=== PATIENT | female | born 1980 | race African-American/Black ===

== ENCOUNTER 2020-10-30 06:16 | Emergency (ER) | payer OTHER, SELFPAY ==
[2020-10-30 06:22] VITALS: BP 135/98; PULSE 100; RESP 16; TEMP 36.3; O2SAT 100
--- NOTE | 2020-10-30 06:25 | ED_ITS ---
HPI - Skin/Abscess/Foreign Bdy General Chief complaint: Skin/Abscess/Foreign Body Stated complaint: Boil on ABD painful Time Seen by Provider: 10/30/20 06:18 History of Present Illness HPI narrative: Patient is a 40-year-old female who presents ER with an abscess to her right suprapubic region. Developed 2 days ago, had some mild drainage yesterday, and increase in pain in size today. No fevers or chills or sweats. Tender to touch and with walking. Has not had similar issues previously. Related Data Allergies Allergy/AdvReac Type Severity Reaction Status Date / Time Penicillins Allergy Mild Rash Verified 02/17/18 15:41 Review of Systems Constitutional: Constitutional: Denies chills and Denies fever(s) Integumentary/Breasts: Comments: Suprapubic abscess with drainage and tenderness. PMFSH Past Medical History Medical History (Updated 10/30/20 @ 06:30 by Dominick Hemphill MD) Healthy female adult Surgical History Surgical History (Updated 10/30/20 @ 06:26 by Dominick Hemphill MD) No history of previous surgery Social History Social History (Updated 10/30/20 @ 06:26 by Dominick Hemphill MD) Smoking status: Never smoker Exam Narrative: Exam Narrative: GENERAL: Well-appearing, well-nourished, and in no acute distress. HEAD: Normocephalic, atraumatic. SKIN: Warm, dry. Abscess right suprapubic region that is tender and ballotable. No surrounding cellulitis. NEURO: Alert and oriented x3. PSYCH: Normal mood and affect. Course Course Emergency Course: Abscess drained and packed. Discharge home with few days of antibiotics. Vital Signs Vital signs: Vital Signs Temperature 97.3 F L 10/30/20 06:22 Pulse Rate 100 10/30/20 06:22 Respiratory Rate 16 10/30/20 06:22 Blood Pressure 135/98 H 10/30/20 06:22 Pulse Oximetry 100 10/30/20 06:22 Temperature 97.3 F L 10/30/20 06:22 Pulse Rate 100 10/30/20 06:22 Respiratory Rate 16 10/30/20 06:22 Blood Pressure 135/98 H 10/30/20 06:22 Pulse Oximetry 100 10/30/20 06:22 Procedures Abscess I/D abdomen: Date of Incision: 10/30/20 Time of Incision: 06:35 Local Anesthetic: lidocaine 1% and with epi Amount of anesthesia used (mL): 5 Technique: incised with #11 blade Irrigation: Yes Packing used?: iodoform I&D Results: Pus Discharge Plan Discharge Clinical Impression: Abscess of skin or subcutaneous tissue Patient Disposition: Home, Self-Care Condition: Stable Instructions: Antibiotic Form, Abscess (ED) Additional Instructions: Return to the ER if you have fever over 100.4 ?F, you have increased pain, you h ave worsening drainage. Remove your packing in 2 days. Prescriptions: New sulfamethoxazole-trimethoprim [Bactrim DS] 800-160 mg tablet 1 tablet PO Q12H Qty: 10 RF: 0 Follow-up/Referrals: PHYSICIAN,BEEF CATTLE SPECIALIST [Primary Care Provider] -
[2020-10-30 06:53] VITALS: BP 135/86; PULSE 95; RESP 16; TEMP 36.4; O2SAT 100
== END 2020-10-30 06:54 | disposition home or self-care (01) ==
LOC: ANHED 06:53
PROVIDERS: Emergency Provider Emergency Medicine; Referring Provider Internal Medicine
DX: L02.219 Cutaneous abscess of trunk, unspecified (principal)
CPT/HCPCS: 10061; 99283

== ENCOUNTER 2020-11-17 01:41 | Emergency (ER) | payer OTHER, SELFPAY ==
[2020-11-17 01:43] VITALS: BP 123/88; PULSE 88; RESP 16; TEMP 35.5; O2SAT 100
--- NOTE | 2020-11-17 01:59 | ED.GENADULT ---
HPI - General Adult General Chief complaint: Headache Stated complaint: migraine Time Seen by Provider: 11/17/20 01:50 History of Present Illness HPI narrative: Patient is a 40-year-old female who presents the emergency department chief complaint of headache. Patient reports that she has history of migraines and has taken her Imitrex without relief. The patient states that this is not the worst headache of her life states this is her typical migraine reports to photophobia and nausea. Patient reports that the symptoms are not improved by anything. Related Data Allergies Allergy/AdvReac Type Severity Reaction Status Date / Time Penicillins Allergy Mild Rash Verified 02/17/18 15:41 Review of Systems Review of Systems: Narrative: A 10 system review of systems was completed on the patient and is negative except for what is stated in the HPI. Nursing and ancillary documentation was reviewed. [facility] Past Medical History Medical History Healthy female adult Surgical History Surgical History No history of previous surgery Social History Social History Smoking status: Never smoker Exam Narrative: Exam Narrative: GENERAL: Well-appearing, well-nourished, and in no acute distress. HEAD: Normocephalic, atraumatic. EYES: PERRLA and EOMI. ENT: Nares clear, no rhinorrhea or epistaxis. Mucous membranes moist. NECK: Supple. CHEST: Clear to auscultation. No respiratory distress. HEART: Regular rate and rhythm. No murmur heard. Normal peripheral pulses. ABDOMEN: Soft, nontender, nondistended, normal active bowel sounds. EXTREMITIES: Normal range of motion. No edema. SKIN: Warm, dry, no rash. NEURO: No focal deficits. Alert and oriented x3. PSYCH: Normal mood and affect. Course Course Emergency Course: Patient is feeling much better at this time Vital Signs Vital signs: Vital Signs Temperature 35.5 C L 11/17/20 01:43 Pulse Rate 88 11/17/20 01:43 Respiratory Rate 16 11/17/20 01:43 Blood Pressure 123/88 11/17/20 01:43 Pulse Oximetry 100 11/17/20 01:43 Temperature 35.5 C L 11/17/20 01:43 Pulse Rate 88 11/17/20 01:43 Respiratory Rate 16 11/17/20 01:43 Blood Pressure 123/88 11/17/20 01:43 Pulse Oximetry 100 11/17/20 01:43 Medical Decision Making Vital Signs Vital Signs: Vital Signs Temperature 35.5 C L 11/17/20 01:43 Pulse Rate 88 11/17/20 01:43 Respiratory Rate 16 11/17/20 01:43 Blood Pressure 123/88 11/17/20 01:43 Pulse Oximetry 100 11/17/20 01:43 Temperature 35.5 C L 11/17/20 01:43 Pulse Rate 88 11/17/20 01:43 Respiratory Rate 16 11/17/20 01:43 Blood Pressure 123/88 11/17/20 01:43 Pulse Oximetry 100 11/17/20 01:43 Discharge Plan Discharge Clinical Impression: Headache Qualifiers: Headache type: unspecified Headache chronicity pattern: acute headache Intractability: not intractable Qualified Code(s): R51.9 - Headache, unspecified Patient Disposition: Home, Self-Care Condition: Improved Instructions: Antibiotic Form, Acute Headache (ED) Prescriptions: No Action sulfamethoxazole-trimethoprim [Bactrim DS] 800-160 mg tablet 1 tablet PO Q12H Qty: 10 RF: 0 Follow-up/Referrals: PHYSICIAN,BOTTLING MACHINE OPERATOR [Primary Care Provider] - Tony Franco MD [Physician] - Time of Disposition: 03:09
[2020-11-17] MEDS: diphenhydrAMINE HCl INJ 50 MG/ML VIAL IV PUSH (02:29)
[2020-11-17] MEDS: KETOROLAC 30 MG/ML VIAL (*BKC) IV PUSH (02:30)
[2020-11-17] MEDS: PROCHLORPERAZINE EDISYLATE 10 MG/2 ML VIAL IM (02:30)
[2020-11-17] MEDS: SODIUM CHLORIDE 0.9% IV 1,000 ML 999 ML IV CONT (02:30)
[2020-11-17 03:20] VITALS: BP 119/86; PULSE 90; RESP 18; O2SAT 96
== END 2020-11-17 03:21 | disposition home or self-care (01) ==
PROVIDERS: Emergency Provider Emergency Medicine
DX: R51.9 Headache, unspecified (principal)
CPT/HCPCS: 96361; 96372; 96374; 96375; 99284; J0780; J1200; J1885; J7030

== ENCOUNTER 2025-02-27 18:21 | Emergency (ER) | payer OTHER, SELFPAY ==
--- NOTE | ~2025-02-27 | CT_ITS ---
CT abdomen pelvis w con Ordering provider: Sweta Ramesh MD History: 44 years Female with . RLQ pain, h/o ovarian cyst . Comparison: None. Technique: CT abdomen and pelvis with IV and without oral contrast. Automated exposure control and it erative reconstruction technique were employed. The dose-length product was 647.92 mGy-cm. 100 mL Omn ipaque 350 was given IV. Findings: VISUALIZED LOWER CHEST: Dependent atelectatic changes. UPPER ABDOMINAL ORGANS: Liver: Normal. Gallbladder: Contracted. Spleen: Normal. Stomach/duodenum: Small sliding hiatus hernia. Pancreas: Normal. Adrenals: Left adrenal adenoma measuring 1.2 cm.. Kidneys: Normal. PELVIC ORGANS: The bladder is normal. Uterus: Soft tissue density with peripheral hypoechoic density is seen posterior to the uterus which measures 6.7 x 6.3 cm and may represent torsion of the ovary versus fibroid versus hemorrhage in the ovary. Leiomyosarcoma is marked excluded although less likely. BOWEL AND MESENTERY: Colon: No evidence of diverticulitis.. Normal appendix. Small Bowel: Normal. No obstruction. Peritoneum/mesentery: No free air or free fluid. No mesenteric lymphadenopathy. RETROPERITONEUM: Normal aorta. No retroperitoneal lymphadenopathy. MUSCULOSKELETAL: Superficial soft tissues: Divarication of the rectus muscles. Otherwise, The superficial soft tissues are normal. Bones: Normal spine. IMPRESSION: 1. Mass seen posterior to the uterus suggestive of torsion ovary. Other differential as described ab ove. Further evaluation advised. 2. No evidence of appendicitis, diverticulitis or intestinal obstruction. 3. Left adrenal adenoma. No follow-up advised unless clinically warranted. Reviewed, dictated and finalized at location A. IMPRESSION: 1. Mass seen posterior to the uterus suggestive of torsion ovary. Other differ ential as described above. Further evaluation advised. 2. No evidence of appendicitis, diverticulitis or intestinal obstruction. 3. Left adrenal adenoma. No follow-up advised unless clinically warranted.
--- NOTE | ~2025-02-27 | US_ITS ---
Pelvic ultrasound. Clinical History: Ovarian torsion Technique: Realtime transabdominal and transvaginal scanning of the pelvis was performed. Color flow Doppler and Doppler spectral analysis were performed. Findings: The uterus is anteverted. The endometrial stripe has a thickness of 10 mm. Small lower cindy rine segment intramural fibroid measures 2.2 cm in maximum diameter. There is a 7.0 x 5.7 x 7.2 cm pr obable exophytic/pedunculated fibroid.. The right ovary measures 3.4 x 2.4 x 1.8 cm. No significant right ovarian or adnexal mass is seen. The left ovary measures 2.2 x 2.4 x 2.1 cm. No significant left ovarian or adnexal mass is seen. Vascular flow present in both ovaries on Doppler spectral analysis. There is no evidence of free fluid in the cul de sac. Impression: Uterine fibroids, including dominant 7.2 cm exophytic/pedunculated fibroid. No evidence for ovarian torsion. Reviewed, dictated and finalized at [facility]. Impression: Uterine fibroids, including dominant 7.2 cm exophytic/pedunculated fibroid. No evidence for ovarian torsion.
--- OUTSIDE RECORDS SUMMARY | 2025-02-27 18:24 | XMS_ITS | Data Portability ---
Author Organization [place] [facility] [employer] Address [address] [place] [address] Care Team Providers Care Oracle Engineer Name Role Phone MEENAKSHI GOEL Chili Maker Assessment Encounter Date Assessment Date Assessment LastModified by Organization Details LastModified Time 04/23/2023 04/23/2023 Medication Changes Just had labs done at [facility] by her specialist. Requesting lab results Linzess continues to be medically necessary as this medication has been the only treatment regimen that has worked and provided improvement with constipation relief. Taking Linzess she is no longer constipated and having regular bowel movements. She had been treated with samples for over 3 months and prior authorization requested. This is a continuation of medication that is medically necessary. Linzess is medically necessary as she is stable on the medication and removing the medication can be a significant harm to her health. It cause irreparable harm should she be stopped on Linzess. Linzess has improved quality of life, allowed her to be active, and stopped all the associated pain, gas, bloating, and debility. She has tried all the medications OTC (Senna, Docusate, Miralax, Ducolax, Prune juice, etc) and none of them have provided a benefit and ended up causing her more pain and suffering. Signs and symptoms of when to seek further care reviewed with patient/caregiver /family/facility staff. Patient to follow up with primary care provider or return to clinic for any worsening signs and symptoms. Always present to ER or Urgent Care with any progression of/alarming symptoms, significant changes in symptoms or any concerning or urgent matters. Patient/caregiver /family/facility staff verbalized agreement and understanding of treatment plan. F/U 6 months, sooner if needed My total encounter time was 30 minutes which was spent in the activities documented in the note. This includes time spent prior to the visit, performing a medically appropriate examination with evaluation, and after the visit in direct care of the patient (history and exam; ordering prescriptions/lab s/imaging/home health/therapy/sp ecialists; communicating results to patient and/or other relative individuals; counseling/educat ing patient; documenting clinical information in patient s chart; coordination of care for the patient). This time does not include time spent in any separately reportable services. [email or web address] Not available 04/24/2023 16:44:11 10/28/2023 10/28/2023 Medication Changes labs to eval levels Signs and symptoms of when to seek further care reviewed with patient/caregiver /family/facility staff. Patient to follow up with primary care provider or return to clinic for any worsening signs and symptoms. Always present to ER or Urgent Care with any progression of/alarming symptoms, significant changes in symptoms or any concerning or urgent matters. Patient/caregiver /family/facility staff verbalized agreement and understanding of treatment plan. F/U 6 months, sooner if needed My total encounter time was 30 minutes which was spent in the activities documented in the note. This includes time spent prior to the visit, performing a medically appropriate examination with evaluation, and after the visit in direct care of the patient (history and exam; ordering prescriptions/lab s/imaging/home health/therapy/sp ecialists; communicating results to patient and/or other relative individuals; counseling/educat ing patient; documenting clinical information in patient s chart; coordination of care for the patient). This time does not include time spent in any separately reportable services. Not available 10/28/2023 12:07:33 05/09/2024 05/09/2024 Medication Changes Amlodipine 2.5 mg q HS Counseled on usage of medication. Discussed the purpose of the medication, the classification of the medication. Counseled on SE, AR, administration. Counseled on risks, benefits, plan, outcome of medication. Significantly elevated readings which is concerning. New onset HTN. Not at goal of less than 140/90. Labs deferred as she is having them done for endocrinology later this month. Will obtain results. Vending Machine Coin Collector referral for further evaluation of palpitations, elevated rate. Signs and symptoms of when to seek further care reviewed with patient/caregiver /family/facility staff. Patient to follow up with primary care provider or return to clinic for any worsening signs and symptoms. Always present to ER or Urgent Care with any progression of/alarming symptoms, significant changes in symptoms or any concerning or urgent matters. Patient/caregiver /family/facility staff verbalized agreement and understanding of treatment plan. F/U 6 months, sooner if needed My total encounter time was 30 minutes which was spent in the activities documented in the note. This includes time spent prior to the visit, performing a medically appropriate examination with evaluation, and after the visit in direct care of the patient (history and exam; ordering prescriptions/lab s/imaging/home health/therapy/sp ecialists; communicating results to patient and/or other relative individuals; counseling/educat ing patient; documenting clinical information in patient s chart; coordination of care for the patient). This time does not include time spent in any separately reportable services. [email or web address] Not available 05/09/2024 18:51:32 02/12/2025 02/12/2025 Hypertension: - Patient currently on amlodipine 2.5 mg PO daily. - Recent blood pressure reading 133/91 - Continue amlodipine 2.5 mg PO daily. - Monitor blood pressure; target is less than 140/90 Anxiety: - Patient currently taking buspirone. - No specific concerns or changes in anxiety symptoms reported. - Continue buspirone as prescribed. Hyperlipidemia: - Patient on ezetimibe and fenofibrate for management of high cholesterol, particularly triglycerides. - Emphasized importance of controlling cholesterol levels due to increased risk of pancreatitis, strokes, and heart attacks. - Continue ezetimibe. - Continue fenofibrate. - Obtain lipid panel. Constipation: - Patient reports constipation, describing it as constant - Has no Linzess and not doing well. - Continue Linzess for constipation. Allergies: - Patient currently taking loratadine (Claritin) for allergy management. - has been doing better with Claritin and Flonase. - Continue loratadine and Flonase Gastroesophageal Reflux Disease (GERD): - Patient currently taking omeprazole for management of acid reflux. - Symptoms controlled with medication. - Continue omeprazole. Migraines: - Patient taking propranolol for migraine prevention. - Reports migraine starting night, but overall experiencing migraines less frequently. - Continue propranolol and Nurtec Order comprehensive metabolic panel, complete blood count, and lipid panel to check levels. Signs and symptoms of when to seek further care reviewed with patient/caregiver /family/facility staff. Patient to follow up with primary care provider or return to clinic for any worsening signs and symptoms. Always present to ER or Urgent Care with any progression of/alarming symptoms, significant changes in symptoms or any concerning or urgent matters. Patient/caregiver /family/facility staff verbalized agreement and understanding of treatment plan. F/U 6 months, sooner if needed My total encounter time was 30-39 minutes which was spent in the activities documented in the note. This includes time spent prior to the visit, performing a medically appropriate examination with evaluation, and after the visit in direct care of the patient (history and exam; ordering prescriptions/lab s/imaging/home health/therapy/sp ecialists; communicating results to patient and/or other relative individuals; counseling/educat ing patient; documenting clinical information in patient s chart; coordination of care for the patient). This time does not include time spent in any separately reportable services. [email or web address] Not available 02/12/2025 10:26:00 Plan of Treatment Reminders Order Date Submit Date Provider Last Modified By Organization Details Last Modified Time Details Appointments F/U 15 - Primary Care 2024 01:25P M Crystal Stone, COUNTY NURSE- Not available Not available Not available Lab unlisted lab - quantifer on(R)-TB gold plus, 1 tube 2024 025 [facility], [address] [place], [address], 02/19/2025 08:42:45 lipid panel, serum 2024 025 [facility] [place] [facility], [address] [place], [address], 02/13/2025 15:50:16 CMP, serum or plasma 2024 025 [facility] [place] [facility], [address] [place], [address], 02/13/2025 15:50:16 CBC 2024 025 [facility], [address] [place], [address], 02/13/2025 15:50:16 magnesium , serum or plasma 2024 025 [facility], [address] [place], [address], 02/13/2025 15:56:32 iron + TIBC + ferritin, serum 2022 023 [facility] [place] [facility], [address] [place], [address], 10/29/2023 11:10:49 vitamin B12 + folate, serum or blood 2022 023 [facility], [address] [place], [address], 10/29/2023 09:10:59 CBC 2022 023 [facility], [address] [place], [address], 10/29/2023 09:09:06 CMP, serum or plasma 2022 023 [facility], [address] [place], [address], 10/29/2023 11:10:50 lipid panel, serum 2022 023 [facility], [address] [place], [address], 10/29/2023 11:10:50 vitamin D, 25-hydrox y, total, serum 2022 023 [facility], [address] [place], [address], 10/29/2023 09:10:59 Referral cardiolog ist referral 2023 024 diego Molina MD, [address], [place], [address], 07/19/2024 10:15:58 Procedures None recorded. Surgeries None recorded. Imaging None recorded. Medication Orders loratadin e 10 mg tablet 2024 025 [facility] #79974, [address] [place] [address], [place], [id number], 02/12/2025 09:22:11 fluticaso ne propionat e 50 mcg/actua tion nasal spray,alcira pension 2024 025 [facility] [address], [place], [id number], 02/12/2025 09:24:49 buspirone 7.5 mg tablet 2024 025 [facility] #63856, [address], [place], [id number], 02/12/2025 09:22:14 ezetimibe 10 mg tablet 2024 025 [facility] #78780, [address], [place], [id number], 02/12/2025 09:22:13 fenofibra te nanocryst allized 145 mg tablet 2024 025 [facility] #59593, [address], [place], [id number], 02/12/2025 09:22:19 pramipexo le 0.75 mg tablet 2024 025 [facility] #52580, [address], [place], [id number], 02/12/2025 09:25:15 Linzess 145 mcg capsule 2024 025 [facility] #05445, [address], [place], [id number], 02/12/2025 09:22:12 propranol ol ER 80 mg capsule,2 4 hr,extend ed release 2024 [facility] #65605, [address], [place], [id number], 02/12/2025 09:22:11 omeprazol e 40 mg capsule,d elayed release 2024 025 [facility] #62505, [address], [place], [id number], 02/12/2025 09:22:12 amlodipin e 2.5 mg tablet 2024 025 [facility]20607, [address], [place], [id number], 02/12/2025 09:22:12 loratadin e 10 mg tablet 2023 024 [facility] #85780, [address], [place], [id number], 05/09/2024 18:52:07 fluticaso ne propionat e 50 mcg/actua tion nasal spray,alcira pension 2023 024 [facility] #12013, [address], [place], [id number], 05/09/2024 18:52:06 ezetimibe 10 mg tablet 2023 024 [facility]34400, [address], [place], [id number], 05/09/2024 18:52:07 fenofibra te nanocryst allized 145 mg tablet 2023 [facility] #63148, [address], [place], [id number], 05/09/2024 18:52:05 buspirone 7.5 mg tablet 2023 [facility] #76412, [address], [place], [id number], 05/09/2024 18:52:06 ondansetr on HCl 4 mg tablet 2023 [facility] #60844, [address], [place], [id number], 05/09/2024 18:52:04 amlodipin e 2.5 mg tablet 2023 024 [facility]16492, [address], [place], [id number], 05/09/2024 18:52:05 omeprazol e 40 mg capsule,d elayed release 2023 024 [facility] #18113, [address], [place], [id number], 05/09/2024 18:52:04 loratadin e 10 mg tablet 2022 024 [facility] #[id number] [place], [id number], 04/29/2024 14:25:57 celecoxib 100 mg capsule [email or web address] #14881, [address], [place], [id number], 05/09/2024 18:42:40 buspirone 7.5 mg tablet 2022 024 [facility]35094, [address], [place], [id number], 04/29/2024 14:25:40 ezetimibe 10 mg tablet 2022 024 [facility] #09098, [address], [place], [id number], 04/29/2024 14:25:56 fenofibra te nanocryst allized 145 mg tablet 2022 024 [facility] #76405, [address], [place], [id number], 04/29/2024 14:25:58 pramipexo le 0.75 mg tablet [address] [place] [address] #27938, [address], [place], [id number], 02/12/2025 09:13:58 Linzess 145 mcg capsule 2022 024 [facility] #91774, [address], [place], [id number], 04/29/2024 14:25:56 Nurtec ODT 75 mg disintegr ating tablet 2022 024 [facility]58241, [address], [place], [id number], 04/29/2024 14:26:10 propranol ol ER 80 mg capsule,2 4 hr,extend ed release 20[address] [place] [address] Store #32499, [address] [place] [address], [place], [id number], 02/12/2025 09:14:04 omeprazol e 40 mg capsule,d elayed release 2022 024 [facility]04518, [address] [place] [address], [place], [id number], 04/29/2024 14:26:16 loratadin e 10 mg tablet [address] [facility]17115, [address] [place] [address], [place], [id number], 04/29/2024 14:25:50 celecoxib 100 mg capsule [address] [facility]54206, [address] [place] [address], [place], [id number], 04/29/2024 14:25:35 buspirone 7.5 mg tablet [address] [facility]33181, [address] [place] [address], [place], [id number], 05/09/2024 18:42:37 ezetimibe 10 mg tablet [address] [facility] #65547, [address] [place] [address], [place], [id number], 04/29/2024 14:25:41 fenofibra te nanocryst allized 145 mg tablet [address] [facility]00827, [address] [place] [address], [place], [id number], 04/29/2024 14:25:44 pramipexo le 0.75 mg tablet [address] [facility] #12791, [address] [place] [address], [place], [id number], 04/29/2024 14:26:09 Linzess 145 mcg capsule [address] [facility] #10561, [address] [place] [address], [place], [id number], 04/29/2024 14:25:46 Nurtec ODT 75 mg disintegr ating tablet [address] [facility] #78611, [address] [place] [address], [place], [id number], 04/29/2024 14:26:00 propranol ol ER 80 mg capsule,2 4 hr,extend ed release [address] [facility]96829, [address], [place], [id number], 04/29/2024 14:26:11 omeprazol e 40 mg capsule,d elayed release [address] [facility]53697, [address], [place], [id number], 04/29/2024 14:26:03 Patient TargetsNo targets recorded. Patient Instructions Encounter Date Encounter Id Patient Instructions Last Modified By Organization Details Last Modified Time 04/23/2023 [id number] weight managemen t education Not available 04/23/2023 13:44:18 Reason for Referral Vending Machine Coin Collector Referral for Ca rdiac arrhythmia Referring Physician: Rema Bernardo, Internal Medicine, Encounter Date: 05/09/2024 Results Created Date Observation Date Name Description Value Unit Range Abnormal Flag Note LastModifiedBy Organization Detail LastModifiedTime 10/28/20 23 10/29/2023 CBC (H/H, RBC, INDIC ES, WBC, PLT) white blood cell count 7.8 thous and/u L 3.8-10 .8 normal Not Available [facility] [address], [address], 10/29/2023 09:09:06 10/28/2010/29/2023 CBC (H/H, RBC, INDIC ES, WBC, PLT) red blood cell count 3.91 bry on/uL 3.80-5 .10 normal Not Available [address], [address], 10/29/2023 09:09:06 10/28/2010/29/2023 CBC (H/H, RBC, INDIC ES, WBC, PLT) hemoglobin 12.1 g/dL 11.7-1 5.5 normal Not Available [address], [address], 10/29/2023 09:09:06 10/28/2010/29/2023 CBC (H/H, RBC, INDIC ES, WBC, PLT) hematocrit 37.8 % 35.0-4 5.0 normal Not Available [facility] [address], [address], 10/29/2023 09:09:06 10/28/2010/29/2023 CBC (H/H, RBC, INDIC ES, WBC, PLT) MCV 96.7 fL 80.0-1 00.0 normal Not Available [facility] [address], [address], 10/29/2023 09:09:06 10/28/2010/29/2023 CBC (H/H, RBC, INDIC ES, WBC, PLT) MCH 30.9 pg 27.0-3 3.0 normal Not Available [facility] [address], [address], 10/29/2023 09:09:06 10/28/2010/29/2023 CBC (H/H, RBC, INDIC ES, WBC, PLT) MCHC 32.0 g/dL 32.0-3 6.0 normal Not Available [facility] [address] [address], [place], [address], 10/29/2023 09:09:06 10/28/2010/29/2023 CBC (H/H, RBC, INDIC ES, WBC, PLT) RDW 12.2 % 11.0-1 5.0 normal Not Available [address], [address], 10/29/2023 09:09:06 10/28/2010/29/2023 CBC (H/H, RBC, INDIC ES, WBC, PLT) platelet count 358 thous and/u L 140-40 0 normal Not Available [address], [address], 10/29/2023 09:09:06 10/28/2010/29/2023 CBC (H/H, RBC, INDIC ES, WBC, PLT) MPV 9.8 fL 7.5-12 .5 normal Not Available [address], [address], 10/29/2023 09:09:06 10/28/2010/29/2023 IRON, TIBC AND JUAN LUIS TIN PANEL iron, total 78 mcg/d L 40-190 normal Not Available [address], [address], 10/29/2023 11:21:45 10/28/2010/29/2023 IRON, TIBC AND JUAN LUIS TIN PANEL iron binding capacity 365 mcg/d L_(ca lc) 250-45 0 normal Not Available [address], [address], 10/29/2023 11:21:45 10/28/20 23 10/29/2023 IRON, TIBC AND JUAN LUIS TIN PANEL % saturation 21 %_(ca lc) 16-45 normal Not Available [address], [address], 10/29/2023 11:21:45 10/28/20 23 10/29/2023 IRON, TIBC AND JUAN LUIS TIN PANEL ferritin 18 NG/mL 16-232 normal Not Available [address], [address], 10/29/2023 11:21:45 10/28/20 23 10/29/2023 LIPID PANEL , STAND JOSEFINA cholesterol, total 134 mg/dL <200 normal Not Available [place] [address] [place], [address], 10/29/2023 11:21:46 10/28/20 23 10/29/2023 LIPID PANEL , STAND JOSEFINA HDL cholesterol 41 mg/dL > or = 50 low Not Available [address], [address], 10/29/2023 11:21:46 10/28/20 23 10/29/2023 LIPID PANEL , STAND JOSEFINA triglyceride s 110 mg/dL <150 normal Not Available [address], [address], 10/29/2023 11:21:46 10/28/20 23 10/29/2023 LIPID PANEL , STAND JOSEFINA LDL-choleste rol 73 mg/dL _(girma c) normal Refer ence range : <100 Suzi able range <100 mg/dL for prima ry preve ntion ; <70 mg/dL for patie nts with CHD or diabe tic patie nts with > or = 2 CHD risk facto rs. LDL-C is now calcu lated using the Viki n-Hop kins maycolu laura n, which is a valid ated novel cedrick suazo than the Fried albert equat ion in the estim ation of LDL-C . Viki knight SS et al. TAMICA. 2013; 310(1 9): 2061- 2068 (http ://ed ucati on.Qu estDi SUNDAYTOZs. com/f aq/FA Q164) Not Available [facility] [address] [place], [address], 10/29/2023 11:21:46 10/28/20 23 10/29/2023 LIPID PANEL , STAND JOSEFINA chol/HDLC ratio 3.3 (calc ) <5.0 normal Not Available [address], [address], 10/29/2023 11:21:46 10/28/20 23 10/29/2023 LIPID PANEL , STAND JOSEFINA non HDL cholesterol 93 mg/dL _(girma c) <130 normal For patie nts with diabe kassy plus 1 major ASCVD risk facto r, treat ing to a non-H DL-C goal of <100 mg/dL (LDL- C of <70 mg/dL ) is consi radha a thera peca c optio n. Not Available [address], [address], 10/29/2023 11:21:46 10/28/20 23 10/29/2023 COMPR EHENS ESTEVAN METAB OLIC PANEL glucose 90 mg/dL 65-99 normal Fasti ng refer ence inter latoya Not Available [address] [address] [place], [address], 10/29/2023 11:21:46 10/28/20 23 10/29/2023 COMPR EHENS ESTEVAN METAB OLIC PANEL urea nitrogen (BUN) 10 mg/dL 7-25 normal Not Available [address], [address], 10/29/2023 11:21:46 10/28/20 23 10/29/2023 COMPR EHENS ESTEVAN METAB OLIC PANEL creatinine 0.84 mg/dL 0.50-0 .99 normal Not Available [address] [address] [place], [address], 10/29/2023 11:21:46 10/28/20 23 10/29/2023 COMPR EHENS ESTEVAN METAB OLIC PANEL eGFR 89 mL/mi n/1.7 3m2 > or = 60 normal Not Available [address] [address] [place], [address], 10/29/2023 11:21:46 10/28/20 23 10/29/2023 COMPR EHENS ESTEVAN METAB OLIC PANEL BUN/creatini ne ratio SEE NOTE: (calc ) 6-22 Not Repor sheba: BUN and Creat inine are withi n refer ence range . Not Available [address] [address] [place], [address], 10/29/2023 11:21:46 10/28/20 23 10/29/2023 COMPR EHENS ESTEVAN METAB OLIC PANEL sodium 139 mmol/ L 135-14 6 normal Not Available [address], [address], 10/29/2023 11:21:46 10/28/20 23 10/29/2023 COMPR EHENS ESTEVAN METAB OLIC PANEL potassium 4.4 mmol/ L 3.5-5. 3 normal Not Available [address], [address], 10/29/2023 11:21:46 10/28/20 23 10/29/2023 COMPR EHENS ESTEVAN METAB OLIC PANEL chloride 105 mmol/ L 98-110 normal Not Available [address], [address], 10/29/2023 11:21:46 10/28/20 23 10/29/2023 COMPR EHENS ESTEVAN METAB OLIC PANEL carbon dioxide 29 mmol/ L 20-32 normal Not Available [address], [address], 10/29/2023 11:21:46 10/28/20 23 10/29/2023 COMPR EHENS ESTEVAN METAB OLIC PANEL calcium 9.3 mg/dL 8.6-10 .2 normal Not Available [facility] [address] [address], [place], [address], 10/29/2023 11:21:46 10/28/20 23 10/29/2023 COMPR EHENS ESTEVAN METAB OLIC PANEL protein, total 7.1 g/dL 6.1-8. 1 normal Not Available [address], [address], 10/29/2023 11:21:46 10/28/20 23 10/29/2023 COMPR EHENS ESTEVAN METAB OLIC PANEL albumin 4.4 g/dL 3.6-5. 1 normal Not Available [address], [address], 10/29/2023 11:21:46 10/28/20 23 10/29/2023 COMPR EHENS ESTEVAN METAB OLIC PANEL globulin 2.7 g/dL_ (calc ) 1.9-3. 7 normal Not Available [address], [address], 10/29/2023 11:21:46 10/28/20 23 10/29/2023 COMPR EHENS ESTEVAN METAB OLIC PANEL albumin/glob ulin ratio 1.6 (calc ) 1.0-2. 5 normal Not Available [address], [address], 10/29/2023 11:21:46 10/28/20 23 10/29/2023 COMPR EHENS ESTEVAN METAB OLIC PANEL bilirubin, total 0.6 mg/dL 0.2-1. 2 normal Not Available [address], [address], 10/29/2023 11:21:46 10/28/20 23 10/29/2023 COMPR EHENS ESTEVAN METAB OLIC PANEL alkaline phosphatase 77 U/L 31-125 normal Not Available [place] [address] [address] [place], [address], 10/29/2023 11:21:46 10/28/20 23 10/29/2023 COMPR EHENS ESTEVAN METAB OLIC PANEL AST 14 U/L 10-30 normal Not Available [address] [place], [address], 10/29/2023 11:21:46 10/28/20 23 10/29/2023 COMPR EHENS ESTEVAN METAB OLIC PANEL ALT 12 U/L 6-29 normal Not Available [address] [address] [place], [address], 10/29/2023 11:21:46 10/28/20 23 10/29/2023 VITAM IN B12/F OLATE , SERUM PANEL vitamin B12 975 pg/mL 200-11 00 normal Not Available [address], [address], 10/29/2023 11:04:05 10/28/20 23 10/29/2023 VITAM IN B12/F OLATE , SERUM PANEL folate, serum >24.0 NG/mL normal Refer ence Range Low: <3.4 Borde rline : 3.4-5 .4 Keerthi l: >5.4 Not Available [address], [address], 10/29/2023 11:04:05 10/28/20 23 10/29/2023 VITAM IN D,25- OH,TO STEVE,I A vitamin D,25-oh,tota l,ia 27 NG/mL 30-100 low Vitam in D Statu s 25-OH Vitam in D: Defic iency : <20 ng/mL Insuf ficie ncy: 20 - 29 ng/mL Optim al: > or = 30 ng/mL For 25-OH Vitam in D testi ng on patie nts on D2-cervantes pplem entat ion and patie nts for whom quant itati on of D2 and D3 fract ions is requi red, the [facility](TM ) 25-OH VIT D, (D2,D 3), LC/MS /MS is recom scott d: order code 70631 (mauricio ents >2yrs ). See Note 1 Note 1 For addit ional infor clark matos refer to http: //tyrone dislaost ics.c om/fa q/FAQ 199 (This link is being provi ded for infor paresh quevedo/ educfarideh aguirre purpo ses only. ) Not Available [facility] [address], [place], [address], 10/29/2023 11:04:06 11/26/19 24 11/26/2023 MRI, brain , w/o contr ast No observ ation record ed. Neurology Dept [facility] (New Referrals) [address] [place], [address], 11/26/2023 11:21:01 01/27/20 25 01/26/2025 XR, lumba r spine No observ ation record ed. [facility] [address] [place], [address], 01/26/2025 16:13:16 02/15/20 25 02/09/2025 MRI, hip, w/o contr ast No observ ation record ed. Not Available 09:13:52 Result Notes None recorded. Problems Name Problem SNOMED Code Status Onset Date Resolution Date Notes Provider Name and Address Organization Details Recorded Time Tachycardia 6476022 Active 2020 NA Quinonez, PMHNP-BC [address] [place], [address], [facility] 3 10:03:56 Hyperlipidemia 00768377 Active 2020 NA Quinonez, PMHNP-BC [address] [place], [address], [facility] - [facility] 3 10:03:56 Osteoarthritis of knee 195852729 Active 2020 Crystal L. Stone, COUNTY NURSE-BC, PMHNP-BC [address], [place], [address], [facility] - [facility] 3 10:03:56 Migraine 93805711 Active 2020 Crystal Stephane Bernardo COUNTY NURSE-BC, PMHNP-BC [address], [place], [address], [facility] - [facility] 3 10:03:56 Vitamin D deficiency 75165887 Active 2020 Rema Bernardo, COUNTY NURSE-BC, PMHNP-BC [address], [place], [address], [facility] 3 10:03:56 Anxiety 01351978 Active 2020 Crystal Stephane Bernardo COUNTY NURSE-BC, PMHNP-BC [address], [place], [address], [facility] 3 10:03:56 Elevated blood-pressure reading without diagnosis of hypertension 135824216 Active 2020 Rema Bernardo, COUNTY NURSE-BC, PMHNP-BC [address], [place], [address], [facility] 3 10:03:56 Restless legs 85584025 Active 2020 Rema Bernardo, COUNTY NURSE-BC, PMHNP-BC [address], [place], [address], [facility] 3 10:03:56 Gastroesophage al reflux disease without esophagitis 367630258 Active 2020 Crystal Stephane Bernardo, COUNTY NURSE-BC, PMHNP-BC [address], [place], [address], [facility] 3 10:03:56 Constipation 16357150 Active 2021 Crystal Stephane Bernardo, COUNTY NURSE-BC, PMHNP-BC [address], [place], [address], [place] [facility] 3 10:03:56 Nasal congestion 71175030 Active 2021 MAURICE QuinonezP-BC, PMHNP-BC [address] [place], [address], [facility] 3 10:03:56 Essential hypertension 99163309 Active 2023 NIESHA Qunionez-TIM, PMHNP-BC [address] [place], [address], [facility] 4 18:50:55 Problem Notes None recorded. Procedures Surgical History Date Name Laterality Status Provider Name and Address Organization Details Recorded Time ligation of fallopian tube completed QUIN OLSON [facility] 01/30/2021 11:02:59 Imaging Results Imaging Date Name Status LastModified by Organiz ation Details LastModified Time 11/26/2023 MRI, brain, w/o contrast completed [email or web address] Neurology Dept [facility] (New Referrals) [address] [place], [address], 11/26/2023 11:21:01 01/26/2025 XR, lumbar spine completed [address], [address], 01/26/2025 16:13:16 02/09/2025 MRI, hip, w/o contrast completed [email or web address] Information not available 02/19/2025 09:13:52 Procedure Notes None recorded. Medical Equipment None Reported. Allergies Allergen ID Allergen Name Allergen Category Reaction Reaction Severity Criticality Documentation Date Start Date Code Code System Note Provider Name and Address Organization Details Recorded Time 3435 Product containin g penicilli n (product) medicatio n Not available Not available Not available 01/30/2021 69060 8001 SNOMED NIESHA Quinonez-BC, PMHNP-BC [address] [place], [address], [facility] 1 11:35:28 Medications Name Sig Start Date Stop Date Status Note LastModified by Organization Details LastModified Time cyclobenzap rine 10 mg tablet 12/25 completed Not Available Not Available Not Available atorvastati n 40 mg tablet Take 1 tablet every day by oral route at bedtime. 07/11 completed Not Available Not Available Not Available buspirone 5 mg tablet TAKE 1 TABLET BY MOUTH EVERY DAY AT BEDTIME 01/30 completed Not Available Not Available Not Available doxycycline hyclate 100 mg capsule 05/09 completed Not Available Not Available Not Available propranolol 80 mg tablet Take 1 tablet orally daily x 7 days then increase to 1 tablet BID 03/07 completed Not Available Not Available Not Available atorvastati n 20 mg tablet TAKE 1 TABLET BY MOUTH EVERY OTHER DAY AT BEDTIME 07/11 completed Not Available Not Available Not Available fluconazole 200 mg tablet 04/17 completed Not Available Not Available Not Available meloxicam 15 mg tablet TAKE 1/2 TABLET BY MOUTH ONCE DAILY FOR 7 DAYS THEN INCREASE TO TAKE 1 TABLET BY MOUTH ONCE DAILY THEREAFTE R 08/22 completed Not Available Not Available Not Available phenazopyri dine 200 mg tablet TK 1 T PO TID FOR 2 DAYS PRN 10/28 completed Not Available Not Available Not Available ondansetron HCl 4 mg tablet Take 1 tablet every day by oral route as needed for 30 days. active Not Available Not Available No t Available sumatriptan 50 mg tablet TAKE 1 TABLET BY MOUTH AT ONSET OF HEADACHE. MAY REPEAT IN 1 HOUR IF MIGRAINE CONTINUES . MAX OF 4 TABLETS PER 24 HOURS 01/30 completed Not Available Not Available Not Available triamcinolo ne acetonide 0.5 % topical ointment MANUELA THIN LAYER EXT AA BID 12/10 completed Not Available Not Available Not Available amlodipine 2.5 mg tablet Take 1 tablet every day by oral route at bedtime for 90 days. 2024 active Not Available Not Available Not Avai lable metronidazo le 500 mg tablet 04/17 completed Not Available Not Available Not Available acetaminoph en 300 mg-codeine 30 mg tablet Take 1 tablet twice a day by oral route as needed for 30 days. 12/25 completed Not Available Not Available Not Available sulfamethox azole 800 mg-trimetho prim 160 mg tablet TAKE 1 TABLET BY MOUTH EVERY 12 HOURS 01/30 completed Not Available Not Available Not Available omeprazole 40 mg capsule,del ayed release TAKE 1 CAPSULE BY MOUTH EVERY DAY 2024 active Not Available Not Available Not Avai lable nortriptyli ne 25 mg capsule active Not Available Not Available Not Available erythromyci n 5 mg/gram (0.5 %) eye ointment 05/09 completed Not Available Not Available Not Available propranolol ER 80 mg capsule,24 hr,extended release Take 1 capsule twice a day by oral route for 90 days. 2024 active Not Available Not Available Not Avai lable buspirone 7.5 mg tablet Take 1 tablet twice a day by oral route for 90 days. 2024 active Not Available Not Available Not Avai lable celecoxib 100 mg capsule TAKE 1 CAPSULE BY MOUTH TWICE DAILY active Not Available Not Available No t Available fluticasone propionate 50 mcg/actuati on nasal spray,suspe nsion SHAKE LQ AND U 1 SPR IEN QD FOR 30 DAYS 2024 active Not Available Not Available Not Avai lable metformin ER 500 mg tablet,exte nded release 24 hr Take 1 tablet twice a day by oral route. active Not Available Not Available No t Available loratadine 10 mg tablet Take 1 tablet every day by oral route for 90 days. 2024 active Not Available Not Available Not Avai lable naproxen 500 mg tablet 12/25 completed Not Available Not Available Not Available spironolact one 50 mg tablet 04/29 completed Not Available Not Available Not Available ezetimibe 10 mg tablet Take 1 tablet every day by oral route for 90 days. 2024 active Not Available Not Available Not Avai lable cyclobenzap rine 5 mg tablet TAKE 1 TABLET BY MOUTH TWICE DAILY NEEDED 04/17 completed Not Available Not Available Not Available metoprolol tartrate 25 mg tablet TK 1 T PO QD [facility] 01/30 completed Not Available Not Available Not Available topiramate 50 mg tablet TK 1 T PO BID 01/30 completed Not Available Not Available Not Available nitrofurant oin monohydrate /macrocryst als 100 mg capsule TK 1 C PO Q 12 H FOR 5 DAYS 10/28 completed Not Available Not Available Not Available fenofibrate nanocrystal lized 145 mg tablet Take 1 tablet every day by oral route at bedtime for 90 days. 2024 active Not Available Not Available Not Avai lable cholecalcif matti (vitamin D3) 1,250 mcg (50,000 unit) capsule Take 1 capsule every week by oral route. 12/25 completed Not Available Not Available Not Available pramipexole 0.75 mg tablet Take 0.5 tablets every day by oral route at bedtime for 90 days. 2024 active Not Available Not Available Not Avai lable Linzess 145 mcg capsule active Not Available Not Available Not Available Nurtec ODT 75 mg disintegrat ing tablet Take 1 tablet every other day by oral route for 90 days. active Not Available Not Available No t Available Qulipta 30 mg tablet TAKE 1 TABLET BY MOUTH EVERY DAY 05/23 completed Not Available Not Available Not Available Vitals Date Recorded Body height Body mass index (BMI) Body weight Heart rate Respiratory rate Oxygen saturation Oxygen saturation in Arterial blood by Pulse oximetry Body temperature Pain severity - 0-10 verbal numeric rating [Score] - Reported Systolic blood pressure Diastolic blood pressure Provider Name and Address Organization Details Last Updated DateTime 3 175.26 cm 26.4 kg/m2 81860.3 9 g 87 /min 16 /min 99 % 99 % 97.6 [degF] 0 136 mm[Hg] 88 mm[Hg] Richa Weiss [facility] 3 10:00:33 Date Recorded Body height Body mass index (BMI) Body weight Body temperature Pain severity - 0-10 verbal numeric rating [Score] - Reported Heart rate Respiratory rate Oxygen saturation Oxygen saturation in Arterial blood by Pulse oximetry Systolic blood pressure Diastolic blood pressure Provider Name and Address Organization Details Last Updated DateTime 3 175.26 cm 28.2 kg/m2 65776.4 2 g 97.5 [degF] 0 76 /min 18 /min 100 % 100 % 122 mm[Hg] 84 mm[Hg] Layo Montesinos [facility] 3 11:51:00 Date Recorded Body height Body temperature Oxygen saturation Oxygen saturation in Arterial blood by Pulse oximetry Heart rate Respiratory rate Pain severity - 0-10 verbal numeric rating [Score] - Reported Body mass index (BMI) Body weight Systolic blood pressure Diastolic blood pressure Systolic blood pressure Diastolic blood pressure Provider Name and Address Organization Details Last Updated DateTime 4 172.72 cm 98.1 [degF] 99 % 99 % 107 /min 17 /min 0 29.1 kg/m2 11475.5 8 g 147 mm[Hg] 104 mm[Hg] 138 mm[Hg] 101 mm[Hg] Radha Willson [facility] 4 16:30:08 Date Recorded Body height Pain severity - 0-10 verbal numeric rating [Score] - Reported Body temperature Oxygen saturation Oxygen saturation in Arterial blood by Pulse oximetry Respiratory rate Heart rate Body mass index (BMI) Body weight Systolic blood pressure Diastolic blood pressure Provider Name and Address Organization Details Last Updated DateTime 5 172.72 cm 5 97.9 [degF] 100 % 100 % 16 /min 109 /min 28.3 kg/m2 61045.6 2 g 133 mm[Hg] 91 mm[Hg] Radha Willson [facility] 5 09:07:36 Social History Question Answer Notes LastModified by Organizat ion Details LastModified Time Tobacco Smoking Status Never Smoker QUIN OLSON [facility] 01/30/2021 10:58:17 Do You Have An Advance Directive? No Information not available 01/30/2021 What Is Your Level Of Alcohol Consumption? Occasional [email or web address] Information not available 01/30/2021 How Many Times Per Week Do You Consume Alcohol? Less Than 1 Time Per Week Information not available 05/09/2024 How Many Years Have You Consumed Alcohol? 11 [email or web address] Information not available 05/09/2024 Are You Currently Sexually Active With Anyone Who Has Traveled (within The Last 12 Weeks) To A Zika-affected Area? No [email or web address] Information not available 01/30/2022 Do You Wear A Helmet When Biking? No [email or web address] Information not available 01/30/2022 Are You Blind Or Do You Have Difficulty Seeing? No [email or web address] Information not available 01/30/2022 Is Blood Transfusion Acceptable In An Emergency? Yes [email or web address] Information not available 07/10/2022 What Is Your Level Of Caffeine Consumption? None [email or web address] Information not available 01/30/2021 How Much Tobacco Do You Chew? None [email or web address] Information not available 01/30/2021 What Type Of Farm Supervisor Do You Use? None [email or web address] Information not available 01/30/2022 What Is Your Code Status? Full Code [email or web address] Information not available 01/30/2022 In The 14 Days Before Symptom Onset, Have You Had Close Contact With A Laboratory-confir med COVID-19 While That Case Was Ill? No [email or web address] Information not available 01/30/2022 In The 14 Days Before Symptom Onset, Have You Had Close Contact With A Person Who Is Under Investigation For COVID-19 While That Person Was Ill? No [email or web address] Information not available 01/30/2022 Have You Been To An Area Known To Be High Risk For COVID-19? No [email or web address] Information not available 01/30/2022 Are You Currently Employed? Yes [email or web address] Information not available 01/30/2021 Are You Deaf Or Do You Have Serious Difficulty Hearing? No [email or web address] Information not available 01/30/2022 What Type Of Diet Are You Following? REGULAR [email or web address] Information not available 01/30/2021 Which Illicit Or Recreational Drugs Have You Used? Marjuana gtsecsuqj64 Information not available 01/30/2022 Have You Processed Blood Or Body Fluids From An Ebola Virus Disease Patient Without Appropriate PPE? No [email or web address] Information not available 01/30/2022 Do You Reside In Or Have You Traveled To An Area Where Ebola Virus Transmission Is Active? No [email or web address] Information not available 01/30/2022 Do You Or Have You Ever Used E-cigarettes Or Vape? Never Used Electronic Cigarettes [email or web address] Information not available 01/30/2021 Education 12 [email or web address] Information no t available 01/30/2021 What Is The Highest Grade Or Level Of School You Have Completed Or The Highest Degree You Have Received? 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 7 [email or web address] Information not available 01/30/2022 On Those Days That You Engage In Moderate To Strenuous Exercise, How Many Minutes, On Average, Do You Exercise? 60 spvjuazzq77 Information not available 01/30/2022 How Many Times Per Week Do You Exercise? 5-7 Times Per Week Information not available 07/10/2022 Have There Been Any Changes To Your Family Or Social Situation? No [email or web address] Information no t available 01/30/2022 What Is The Fluoride Status Of Your Home? Unknown [email or web address] Information not available 01/30/2022 Are There Any Guns Present In Your Home? No [email or web address] Information not available 01/30/2021 Which Of Your Hands Is Dominant? Right [email or web address] Information not available 01/30/2022 Hard Of Hearing Or Deaf In One Or Both Ears? No [email or web address] Information not available 01/30/2021 Have You Recently Or Are You Planning To Travel To An Area With Zika Virus? No [email or web address] Information not available 01/30/2022 How Many Years Have You Used Illicit Or Recreational Drugs? 10 [email or web address] Information not available 05/09/2024 Do You Use Insect Repellent Routinely? Yes Information not available 01/30/2022 Legally Blind In One Or Both Eyes? No [email or web address] Information no t available 01/30/2021 Live Alone Or With Others? With Others Information not available 01/30/2021 Have You [place] Unsteady Or Fallen More Than Once In The Past Year? No [email or web address] Information not available 02/12/2025 Can You Switch A Light On/off Easily From Your Bed Without Fear Of Falling? Yes Information not available 02/12/2025 Are Floors And Walkways In Your Home Safe And In Good Repair? Yes [email or web address] Information not available 02/12/2025 Is It Difficult To Get Out Of Bed Without Assistance? No [email or web address] Information not available 02/12/2025 Is It Difficult To Get Up From Sitting In A Chair Without Assistance? No [email or web address] Information not available 02/12/2025 Is It Difficult To Get Up From Sitting On The Toilet Without Assistance? No golmsbdnum784 Information not available 02/12/2025 Is The Lighting In Your Home Sufficient To See Safely? Yes [email or web address] Information not available 02/12/2025 Do You Have A History Of Falling? No [email or web address] Information not available 02/12/2025 Is Your Gait (walking Style) Regular? Yes [email or web address] Information not available 02/12/2025 Have You Had A Colonoscopy Or Colorectal Cancer Screening? If So What Was The Date? No ffyhqxiika146 Information not available 02/12/2025 Have You Had A Dexa (bone Density) Scan? If So What Was The Date? No [email or web address] Information not available 02/12/2025 Have You Had A Full Body Skin Cancer Exam? If So What Was The Date? No [email or web address] Information not available 02/12/2025 Have You Had A Hepatitis C Screening? If So What Was The Date? No Information not available 02/12/2025 Have You Had An Eye Exam? If So What Was The Date? 2023 [email or web address] Information not available 02/12/2025 Do You Have A Medical Power Of Data Communications Analyst? No [email or web address] Information not available 01/30/2022 What Was The Date Of Your Most Recent Tobacco Screening? 02/12/2025 [email or web address] Information not available 02/12/2025 How Many Children Do You Have? 5 Information not available 01/30/2021 Have You Ever Been Counseled For Unhealthy Alcohol Use? No [email or web address] Information not available 07/10/2022 Performs Monthly Self-breast Exam? Yes [email or web address] Information no t available 01/30/2021 Do You Have Any Pets? No bykgtbumm79 Information not available 01/30/2022 Do You Use Protection During Sex? No Information not available 01/30/2022 What Is Your Relationship Status? Domestic Partner [email or web address] Information not available 01/30/2022 Do You Use Your Seat Belt Or Car Seat Routinely? Yes Information not available 01/30/2022 Seat Belts Used Routinely Yes [email or web address] Information not available 01/30/2021 Are You Sexually Active? Yes [email or web address] Information not available 01/30/2022 Smoke Alarm In Home Yes [email or web address] Information not available 01/30/2021 Do You Have Smoke And Carbon Monoxide Detectors In Your Home? Yes eewxarzyz41 Information not available 01/30/2022 Are You Passively Exposed To Smoke? Yes jhdxxibi71 Information no t available 01/30/2021 Do You Or Have You Ever Used Smokeless Tobacco? Never Used Smokeless Tobacco fubxxmmj77 Information not available 01/30/2021 How Much Tobacco Do You Smoke? No [email or web address] Information not available 01/30/2021 Do You Participate In Social Media? Yes [email or web address] Information not available 07/10/2022 What Types Of Sporting Activities Do You Participate In? [place]/Walkin g/Steps/Bicycl e euacgzjuz81 Information not available 01/30/2022 General Stress Level High [email or web address] Information not available 01/30/2021 Do You Feel Stressed (tense, Restless, Nervous, Or Anxious, Or Unable To Sleep At Night)? [id number] Information not available 01/30/2022 Do You Use Any Illicit Or Recreational Drugs? Yes zilsxjfva67 Information not available 01/30/2022 Do You Use Sunscreen Routinely? No fjidikwu48 Information not available 01/30/2021 How Many Years Have You Smoked Tobacco? 0 [email or web address] Information not available 01/30/2021 Have You Recently Traveled Abroad? No sanqzbtzu64 Information not available 01/30/2022 Have You Used IV Drugs? No vmfllgyal87 Information not available 01/30/2022 Are You Currently In School? No retgcligo50 Information not available 01/30/2022 Do You Have Any Dietary Restrictions? No wuxopmikr11 Information not available 01/30/2022 Do You Or Have You Ever Used Any Other Forms Of Tobacco Or Nicotine? No hafmgpuyd57 Information not available 01/30/2022 Sex: Female Functional Status Question Answer Note LastModified by Organizat ion Details LastModified Time Do you have difficulty walking or climbing stairs? No [email or web address] Information not available 01/30/2022 Do you have transportation difficulties? No njayodpdz55 Information not available 01/30/2022 Are you able to walk? YESWOREST bxfwpopl77 Information not available 01/30/2021 Do you have difficulty doing errands alone? No pwjuzgpwl38 Information not available 01/30/2022 Are you able to care for yourself? Yes Information not available 01/30/2021 Do you have difficulty dressing or bathing? No pcotmfidx60 Information not available 01/30/2022 What is your exercise level? Moderate lskqepzhr12 Information not available 01/30/2022 Mental Status Question Answer Note LastModified by Organization D etails LastModified Time Do you have difficulty concentrating, remembering or making decisions? No [email or web address] Information no t available 01/30/2022 Family History Relationship Description Onset Age of this Age Resolved Age Notes LastModified by Organization Details LastModified Time Father Family history of stroke [email or web address] Not available 01/30 10:57:13 Father Hypertensive disorder [email or web address] Not available 01/30 10:57:53 Mother Family history of stroke [email or web address] Not available 01/30 10:57:28 Mother Hypertensive disorder edejeqea63 Not available 01/30 10:58:01 Medical History Condition Response Anxiety Disorder Y AICD / Pacemaker N Genitourinary Diseases / Disorders () Y Infectious Disease/Disorders/Virus Y Chronic pain Y Cardiac Diseases / Disorders Y Allergies/Hayfever Y Endocrine Diseases / Disorders Y Gastrointestinal Diseases / Disorders Y Hyperlipidemia Y Gynecological History Statement/Question Response Current Control Method Tubal Ligat ion Possibility of ? N Date of LMP 11/28/2022 LMP Approximate Obstetrics History GPAL:G 0 P 5 0 0 5 Type Value Full Term 5 Living 5 Immunizations Vaccine Type Date Status Note Provider Nam e and Address Organization Details Recorded Time Influenza, split virus, quadrivalent, PF 1 completed Annmarie fitzgerald, [facility] 08/22/2021 12:18:52 Influenza, split virus, quadrivalent, PF 2 completed Rema Bernardo, COUNTY NURSE-BC, PMHNP-BC [address] [place], [address], [facility] 07/10/2022 10:38:27 pneumococcal polysaccharide PPV23 2 completed Rema Bernardo, [facility], PMHNP-BC [address] [place], [address], [facility] 07/10/2022 10:38:27 Influenza, split virus, quadrivalent, PF 3 completed Not Available [facility] 09/06/2023 14:26:32 COVID-19, mRNA, LNP-S, PF, 30 mcg/0.3 mL dose 1 completed Reggie fitzgerald, [facility] 07/10/2022 08:59:42 COVID-19, mRNA, LNP-S, PF, 30 mcg/0.3 mL dose 1 completed Reggie fitzgerald, [facility] 07/10/2022 09:00:22 COVID-19, mRNA, LNP-S, PF, 30 mcg/0.3 mL dose 2 completed Reggie fitzgerald, [facility] 07/10/2022 09:00:33 Past Encounters Encounter ID Performer Location Encounter Start Date Encounter Closed Date Diagnosis/Indication Diagnosis SNOMED-CT Code Diagnosis ICD10 Code Diagnosis Note [id number] Rema Bernardo [facility]-, PMHNP- Main Office [address] [place] [address] 01/30/2021 10:45:48 01/30/2021 12:44:21 Hyperlipidemia 31870694 E78.5 Tachycardia 3922961 R00. 0 Migraine 26388087 G43.90 9 Vitamin D deficiency 347 44681 E55.9 Anxiety 61221384 F41.9 Osteoarthr itis of knee 829992765 M17.0 Restless legs 13150591 G 25.81 Left-sided piriformis syndrome 2640653507 09013 M54.32 [id number] Rema Bernardo [facility], PMHNP- Main Office [address] [place] [address] 03/07/2021 10:22:29 03/07/2021 11:53:35 Hyperlipidemia 30342483 E78.5 Increased Atorvastat in due to levels. Migraine 57207006 G43.90 9 Vitamin D deficiency 347 70213 E55.9 Started back to taking Vitamin D. Anxiety 80361467 F41.9 Buspirone has helped tremendous ly with pain. Osteoarthr itis of knee 783092978 M17.0 Doing much better with pain. Meloxicam has helped significan tly. Restless legs 02626328 G 25.81 Left-sided piriformis syndrome [id number] 22085 M54.32 Body mass index 25-29 - overweight 172313427 Z68.26 Elevated blood-pressure reading without diagnosis of hypertension 943930176 R03.0 Gastroesop hageal reflux disease without esophagitis 749945659 K21.9 [id number] Rema Bernardo, COUNTY NURSE-, [facility] Main Office [address] [place] [address] 08/22/2021 10:18:53 08/22/2021 12:33:42 Hyperlipidemia 71159683 E78.5 Vitamin D deficiency 347 68378 E55.9 Osteoarthr itis of knee 124476444 M17.0 Multiple joint pain 3567 8005 M25.50 Administra tion of influenza vaccine 81560390 Z23 Pain of ri ght shoulder joint [id number] 5312245 M25.511 Anxiety 00120404 F41.9 Buspirone has helped tremendous ly with pain. Gastroesop hageal reflux disease without esophagitis 161552988 K21.9 Restless legs 33049111 G 25.81 Migraine 01342126 G43.90 9 [id number] Shamyra Guadalupe Main Office [address] [place] [address] 12/05/2021 09:29:41 12/05/2021 10:16:13 Hyperlipidemia 09177629 E78.5 You can lower your triglyceri de levels through a variety of dietary and lifestyle changes. Minimizing added sugar in your diet from sugary beverages and sweets can reduce your blood triglyceri de levels. Following a low carb diet can lead to a significan t reduction in blood triglyceri de levels, at least in the short term, when compared with a low fat diet. Adding fiber to your diet from fruits, vegetables , and whole grains can reduce blood triglyceri de levels. A regular workout regimen that includes high intensity aerobic exercise may increase levels of HDL (good) cholestero l and decrease blood triglyceri estephanie. A diet high in trans fats can increase both blood triglyceri estephanie and the risk of heart disease. Limiting your consumptio n of heavily processed and fried foods can help decrease your intake of trans fats. Fatty fish is high in omega-3 fatty acids. Eating two servings per week may lower triglyceri de levels and decrease the risk of heart disease. Monounsatu rated and polyunsatu rated fats can decrease blood triglyceri de levels, especially when they re consumed in place of other fats. Sticking to a regular meal pattern can decrease many heart disease risk factors and prevent insulin resistance . Limiting your alcohol intake can help lower blood triglyceri de levels. Soy contains compounds associated with several health benefits. Eating soy protein in place of animal protein may help reduce blood triglyceri estephanie. Nuts contain many heart-heal thy nutrients, including fiber, omega-3 fatty acids, and unsaturate d fats. Studies suggest that eating 3 7 servings of tree nuts per week may help decrease blood triglyceri estephanie. Several supplement s have been studied for their ability to lower triglyceri de levels, including fish oil, fenugreek, garlic extract, guggul, and curcumin. Choosing healthy, unsaturate d fats in place of trans fats, decreasing your intake of carbs and added sugars, and exercising regularly are a few strategies that can help lower your blood triglyceri estephanie. Vitamin D deficiency 347 02960 E55.9 Osteoarthr itis of knee 097668908 M17.0 Celebrex has been decreasing pain and providing a benefit. Anxiety 35740850 F41.9 Buspirone has helped tremendous ly with anxiety Gastroesop hageal reflux disease without esophagitis 111043589 K21.9 continue Prilosec as this is providing a benefit and controllin g GERD. Restless legs 64717540 G 25.81 RLS is doing much better with medication . Migraine 22692183 G43.90 9 History of SARS-CoV-2 29 40455705 58980570 Z86.16 Will reevaluate conditions at 3 months s/p infection to see if resolvemen t of symptoms or looking at long haul for covid. Nasal congestion 7312568 0 R09.81 Start Claritin to help with congestion . Constipation 76653889 K5 9.00 Hypertensi on screening 358149304 Z13.6 [id number] MAURICE QuinonezP-BC, [facility] Main Office [address] [place] [address] 01/30/2022 09:04:20 01/30/2022 10:24:04 Hyperlipidemia 16414468 E78.5 taking medication s. labs obtained to evaluate levels. Vitamin D deficiency 347 46210 E55.9 has not been taking medication s. labs obtained to evaluate levels. Osteoarthr itis of knee 568430878 M17.0 Celebrex has been decreasing pain and providing a benefit. Anxiety 08691680 F41.9 medication has been helping with anxiety. Gastroesop hageal reflux disease without esophagitis 717953981 K21.9 continue Prilosec as this is providing a benefit and controllin g GERD. Restless legs 20935257 G 25.81 RLS is doing much better with medication . Migraine 50887153 G43.90 9 doing better with episodes. has only had 1 migraine since last visit. Nasal congestion 2094497 0 R09.81 Claritin has been helping. continue regimen. Constipation 97573898 K5 9.00 Linzess samples given as insurance refused to cover medication . Eczema 83030342 L30.9 [id number] Rema Calderón zA, [facility], [facility] Main Office [address] [place] [address] 04/17/2022 09:10:10 04/17/2022 11:11:09 Hyperlipidemia 51054448 E78.5 Still having increasing levels with Trigs. Added Ezetimibe. Anxiety 84968199 F41.9 medication has been helping with anxiety. Continue Buspirone. However, anxiety does intensify during migraine episodes. Restless legs 59279982 G 25.81 RLS is doing much better with medication . Migraine 69918491 G43.90 9 Nurtec prescribed which is medically necessary for migraines as other medication contraindi cated d/t cardiac history. Constipation 29586388 K5 9.00 Linzess is medically necessary as it is the only treatment regimen to provide relief. Stable on samples and would cause significan t harm removing medication from treatment regimen. Osteoarthr itis of knee 952132780 M17.0 Celebrex has been decreasing pain and providing a benefit. Vitamin D deficiency 347 00043 E55.9 has not been taking medication s. labs obtained to evaluate levels. Nasal congestion 2422936 0 R09.81 Claritin has been helping. continue regimen. Gastroesop hageal reflux disease without esophagitis 171618073 K21.9 continue Prilosec as this is providing a benefit and controllin g GERD. [id number] Rema LucieLiudmila Bernardo, COUNTY NURSE-, [facility]- Main Office [address] [place] [address] 07/10/2022 09:12:02 07/10/2022 12:39:22 Anxiety 86015582 F41.9 Continue regimen. Exacerbati ons occur duing migraine episodes. Hyperlipidemia 05881401 E78.5 Taking medication s. labs to eval levels. Restless legs 69037053 G 25.81 RLS is doing much better with medication . Migraine 76881668 G43.90 9 Constipation 53702059 K5 9.00 Doing very well on Linzess and having regular bowel movements with medication . This is the best she has been with the medication . Osteoarthr itis of knee 168176246 M17.0 Celebrex has been decreasing pain and providing a benefit. Vitamin D deficiency 347 53522 E55.9 Taking medication s. labs to eval levels. Nasal congestion 8241300 0 R09.81 Claritin has been helping. continue regimen. Gastroesop hageal reflux disease without esophagitis 691864978 K21.9 Continue medication as directed and if any issues with insurance and obtaining medication to let office know. Administra tion of influenza vaccine 27335030 Z23 Administra tion of pneumococcal vaccine 11322060 Z23 Tachycardia 4622024 R00. 0 [id number] Reggie Short Main Office [address] [place] [address] 12/25/2022 09:52:54 12/25/2022 14:38:24 Anxiety 58630116 F41.9 Continue regimen. Exacerbati ons occur during migraine episodes. Hyperlipidemia 65670966 E78.5 Taking medication s. labs to eval levels. Restless legs 71735803 G 25.81 RLS is doing much better with medication . Migraine 21963386 G43.90 9 Nurtec is helping and taking every other day. Despite such still having migraine episodes.N eurology referral Constipation 31145765 K5 9.00 Doing very well on Linzess and having regular bowel movements with medication . This is the best she has been with the medication . Osteoarthr itis of knee 711497976 M17.0 Celebrex has been decreasing pain and providing a benefit. Vitamin D deficiency 347 93254 E55.9 Taking medication s. labs to eval levels. Nasal congestion 3883947 0 R09.81 Claritin has been helping. continue regimen. Gastroesop hageal reflux disease without esophagitis 446889624 K21.9 Continue medication as directed and if any issues with insurance and obtaining medication to let office know. Anemia 965529620 D64.9 labs to eval levels HIV screening 094136648 Z11.4 [id number] Rema Bernardo, COUNTY NURSE-BC, [facility]- Main Office [address] [place] [address] 04/23/2023 09:55:31 04/23/2023 14:28:21 Anxiety 50483989 F41.9 Anxiety has been doing much better with the improvemen t of her migraines. Hyperlipidemia 00429233 E78.5 taking medication s. labs done by specialist . Requesting results. Restless legs 44470984 G 25.81 RLS is doing much better with medication . Migraine 04438038 G43.90 9 Nurtec is helping and taking every other day. Migraine episodes have improved with the use of Nurtec. Less monthly episodes. Constipation 52418346 K5 9.00 Doing very well on Linzess and having regular bowel movements with medication . This is the best she has been with the medication . Continue Linzess Osteoarthr itis of knee 774196827 M17.0 Celebrex has been decreasing pain and providing a benefit. Vitamin D deficiency 347 43552 E55.9 taking medication s. labs recently done, requesting results from [facility]. Nasal congestion 7343566 0 R09.81 Claritin has been helping. continue regimen. Gastroesop hageal reflux disease without esophagitis 949870024 K21.9 Lifestyle modificati ons with wt loss, avoid meals 2-3h before HS. Consider eliminatin g food triggers: chocolate, caffeine, ETOH, acid/spicy food. Continue medication . Anemia 738384692 D64.9 noted to have low levels last lab. Had labs done with endo specialist . Requesting results. Body mass index 25-29 - overweight 659027290 Z68.26 [id number] Yesenia Delcid Main Office [address] [place] [address] 09/06/2023 14:13:25 09/06/2023 14:32:48 Administration of influenza vaccine 14866226 Z23 [id number] Rema LucieLiudmila Bernardo [facility], [facility] Main Office [address] [place] [address] 10/28/2023 11:46:29 10/28/2023 14:19:22 Anxiety 19996253 F41.9 Anxiety has been doing much better with the improvemen t of her migraines. Hyperlipidemia 96126770 E78.5 taking medication s. labs to eval levels. Restless legs 54752865 G 25.81 RLS is doing much better with medication . Migraine 17131205 G43.90 9 Nurtec is helping and taking every other day. Migraine episodes have improved with the use of Nurtec. Less monthly episodes. Constipation 36087721 K5 9.00 Doing very well on Linzess and having regular bowel movements with medication . This is the best she has been with the medication . Continue Linzess Osteoarthr itis of knee 587043224 M17.0 Celebrex has been decreasing pain and providing a benefit. Vitamin D deficiency 347 96380 E55.9 taking medication s. labs to eval levels Nasal congestion 2279731 0 R09.81 Claritin has been helping. continue regimen. Gastroesop hageal reflux disease without esophagitis 917892044 K21.9 Lifestyle modificati ons with wt loss, avoid meals 2-3h before HS. Consider eliminatin g food triggers: chocolate, caffeine, ETOH, acid/spicy food. Continue medication . Anemia 773597272 D64.9 labs to eval levels [id number] Rema Bernardo [facility], [facility] Main Office [address] [place] [address] 05/09/2024 15:36:03 05/09/2024 22:43:16 Anxiety 48304039 F41.9 Continue Buspirone to help with anxiety. Hyperlipidemia 81526998 E78.5 Continue regimen and will see what labs show when done with endocrinol ogy. Nasal congestion 7676293 0 R09.81 Claritin has been helping. continue regimen. Gastroesop hageal reflux disease without esophagitis 790566104 K21.9 Lifestyle modificati ons with wt loss, avoid meals 2-3h before HS. Consider eliminatin g food triggers: chocolate, caffeine, ETOH, acid/spicy food. Continue medication . Nausea 752066715 R11.0 has extremely debilitati ng nausea and vomiting during menses and Zofrans help with such. Cardiac arrhythmia 00618 7007 I49.9 Essential hypertension 92376146 I10 [id number] Rema Bernardo, COUNTY NURSE-BC, [facility]NP- Main Office [address] [place] [address] 02/12/2025 08:59:57 02/12/2025 17:55:02 Anxiety 57404135 F41.9 Hyperlipidemia 16071806 E78.5 Nasal congestion 7330211 0 R09.81 Gastroesop hageal reflux disease without esophagitis 083773780 K21.9 Essential hypertension 64741739 I10 Constipation 91082067 K5 9.00 Migraine 82585998 G43.90 9 Restless legs 80215379 G 25.81 Tuberculos is screening 072990940 Z11.1 Health Concerns Section Related Observation LastModified by Organization Detai ls LastModified Time None Recorded Concern Status LastModified by Organization Details LastModified Time None Recorded Advance Directives Directive N: Payers Encounter Date Sequence Insurance Name Policy Number Policy Patrick Covered Member ID Patrick Member ID Guarantor Name 04/23/2023 1 [facility] (MEDICAID HMO) [id number] Stephanie Montrose [id number] Stephanie Migdalia 09/06/2023 1 [facility] (MEDICAID HMO) [id number] Stephanie Montrose [id number] Stephanie Migdalia 10/28/2023 1 [facility] (MEDICAID HMO) [id number] Stephanie Migdalia [id number] Stephanie Montrose 05/09/2024 1 [facility] (MEDICAID HMO) [id number] Stephanie Migdalia [id number] Stephanie Montrose 02/12/2025 1 [facility] (MEDICAID HMO) [id number] Stephanie Montrose [id number] Stephanie Negron Notes Date Note Type Note Provider Name and Address Organization Details Recorded Time 023 text/ht ml Generalized Anxiety DisorderReported bypatient.Context:life stressors Associated Symptoms:no difficulty concentrating; no difficulty controlling worry; no difficulty swallowing; no sweating; no hot flashes; no chest pain; no increased heart rate; no shortness of breath; no nausea; no diarrhea; no fatigue; no irritability; no muscle tension; no dizziness; no muscle aches; no trembling; no twitching; no exaggerated startle response; no restlessness; no sleep disturbancesHeadacheReported bypatient.Location:frontal; temporal Quality:not the worst headache ever Severity:severe Duration:15-30 days/month Context:not related to trauma Alleviating factors:prescription medication (Nurtec) Associated Symptoms:no fever; no constipation; no diarrhea; no nasal congestion/discharge; tearing/watery eyes; no confusion; no slurred speech; no preceeding aura; normal feeling/sensation; no motor paralysis; no sleep disturbances; no nosebleeds; no hoarseness; no sore throat; no hearing loss; no eyelid edema; no weight loss;nausea;vomiting;photophobia;blin d spots;double vision;dizzinessNotes:Her episode frequency has drastically went down with taking Nurtec and has a couple monthly with Nurtec every other day.HyperlipidemiaReported bypatient.Type of hyperlipidemia:combined Duration:chronic Control:not at goal Current Therapy:currently taking: (Atorvastatin increased to 40 mg) Compliance:compliant; exercises;noncompliant with diet Complications:no coronary artery disease; no peripheral artery disease; no cardiovascular disease Risk Factors:positive family history of premature arteriosclerotic cardiovascular disease Constipation - Patient has been doing very well, having daily bowel movements and Linzess has provided such an improvement for her. Rema Bernardo, COUNTY NURSE-BC, PMHNP-BC [address] [place], [address] , [facility] 04/24/2023 16:44:19 023 text/ht ml Generalized Anxiety DisorderReported bypatient.Context:life stressors Associated Symptoms:no difficulty concentrating; no difficulty controlling worry; no difficulty swallowing; no sweating; no hot flashes; no chest pain; no increased heart rate; no shortness of breath; no nausea; no diarrhea; no fatigue; no irritability; no muscle tension; no dizziness; no muscle aches; no trembling; no twitching; no exaggerated startle response; no restlessness; no sleep disturbancesHeadacheReported bypatient.Location:frontal; temporal Quality:not the worst headache ever Severity:severe Duration:15-30 days/month Context:not related to trauma Alleviating factors:prescription medication (Nurtec) Associated Symptoms:no fever; no constipation; no diarrhea; no nasal congestion/discharge; tearing/watery eyes; no confusion; no slurred speech; no preceeding aura; normal feeling/sensation; no motor paralysis; no sleep disturbances; no nosebleeds; no hoarseness; no sore throat; no hearing loss; no eyelid edema; no weight loss;nausea;vomiting;photophobia;blin d spots;double vision;dizzinessNotes:Her episode frequency has drastically went down with taking Nurtec and has a couple monthly with Nurtec every other day.HyperlipidemiaReported bypatient.Type of hyperlipidemia:combined Duration:chronic Control:not at goal Current Therapy:currently taking: (Atorvastatin increased to 40 mg) Compliance:compliant; exercises;noncompliant with diet Complications:no coronary artery disease; no peripheral artery disease; no cardiovascular disease Risk Factors:positive family history of premature arteriosclerotic cardiovascular disease Constipation - Patient has been doing very well, having daily bowel movements and Linzess has provided such an improvement for her. Rema Bernardo, COUNTY NURSE-BC, PMHNP-BC [address] [place], [address] , [facility] 10/28/2023 12:31:56 024 text/ht ml Generalized Anxiety DisorderReported bypatient.Context:life stressors Associated Symptoms:no difficulty concentrating; no difficulty controlling worry; no difficulty swallowing; no sweating; no hot flashes; no chest pain; no increased heart rate; no shortness of breath; no nausea; no diarrhea; no fatigue; no irritability; no muscle tension; no dizziness; no muscle aches; no trembling; no twitching; no exaggerated startle response; no restlessness; no sleep disturbancesHyperlipidemiaReported bypatient.Type of hyperlipidemia:combined Duration:chronic Control:not at goal Current Therapy:currently taking: (Atorvastatin increased to 40 mg) Compliance:compliant; exercises;noncompliant with diet Complications:no coronary artery disease; no peripheral artery disease; no cardiovascular disease Risk Factors:positive family history of premature arteriosclerotic cardiovascular disease Stephanie is a 43-year-old female who presents with complaints of an increasing heart rate. She reports that while sitting on the couch, her smart watch alerts her of an elevated heart rate, which can climb upwards of 120 beats per minute. She describes feeling as though her heart is racing and experiences palpitations during these episodes. The patient states that these symptoms began a couple of months ago and have been progressively worsening. Despite the increased heart rate and palpitations, she denies experiencing chest pain, dizziness, shortness of breath, or visual disturbances. Allergies - taking Claritin and Flonase which is significantly helping with allergies.GERD - taking Prilosec which helps with reflux.Nausea - horrible during menses and has difficulties with ADLs during such time. Rmea Bernardo, COUNTY NURSE-BC, PMHNP-BC [address] [place], [address] , [facility] 05/09/2024 18:52:04 025 text/ laura Stephanie is a 44-year-old female who presents for a routine follow-up visit with a history of hypertension, hyperlipidemia, chronic constipation, GERD, seasonal allergies, anxiety, and intermittent migraines. She is currently taking amlodipine 2.5 mg daily for hypertension, ezetimibe and fenofibrate for hyperlipidemia, omeprazole for GERD, loratadine for seasonal allergies, buspirone for anxiety, and propranolol for migraines. She has a history of chronic constipation, which was previously managed with Linzess, but she is not currently taking these medications as she has none reports continued episodes of constipation that OTC is not working. Stephanie has migraines, which has improved with the usage of Nurtec and Propranolol. She denies any new or worsening migraine patterns and finds propranolol helpful in managing her symptoms as well. Her most recent blood pressure was 133/91, slightly above the target goal, but is having increasing back pain from workers comp issue. Stephanie expressed a need to restart a regimen to promote regularity in her bowel movements. Her gastrointestinal issues, including chronic constipation, have been inconsistent without current treatment. Rema Bernardo, COUNTY NURSE-BC, PM[facility]NP-BC [address] [place], [address] , [facility] 02/12/2025 10:26:36 OBGyn Episode No OBEpisode recorded.
--- OUTSIDE RECORDS SUMMARY | 2025-02-27 18:24 | XMS_ITS | Data Portability ---
Author Organization [place] - [facility] [place], Main Office Address [address] [place] [address] Assessment No assessment recorded. Plan of Treatment Reminders Order Date Submit Date Provider Last Modified By Organization Details Last Modified Time Details Appointments None record ed. Lab None record ed. Referral None record ed. Procedures None record ed. Surgeries None record ed. Imaging None record ed. Medication Orders None record ed. Patient TargetsNo targets recorded. Patient InstructionsNo instructions recorded. Reason for Referral None Reported. Results Created Date Observation Date Name Description Value Unit Range Abnormal Flag Note LastModifiedBy Organization Detail LastModifiedTime 02/07/20 21 02/15/2021 testo stero ne, free + total , serum testosterone , total, lc/MS 20.4 NG/dL 10.0-5 5.0 Not Available [facility] (Lab) [address] [place], [address], 02/15/2021 07:10:15 02/07/20 21 02/15/2021 testo stero ne, free + total , serum testosterone , free 0.41 NG/dL 0.10-0 .85 Not Available [facility] (Lab) [address] [place], [address], 02/15/2021 07:10:15 02/07/2002/15/2021 testo stero ne, free + total , serum % free testosterone 2.03 % 0.50-2 .80 Perfo rmed at: [facility] [place] [address] [place] [address] Lab Direc tor: Katy neely MD, Phone : [phone] Not Available [facility] (Lab) [address] [place], [address], 02/15/2021 07:10:15 02/07/20 21 02/07/2021 insul in, serum insulin 9.4 uIU/m L 2.6-24 .9 Perfo rmed at: [facility] [address], [place] [address] Lab Direc tor: José Miguel townsend PhD, Phone : [phone] Not Available [facility] (Lab) [address] [place], [address], 02/07/2021 12:10:55 02/07/20 21 02/06/2021 TSH, serum or plasm a thyroid-stim ulating hormone 0.559 uIU/m L 0.465- 4.680 Not Available [facility] (Lab) [address] [place], [address], 02/06/2021 13:30:35 02/07/20 21 02/06/2021 T4, free, serum free T4 1.13 NG/dL 0.78-2 .19 Not Available [facility] (Lab) [address] [place], [address], 02/06/2021 13:15:35 02/07/20 21 02/06/2021 lipid panel , serum cholesterol 110 mg/dL 140-19 9 low NIH ZULEYMA NSUS RECOM MENDA TION FOR KEENAN STERO L: ADULT CHILD LOW RISK: <200 <170 BORDE RLINE : <200- 239 ----- HIGH RISK: >240 >200 Not Available [facility] (Lab) [address] [place], [address], 02/06/2021 12:54:50 02/07/20 21 02/06/2021 lipid panel , serum triglyceride s 143 mg/dL 0-150 NIH ZULEYMA NSUS REPOR T RECOM MENDA TION FOR TRIGL YCERI BETY: ADULT CHILD LOW RISK: <150 ----- BODER LINE: 150-1 99 ----- HIGH RISK: >200 ----- Not Available [facility] (Lab) [address] [place], [address], 02/06/2021 12:54:50 02/07/20 21 02/06/2021 lipid panel , serum HDL cholesterol 32 mg/dL 40- low Not Available [facility] (Lab) [address] [place], [address], 02/06/2021 12:54:50 02/07/2002/06/2021 lipid panel , serum LDL cholesterol, calculated 49 mg/dL 0-130 NIH ZULEYMA NSUS REPOR T RECOM MENDA TIONS FOR LDL: ADULT CHILD LOW RISK <130 <110 (OPTI MAL LDL) <100 ----- BORDE RLINE : 130-1 59 ----- HIGH RISK: >160 >130 A TRIGL YCERI DE RESUL T >400 INVAL IDATE S THE CALCU LATIO N FOR LDL FRACT IONAT ION - THE LDL RESUL T WILL NOT BE REPOR KASSIDY. Not Available [facility] (Lab) [address] [place], [address], 02/06/2021 12:54:50 02/07/20 21 02/06/2021 CMP, serum or plasm a sodium 140 mmol/ L 137-14 5 Not Available [facility] (Lab) [address] [place], [address], 02/06/2021 12:54:45 02/07/2002/06/2021 CMP, serum or plasm a potassium 4.0 mmol/ L 3.5-5. 1 Not Available [facility] (Lab) [address] [place], [address], 02/06/2021 12:54:45 02/07/20 21 02/06/2021 CMP, serum or plasm a chloride 106 mmol/ L 98-107 Not Available [facility] (Lab) [address] [place], [address], 02/06/2021 12:54:45 02/07/20 21 02/06/2021 CMP, serum or plasm a carbon dioxide 29 mmol/ L 22-30 Not Available [facility] (Lab) [address] [place], [address], 02/06/2021 12:54:45 02/07/20 21 02/06/2021 CMP, serum or plasm a agap 9.0 mmol/ L 14-22 low Not Available [facility] (Lab) [address] [place], [address], 02/06/2021 12:54:45 02/07/20 21 02/06/2021 CMP, serum or plasm a glucose 94 mg/dL 70-99 Not Available [facility] (Lab) [address] [place], [address], 02/06/2021 12:54:45 02/07/20 21 02/06/2021 CMP, serum or plasm a BUN 16 mg/dL 8-19 Not Available [facility] (Lab) [address] [place], [address], 02/06/2021 12:54:45 02/07/20 21 02/06/2021 CMP, serum or plasm a creatinine 0.73 mg/dL 0.66-1 .25 Not Available [facility] (Lab) [address] [place], [address], 02/06/2021 12:54:45 02/07/20 21 02/06/2021 CMP, serum or plasm a GFR >60 Refer ence Range : Gratz ge GFR Healt hy Adult : >60 mL/mi n/1.7 3 m2 Chron ic Kidne y Disea se: 15-60 mL/mi n/1.7 3 m2 Kidne y Failu re: <15/m L/min /1.73 m2 www.n iddk. nih.g ov MDRD study equat ion hasn' t been valid ated in child magi <18 yrs of age, pregn ant women , the elder ly >85 yrs of age, or in some racia l or ethni c subgr oups, suc as Hispa nics. Outsi de the valid ated faizan eters , estim ated GFR is less accur ate requi ring clini girma judgm ent on a case by case basis . Clini girma inter preta tion for other races and ages must be made by the clini cornell . Futhe rmore , any of th e limit ation s with the use of serum creat inine relat ed to nutri denisse l statu s o r medic ation usage hasn' t accou nted for the MDRD Study equat ion. For perso ns < 18 yrs of age, a pedia tric GFR calcu lator can be locat ed on the [facility] websi te: https :[email or web address] briceno.o rg/pr ofess ional s/kdo qi/gf r_cal culat or Not Available [facility] (Lab) [address] [place], [address], 02/06/2021 12:54:45 02/07/20 21 02/06/2021 CMP, serum or plasm a alkaline phosphatase 83 U/L 38-[address] [facility] (Lab) [address] [place], [address], 02/06/2021 12:54:45 02/07/20 21 02/06/2021 CMP, serum or plasm a alanine aminotransfe rase 17 U/L 0-35 Not Available [facility] (Lab) [address] [place], [address], 02/06/2021 12:54:45 02/07/20 21 02/06/2021 CMP, serum or plasm a aspartate aminotransfe rase 26 U/L 15-37 Not Available [facility] (Lab) [address] [place], [address], 02/06/2021 12:54:45 02/07/20 21 02/06/2021 CMP, serum or plasm a bilirubin, total 0.60 mg/dL 0.20-1 .30 Not Available [facility] (Lab) [address] [place], [address], 02/06/2021 12:54:45 02/07/20 21 02/06/2021 CMP, serum or plasm a bilirubin, conjugated (direct) 0.00 mg/dL 0.00-0 .30 Not Available [facility] (Lab) [address] [place], [address], 02/06/2021 12:54:45 02/07/20 21 02/06/2021 CMP, serum or plasm a biliurubin,u ncong. (indirect) 0.40 mg/dL 0.00-1 .1 Not Available [facility] (Lab) [address] [place], [address], 02/06/2021 12:54:45 02/07/20 21 02/06/2021 CMP, serum or plasm a calcium 9.3 mg/dL 8.4-10 .2 Not Available [facility] (Lab) [address] [place], [address], 02/06/2021 12:54:45 02/07/20 21 02/06/2021 CMP, serum or plasm a total protein 6.7 g/dL 6.3-8. 2 Not Available [facility] (Lab) [address] [place], [address], 02/06/2021 12:54:45 02/07/20 21 02/06/2021 CMP, serum or plasm a albumin 3.9 g/dL 3.4-5. 0 Not Available [facility] (Lab) [address] [place], [address], 02/06/2021 12:54:45 02/07/20 21 02/06/2021 CMP, serum or plasm a globulin 2.8 g/dL 2.6-4. 2 Not Available [facility] (Lab) [address] [place], [address], 02/06/2021 12:54:45 02/07/20 21 02/06/2021 CMP, serum or plasm a A/G ratio 1.4 ratio 1.0-2. 0 Not Available [facility] (Lab) [address] [place], [address], 02/06/2021 12:54:45 02/07/20 21 02/06/2021 glyco hemog lobin , total , blood HA1C 4.9 % 4.0-6. 0 Diabe kassy Scree edmundo Crite mary: <5.7% Consi stent with absen ce of diabe kassy 5.7-6 .4% Consi stent with incre ased risk for diabe kassy (pred iabet es) >OR=6 .5% Consi stent with diabe kassy REFER ENCE: Diabe kassy Care 2016, 39(Brower ppl.1 ):s13 -s22 Not Available [facility] (Lab) [address] [place], [address], 02/06/2021 12:24:13 10/02/20 21 10/05/2021 TESTO STERO NE, FREE+ TOTAL LC/MS testosterone , total, lc/MS 16.9 NG/dL Femal e: Preme nopau phil 10.0 - 55.0 Postm enopa usal 7.0 - 40.0 Not Available [facility] (Lab) [address] [place], [address], 10/05/2021 18:07:44 10/02/20 21 10/05/2021 TESTO STERO NE, FREE+ TOTAL LC/MS testosterone , free 0.33 NG/dL 0.10-0 .85 Not Available [facility] (Lab) [address] [place], [address], 10/05/2021 18:07:44 10/02/20 21 10/05/2021 TESTO STERO NE, FREE+ TOTAL LC/MS % free testosterone 1.96 % 0.50-2 .80 [facility]med at[facility] [place] [address] [facility] , [place] [address] Lab Direc tor: Katy neely MD, Phone : [phone] Not Available [facility] (Lab) [address] [place], [address], 10/05/2021 18:07:44 10/02/20 21 10/03/2021 INSUL IN insulin 55.8 uIU/m L 2.6-24 .9 high Perfo rmed at: [facility] [address] [place] [address] Lab Direc tor: José Miguel townsend PhD, Phone : [phone] Not Available [facility] (Lab) [address] [place], [address], 10/03/2021 10:11:39 10/02/20 21 10/03/2021 DHEA- SULFA TE DHEA-sulfate 34.3 ug/dL 57.3-2 79.2 low Perfo rmed at: [facility] [address] [place] [address] Lab Direc tor: José Miguel townsend PhD, Phone : [phone] Not Available [facility] (Lab) [address] [place], [address], 10/03/2021 08:14:29 10/02/20 21 10/02/2021 TSH thyroid-stim ulating hormone 1.240 uIU/m L 0.465- 4.680 Not Available [facility] (Lab) [address] [place], [address], 10/02/2021 13:06:50 10/02/20 21 10/02/2021 T4 FREE free T4 1.05 NG/dL 0.78-2 .19 Not Available [facility] (Lab) [address] [place], [address], 10/02/2021 12:50:44 10/02/20 21 10/02/2021 HEMOG LOBIN A1C HA1C 4.8 % 4.0-6. 0 Diabe kassy Scree edmundo Crite mary: <5.7% Consi stent with absen ce of diabe kassy 5.7-6 .4% Consi stent with incre ased risk for diabe kassy (pred iabet es) >OR=6 .5% Consi stent with diabe kassy REFER ENCE: Diabe kassy Care 2016, 39(Brower ppl.1 ):s13 -s22 Not Available [facility] (Lab) [address] [place], [address], 10/02/2021 12:45:14 10/02/20 21 10/02/2021 COMP MET PANEL /LIVE R sodium 140 mmol/ L 137-14 5 Not Available [facility] (Lab) [address] [place], [address], 10/02/2021 12:44:13 10/02/20 21 10/02/2021 COMP MET PANEL /LIVE R potassium 4.1 mmol/ L 3.5-5. 1 Not Available [facility] (Lab) [address] [place], [address], 10/02/2021 12:44:13 10/02/20 21 10/02/2021 COMP MET PANEL /LIVE R chloride 109 mmol/ L 98-107 high Not Available [facility] (Lab) [address] [place], [address], 10/02/2021 12:44:13 10/02/20 21 10/02/2021 COMP MET PANEL /LIVE R carbon dioxide 27 mmol/ L 22-30 Not Available [facility] (Lab) [address] [place], [address], 10/02/2021 12:44:13 10/02/20 21 10/02/2021 COMP MET PANEL /LIVE R agap 8.1 mmol/ L 14-22 low Not Available [facility] (Lab) [address] [place], [address], 10/02/2021 12:44:13 10/02/20 21 10/02/2021 COMP MET PANEL /LIVE R glucose 96 mg/dL 70-99 Not Available [facility] (Lab) [address] [place], [address], 10/02/2021 12:44:13 10/02/20 21 10/02/2021 COMP MET PANEL /LIVE R BUN 12 mg/dL 8-19 Not Available [facility] (Lab) [address] [place], [address], 10/02/2021 12:44:13 10/02/20 21 10/02/2021 COMP MET PANEL /LIVE R creatinine 0.68 mg/dL 0.66-1 .25 Not Available [facility] (Lab) [address] [place], [address], 10/02/2021 12:44:13 10/02/20 21 10/02/2021 COMP MET PANEL /LIVE R GFR >60 Refer ence Range : Gratz ge GFR Healt hy Adult : >60 mL/mi n/1.7 3 m2 Chron ic Kidne y Disea se: 15-60 mL/mi n/1.7 3 m2 Kidne y Failu re: <15/m L/min /1.73 m2 www.n iddk. nih.g ov The MDRD study equat ion has not been valid ated in child magi <18 years of age; pregn ant women ; the elder ly >85 years of age; or in some racia l or ethni c subgr oups, such as Hispa nics. Outsi de the valid ated faizan eters , estim ated GFR is less accur ate, requi ring clini girma judgm ent on a case- by-ca se basis . Clini girma inter preta tion for other races and ages must be made by the clini cornell. The MDRD study equat ion has not been valid ated for the evalu ation of serum creat inine relat ed to nutri denisse l statu s or medic ation usage . For perso ns <18 years of age, a pedia tric GFR calcu lator is avail able on the [facility] websi te: https ://amalia w.jc janak.o rg/pr ofess ional s/kdo qi/gf r_cal culat or Not Available [facility] (Lab) [address] [place], [address], 10/02/2021 12:44:13 10/02/20 21 10/02/2021 COMP MET PANEL /LIVE R alkaline phosphatase 101 U/L 38-[address] [facility] (Lab) [address] [place], [address], 10/02/2021 12:44:13 10/02/20 21 10/02/2021 COMP MET PANEL /LIVE R alanine aminotransfe rase 11 U/L 0-35 Not Available [facility] (Lab) [address] [place], [address], 10/02/2021 12:44:13 10/02/20 21 10/02/2021 COMP MET PANEL /LIVE R aspartate aminotransfe rase 20 U/L 15-37 Not Available [facility] (Lab) [address] [place], [address], 10/02/2021 12:44:13 10/02/20 21 10/02/2021 COMP MET PANEL /LIVE R bilirubin, total 0.30 mg/dL 0.20-1 .30 Not Available [facility] (Lab) [address] [place], [address], 10/02/2021 12:44:13 10/02/20 21 10/02/2021 COMP MET PANEL /LIVE R bilirubin, conjugated (direct) 0.00 mg/dL 0.00-0 .30 Not Available [facility] (Lab) [address] [place], [address], 10/02/2021 12:44:13 10/02/20 21 10/02/2021 COMP MET PANEL /LIVE R biliurubin,u ncong. (indirect) 0.30 mg/dL 0.00-1 .1 Not Available [facility] (Lab) [address] [place], [address], 10/02/2021 12:44:13 10/02/2010/02/2021 COMP MET PANEL /LIVE R calcium 9.0 mg/dL 8.4-10 .2 Not Available [facility] (Lab) [address] [place], [address], 10/02/2021 12:44:13 10/02/20 21 10/02/2021 COMP MET PANEL /LIVE R total protein 6.5 g/dL 6.3-8. 2 Not Available [facility] (Lab) [address] [place], [address], 10/02/2021 12:44:13 10/02/20 21 10/02/2021 COMP MET PANEL /LIVE R albumin 3.8 g/dL 3.4-5. 0 Not Available [facility] (Lab) [address] [place], [address], 10/02/2021 12:44:13 10/02/20 21 10/02/2021 COMP MET PANEL /LIVE R globulin 2.7 g/dL 2.6-4. 2 Not Available [facility] (Lab) [address] [place], [address], 10/02/2021 12:44:13 10/02/20 21 10/02/2021 COMP MET PANEL /LIVE R A/G ratio 1.4 ratio 1.0-2. 0 Not Available [facility] (Lab) [address] [place], [address], 10/02/2021 12:44:13 10/02/20 21 10/02/2021 LIPID PANEL cholesterol 113 mg/dL 140-19 9 low NIH ZULEYMA NSUS RECOM MENDA TION FOR KEENAN STERO L: ADULT CHILD LOW RISK: <200 <170 BORDE RLINE : <200- 239 ----- HIGH RISK: >240 >200 Not Available [facility] (Lab) [address] [place], [address], 10/02/2021 12:44:07 10/02/2010/02/2021 LIPID PANEL triglyceride s 281 mg/dL 0-150 high NIH ZULEYMA NSUS REPOR T RECOM MENDA TION FOR TRIGL YCERI BETY: ADULT CHILD LOW RISK: <150 ----- BODER LINE: 150-1 99 ----- HIGH RISK: >200 ----- Not Available [facility] (Lab) [address] [place], [address], 10/02/2021 12:44:07 10/02/20 21 10/02/2021 LIPID PANEL HDL cholesterol 29 mg/dL 40- low Not Available [facility] (Lab) [address] [place], [address], 10/02/2021 12:44:07 10/02/2010/02/2021 LIPID PANEL LDL cholesterol, calculated 28 mg/dL 0-130 NIH ZULEYMA NSUS REPOR T RECOM MENDA TIONS FOR LDL: ADULT CHILD LOW RISK <130 <110 (OPTI MAL LDL) <100 ----- BORDE RLINE : 130-1 59 ----- HIGH RISK: >160 >130 A TRIGL YCERI DE RESUL T >400 INVAL IDATE S THE CALCU LATIO N FOR LDL FRACT IONAT ION - THE LDL RESUL T WILL NOT BE REPOR KASSIDY. Not Available [facility] (Lab) [address] [place], [address], 10/02/2021 12:44:07 03/06/20 22 03/07/2022 INSUL IN insulin 19.7 uIU/m L 2.6-24 .9 Perfo rmed at: - [facility] [address] [facility], [place] [id number] Lab Direc tor: José Miguel townsend PhD, Phone : [phone] Not Available [facility] (Lab) [address] [place], [address], 03/07/2022 14:12:28 03/06/20 22 03/06/2022 LIPID PANEL triglyceride s 480 mg/dL 0-150 high NIH ZULEYMA NSUS REPOR T RECOM MENDA TION FOR TRIGL YCERI BETY: ADULT CHILD LOW RISK: <150 ----- BODER LINE: 150-1 99 ----- HIGH RISK: >200 ----- Not Available [facility] (Lab) [address] [place], [address], 03/06/2022 14:11:30 03/06/20 22 03/06/2022 LIPID PANEL HDL cholesterol 32 mg/dL 40- low Not Available [facility] (Lab) [address] [place], [address], 03/06/2022 14:11:30 03/06/20 22 03/06/2022 LIPID PANEL cholesterol 141 mg/dL 140-19 9 NIH ZULEYMA NSUS RECOM MENDA TION FOR KEENAN STERO L: ADULT CHILD LOW RISK: <200 <170 BORDE RLINE : <200- 239 ----- HIGH RISK: >240 >200 Not Available [facility] (Lab) [address] [place], [address], 03/06/2022 14:11:30 03/06/20 22 03/06/2022 COMPR EHENS ESTEVAN METAB OLIC PANEL sodium 136 mmol/ L 137-14 5 low Not Available [facility] (Lab) [address] [place], [address], 03/06/2022 14:11:23 03/06/20 22 03/06/2022 COMPR EHENS ESTEVAN METAB OLIC PANEL potassium 4.0 mmol/ L 3.5-5. 1 Not Available [facility] (Lab) [address] [place], [address], 03/06/2022 14:11:23 03/06/20 22 03/06/2022 COMPR EHENS ESTEVAN METAB OLIC PANEL chloride 105 mmol/ L 98-107 Not Available [facility] (Lab) [address] [place], [address], 03/06/2022 14:11:23 03/06/20 22 03/06/2022 COMPR EHENS ESTEVAN METAB OLIC PANEL carbon dioxide 24 mmol/ L 22-30 Not Available [facility] (Lab) [address] [place], [address], 03/06/2022 14:11:23 03/06/20 22 03/06/2022 COMPR EHENS ESTEVAN METAB OLIC PANEL anion gap 11.0 mmol/ L 14-22 low Not Available [facility] (Lab) [address] [place], [address], 03/06/2022 14:11:23 03/06/20 22 03/06/2022 COMPR EHENS ESTEVAN METAB OLIC PANEL glucose 100 mg/dL 70-99 high Not Available [facility] (Lab) [address] [place], [address], 03/06/2022 14:11:23 03/06/20 22 03/06/2022 COMPR EHENS ESTEVAN METAB OLIC PANEL BUN 8 mg/dL 8-19 Not Available [facility] (Lab) [address] [place], [address], 03/06/2022 14:11:23 03/06/20 22 03/06/2022 COMPR EHENS ESTEVAN METAB OLIC PANEL creatinine 0.62 mg/dL 0.66-1 .25 low Not Available [facility] (Lab) [address] [place], [address], 03/06/2022 14:11:23 03/06/2003/06/2022 COMPR EHENS ESTEVAN METAB OLIC PANEL GFR >60 Refer ence Range : Gratz ge GFR Healt hy Adult : >60 mL/mi n/1.7 3 m2 Chron ic Kidne y Disea se: 15-60 mL/mi n/1.7 3 m2 Kidne y Failu re: <15/m L/min /1.73 m2 www.n iddk. nih.g ov The MDRD study equat ion has not been valid ated in child magi <18 years of age; pregn ant women ; the elder ly >85 years of age; or in some racia l or ethni c subgr oups, such as Hispa nics. Outsi de the valid ated faizan eters , estim ated GFR is less accur ate, requi ring clini girma judgm ent on a case- by-ca se basis . Clini girma inter preta tion for other races and ages must be made by the clini cornell. The MDRD study equat ion has not been valid ated for the evalu ation of serum creat inine relat ed to nutri denisse l statu s or medic ation usage . For perso ns <18 years of age, a pedia tric GFR calcu lator is avail able on the [facility] websi te: https :[email or web address] [email or web address].aislinn he/pr ofess ional s/kdo qi/gf r_cal culat or Not Available [facility] (Lab) [address] [place], [address], 03/06/2022 14:11:23 03/06/2003/06/2022 COMPR EHENS ESTEVAN METAB OLIC PANEL alkaline phosphatase 110 U/L 38-[address] [facility] (Lab) [address] [place], [address], 03/06/2022 14:11:23 03/06/2006 0303/06/2022 COMPR EHENS ESTEVAN METAB OLIC PANEL alanine aminotransfe rase 17 U/L 0-35 Not Available [facility] (Lab) [address] [place], [address], 03/06/2022 14:11:23 03/06/20 22 03/06/2022 COMPR EHENS ESTEVAN METAB OLIC PANEL aspartate aminotransfe rase 30 U/L 15-37 Not Available [facility] (Lab) [address] [place], [address], 03/06/2022 14:11:23 03/06/20 22 03/06/2022 COMPR EHENS ESTEVAN METAB OLIC PANEL bilirubin, total 0.30 mg/dL 0.20-1 .30 Not Available [facility] (Lab) [address] [place], [address], 03/06/2022 14:11:23 03/06/20 22 03/06/2022 COMPR EHENS ESTEVAN METAB OLIC PANEL calcium 9.2 mg/dL 8.4-10 .2 Not Available [facility] (Lab) [address] [place], [address], 03/06/2022 14:11:23 03/06/20 22 03/06/2022 COMPR EHENS ESTEVAN METAB OLIC PANEL total protein 7.5 g/dL 6.3-8. 2 Not Available [facility] (Lab) [address] [place], [address], 03/06/2022 14:11:23 03/06/20 22 03/06/2022 COMPR EHENS ESTEVAN METAB OLIC PANEL albumin 4.1 g/dL 3.4-5. 0 Not Available [facility] (Lab) [address] [place], [address], 03/06/2022 14:11:23 03/06/20 22 03/06/2022 COMPR EHENS ESTEVAN METAB OLIC PANEL globulin 3.4 g/dL 2.6-4. 2 Not Available [facility] (Lab) [address] [place], [address], 03/06/2022 14:11:23 03/06/20 22 03/06/2022 COMPR EHENS ESTEVAN METAB OLIC PANEL A/G ratio 1.2 ratio 1.0-2. 0 Not Available [facility] (Lab) [address] [place], [address], 03/06/2022 14:11:23 03/06/20 22 03/06/2022 HEMOG LOBIN A1C HA1C 4.9 % 4.0-6. 0 Diabe kassy Scree edmundo Crite mayr: <5.7% Consi stent with absen ce of diabe kassy 5.7-6 .4% Consi stent with incre ased risk for diabe kassy (pred iabet es) >OR=6 .5% Consi stent with diabe kassy REFER ENCE: Diabe kassy Care 2016, 39(Brower ppl.1 ):s13 -s22 Not Available [facility] (Lab) [address] [place], [address], 03/06/2022 13:50:02 09/16/2009/21/2022 TESTO STERO NE, FREE+ TOTAL LC/MS testosterone , total, lc/MS 13.6 NG/dL Femal e: Preme nopau phil 10.0 - 55.0 Postm enopa usal 7.0 - 40.0 Not Available [facility] (Lab) [address] [place], [address], 09/21/2022 11:11:01 09/16/2009/21/2022 TESTO STERO NE, FREE+ TOTAL LC/MS testosterone , free 0.25 NG/dL 0.10-0 .85 Not Available [facility] (Lab) [address] [place], [address], 09/21/2022 11:11:01 09/16/20 22 09/21/2022 TESTO STERO NE, FREE+ TOTAL LC/MS % free testosterone 1.87 % 0.50-2 .80 Perfo rmed at: - [facility] [address] [address] [facility] [place] [address] Lab Direc tor: Katy neely MD, Phone : [phone] Not Available [facility] (Lab) [address] [place], [address], 09/21/2022 11:11:01 09/16/20 22 09/17/2022 DHEA- SULFA TE DHEA-sulfate 51.2 ug/dL 57.3-2 79.2 low Perfo rmed at: - [facility] [address] [place] [address] Lab Direc tor: José Miguel townsend PhD, Phone : [phone] Not Available [facility] (Lab) [address] [place], [address], 09/17/2022 08:14:27 09/16/20 22 09/16/2022 LIPID PANEL cholesterol 151 mg/dL 140-19 9 NIH ZULEYMA NSUS RECOM MENDA TION FOR KEENAN STERO L: ADULT CHILD LOW RISK: <200 <170 BORDE RLINE : <200- 239 ----- HIGH RISK: >240 >200 Not Available [facility] (Lab) [address] [place], [address], 09/16/2022 12:51:55 09/16/2009/16/2022 LIPID PANEL triglyceride s 173 mg/dL 0-150 high NIH ZULEYMA NSUS REPOR T RECOM MENDA TION FOR TRIGL YCERI BETY: ADULT CHILD LOW RISK: <150 ----- BODER LINE: 150-1 99 ----- HIGH RISK: >200 ----- Not Available [facility] (Lab) [address] [place], [address], 09/16/2022 12:51:55 09/16/20 22 09/16/2022 LIPID PANEL HDL cholesterol 41 mg/dL 40- Not Available [facility] (Lab) [address] [place], [address], 09/16/2022 12:51:55 09/16/20 22 09/16/2022 LIPID PANEL LDL cholesterol, calculated 75 mg/dL 0-130 NIH ZULEYMA NSUS REPOR T RECOM MENDA TIONS FOR LDL: ADULT CHILD LOW RISK <130 <110 (OPTI MAL LDL) <100 ----- BORDE RLINE : 130-1 59 ----- HIGH RISK: >160 >130 A TRIGL YCERI DE RESUL T >400 INVAL IDATE S THE CALCU LATIO N FOR LDL FRACT IONAT ION - THE LDL RESUL T WILL NOT BE REPOR KASSIDY. Not Available [facility] (Lab) [address] [place], [address], 09/16/2022 12:51:55 09/16/20 22 09/16/2022 COMPR EHENS ESTEVAN METAB OLIC PANEL sodium 139 mmol/ L 137-14 5 Not Available [facility] (Lab) [address] [place], [address], 09/16/2022 12:51:50 09/16/20 22 09/16/2022 COMPR EHENS ESTEVAN METAB OLIC PANEL potassium 4.2 mmol/ L 3.5-5. 1 Not Available [facility] (Lab) [address] [place], [address], 09/16/2022 12:51:50 09/16/20 22 09/16/2022 COMPR EHENS ESTEVAN METAB OLIC PANEL chloride 105 mmol/ L 98-107 Not Available [facility] (Lab) [address] [place], [address], 09/16/2022 12:51:50 09/16/20 22 09/16/2022 COMPR EHENS ESTEVAN METAB OLIC PANEL carbon dioxide 31 mmol/ L 22-30 high Not Available [facility] (Lab) [address] [place], [address], 09/16/2022 12:51:50 09/16/20 22 09/16/2022 COMPR EHENS ESTEVAN METAB OLIC PANEL anion gap 7.2 mmol/ L 14-22 low Not Available [facility] (Lab) [address] [place], [address], 09/16/2022 12:51:50 09/16/20 22 09/16/2022 COMPR EHENS ESTEVAN METAB OLIC PANEL glucose 100 mg/dL 70-99 high Not Available [facility] (Lab) [address] [place], [address], 09/16/2022 12:51:50 09/16/20 22 09/16/2022 COMPR EHENS ESTEVAN METAB OLIC PANEL BUN 16 mg/dL 8-19 Not Available [facility] (Lab) [address] [place], [address], 09/16/2022 12:51:50 09/16/20 22 09/16/2022 COMPR EHENS ESTEVAN METAB OLIC PANEL creatinine 0.88 mg/dL 0.66-1 .25 Not Available [facility] (Lab) [address] [place], [address], 09/16/2022 12:51:50 09/16/20 22 09/16/2022 COMPR EHENS ESTEVAN METAB OLIC PANEL GFR >60 Refer ence Range : Gratz ge GFR Healt hy Adult : >60 mL/mi n/1.7 3 m2 Chron ic Kidne y Disea se: 15-60 mL/mi n/1.7 3 m2 Kidne y Failu re: <15/m L/min /1.73 m2 www.n iddk. nih.g ov The MDRD study equat ion has not been valid ated in child magi <18 years of age; pregn ant women ; the elder ly >85 years of age; or in some racia l or ethni c subgr oups, such as Hispa nics. Outsi de the valid ated faizan eters , estim ated GFR is less accur ate, requi ring clini girma judgm ent on a case- by-ca se basis . Clini girma inter preta tion for other races and ages must be made by the clini cornell. The MDRD study equat ion has not been valid ated for the evalu ation of serum creat inine relat ed to nutri denisse l statu s or medic ation usage . For perso ns <18 years of age, a pedia tric GFR calcu lator is avail able on the [facility] websi te: https ://ww w.kid janak.o rg/pr ofess ional s/kdo qi/gf r_cal culat or Not Available [facility] (Lab) [address] [place], [address], 09/16/2022 12:51:50 09/16/20 22 09/16/2022 COMPR EHENS ESTEVAN METAB OLIC PANEL alkaline phosphatase 78 U/L 38-[address] [facility] (Lab) [address] [place], [address], 09/16/2022 12:51:50 09/16/20 22 09/16/2022 COMPR EHENS ESTEVAN METAB OLIC PANEL alanine aminotransfe rase 12 U/L 0-35 Not Available [facility] (Lab) [address] [place], [address], 09/16/2022 12:51:50 09/16/20 22 09/16/2022 COMPR EHENS ESTEVAN METAB OLIC PANEL aspartate aminotransfe rase 19 U/L 15-37 Not Available [facility] (Lab) [address] [place], [address], 09/16/2022 12:51:50 09/16/20 22 09/16/2022 COMPR EHENS ESTEVAN METAB OLIC PANEL bilirubin, total 0.50 mg/dL 0.20-1 .30 Not Available [facility] (Lab) [address] [place], [address], 09/16/2022 12:51:50 09/16/20 22 09/16/2022 COMPR EHENS ESTEVAN METAB OLIC PANEL calcium 9.4 mg/dL 8.4-10 .2 Not Available [facility] (Lab) [address] [place], [address], 09/16/2022 12:51:50 09/16/20 22 09/16/2022 COMPR EHENS ESTEVAN METAB OLIC PANEL total protein 7.3 g/dL 6.3-8. 2 Not Available [facility] (Lab) [address] [place], [address], 09/16/2022 12:51:50 09/16/20 22 09/16/2022 COMPR EHENS ESTEVAN METAB OLIC PANEL albumin 4.2 g/dL 3.4-5. 0 Not Available [facility] (Lab) [address] [place], [address], 09/16/2022 12:51:50 09/16/20 22 09/16/2022 COMPR EHENS ESTEVAN METAB OLIC PANEL globulin 3.1 g/dL 2.6-4. 2 Not Available [facility] (Lab) [address] [place], [address], 09/16/2022 12:51:50 09/16/20 22 09/16/2022 COMPR EHENS ESTEVAN METAB OLIC PANEL A/G ratio 1.4 ratio 1.0-2. 0 Not Available [facility] (Lab) [address] [place], [address], 09/16/2022 12:51:50 11/18/19 23 11/24/2022 THYRO ID STIM IMMUN OGLOB ULIN thyroid stim immunoglobul in <0.10 IU/L 0.00-0 .55 Perfo rmed at: BN - [facility] [address] [place] [address] Lab Direc tor: Katy neely MD, Phone : [phone] Not Available [facility] (Lab) [address] [place], [address], 11/24/2022 16:12:28 11/18/19 23 11/19/2022 THYRO ID PEROX IDASE (TPO) AB thyroid peroxidase (tpo) Ab 11 IU/mL 0-34 Perfo rmed at: CB - [facility] [address] [place] [address] Lab Direc tor: José Miguel townsend PhD, Phone : [phone] Not Available [facility] (Lab) [address] [place], [address], 11/19/2022 14:11:12 11/18/19 23 11/18/2022 TSH thyroid-stim ulating hormone 0.313 uIU/m L 0.465- 4.680 low Not Available [facility] (Lab) [address] [place], [address], 11/18/2022 15:19:11 11/18/19 23 11/18/2022 T4 FREE free T4 1.11 NG/dL 0.78-2 .19 Not Available [facility] (Lab) [address] [place], [address], 11/18/2022 14:51:16 04/13/2004/13/2023 COMPR EHENS ESTEVAN METAB OLIC PANEL sodium 139 mmol/ L 137-14 5 Not Available [facility] (Lab) [address] [place], [address], 04/13/2023 13:09:44 04/13/2004/13/2023 COMPR EHENS ESTEVAN METAB OLIC PANEL potassium 4.2 mmol/ L 3.5-5. 1 Not Available [facility] (Lab) [address] [place], [address], 04/13/2023 13:09:44 04/13/20 23 04/13/2023 COMPR EHENS ESTEVAN METAB OLIC PANEL chloride 103 mmol/ L 98-107 Not Available [facility] (Lab) [address] [place], [address], 04/13/2023 13:09:44 04/13/20 23 04/13/2023 COMPR EHENS ESTEVAN METAB OLIC PANEL carbon dioxide 26 mmol/ L 22-30 Not Available [facility] (Lab) [address] [place], [address], 04/13/2023 13:09:44 04/13/20 23 04/13/2023 COMPR EHENS ESTEVAN METAB OLIC PANEL anion gap 14.2 mmol/ L 14-22 Not Available [facility] (Lab) [address] [place], [address], 04/13/2023 13:09:44 04/13/20 23 04/13/2023 COMPR EHENS ESTEVAN METAB OLIC PANEL glucose 93 mg/dL 70-99 Not Available [facility] (Lab) [address] [place], [address], 04/13/2023 13:09:44 04/13/20 23 04/13/2023 COMPR EHENS ESTEVAN METAB OLIC PANEL BUN 16 mg/dL 8-19 Not Available [facility] (Lab) [address] [place], [address], 04/13/2023 13:09:44 04/13/20 23 04/13/2023 COMPR EHENS ESTEVAN METAB OLIC PANEL creatinine 0.79 mg/dL 0.66-1 .25 Not Available [facility] (Lab) [address] [place], [address], 04/13/2023 13:09:44 04/13/20 23 04/13/2023 COMPR EHENS ESTEVAN METAB OLIC PANEL GFR >60 Refer ence Range : Gratz ge GFR Healt hy Adult : >60 mL/mi n/1.7 3 m2 Chron ic Kidne y Disea se: 15-60 mL/mi n/1.7 3 m2 Kidne y Failu re: <15/m L/min /1.73 m2 www.n iddk. nih.g ov The MDRD study equat ion has not been valid ated in child magi <18 years of age; pregn ant women ; the elder ly >85 years of age; or in some racia l or ethni c subgr oups, such as Hispa nics. Outsi de the valid ated faizan eters , estim ated GFR is less accur ate, requi ring clini girma judgm ent on a case- by-ca se basis . Clini girma inter preta tion for other races and ages must be made by the clini cornell. The MDRD study equat ion has not been valid ated for the evalu ation of serum creat inine relat ed to nutri denisse l statu s or medic ation usage . For perso ns <18 years of age, a pedia tric GFR calcu lator is avail able on the [facility] websi te: https ://amalia w.jc briceno.o rg/pr ofess ional s/kdo qi/gf r_cal culat or Not Available [facility] (Lab) [address] [place], [address], 04/13/2023 13:09:44 04/13/20 23 04/13/2023 COMPR EHENS ESTEVAN METAB OLIC PANEL alkaline phosphatase 93 U/L 38-[address] [facility] (Lab) [address] [place], [address], 04/13/2023 13:09:44 04/13/20 23 04/13/2023 COMPR EHENS ESTEVAN METAB OLIC PANEL alanine aminotransfe rase 17 U/L 0-35 Not Available [facility] (Lab) [address] [place], [address], 04/13/2023 13:09:44 04/13/20 23 04/13/2023 COMPR EHENS ESTEVAN METAB OLIC PANEL aspartate aminotransfe rase 22 U/L 15-37 Not Available [facility] (Lab) [address] [place], [address], 04/13/2023 13:09:44 04/13/20 23 04/13/2023 COMPR EHENS ESTEVAN METAB OLIC PANEL bilirubin, total 0.40 mg/dL 0.20-1 .30 Not Available [facility] (Lab) [address] [place], [address], 04/13/2023 13:09:44 04/13/20 23 04/13/2023 COMPR EHENS ESTEVAN METAB OLIC PANEL calcium 9.3 mg/dL 8.4-10 .2 Not Available [facility] (Lab) [address] [place], [address], 04/13/2023 13:09:44 04/13/20 23 04/13/2023 COMPR EHENS ESTEVAN METAB OLIC PANEL total protein 7.9 g/dL 6.3-8. 2 Not Available [facility] (Lab) [address] [place], [address], 04/13/2023 13:09:44 04/13/20 23 04/13/2023 COMPR EHENS ESTEVAN METAB OLIC PANEL albumin 4.2 g/dL 3.4-5. 0 Not Available [facility] (Lab) [address] [place], [address], 04/13/2023 13:09:44 04/13/20 23 04/13/2023 COMPR EHENS ESTEVAN METAB OLIC PANEL globulin 3.7 g/dL 2.6-4. 2 Not Available [facility] (Lab) [address] [place], [address], 04/13/2023 13:09:44 04/13/20 23 04/13/2023 COMPR EHENS ESTEVAN METAB OLIC PANEL A/G ratio 1.1 ratio 1.0-2. 0 Not Available [facility] (Lab) [address] [place], [address], 04/13/2023 13:09:44 04/13/20 23 04/13/2023 VITAM IN B12 (ANTONIO NENA ) vb12 533 pg/mL 239-93 1 Not Available [facility] (Lab) [address] [place], [address], 04/13/2023 13:19:21 04/13/20 23 04/13/2023 FOLAT E, SERUM /PLAS MA folate 2.66 NG/mL 2.76-2 0.0 low Not Available [facility] (Lab) [address] [place], [address], 04/13/2023 13:19:38 04/13/20 23 04/13/2023 T4 FREE free T4 1.22 NG/dL 0.78-2 .19 Not Available [facility] (Lab) [address] [place], [address], 04/13/2023 13:20:48 04/13/20 23 04/13/2023 TSH thyroid-stim ulating hormone 0.410 uIU/m L 0.465- 4.680 low Not Available [facility] (Lab) [address] [place], [address], 04/13/2023 13:33:17 04/13/20 23 04/14/2023 DHEA- SULFA TE DHEA-sulfate 60.9 ug/dL 57.3-2 79.2 Perfo rmed at: [facility] [place] [address] Lab Direc tor: José Miguel townsend PhD, Phone : [phone] Not Available [facility] (Lab) [address] [place], [address], 04/14/2023 08:18:20 04/13/20 23 04/14/2023 INSUL IN insulin 22.1 uIU/m L 2.6-24 .9 Perfo rmed at: CB - [facility] [address] [place] [address] Lab Direc tor: José Miguel townsend PhD, Phone : [phone] Not Available [facility] (Lab) [address] [place], [address], 04/14/2023 11:12:32 04/13/20 23 04/17/2023 TESTO STERO NE, FREE+ TOTAL LC/MS testosterone , total, lc/MS 11.0 NG/dL Femal e: Preme nopau phil 10.0 - 55.0 Postm enopa usal 7.0 - 40.0 Not Available [facility] (Lab) [address] [place], [address], 04/17/2023 14:12:15 04/13/20 23 04/17/2023 TESTO STERO NE, FREE+ TOTAL LC/MS testosterone , free 0.21 NG/dL 0.10-0 .85 Not Available [facility] (Lab) [address] [place], [address], 04/17/2023 14:12:15 04/13/20 23 04/17/2023 TESTO STERO NE, FREE+ TOTAL LC/MS % free testosterone 1.95 % 0.50-2 .80 Perfo rmed at: BN - [facility] [address] [place] [address] Lab Direc tor: Katy neely MD, Phone : [phone] Not Available [facility] (Lab) [address] [place], [address], 04/17/2023 14:12:15 02/07/20 21 02/06/2021 US, head + neck, soft tissu e [facility] [address] [place] [address] Patien t Name: STEPHANIE NG Access ion #: [id number] Sex: F : 1979 10 Locati on: RAD Attend ing Physic kacey: MEENAKSHI GOEL Orderi ng Physic kacey: MEENAKSHI GOEL Exam Date: 8:08 AM Exam Name: US NECK HEAD SOFT TISSUE Admitt ing Diagno sis(es ): RADIOL OGY REPORT - FINAL EXAM: US NECK HEAD SOFT TISSUE HISTOR Y: cyst 40-yea r-old female with thyroi d nodule s. COMPAR KIERAN: Thyroi d ultras ound examin ation dated 2018. TECHNI QUE: Ultras ound examin ation of the thyroi d was perfor med. FINDIN GS: The right lobe of the thyroi d measur es 5.5 x 2.0 x 2.1 cm. The left lobe of the thyroi d measur es 5.2 x 1.6 x 2.2 cm. The thyroi d isthmu s measur es 5.4 mm AP. There are multip le subcen timete r bilate ral thyroi d cysts. No suspic ious solid nodule s are identi fied bilate rally. The thyroi d parenc hyma is mildly diffus odette hetero geneou s bilate rally. No suspic ious calcif icatio ns or abnorm al color Dopple r blood flow. Page 1 of 2 [facility] Renetta t Name: STEPHANIE NG Access ion #: [id number] Sex: F : 1979 10 Exam Date: 8:08 AM Exam Name: US NECK HEAD SOFT TISSUE Admitt ing Diagno sis(es ): IMPRES ELMIRA: TI-RAD S 1, Benign . FNA is not recomm ended. No specif ic imagin g follow -up is necess melissa. Create d and electr onical ly signed by: Cristóbal marino MD Signed Date: 9:38 AM (CT) Dictat ed by: Cristóbal marino MD DD: 3/25/2 021 9:38 AM (CT) DT: 9:38 AM (CT) Page 2 of 2 [id number] [facility] (Imaging) [address] [place], [address], 01/13/2023 20:40:42 02/07/20 21 02/06/2021 US, neck, soft tissu e No observ ation record ed. [id number] [facility] [address] [place], [address], 01/13/2023 20:40:42 Result Notes None recorded. Problems Name Problem SNOMED Code Status Onset Date Resolution Date Notes Provider Name and Address Organization Details Recorded Time Genital herpes simplex 23492613 Active 2018 Not Available [facility] 3 20:39:31 Vitamin D deficiency 33073453 Active 2018 Not Available [facility] 3 20:39:31 Dyslipidemia 336318485 Active 2018 Not Available [facility] 3 20:39:31 Polycystic ovary syndrome 064162674 Active 2022 Meenakshi oGel MD [address], [address] , [facility] 3 20:04:18 Fatigue 76997642 Active 2022 Meenakshi Goel MD [address] [facility] [address], [address] , [facility] 3 20:04:27 Mixed hypercholeste rolemia and hypertriglyce ridemia 574952606 Active 2022 JONEL Salazar null, [facility] [place] 3 09:39:51 Problem Notes None recorded. Procedures Surgical History None recorded. Imaging Results Imaging Date Name Status LastModified by Organiz ation Details LastModified Time 02/06/2021 US, head + neck, soft tissue completed [id number] [facility] (Imaging) [address] [place], [address], 01/13/2023 20:40:42 02/06/2021 US, neck, soft tissue completed [id number] [facility] [address] [place], [address], 01/13/2023 20:40:42 Procedure Notes None recorded. Medical Equipment None Reported. Allergies Allergen ID Allergen Name Allergen Category Reaction Reaction Severity Criticality Documentation Date Start Date Code Code System Note Provider Name and Address Organization Details Recorded Time 55721 tramadol medicatio n headache Not available Not available 01/13/2023 18418 RxNorm Not Available [facility] 3 20:40:41 36196 Product containin g penicilli n (product) medicatio n Not available Not available Not available 01/13/2023 13407 8001 SNOMED Not Available [facility] 3 20:40:41 59733 latex environme nt,medica tion Not available Not available Not available 01/13/2023 44705 91 RxNorm Not Available [facility] 3 20:40:41 67848 azithromy eddie medicatio n Not available Not available Not available 01/13/2023 65482 RxNorm Not Available [facility] 3 20:40:41 Medications Name Sig Start Date Stop Date Status Note LastModified by Organization Details LastModified Time cyclobenza jhony 10 mg tablet 10/23 completed Not Available Not Available Not Available atorvastat in 40 mg tablet 10/23 completed Not Available Not Available Not Available buspirone 5 mg tablet TAKE 1 TABLET BY MOUTH EVERY DAY AT BEDTIME 02/21 completed Not Available Not Available Not Available neomycin-p olymyxin-h ydrocort 3.5 mg/mL-10,0 00 unit/mL-1 % ear solution Instill 4 drops 3 times a day by otic route for 10 days. 07/20 completed Not Available Not Available Not Available Xylocaine with Epinephrin e 2 %-1:100,00 0 injection solution inject 2 mL intra-ar ticularl y into bilatera l knees once 07/11 completed Not Available Not Available Not Available propranolo l 80 mg tablet 10/13 completed Not Available Not Available Not Available atorvastat in 20 mg tablet TAKE 1 TABLET BY MOUTH EVERY OTHER DAY AT BEDTIME 10/23 completed Not Available Not Available Not Available azithromyc in 250 mg tablet TAKE 2 TABLETS (500 MG) BY ORAL ROUTE ONCE DAILY FOR 1 DAY THEN 1 TABLET (250 MG) BY ORAL ROUTE ONCE DAILY FOR 4 DAYS active Not Available Not Available No t Available ibuprofen 800 mg tablet 03/24 completed Not Available Not Available Not Available fluconazol e 150 mg tablet 03/24 completed Not Available Not Available Not Available ranitidine 300 mg tablet Take 1 mg every day by oral route at bedtime for 30 days. active not taking Not Available Not Available Not Available prochlorpe razine maleate 5 mg tablet 03/24 completed Not Available Not Available Not Available fluconazol e 200 mg tablet 10/23 completed Not Available Not Available Not Available meloxicam 15 mg tablet 10/13 completed Not Available Not Available Not Available phenazopyr idine 200 mg tablet Take 1 tablet 3 times a day by oral route as needed for 2 days. active Not Available Not Available No t Available ondansetro n HCl 4 mg tablet active Not Available Not Available Not Available sumatripta n 50 mg tablet TAKE 1 TABLET BY MOUTH AT ONSET OF HEADACHE . MAY REPEAT IN 1 HOUR IF MIGRAINE CONTINUE S. MAX OF 4 TABLETS PER 24 HOURS active Not Available Not Available No t Available topiramate 25 mg tablet TAKE 1 TABLET BY MOUTH EVERY DAY 07/20 completed Not Available Not Available Not Available triamcinol one acetonide 0.5 % topical ointment APPLY A THIN LAYER TO THE AFFECTED AREA(S) BY TOPICAL ROUTE 2 TIMES PER DAY active Not Available Not Available No t Available metronidaz ole 500 mg tablet 10/23 completed Not Available Not Available Not Available acetaminop hen 300 mg-codeine 30 mg tablet 10/23 completed Not Available Not Available Not Available sulfametho xazole 800 mg-trimeth oprim 160 mg tablet active Not Available Not Available No t Available omeprazole 40 mg capsule,de layed release TAKE 1 CAPSULE BY MOUTH EVERY DAY active Not Available Not Available No t Available tramadol 50 mg tablet 07/20 completed Not Available Not Available Not Available amitriptyl ine 25 mg tablet TK 2 TS PO QD HS 01/25 completed Not Available Not Available Not Available Xylocaine 10 mg/mL (1 %) injection solution Take 20 mg every day by injectio n route for 1 day. 05/13 completed Not Available Not Available Not Available triamcinol one acetonide 40 mg/mL suspension for injection Take 40 mg every day by injectio n route for 1 day. 05/13 completed Not Available Not Available Not Available ranitidine 150 mg tablet TK 1 T PO BID 01/25 completed Not Available Not Available Not Available prednisone 50 mg tablet 06/22 completed Not Available Not Available Not Available propranolo l ER 80 mg capsule,24 hr,extende d release Take 1 capsule every day by oral route in the morning for 90 days. active Not Available Not Available No t Available pramipexol e 0.125 mg tablet Take 1 tablet every day by oral route at bedtime for 30 days. 07/20 completed Not Available Not Available Not Available buspirone 7.5 mg tablet active Not Available Not Available Not Available diclofenac sodium 75 mg tablet,del ayed release TAKE 1 TABLET BY MOUTH TWICE DAILY active Not Available Not Available No t Available ergocalcif matti (vitamin D2) 1,250 mcg (50,000 unit) capsule Take 1 capsule every week by oral route for 28 days. 06/22 completed no taking Not Available Not Available Not Available levofloxac in 750 mg tablet 07/11 completed Not Available Not Available Not Available celecoxib 100 mg capsule active Not Available Not Available Not Available fluticason e propionate 50 mcg/actuat ion nasal spray,susp ension SHAKE LQ AND U 1 SPR IEN QD FOR 30 DAYS active Not Available Not Available No t Available metformin ER 500 mg tablet,ext ended release 24 hr active Not Available Not Available Not Available naproxen 500 mg tablet 10/23 completed Not Available Not Available Not Available spironolac tone 50 mg tablet Take 2 tablets every day by oral route at bedtime for 30 days. 2022 active Not Available Not Available Not Avai lable neomycin-p olymyxin-h ydrocort 3.5 mg-10,000 unit/mL-1 % ear drops,susp 07/20 completed Not Available Not Available Not Available azithromyc in 500 mg tablet 03/24 completed Not Available Not Available Not Available ezetimibe 10 mg tablet active Not Available Not Available Not Available cyclobenza jhony 5 mg tablet active Not Available Not Available Not Available metoprolol tartrate 25 mg tablet TK 1 T PO QD WITH A MEAL active Not Available Not Available No t Available topiramate 50 mg tablet TK 1 T PO BID 02/21 completed Not Available Not Available Not Available nitrofuran toin monohydrat e/macrocry stals 100 mg capsule Take 1 capsule every 12 hours by oral route for 5 days. 10/23 completed Not Available Not Available Not Available fenofibrat e nanocrysta llized 145 mg tablet active Not Available Not Available No t Available Lovaza 1 gram capsule Take 2 capsules twice a day by oral route before meals for 90 days. 10/23 completed Not Available Not Available Not Available levocetiri zine 5 mg tablet TAKE 1 TABLET BY MOUTH EVERY NIGHT AT BEDTIME 06/22 completed Not Available Not Available Not Available pramipexol e 0.75 mg tablet TAKE 1/2 TABLET BY MOUTH EVERY DAY AT BEDTIME active Not Available Not Available No t Available Linzess 145 mcg capsule active Not Available Not Available Not Available Vascepa 1 gram capsule Take 2 capsules twice a day by oral route for 30 days. 03/12 completed Not Available Not Available Not Available Virtussin AC 10 mg-100 mg/5 mL oral liquid 03/24 completed Not Available Not Available Not Available Aimovig Autoinject or 70 mg/mL subcutaneo us auto-injec tor Inject 1 mL every month by subcutan eous route for 30 days. active Not Available Not Available No t Available Nurtec ODT 75 mg disintegra ting tablet active Not Available Not Available Not Available Vitals Date Recorded Body mass index (BMI) Body height Body temperature Body weight Systolic blood pressure Diastolic blood pressure Provider Name and Address Organization Details Last Updated DateTime 1 27.6 kg/m2 175.26 cm 98.4 [degF] 33635.7 7 g 120 mm[Hg] 80 mm[Hg] Not Available [facility] 3 20:39:15 Date Recorded Body mass index (BMI) Body height Oxygen saturation Oxygen saturation in Arterial blood by Pulse oximetry Heart rate Body temperature Body weight Systolic blood pressure Diastolic blood pressure Provider Name and Address Organization Details Last Updated DateTime 1 29.4 kg/m2 175.26 cm 97 % 97 % 78 /min 98.7 [degF] 77835.8 8 g 140 mm[Hg] 98 mm[Hg] Not Available [facility] 3 20:39:15 Date Recorded Body mass index (BMI) Body height Oxygen saturation Oxygen saturation in Arterial blood by Pulse oximetry Heart rate Body temperature Body weight Systolic blood pressure Diastolic blood pressure Provider Name and Address Organization Details Last Updated DateTime 2 28.5 kg/m2 175.26 cm 98 % 98 % 88 /min 98.4 [degF] 08789.3 3 g 130 mm[Hg] 80 mm[Hg] Not Available [facility] 3 20:39:15 Date Recorded Body mass index (BMI) Body height Oxygen saturation Oxygen saturation in Arterial blood by Pulse oximetry Heart rate Body temperature Body weight Systolic blood pressure Diastolic blood pressure Provider Name and Address Organization Details Last Updated DateTime 2 27.5 kg/m2 175.26 cm 96 % 96 % 103 /min 97.7 [degF] 09722.1 8 g 115 mm[Hg] 80 mm[Hg] Not Available [facility] Social History Question Answer Notes LastModified by [employer] ion Details LastModified Time Tobacco Smoking Status Never Smoker Not Available [facility] 01/13/2023 20:38:46 What Is Your Level Of Alcohol Consumption? None [id number] Information not available 01/13/2023 What Is Your Level Of Caffeine Consumption? Occasional [id number] Information not available 01/13/2023 How Much Tobacco Do You Chew? None [id number] Information not available 01/13/2023 In The 14 Days Before Symptom Onset, Have You Had Close Contact With A Laboratory-confir med COVID-19 While That Case Was Ill? No [id number] Information not available 01/13/2023 In The 14 Days Before Symptom Onset, Have You Had Close Contact With A Person Who Is Under Investigation For COVID-19 While That Person Was Ill? No [id number] Information not available 01/13/2023 What Type Of Diet Are You Following? REGULAR [id number] Information not available 01/13/2023 Which Illicit Or Recreational Drugs Have You Used? None MIGRATION.[id number] Information not available 01/13/2023 Do You Or Have You Ever Used E-cigarettes Or Vape? 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 Single MIGRATION.[id number] Information not available 01/13/2023 Do You Use Any Illicit Or Recreational Drugs? No MIGRATION.[id number] Information not available 01/13/2023 Have You Recently Traveled Abroad? No MIGRATION.[id number] Information not available 01/13/2023 Do You Have Any Dietary Restrictions? No MIGRATION.[id number] Information not available 01/13/2023 Sex: Female Functional Status None recorded. Mental Status None recorded. Family History Relationship Description Onset Age of this Age Resolved Age Notes LastModified by Organization Details LastModified Time Mother Hypertensive disorder [id number] Not available 01/13/2023 20:38:52 Mother Hyperlipidem ia [id number] Not available 01/13/2023 20:38:52 Father Hypertensive disorder [id number] Not available 01/13/2023 20:38:52 Father Hyperlipidem ia [id number] Not available 01/13/2023 20:38:52 Medical History Condition Response HERPES Y HIGH CHOLESTEROL / HYPERLIPIDEMIA Y Gynecological HistoryNo gynecological history recorded. Obstetrics History GPAL:G 0 P 0 0 0 0 Past Encounters Encounter ID Performer Location Encounter Start Date Encounter Closed Date Diagnosis/Indication Diagnosis SNOMED-CT Code Diagnosis ICD10 Code Diagnosis Note [id number] [facility] [address] [place] [address] 02/21/2021 00:00:00 02/21/2021 10:58:35 [id number] [facility] [address] [place] [address] 10/13/2021 00:00:00 10/14/2021 08:09:20 [id number] _ATHENA_M IGRATION_ DEFAULT_1 _1 , 03/12/2022 00:00:00 03/12/2022 11:58:19 [id number] [facility] [address] [place] [address] 10/23/2022 00:00:00 10/23/2022 11:15:59 Health Concerns Section Related Observation LastModified by Organization Detai ls LastModified Time None Recorded Concern Status LastModified by Organization Details LastModified Time None Recorded Advance Directives Directive None Recorded Payers None recorded. OBGyn Episode No OBEpisode recorded.
--- OUTSIDE RECORDS SUMMARY | 2025-02-27 18:25 | XMS_ITS | Data Portability ---
Author Organization [facility] [place] Address [address] [place] [address] Care Team Providers Care Revenue Settlements Administrator Name Role Phone LAURA CORDON Primary Care Provider Assessment Encounter Date Assessment Date Assessment LastModified by Organization Details LastModified Time 10/14/2020 10/14/2020 healthy female exam patient declines std testing pap due 2021, discussed guidelines mammogram- first one next year contraception-tu bal discussed how to find PCP through her insurance FU 1 year or prn Not available 10/15/2020 10:14:17 01/30/2022 01/30/2022 Annual gynecological exam performed. Patient will come back in a year unless there are new symptoms. Not available 01/30/2022 16:18:16 02/02/2024 02/02/2024 Annual gynecological exam performed. Patient will come back in a year unless there are new symptoms. [email or web address] Not available 02/02/2024 10:33:00 02/19/2025 02/19/2025 Annual gynecological exam performed. Patient will come back in a year unless there are new symptoms. [email or web address] Not available 02/19/2025 16:07:54 Plan of Treatment Reminders Order Date Submit Date Provider Last Modified By Organization Details Last Modified Time Details Appointments None recorded. Lab pap, IG + HR HPV - HPV regardless but if HPV is positive need subtyping 16,18/45 2024 025 [facility] (Lab), [address], [place], [address], 04/09/202 5 11:57:58 urinalysis, dipstick 2023 024 [email or web address] [place], [address], [address], [place], [address], 4 10:51:57 TSH, serum or plasma 2021 022 [facility] (Lab), [address], [place], [address], 2 02:54:48 CBC w/ auto diff 2021 022 [facility] (Lab), [address], [place], [address], 2 02:54:47 CMP, serum or plasma 2021 022 [facility] (Lab), [address], [place], [address], 2 02:54:47 Referral None recorded. Procedures None recorded. Surgeries None recorded. Imaging MAMMO, screening, digital, bilateral [email or web address] [place] [address] Imaging, [address], [place], [address], 5 18:55:48 MAMMO, screening, bilateral [address] (Radiology), [address] [place] [address], [address], 4 12:02:47 Medication Orders None recorded. Patient TargetsNo targets recorded. Patient InstructionsNo instructions recorded. Reason for Referral None Reported. Results Created Date Observation Date Name Description Value Unit Range Abnormal Flag Note LastModifiedBy Organization Detail LastModifiedTime 01/31/2001/30/2022 CBC W/DIF F WBC 10.4 10'3/ uL 3.6-10 .2 high Not Available [facility] (Lab) [address], [place], [address], 01/31/2022 02:54:47 01/31/20 22 01/30/2022 CBC W/DIF F RBC 3.70 10'6/ uL (based on docume nted legal sex) 4.10-5 .30 low Not Available [facility] (Lab) [address], [place], [address], 01/31/2022 02:54:47 01/31/20 22 01/30/2022 CBC W/DIF F HGB 11.4 g/dL (based on docume nted legal sex) 11.9-1 5.8 low Not Available [facility] (Lab) [address], [place], [address], 01/31/2022 02:54:47 01/31/20 22 01/30/2022 CBC W/DIF F HCT 37.1 % (based on docume nted legal sex) 37.4-4 8.3 low Not Available [facility] (Lab) [address], [place], [address], 01/31/2022 02:54:47 01/31/20 22 01/30/2022 CBC W/DIF F MCV 100.0 fL 82.0-9 9.0 high Not Available [facility] (Lab) [address], [place], [address], 01/31/2022 02:54:47 01/31/20 22 01/30/2022 CBC W/DIF F MCH 31.0 pg 27.0-3 3.0 Not Available [facility] (Lab) [address] [place], [address], 01/31/2022 02:54:47 01/31/20 22 01/30/2022 CBC W/DIF F MCHC 31.0 g/dL 32.0-3 6.0 low Not Available [facility] (Lab) [address] [place], [address], 01/31/2022 02:54:47 01/31/20 22 01/30/2022 CBC W/DIF F RDW 12.0 % 11.0-1 5.0 Not Available [facility] (Lab) [address], [place], [address], 01/31/2022 02:54:47 01/31/20 22 01/30/2022 CBC W/DIF F plt 336 10'3/ uL 150-45 0 Not Available [facility] (Lab) [address], [place], [address], 01/31/2022 02:54:47 01/31/20 22 01/30/2022 CBC W/DIF F MPV 10.0 fL 9.8-12 .7 Not Available [facility] (Lab) [address], [place], [address], 01/31/2022 02:54:47 01/31/20 22 01/30/2022 CBC W/DIF F NRBC's 0.00 % 0 Not Available [facility] (Lab) [address], [place], [address], 01/31/2022 02:54:47 01/31/20 22 01/30/2022 CBC W/DIF F absolute NRBCs 0.0 10'3/ uL 0 Not Available [facility] (Lab) [address], [place], [address], 01/31/2022 02:54:47 01/31/20 22 01/30/2022 CBC W/DIF F neutrophils 61.0 % 37.0-7 2.0 Not Available [facility] (Lab) [address], [place], [address], 01/31/2022 02:54:47 01/31/20 22 01/30/2022 CBC W/DIF F lymphocytes 27.0 % 16.0-4 8.0 Not Available [facility] (Lab) [address], [place], [address], 01/31/2022 02:54:47 01/31/20 22 01/30/2022 CBC W/DIF F monocytes 8.0 % 4.0-14 .0 Not Available [facility] (Lab) [address], [place], [address], 01/31/2022 02:54:47 01/31/20 22 01/30/2022 CBC W/DIF F eosinophils 2.0 % 0.0-9. 0 Not Available [facility] (Lab) [address], [place], [address], 01/31/2022 02:54:47 01/31/20 22 01/30/2022 CBC W/DIF F basophils 1.0 % 0.0-2. 0 Not Available [facility] (Lab) [address], [place], [address], 01/31/2022 02:54:47 01/31/20 22 01/30/2022 CBC W/DIF F immature granulocytes 1.0 % no define d refere nce range Not Available [facility] (Lab) [address], [place], [address], 01/31/2022 02:54:47 01/31/20 22 01/30/2022 CBC W/DIF F absolute neutrophils 6.5 10'3/ uL 1.1-6. 0 high Not Available [facility] (Lab) [address] [place], [address], 01/31/2022 02:54:47 01/31/20 22 01/30/2022 CBC W/DIF F absolute lymphocytes 2.8 10'3/ uL 0.7-3. 4 Not Available [facility] (Lab) [address] [place], [address], 01/31/2022 02:54:47 01/31/20 22 01/30/2022 CBC W/DIF F absolute monocytes 0.8 10'3/ uL 0.3-1. 0 Not Available [facility] (Lab) [address], [place], [address], 01/31/2022 02:54:47 01/31/20 22 01/30/2022 CBC W/DIF F absolute eosinophils 0.2 10'3/ uL 0.0-0. 6 Not Available [facility] (Lab) [address], [place], [address], 01/31/2022 02:54:47 01/31/20 22 01/30/2022 CBC W/DIF F absolute basophils 0.1 10'3/ uL 0.0-0. 1 Not Available [facility] (Lab) [address], [place], [address], 01/31/2022 02:54:47 01/31/20 22 01/30/2022 CBC W/DIF F absolute immature granulocytes 0.10 10'3/ uL 0.00-0 .10 2021 1:25 AM: P indic ates parti al resul ts on a panel have been relea sed. Addit ional resul ts will follo w. 2021 1:26 AM: This resul t has been final verif ied. No addit ional or gillespie ed resul ts are expec sheba. Not Available [facility] (Lab) [address], [place], [address], 01/31/2022 02:54:47 01/31/20 22 01/30/2022 CMP(C OMPRE HENSI VE METAB OLIC PANEL ) sodium 140 mmol/ L 133-14 6 Not Available [facility] (Lab) [address], [place], [address], 01/31/2022 02:54:47 01/31/20 22 01/30/2022 CMP(C OMPRE HENSI VE METAB OLIC PANEL ) potassium 3.8 mmol/ L 3.5-5. 1 Not Available [facility] (Lab) [address], [place], [address], 01/31/2022 02:54:47 01/31/20 22 01/30/2022 CMP(C OMPRE HENSI VE METAB OLIC PANEL ) chloride 108 mmol/ L 98-107 high Not Available [facility] (Lab) [address], [place], [address], 01/31/2022 02:54:47 01/31/20 22 01/30/2022 CMP(C OMPRE HENSI VE METAB OLIC PANEL ) carbon dioxide 27 mmol/ L 21-31 Not Available [facility] (Lab) [address], [place], [address], 01/31/2022 02:54:47 01/31/20 22 01/30/2022 CMP(C OMPRE HENSI VE METAB OLIC PANEL ) anion gap 5 mmol/ L 4-13 Not Available [facility] (Lab) [address], [place], [address], 01/31/2022 02:54:47 01/31/20 22 01/30/2022 CMP(C OMPRE HENSI VE METAB OLIC PANEL ) blood urea nitrogen 16 mg/dL 7-25 Not Available [facility] (Lab) [address], [place], [address], 01/31/2022 02:54:47 01/31/20 22 01/30/2022 CMP(C OMPRE HENSI VE METAB OLIC PANEL ) creatinine 0.74 mg/dL 0.60-1 .30 Not Available [facility] (Lab) [address], [place], [address], 01/31/2022 02:54:47 01/31/20 22 01/30/2022 CMP(C OMPRE HENSI VE METAB OLIC PANEL ) egfrcr (CKD-epi 2020) >90 mL/mi n/1.7 3_m2 >=60 Not Available [facility] (Lab) [address], [place], [address], 01/31/2022 02:54:47 01/31/20 22 01/30/2022 CMP(C OMPRE HENSI VE METAB OLIC PANEL ) calcium 9.3 mg/dL 8.3-10 .5 Not Available [facility] (Lab) [address], [place], [address], 01/31/2022 02:54:47 01/31/20 22 01/30/2022 CMP(C OMPRE HENSI VE METAB OLIC PANEL ) glucose 87 mg/dL 70-100 Not Available [facility] (Lab) [address], [place], [address], 01/31/2022 02:54:47 01/31/20 22 01/30/2022 CMP(C OMPRE HENSI VE METAB OLIC PANEL ) protein, total 7.3 g/dL 6.4-8. 3 Not Available [facility] (Lab) [address], [place], [address], 01/31/2022 02:54:47 01/31/20 22 01/30/2022 CMP(C OMPRE HENSI VE METAB OLIC PANEL ) albumin 4.2 g/dL 3.5-5. 0 Not Available [facility] (Lab) [address], [place], [address], 01/31/2022 02:54:47 01/31/20 22 01/30/2022 CMP(C OMPRE HENSI VE METAB OLIC PANEL ) ALT 16 units /L 9-43 Not Available [facility] (Lab) [address] [place], [address], 01/31/2022 02:54:47 01/31/20 22 01/30/2022 CMP(C OMPRE HENSI VE METAB OLIC PANEL ) alkaline phosphatase 110 units /L 34-104 high Not Available [facility] (Lab) [address], [place], [address], 01/31/2022 02:54:47 01/31/20 22 01/30/2022 CMP(C OMPRE HENSI VE METAB OLIC PANEL ) AST 20 units /L 13-39 Not Available [facility] (Lab) [address], [place], [address], 01/31/2022 02:54:47 01/31/20 22 01/30/2022 CMP(C OMPRE HENSI VE METAB OLIC PANEL ) bilirubin, total 0.6 mg/dL 0.2-1. 2 Not Available [facility] (Lab) [address], [place], [address], 01/31/2022 02:54:47 01/31/20 22 01/30/2022 TSH/ REFLE X FT4 AND FT3 TSH 0.69 uIU/m L 0.30-5 .33 Not Available [facility] (Lab) [address], [place], [address], 01/31/2022 02:54:48 01/31/20 22 01/30/2022 IMAGE GUIDE D PAP AND HPV REGAR DLESS image guided Pap, HPV regardless of Pap result SEE RESULT S BELOW CASE REPOR T: Cytol ogy Gynec ologi girma Repor t Case: [id number] Autho riraquel g Provi zita: Bijan Driver Colle cted: 01/30 1624 TUBE BUFFER Order ing Locat ion: [place] [facility] Recei nohemi: 01/31 0035 First Scree n: Frase r, Emilia , CT Rescr een: Ne leon, Ruben evangelista, CT Speci men: Scree edmundo Pap - Image d, Cervi x STATE MENT OF ADEQU ACY: Satis facto ry for evalu ation Trans forma tion zone compo nent prese nt FINAL DIAGN OSIS: Negat ruma for Intra epith elial Lesio n or Lorena julian (NIL) . Funga l organ isms morph ologi sourav consi stent with Traci da spp. Shift in fransisco sugge stive of bacte rial vagin osis. Elect maria del carmen elise marcelo d by Ne leon, Ruben evangelista, CT on 2021 at 8:41 PM ----- ----- ----- ----- ----- ----- ----- ----- ----- ----- ----- ----- ----- ----- ----- ----- ----- ---- HPV RESUL TS: HPV mRNA E6/E7 : No HPV mRNA Detec sheba NOTE: This high risk HPV mRNA assay detec ts fourt een high- risk HPV types (16, 18, 31, 33, 35, 39, 45, 51, 52, 56, 58, 59, 66, 68) witho ut diffe renti ation . COMME NT: Note: This speci men was revie wed by a Cytot echno logis t and/o r Patho logis t (as indic ated in this repor t) after evalu ation using the Thinp rep Imagi ng Syste m. CLINI GIRMA INFOR MATIO N: Menst rual Statu s: LMP (if appli cable ): Clini girma Histo ry/Pr eviou s Pap: Type of Neopl jacki (if appli cable ): Signi fican t Clini girma Findi ngs: Other Histo ry: Hormo preet (if appli cable ): PAP EDUCA SILVIO L NOTE: The Pap Test is a scree edmundo test with an inher ent false negat ruma rate. Liqui d-bas ed sampl ing may decre ase, but will not elimi petra, false negat ruma resul ts. A negat ruma resul t does not precl ude the prese nce and/o r devel opmen t of disea se, since the prese nce of abnor mal cells in the sampl e depen ds on the locat ion of the lesio n and sampl ing techn ique. David nued regul ar scree edmundo is the best metho d of cance r preve ntion . If repor sheba cytol ogic findi ng do not corre late with physi girma and/o r histo rical findi ngs, [facility] inves tigat ion is recom scott d, as clini sourav bucio nted. Not Available [facility] (Lab) [address], [place], [address], 02/06/2022 21:44:32 02/02/20 24 02/02/2024 IMAGE GUIDE D PAP AND HPV REGAR DLESS image guided Pap, HPV regardless of Pap result SEE RESULT S BELOW CASE REPOR T: Cytol ogy Gynec ologi girma Repor t Case: [id number] Autho jagjit baxter Provi zita: Bijan Driver Colle cted: 02/01 1111 TUBE BUFFER Order ing Locat ion: [place] Patho [place] Recei nohemi: 02/02 0146 First Scree n: Willian Edmond, CT Speci men: Sade wyatt Pap - Image d, Cervi x STATE MENT OF ADEQU ACY: Satis facto ry for evalu ation Trans forma tion zone compo nent prese nt FINAL DIAGN OSIS: Negat ruma for Intra epith elial Lesio n or Lorena julian (NIL) . Shift in fransisco sugge stive of bacte rial vagin osis. Elect maria del carmen elise marcelo d by Willian Edmond, CT on 2023 at 10:00 AM ----- ----- ----- ----- ----- ----- ----- ----- ----- ----- ----- ----- ----- ----- ----- ----- ----- ---- HPV RESUL TS: HPV mRNA E6/E7 : No HPV mRNA Detec sheba NOTE: This high risk HPV mRNA assay detec ts fourt een high- risk HPV types (16, 18, 31, 33, 35, 39, 45, 51, 52, 56, 58, 59, 66, 68) witho ut diffe renti ation . COMME NT: This speci men was revie wed by a Cytot echno logis t and/o r Patho logis t (as indic ated in this repor t) after evalu ation using the Thinp rep Imagi ng Syste m. CLINI GIRMA INFOR MATIO N: Menst rual Statu s: LMP (if appli cable ): Clini girma Histo ry/Pr eviou s Pap: Type of Neopl jacki (if appli cable ): Signi fican t Clini girma Findi ngs: Other Histo ry: Hormo preet (if appli cable ): PAP EDUCA SILVIO L NOTE: The Pap Test is a scree edmundo test with an inher ent false negat ruma rate. Liqui d-bas ed sampl ing may decre ase, but will not elimi petra, false negat ruma resul ts. A negat ruma resul t does not precl ude the prese nce and/o r devel opmen t of disea se, since the prese nce of abnor mal cells in the sampl e depen ds on the locat ion of the lesio n and sampl ing techn ique. David nued regul ar scree edmundo is the best metho d of cance r preve ntion . If repor sheba cytol ogic findi ng do not corre late with physi girma and/o r histo rical findi ngs, furth er inves tigat ion is recom scott d, as clini sourav warra nted. Not Available [facility] (Lab) [address], [place], [address], 02/06/2024 11:03:28 02/02/20 24 02/02/2024 urina lysis , dipst ick Leukocytes NEGATI VE Not Available [place] [address] [place], [address], 02/02/2024 10:46:15 02/02/20 24 02/02/2024 urina lysis , dipst ick Nitrite NEGATI VE Not Available [place] [address], [place], [address], 02/02/2024 10:46:15 02/02/20 24 02/02/2024 urina lysis , dipst ick Urobilinogen NEGATI VE Not Available [place] [address], [place], [address], 02/02/2024 10:46:15 02/02/20 24 02/02/2024 urina lysis , dipst ick Protein TRACE Not Available [place] [address], [place], [address], 02/02/2024 10:46:15 02/02/20 24 02/02/2024 urina lysis , dipst ick pH 6 Not Available [place] [address], [place], [address], 02/02/2024 10:46:15 02/02/20 24 02/02/2024 urina lysis , dipst ick Specific [place] 1.005 [facility] Available [facility] [address], [place], [address], 02/02/2024 10:46:15 02/02/20 24 02/02/2024 urina lysis , dipst ick Ketone NEGATI VE Not Available [place] [address], [place], [address], 02/02/2024 10:46:15 02/02/20 24 02/02/2024 urina lysis , dipst ick Bilirubin NEGATI VE Not Available [place] [address], [place], [address], 02/02/2024 10:46:15 02/02/20 24 02/02/2024 urina lysis , dipst ick Glucose NEGATI VE Not Available [place] [address], [place], [address], 02/02/2024 10:46:15 02/02/20 24 02/02/2024 urina lysis , dipst ick Appearance CLEAR Not Available [facility] [address], [place], [address], 02/02/2024 10:46:15 02/02/20 24 02/02/2024 urina lysis , dipst ick Color LIGHT YELLOW Not Available [place] [address], [place], [address], 02/02/2024 10:46:15 03/05/20 22 02/13/2022 MAMMO , scree edmundo, bilat eral No observ ation record ed. [email or web address] [facility] [address], [place], [address], 02/02/2024 10:44:34 Result Notes None recorded. Problems Name Problem SNOMED Code Status Onset Date Resolution Date Notes Provider Name and Address Organization Details Recorded Time Adult health examinat ion Completed 201401/29/2022 ROUTINE MEDICAL EXAM;Miguel rded Elsewhere : No Locati on: [facility] So urce: EHR Chron ic: N Practic e ID: 0001 Bill able Time: 04:00:00 PM Sakshi [facility] 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 2 17:39:10 Headache [id number] Completed 201801/29/2022 Headache; Recorded Elsewhere : No Locati on: [facility] So urce: EHR Chron ic: N Practic e ID: 0001 Bill able Time: 09:30:00 AM Sakshi [facility] 2 17:38:55 Speciali zed medical examinat ion Completed 201401/29/2022 Other specified chlamydia l diseases; Recorded Elsewhere : No Locati on: [facility] So urce: EHR Chron ic: N Practic e ID: 0001 Bill able Time: 04:00:00 PM Sakshi [facility] 2 17:39:[address] Concept Completed 201801/29/2022 Encntr for general adult medical exam w/o abnormal findings; Recorded Elsewhere : No Locati on: [facility] So urce: EHR Chron ic: N Practic e ID: 0001 Bill able Time: 09:30:[address] [facility] 2 17:39:08 Syphilis test finding [id number] Completed 201501/29/2022 Encntr screen for infection s w sexl mode of transmiss ;Recorded Elsewhere : No Locati on: [facility] So urce: EHR Chron ic: N Practic e ID: 0001 Bill able Time: 01:45:[address] [facility] 2 17:39:14 Family planning surveill ance Completed 201301/29/2022 Surveilla nce of other contracep tive method;Re corded Elsewhere : No Locati on: [facility] So urce: EHR Chron ic: N Practic e ID: 0001 Bill able Time: 03:00:[address] [facility] 2 17:38:53 Screenin g for malignan t neoplasm of cervix Completed 201501/29/2022 Screening for malignant neoplasms of the cervix;Re corded Elsewhere : No Locati on: [facility] So urce: EHR Chron ic: N Practic e ID: 0001 Bill able Time: 01:45:[address] [facility] 2 17:39:07 Urinary tract infectio us disease [id number] Completed 201401/29/2022 Urinary Tract Infection ;Recorded Elsewhere : No Locati on: [facility] So urce: EHR Chron ic: N Practic e ID: 0001 Bill able Time: 04:00:[address] [facility] 2 17:39:16 Pregnanc y test negative [id number] Completed 201301/29/2022 examinati on or test, negative result;Re corded Elsewhere : No Locati on: [facility] So urce: EHR Chron ic: N Practic e ID: 0001 Bill able Time: 10:30:[address] [facility] 2 17:39:03 Heartbur n [id number] Completed 201801/29/2022 Heartburn ;Recorded Elsewhere : No Locati on: [facility] So urce: EHR Chron ic: N Practic e ID: 0001 Bill able Time: 09:30:00 AM Sakshi Holm [facility] 2 17:38:56 Infectio n screenin g Completed 201501/29/2022 Encounter for screening for oth infec/par astc diseases; Recorded Elsewhere : No Locati on: [facility] So urce: EHR Chron ic: N Practic e ID: [id number] Bill able Time: 01:45:00 PM Sakshi Holm [facility] 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 2 17:39:11 Venereal disease screenin g Completed 201401/29/2022 Screening examinati on for venereal disease;R ecorded Elsewhere : No Locati on: [facility] So urce: EHR Chron ic: N Practic e ID: 0001 Bill able Time: 04:00:[address] [facility] 2 17:39:18 Leukorrh ea [id number] Completed 201301/29/2022 Leukorrhe a, not specified as infective ;Recorded Elsewhere : No Locati on: [facility] So urce: EHR Chron ic: N Practic e ID: 0001 Bill able Time: 03:00:00 PM Sakshi Holm [facility] 2 17:39:00 Restless legs [id number] Completed 201901/29/2022 Sakshi Holm [facility] 2 17:39:05 Hypercho lesterol emia [id number] Completed 201901/29/2022 Sakshimonserrat Homl [facility] 17:38:58 Migraine [id number] Completed 201901/29/2022 Sakshi Holm [facility] 2 17:39:02 Anemia [id number] Completed 201901/29/2022 Sakshi Holm [facility] 2 17:38:52 Problem Notes None recorded. Procedures Surgical History Date Name Laterality Status Provider Name and Address Organization Details Recorded Time 2 Date of Last Pap Smear completed Sakshi [facility] 02/02/2024 10:38:46 7 ligation of bilateral fallopian tubes completed Jeimyjustina [facility] 02/19/2025 16:51:38 Imaging Results Imaging Date Name Status LastModified by Organiz ation Details LastModified Time 02/13/2022 MAMMO, screening, bilateral completed [address] [facility] [address] [place], [address], 02/02/2024 10:44:34 Procedure Notes None recorded. Medical Equipment None Reported. Allergies Allergen ID Allergen Name Allergen Category Reaction Reaction Severity Criticality Documentation Date Start Date Code Code System Note Provider Name and Address Organization Details Recorded Time 284 Product containin g penicilli n (product) medicatio n Not available Not available Not available 10/14/[id number] [facility], [place] - [facility] 0 09:52:31 Medications Name Sig Start Date Stop Date Status Note LastModified by Organization Details LastModified Time atorvasta tin 40 mg tablet 02/01 completed Not Available Not Available Not Available buspirone 5 mg tablet TK 1 T PO QD HS 01/30 completed Not Available Not Available Not Available doxycycli ne hyclate 100 mg capsule Take 1 capsule twice a day by oral route for 7 days. 02/19 completed Not Available Not Available Not Available propranol ol 80 mg tablet 01/30 completed Not Available Not Available Not Available atorvasta tin 20 mg tablet TK 1 T PO QOD HS 01/30 completed Not Available Not Available Not Available atorvasta tin 10 mg tablet take 1 tablet by oral route every day 01/29 completed Prescrib ed Elsewher e: Yes Loca tion: [facility] odify By: fareed bridges DateTime : 02/17/20 09:15:00 AM Not Available Not Available Not Available fluconazo le 200 mg tablet Take 1 tablet every day by oral route for 1 day. 02/01 completed Not Available Not Available Not Available meloxicam 15 mg tablet 02/19 completed Not Available Not Available Not Available phenazopy ridine 200 mg tablet TK 1 T PO TID FOR 2 DAYS PRN 02/19 completed Not Available Not Available Not Available ondansetr on HCl 4 mg tablet 02/01 completed Not Available Not Available Not Available Zantac 300 mg tablet take 1 tablet by oral route every day at bedtime 02/16 completed Prescrib ed Elsewher e: No Locat ion: [facility] odify By: ezra Estrella ntjaison DateTime : 01/24/20 19 09:30:00 AM Not Available Not Available Not Available Diflucan 150 mg tablet take 1 tablet by oral route once 02/16 completed Prescrib ed Elsewher e: No Locat ion: [facility] odify By: fareed bridges DateTime : 09/11/20 16 03:48:18 PM Not Available Not Available Not Available sumatript an 50 mg tablet TK 1 T PO AOS OF HEADACHE . MAY REPEAT IN 1 HOUR IF MIGRAINE CONTINUE S. MAX OF 4 TS PER 24 H 10/14 completed Not Available Not Available Not Available triamcino lone acetonide 0.5 % topical ointment MANUELA THIN LAYER EXT AA BID active Not Available Not Available No t Available metronida zole 500 mg tablet Take 1 tablet twice a day by oral route for 7 days. 02/01 completed Not Available Not Available Not Available acetamino phen 300 mg-codein e 30 mg tablet 02/01 completed Not Available Not Available Not Available omeprazol e 40 mg capsule,d elayed release TK 1 C PO QD active Not Available Not Available No t Available Prevacid 30 mg capsule,d elayed release take 1 capsule by oral route every day before a meal 01/24 completed Prescrib ed Elsewher e: No [facility] By: trina booker DateTime : 01/24/20 09:30:00 AM Not Available Not Available Not Available nortripty line 25 mg capsule active Not Available Not Available Not Available Metrogel Vaginal 0.75 % (37.5 mg/5 gram) insert 1 applicat orful by vaginal route every day at bedtime for 5 nights 02/16 completed Prescrib ed Elsewher e: No Locat ion: [facility] odify By: fareed bridges DateTime : 09/11/20 16 03:48:18 PM Not Available Not Available Not Available amitripty line 25 mg tablet TK 2 TS PO QD HS 10/14 completed Not Available Not Available Not Available erythromy eddie 5 mg/gram (0.5 %) eye ointment 02/19 completed Not Available Not Available Not Available propranol ol ER 80 mg capsule,2 4 hr,extend ed release active Not Available Not Available Not Available methimazo le 5 mg tablet take 1 tablet by oral route every day 02/04 completed Prescrib ed Elsewher e: Yes Loca tion: [facility] odify By: [email or web address] trick En counter DateTime : 02/16/20 14 03:00:00 PM Not Available Not Available Not Available buspirone 7.5 mg tablet active Not Available Not Available Not Available Vitamin D2 1,250 mcg (50,000 unit) capsule take 1 capsule by oral route every week 2018 active Prescrib ed Elsewher e: No [facility] odify By: ruby bridges DateTime : 01/28/20 19 01:11:40 PM Not Available Not Available Not Available celecoxib 100 mg capsule 02/01 completed Not Available Not Available Not Available Imitrex 25 mg tablet take 1 tablet by oral route once with fluids as early as possible after the onset of a migraine attack;m ay repeat after 2 hours if headache returns, not to exceed 200mg in 24hrs 02/15 completed Prescrib ed Elsewher e: Yes Loca tion: [facility] odify By: [email or web address] trick En counter DateTime : 01/01/20 14 10:30:00 AM Not Available Not Available Not Available fluticaso ne propionat e 50 mcg/actua tion nasal spray,alcira pension SHAKE LQ AND U 1 SPR IEN QD FOR 30 DAYS 10/14 completed Not Available Not Available Not Available metformin ER 500 mg tablet,ex tended release 24 hr active Not Available Not Available Not Available loratadin e 10 mg tablet active Not Available Not Available Not Available spironola ctone 50 mg tablet TK 2 TS PO BID ATC active Not Available Not Available No t Available Depo-Prov era 150 mg/mL intramusc ular syringe inject 1 millilit er (150MG) by intramus cular route every 3 months 02/04 completed Prescrib ed Elsewher e: No Locat ion: [facility] odify By: [email or web address] trick En counter DateTime : 04/02/20 14 04:22:50 PM Not Available Not Available Not Available ezetimibe 10 mg tablet active Not Available Not Available Not Available cyclobenz aprine 5 mg tablet active Not Available Not Available No t Available metoprolo l tartrate 25 mg tablet TK 1 T PO QD [facility] 01/30 completed Not Available Not Available Not Available topiramat e 50 mg tablet TK 1 T PO BID 01/30 completed Not Available Not Available Not Available nitrofura ntoin monohydra te/macroc rystals 100 mg capsule TK 1 C PO Q 12 H FOR 5 DAYS 02/01 completed Not Available Not Available Not Available fenofibra te nanocryst allized 145 mg tablet 02/19 completed Not Available Not Available Not Available pramipexo le 0.75 mg tablet TK 1/2 T PO QD HS active Not Available Not Available No t Available Linzess 145 mcg capsule active Not Available Not Available Not Available Se-Ari 19 29 mg iron-1 mg tablet take 1 tablet by oral route every day 02/04 [facility] odify By: [email or web address] trick En counter DateTime : 04/10/20 08:30:00 AM Not Available Not Available Not Available [facility] mg disintegr ating tablet active Not Available Not Available Not Available Vitals Date Recorded Body height Body mass index (BMI) Body weight Provider Name and Address Organization Details Last Updated DateTime 01/30/2022 172.72 cm 29.7 kg/m2 44096.23 g Sakshi Holm [facility] 01/30/2022 16:19:10 Date Recorded Systolic blood pressure Diastolic blood pressure Provider Name and Address Organization Details Last Updated DateTime 01/30/2022 122 mm[Hg] 70 mm[Hg] Abigail Brenner, [facility]- [address], [place], [address], [facility] 01/30/2022 16:29:37 Date Recorded Body weight Systolic blood pressure Diastolic blood pressure Provider Name and Address Organization Details Last Updated DateTime 02/02/2024 90137.83 g 133 mm[Hg] 84 mm[Hg] Sakshi Ponce [facility] 02/02/2024 10:37:18 Date Recorded Body mass index (BMI) Body height Provider Name and Address Organization Details Last Updated DateTime 02/02/2024 28.9 kg/m2 172.72 cm Abigail Brenner, [facility]- [address], [place], [address], [facility] 02/02/2024 10:43:34 Date Recorded Body height Body mass index (BMI) Body weight Systolic blood pressure Diastolic blood pressure Provider Name and Address Organization Details Last Updated DateTime 02/19/2025 172.72 cm 28.8 kg/m2 30937.68 g 113 mm[Hg] 78 mm[Hg] Jeimy Moonney [facility] 5 16:08:24 Date Recorded Body height Body mass index (BMI) Body weight Systolic blood pressure Diastolic blood pressure Provider Name and Address Organization Details Last Updated DateTime 10/14/2020 175.26 cm 27.2 kg/m2 95713 g 125 mm[Hg] 82 mm[Hg] Vijayaarmin Kumartona [facility] 0 17:02:34 Social History Question Answer Notes LastModified by Organizat ion Details LastModified Time Tobacco Smoking Status Never Smoker Vijaya Stark null, [facility] 10/14/2020 17:04:21 What Is Your Level Of Alcohol Consumption? Occasional Information not available 01/30/2022 Are You Blind Or Do You Have Difficulty Seeing? No Information not available 01/30/2022 What Is Your Level Of Caffeine Consumption? Occasional Information not available 01/30/2022 Are You Deaf Or Do You Have Serious Difficulty Hearing? No Information not available 01/30/2022 What Type Of Diet Are You Following? REGULAR Information not available 01/30/2022 Do You Use Your Seat Belt Or Car Seat Routinely? Yes Information not available 01/30/2022 Do You Have Smoke And Carbon Monoxide Detectors In Your Home? Yes Information not available 01/30/2022 Do You Feel Stressed (tense, Restless, Nervous, Or Anxious, Or Unable To Sleep At Night)? [id number] Information not available 01/30/2022 Do You Use Any Illicit Or Recreational Drugs? No Information not available 01/30/2022 Do You Use Sunscreen Routinely? Yes Information not available 01/30/2022 Sex: Unknown Functional Status Question Answer Note LastModified by Organizat ion Details LastModified Time Do you have difficulty walking or climbing stairs? No Information not available 01/30/2022 Are you able to walk? YESWOREST Information not available 01/30/2022 Are you able to care for yourself? Yes Information not available 01/30/2022 Do you have difficulty dressing or bathing? No Information not available 01/30/2022 What is your exercise level? Moderate Information not available 01/30/2022 Mental Status None recorded. Family History Nothing Reported. Medical History Condition Response Allergies (Food, seasonal, environmental ) N Other N Drug/Latex Allergies/Reactions N Breast Cancer N Blood Transfusion N Dermatologic Disorders N Lung Disease N Defects or Inherited Disease N Breast Problem N Gestational Diabetes N Hematologic disorders N Anesthesia Complications N History of STI N Deep Vein Thrombosis N Polycystic ovary syndrome N Anxiety Disorder N Autoimmune disease N Arthritis N Infertility N Polyps N Acid Reflux (GERD) N History of abnormal pap N Cancer N Stroke N Varicosities N Neurologic/Epilepsy Y Endometriosis N High Cholesterol Y Fibromyalgia N Headaches N Kidney Disease N Heart Problems N Thyroid Problems Y Kidney or Bladder Problems N GI Problems Y Eating Disorder N Anemia Y Art (IVF or FET) N Psychiatric Illness N Ovarian Cancer N Diabetes N Pulmonary (TB, Asthma) N Hepatitis/Liver Disease N Eczema N Urinary Tract Infection N Abuse/Domestic Violence N Asthma N Trauma/Violence N Depression/ depression N Heart Disease N Pre-Eclampsia N Hypertension N Osteoporosis N Thrombophilias N Gynecological History Statement/Question Response Abnormal Pap N Flow Moderate Date of Last Mammogram Date of LMP 02/17/2025 Was last menstrual period normal Y STIs/STDs N HPV Vaccine N Duration of Flow (days) 5 Current Control Method Tubal Ligat ion Are cycles usually normal Y Date of Last Colonoscopy Frequency of Cycle (Q days) 28 Sexually Active? Y Menses Monthly Y Date of DEXA bone scan Age of first menstrual cycle 13 Date of Last Pap Smear 01/30/2022 Sexual Problems? N LMP Approximate Obstetrics History GPAL:G 4 P 4 0 0 5 Type Value Multiple Births 1 Full Term 4 Living 5 Total 4 Past Encounters Encounter ID Performer Location Encounter Start Date Encounter Closed Date Diagnosis/Indication Diagnosis SNOMED-CT Code Diagnosis ICD10 Code Diagnosis Note [id number] Savanah Hidalgo MD [facility] [address],[place] [address] 10/14/2020 16:42:47 10/14/2020 23:35:09 Gynecologic examination 67648900 Z01.419 [id number] Abigail Brenner [facility] [address],[place] [address] 01/30/2022 15:25:31 01/30/2022 17:29:17 Gynecologic examination 46399448 Z01.419 Suggested Calcium with Vitamin D 1200-1500m g daily. Patient advised to get an annual flu shot in the fall and she could obtain at [facility] or [facility] care [facility]. Also to obtain TDap vaccinatio n if you have not had one in the last 10 years. Recommend yearly mammograms . Encouraged monthly self breast exams. Encourage safe sexual practices, to use condoms and limit partners if not already in a monogamous relationsh ip. Engage in daily exercise of low impact aerobic exercise 45-60 minutes 4-5 times weekly. Avoid tobacco and illicit drugs as well as using moderation with alcohol intake less than 1-2 8 oz beverages daily. This lifestyle behavior pattern will lead to less health conditions and longer life span. If BMI greater than 25 weight watchers or dietary consult advised. All questions have been answered. Patient appears to understand informatio n, but if you have any questions please call or respond to this email. Pap/hpv sent STD Screen declined Genetic Screen discussed Colon Screen n/a Dexa Screen n/a Routine Labs orderedMam mo ordered Fatigue 31845041 R53.83 Z86.39 [id number] Abigail Brenner [facility] [address],[place] [address] 02/02/2024 10:28:12 02/02/2024 10:55:34 Gynecologic examination 64061780 Z01.419 Z11.51 Suggested Calcium with Vitamin D 1200-1500m g daily. Patient advised to get an annual flu shot in the fall and she could obtain at [facility] or [facility] care clinic. Also to obtain TDap vaccinatio n if you have not had one in the last 10 years. Recommend yearly mammograms . Encouraged monthly self breast exams. Encourage safe sexual practices, to use condoms and limit partners if not already in a monogamous relationsh ip. Engage in daily exercise of low impact aerobic exercise 45-60 minutes 4-5 times weekly. Avoid tobacco and illicit drugs as well as using moderation with alcohol intake less than 1-2 8 oz beverages daily. This lifestyle behavior pattern will lead to less health conditions and longer life span. If BMI greater than 25 weight watchers or dietary consult advised. All questions have been answered. Patient appears to understand informatio n, but if you have any questions please call or respond to this email. Pap/hpv sentSTD Screen declinedGe netic Screen discussedC olon Screen naDexa Screen naRoutine Labs PCP Screening mammography 24 824889 Z12.31 Urinary symptoms 5182459 08 R39.9 Urine culture sent [id number] BECKY Phillips [facility] [address],[place] [address] 02/19/2025 15:54:14 02/20/2025 16:06:34 Gynecologic examination 33715168 Z01.419 [facility] - BTLPap - done todaySTI screen - declinedMa mmogram - order givenColon cancer screening - n/aRoutine labs - PCPRTC in 1 yr or sooner if needed Suggested Calcium with Vitamin D daily. Patient advised to get an annual flu shot in the fall and she could obtain at local pharmacy. Also to obtain TDap vaccinatio n if you have not had one in the last 10 years. Recommend yearly mammograms . Encouraged monthly self breast exams. Encourage safe sexual practices, to use condoms and limit partners if not already in a monogamous relationsh ip. Engage in regular exercise. Avoid tobacco and illicit drugs. This lifestyle behavior pattern will lead to less health conditions and longer life span. If BMI greater than 25 dietary consult advised. All questions have been answered. Screening for malignant neoplasm of breast 811201326 Z12.39 Uterine leiomyoma 878820 05 D25.9 has pelvic u/s scheduled next week at [facility], encouraged pt to have report sent to our office for review - will update patient with results/re commendati ons when available Health Concerns Section Related Observation LastModified by Organization Detai ls LastModified Time None Recorded Concern Status LastModified by Organization Details LastModified Time None Recorded Advance Directives Directive None Recorded Payers Encounter Date Sequence Insurance Name Policy Number Policy Patrick Covered Member ID Patrick Member ID Guarantor Name 10/14/2020 1 [facility] (MEDICAID HMO) [id number] Stephanie Real [id number] Stephanie Real 01/30/2022 1 [facility] (MEDICAID HMO) [id number] Stephanie Real [id number] Stephanie Real 02/02/2024 1 [facility] (MEDICAID HMO) [id number] Stephanie Migdalia [id number] Stephanie Migdalia 02/19/2025 1 [facility] (MEDICAID HMO) [id number] Stephanie Real [id number] Stephanie Real Notes Date Note Type Note Provider Name and Address Organization Details Recorded Time 10/14/2020 text/html Patient is a 40y o who presents for an annual exam. Tubes tied. last pap-01/2019 all normal sexually active-yes contraception-tube s tied seatbelts-yes exercise-yes depression-denies domestic violence-denies tobacco-no concerns-needs a new PCP Savanah Hidalgo MD [address], [place], [address], [facility] 10/15/2020 10:14:50 01/30/2022 text/html Annual GYNReport ed bypatient.Menstrua l cycle:Normal menses Urinary symptoms:No hematuria; No incontinence Vulva:No genital lesion Vagina:Normal vaginal discharge Breast:No breast pain; No breast lump; No nipple discharge Current Contraception:Sati sfied with current contraception; Monogamous relationship; Condoms Sexual complaints:No sexual complaints; No pain during intercourse; Normal libido Menopausal Symptoms:No menopausal symptoms; Normal vaginal lubrication Psychological symptoms:No depression; No anxiety; No PMDD Preventive measures:Encourage self breast examination; Encourage regular exercise; Encourage no tobacco use; Encourage regular mammograms starting age 40; Followed with Q3 year pap smear and high risk HPV typing; Needs to schedule mammogram BECKY Rodriguez-[facility] [address], [place], [address], [facility] 01/30/2022 17:17:50 02/02/2024 text/html Annual GYNReport ed bypatient.Menstrua l cycle:Normal menses Urinary symptoms:No hematuria; No incontinence;Incre ased urinary frequency Vulva:No genital lesion Vagina:Normal vaginal discharge Breast:No breast pain; No breast lump; No nipple discharge Current Contraception:Sati sfied with current contraception; Tubal ligation Sexual complaints:No sexual complaints; No pain during intercourse; Normal libido Menopausal Symptoms:No menopausal symptoms; Normal vaginal lubrication Psychological symptoms:No depression; No anxiety; No PMDD Preventive measures:Encourage self breast examination; Encourage regular exercise; Encourage no tobacco use; Encourage regular mammograms starting age 40; Followed with yearly pap smears; Needs to schedule mammogram BECKY Rodriguez- [address], [place], [address], [facility] 02/02/2024 10:52:34 02/19/2025 text/html Annual GYNReport ed bypatient.Menstrua l cycle:Normal menses Urinary symptoms:No hematuria; No incontinence Vulva:No genital lesion Vagina:Normal vaginal discharge Breast:No breast pain; No breast lump; No nipple discharge Current Contraception:Sati sfied with current contraception; Tubal ligation Sexual complaints:No sexual complaints; No pain during intercourse; Normal libido Menopausal Symptoms:No menopausal symptoms; Normal vaginal lubrication Psychological symptoms:No depression; No anxiety; No PMDD Preventive measures:Encourage self breast examination; Encourage regular exercise; Encourage no tobacco use; Encourage regular mammograms starting age 41Notes:44yo wweBC - BTLlast pap 2021 : nilm, HPV (-) fibroids found incidentally on MRI ordered by PCP (MRI done d/t work injury). Has pelvic u/s scheduled next week for further evaluation.Denies issues with AUB/menorrhagia/or pelvic pain. Occasional bloating BECKY Phillips [address], [place], [address], [facility] 02/20/2025 15:16:54 OBGyn Episode Ob Episode Information Episode Created Date Number of Fetuses Patient Bloodtype Patient rh Status Prepregnancy Weight lbs Domestic Partner Domestic Partner Phone Father Name [employer] Utility Person Status 10/14/20 1 CLOSED Fetus Data First Name Last Name Admitted to NICU Weight (g) Sex Living Outcome Pediatric Complications Fetus ID Race Codes Race Delivery Type M [id number] Vaginal Delivery Kieran Calculation Initial Kieran Date Initial Exam Date Initial Exam Provider Initial Ultrasound Date Last Menstrual Period Date Ultra Sound Weeks Gestation 0 Eighteen To Twenty Week Kieran Update Ultra Sound Date Fundal Height At Umbil Quickening Date Ultra Sound Latest Weeks Gestation Final Kieran Confirmed By Final Kieran Confirmed Date Final Kieran Date Ultra Sound Latest Days Gestation 0 0 Menstrual History Last Menstrual Date Menses Monthly On Bcp Conception Prior Menses Frequency Hcg Plus Date Menarche Onset Age Delivery Information Delivery Date Delivery Type Labor Anesthesia Weeks Gestation Incision Type Labor Labor Length Hrs Delivered By Post Complications Tubal Sterilization Discharge Date Comments 3 Discharge Information Feeding Method Contraceptive Method Maternal HG B and HCT Levels Ob Episode Information Episode Created Date Number of Fetuses Patient Bloodtype Patient rh Status Prepregnancy Weight lbs Domestic Partner Domestic Partner Phone Father Name [employer] Utility Person Status 10/14/20 1 CLOSED Fetus Data First Name Last Name Admitted to NICU Weight (g) Sex Living Outcome Pediatric Complications Fetus ID Race Codes Race Delivery Type M 6350 Vaginal Delivery Kieran Calculation Initial Kieran Date Initial Exam Date Initial Exam Provider Initial Ultrasound Date Last Menstrual Period Date Ultra Sound Weeks Gestation 0 Eighteen To Twenty Week Kieran Update Ultra Sound Date Fundal Height At Umbil Quickening Date Ultra Sound Latest Weeks Gestation Final Kieran Confirmed By Final Kieran Confirmed Date Final Kieran Date Ultra Sound Latest Days Gestation 0 0 Menstrual History Last Menstrual Date Menses Monthly On Bcp Conception Prior Menses Frequency Hcg Plus Date Menarche Onset Age Delivery Information Delivery Date Delivery Type Labor Anesthesia Weeks Gestation Incision Type Labor Labor Length Hrs Delivered By Post Complications Tubal Sterilization Discharge Date Comments 0 Discharge Information Feeding Method Contraceptive Method Maternal HG B and HCT Levels Ob Episode Information Episode Created Date Number of Fetuses Patient Bloodtype Patient rh Status Prepregnancy Weight lbs Domestic Partner Domestic Partner Phone Father Name [employer] Utility Person Status 10/14/20 2 CLOSED Fetus Data First Name Last Name Admitted to NICU Weight (g) Sex Living Outcome Pediatric Complications Fetus ID Race Codes Race Delivery Type M 6379 Vaginal Delivery M 6349 Vaginal Delivery Kieran Calculation Initial Kieran Date Initial Exam Date Initial Exam Provider Initial Ultrasound Date Last Menstrual Period Date Ultra Sound Weeks Gestation 0 Eighteen To Twenty Week Kieran Update Ultra Sound Date Fundal Height At Umbil Quickening Date Ultra Sound Latest Weeks Gestation Final Kieran Confirmed By Final Kieran Confirmed Date Final Kieran Date Ultra Sound Latest Days Gestation 0 0 Menstrual History Last Menstrual Date Menses Monthly On Bcp Conception Prior Menses Frequency Hcg Plus Date Menarche Onset Age Delivery Information Delivery Date Delivery Type Labor Anesthesia Weeks Gestation Incision Type Labor Labor Length Hrs Delivered By Post Complications Tubal Sterilization Discharge Date Comments 2 Discharge Information Feeding Method Contraceptive Method Maternal HG B and HCT Levels Ob Episode Information Episode Created Date Number of Fetuses Patient Bloodtype Patient rh Status Prepregnancy Weight lbs Domestic Partner Domestic Partner Phone Father Name [employer] Utility Person Status 10/14/20 20 1 CLOSED Fetus Data First Name Last Name Admitted to NICU Weight (g) Sex Living Outcome Pediatric Complications Fetus ID Race Codes Race Delivery Type F 6351 Vaginal Delivery Kieran Calculation Initial Kieran Date Initial Exam Date Initial Exam Provider Initial Ultrasound Date Last Menstrual Period Date Ultra Sound Weeks Gestation 0 Eighteen To Twenty Week Kieran Update Ultra Sound Date Fundal Height At Umbil Quickening Date Ultra Sound Latest Weeks Gestation Final Kieran Confirmed By Final Kieran Confirmed Date Final Kieran Date Ultra Sound Latest Days Gestation 0 0 Menstrual History Last Menstrual Date Menses Monthly On Bcp Conception Prior Menses Frequency Hcg Plus Date Menarche Onset Age Delivery Information Delivery Date Delivery Type Labor Anesthesia Weeks Gestation Incision Type Labor Labor Length Hrs Delivered By Post Complications Tubal Sterilization Discharge Date Comments 7 Discharge Information Feeding Method Contraceptive Method Maternal HG B and HCT Levels
--- OUTSIDE RECORDS SUMMARY | 2025-02-27 18:25 | XMS_ITS | Clinical Summary ---
Author Organization [facility] Address [address] [place] [address] Care Team Providers Care Outsoles Channel Opener Name Role Phone Rema Bernardo CHIP CRUSHER OPERATOR-COMMODITY BUYER Primary Care Provider Rema Bernardo CHIP CRUSHER OPERATOR-COMMODITY BUYER Unavailable [phone] Source Comments [facility],non-owned Affiliates and Associated Physician Practices is amultiple site organization consisting of ambulatory clinics and hospital sitesin [place], [place], [place] and [place]. This disclosure is being madepursuant to the Care Everywhere program and may not contain all information available regarding this patient. Last updated 18.[facility] Allergies Active Allergy Reactions Criticality Noted Date Comments Latex Rash Medium 02/16/2024 Penicillins Unknown 01/03/2024 Medications * Be aware that medications may not be up to date on this document. Alwaysverify current medications with the patient. naproxen (Naprosyn) 500 MG tablet Take 1 (one) tablet by mouth 2 times daily 60 tablet 2 Active Additional Information Patient not taking.Reported on 06/02/2023 cyclobenzaprine (Flexeril) 10 MG tablet Take 1 (one) tablet by mouth 3 times daily as needed for Muscle Spasms 30 tablet 2 Active Additional Information Patient taking differently: 5 mgOral 3 TIMES DAILY PRN, Muscle Spasms, Reported on 02/16/2024 metFORMIN ER 24hr (Glucophage XR) 500 MG tablet Take 1 (one) tablet by mouth 2 times daily 3 Active omeprazole (PriLOSEC) 40 MG capsule Take 1 (one) capsule by mouth once daily 3 Active thiamine (VITAMIN B-1) 100 MG tablet Take 1 (one) tablet by mouth once daily 30 tablet 5 4 Active propranolol ER 24hr (Inderal LA) 80 MG capsule 3 Active busPIRone (Buspar) 7.5 MG tablet 3 Active celecoxib (CeleBREX) 100 MG capsule 3 Active ezetimibe (Zetia) 10 MG tablet 3 Active fenofibrate (Tricor) 145 MG tablet 3 Active Linzess 145 MCG capsule 4 Active loratadine (Claritin) 10 MG tablet 4 Active ondansetron (Zofran) 4 MG tablet 3 Active pramipexole (Mirapex) 0.75 MG tablet 3 Active spironolactone (Aldactone) 50 MG tablet 4 Active Nurtec 75 MG tabletIndication s:Intractable migraine without aura and without status migrainosus Take 75 mg by mouth every 2 days 16 tablet 5 4 Active nortriptyline (Pamelor) 25 MG capsuleIndicatio ns:Intractable migraine without aura and without status migrainosus Take 1 (one) capsule by mouth at bedtime 30 capsule 5 4 Active Active Problems Problem Noted Date Diagnosed Date Nasal congestion 01/30/2022 06/02/2023 Gastroesophageal reflux disease without esophagi tis 08/22/2021 06/02/2023 Restless legs 08/22/2021 06/02/2023 Anxiety 03/07/2021 06/02/2023 Elevated blood-pressure read ing without diagnosis of hypertension 03/07/2021 06/02/2023 Vitamin D deficiency 03/07/2021 06/02/2023 Hyperlipidemia 01/30/2021 06/02/2023 Migraine 01/30/2021 06/02/2023 Osteoarthritis of knee 01/30/2021 3 Tachycardia 01/30/2021 06/02/2023 Resolved Problems Problem Noted Date Diagnosed Date Resolved Date Constipation 12/04/2021 06/02/2023 06/30/2023 Social History Tobacco Use Types Packs/Day Years Used Date Smoking Tobacco: Never Smokeless Tobacco: Never Alcohol Use Standard Drinks/Week Comments Not Currently 0 (1 standard drink = 0.6 oz pur e alcohol) Comments Unknown Sex and Gender Information Value Date Recorded Sex Assigned at Not on file Legal Sex Female 10:24 AM CDT Gender Identity Not on file Sexual Orientation Not on file Last Filed Vital Signs Vital Sign Reading Time Taken Comments Blood Pressure 142/99 02/16/2024 1:23 PM CDT Pulse 92 02/16/2024 1:23 PM CDT Temperature 37.2 C (99 F) 01/03/2024 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 Respiratory Rate 16 08/17/2022 9:41 AM CDT Oxygen Saturation 87% 02/16/2024 1:23 PM CDT Inhaled Oxygen Concentration - - Weight 86.2 kg (190 lb) 02/16/2024 1:23 PM CDT Height 175.3 cm (5' 9 ) 02/16/2024 1:23 PM CDT Body Mass Index 28.06 02/16/2024 1:23 PM CDT Plan of Treatment Health Maintenance Due Date Last Done Comments LIPID TESTING 1981 MAMMOGRAM 1981 HIV SCREENING 1996 HEPATITIS C SCREENING 05/28/1999 DTAP/TDAP/TD VACCINES (1 - Tdap) 2000 HEPATITIS B VACCINE (1 of 3 - 19+ 3-dose series) 2000 SCREENING FOR DIABETES 2023 COVID-19 VACCINE ( season) 2024 01/21/2022, 01/21/2022, 01/17/2021, Additional history exists DEPRESSION SCREENING 11/15/2024 INFLUENZA VACCINE (Season Ended) 2025 09/06/2023, 07/10/2022, 08/22/2021 PAP SMEAR 02/01/2027 02/02/2024, 01/30/2022 ZOSTER VACCINE (1 of 2) 2031 HIB VACCINE Aged Out No longer eligi ble based on patient's age to complete this topic HPV VACCINE Aged Out No longer eligi ble based on patient's age to complete this topic MENINGOCOCCAL (Group B) VACCINE SHARED DECISION-MAKING Aged Out No longer eligible based on patient's age to complete this topic MENINGOCOCCAL GROUPS A/C/Y/W VACCINE Aged Out No longer eligible based on patient's age to complete this topic PNEUMOCOCCAL VACCINE Aged Out No long er eligible based on patient's age to complete this topic Insurance [facility] [employer]Y LIABILITY Republican Liability Viewster [facility] Care Teams Outsoles Channel Opener Relationship Specialty Start Date End Date Rema Bernardo APRN-COMMODITY BUYER [address] [place] [address] PCP - General 2/13/23 Rema Bernardo, CHIP CRUSHER OPERATOR-COMMODITY BUYER [address] [place] [address] Nurse Practitioner Family 12/28/22
[2025-02-27 18:32] VITALS: BP 150/87; PULSE 87; RESP 16; TEMP 36.6; O2SAT 100
--- OUTSIDE RECORDS SUMMARY | 2025-02-27 19:49 | XMS_ITS | Clinical Summary ---
Author Organization [facility] Address [address] [place] [address] Care Team Providers Care Produce Specialist Name Role Phone Rema Bernardo [employer] OFFICER-[employer] OPERATOR Primary Care Provider Rmea Bernardo [employer] OFFICER-[employer] OPERATOR Unavailable [phone] Source Comments [facility],non-owned Affiliates and Associated Physician Practices is amultiple site organization consisting of ambulatory clinics and hospital sitesin [place], [place], [place] and [place]. This disclosure is being madepursuant to the Care Everywhere program and may not contain all information available regarding this patient. 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 Respiratory Rate 16 08/17/2022 9:41 AM CDT [...] patient's age to complete this topic Insurance [facility] THIRD [employer] LIABILITY Democrat Liability [employer] [facility] Care Teams Produce Specialist Relationship Specialty Start Date End Date Rema Bernardo APRN-SODA [employer]UM[employer] OPERATOR [address] [place] [address] PCP - General 2/13/23 Rema Bernardo, [employer] OFFICER-SODA [employer]UM[employer] OPERATOR [address] [place] [address] Nurse Practitioner Family 12/28/22
--- NOTE | 2025-02-27 20:08 | ED_ITS ---
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 Had an MRI after workplace injury for her back that showed incidental finding of ovarian cyst on the right but this has never bothered her in the past. <Sweta Ramesh MD - Last Filed: 02/27/25 22:03> Related Data Allergies/Adverse reactions: Allergies Allergy/AdvReac Type Severity Reaction Status Date / Time Penicillins Allergy Mild Rash Verified 02/27/25 18:22 <Sweta Ramesh MD - Last Filed: 02/27/25 22:03> Review of Systems 2 Review of Systems: All systems reviewed & are unremarkable except as noted in HPI and below <Sweta Ramesh MD - Last Filed: 02/27/25 22:03> PMF Past Medical History Medical History: Medical History Healthy female adult <Sweta Ramesh MD - Last Filed: 02/27/25 22:03> Surgical History Surgical History: Surgical History No history of previous surgery <Sweta Ramesh MD - Last Filed: 02/27/25 22:03> Social History Social History: Social History Smoking status: Never smoker <Sweta Ramesh MD - Last Filed: 02/27/25 22:03> Exam 2 Narrative: EXAMINATION OF ORGAN SYSTEMS/BODY AREAS: Constitutional: Vital signs per nursing GENERAL:[No acute distress, non-toxic appearing.] HEAD: Normal with no signs of head trauma. EYES: EOMI, conjunctiva normal ENT: Hearing grossly intact LUNGS: Nonlabored breathing. HEART: [Regular rate and rhythm] ABD: [Soft], [nontender to palpation] EXT: Normal range of motion SKIN: [No rashes or lesions.] NEURO: [Alert and oriented x 3. No gross focal sensory or strength deficits.] PSYCH: Normal affect <Sweta Ramesh MD - Last Filed: 02/27/25 22:03> Course Vital Signs Vital signs: Vital Signs Temperature 97.8 F 02/27/25 18:32 Pulse Rate 87 02/27/25 18:32 Respiratory Rate 16 02/27/25 18:32 Blood Pressure 150/87 H 02/27/25 18:32 Pulse Oximetry 100 02/27/25 18:32 Temperature 97.8 F 02/27/25 18:32 Pulse Rate 87 02/28/25 00:17 Respiratory Rate 17 02/28/25 00:17 Blood Pressure 128/98 H 02/28/25 00:17 Pulse Oximetry 99 02/28/25 00:17 <Sweta Ramesh MD - Last Filed: 02/27/25 22:03> Vital Signs Temperature 97.8 F 02/27/25 18:32 Pulse Rate 87 02/27/25 18:32 Respiratory Rate 16 02/27/25 18:32 Blood Pressure 150/87 H 02/27/25 18:32 Pulse Oximetry 100 02/27/25 18:32 Temperature 97.8 F 02/27/25 18:32 Pulse Rate 87 02/28/25 00:17 Respiratory Rate 17 02/28/25 00:17 Blood Pressure 128/98 H 02/28/25 00:17 Pulse Oximetry 99 02/28/25 00:17 <Gwen Scanlon MD - Last Filed: 02/28/25 01:56> MDM - Female Genitourinary MDM Narrative Medical decision making narrative: Patient presents with 1 day of severe sharp pain to her right lower abdomen, worse when she walks, without any nausea no pain while she is here at rest, no fevers or chills. Had an MRI after workplace injury for her back that showed incidental finding of ovarian cyst on the right but this has never bothered her in the past, she would like to have labs and imaging here and pain medicine. Abdomen soft nontender, well-appearing here. Labs show white count 11.4, creatinine 1.2 a but unsure of this is her baseline, urinalysis normal. CT obtained. Toradol given. Signed out to oncoming ER physician pending CT read. <Sweta Ramesh MD - Last Filed: 02/27/25 22:03> Patient presents with 1 day of severe sharp pain to her right lower abdomen, worse when she walks, without any nausea no pain while she is here at rest, no fevers or chills. Had an MRI after workplace injury for her back that showed incidental finding of ovarian cyst on the right but this has never bothered her in the past, she would like to have labs and imaging here and pain medicine. Abdomen soft nontender, well-appearing here. Labs show white count 11.4, creatinine 1.2 a but unsure of this is her baseline, urinalysis normal. CT obtained. Toradol given. Signed out to oncoming ER physician pending CT read. [place]: Patient was signed out to me pending CT abdomen and pelvis with IV contrast. CT was obtained at this time and independently interpreted by me revealing: IMPRESSION: 1. Soft tissue density with peripheral hypoechoic density is seen posterior to the uterus which measures 6.7 x 6.3 cm and may represent torsion of the ovary versus fibroid versus hemorrhage in the ovary. Leiomyosarcoma is marked excluded although less likely. 2. No evidence of appendicitis, diverticulitis or intestinal obstruction. 3. Left adrenal adenoma. No follow-up advised unless clinically warranted. At this time, patient was sent for a pelvic ultrasound to rule out torsion. Ultrasound was performed at this time, technicians impression as follows: A right adnexal mass with flow measuring 7.02 x 5.66 time 7.19. Uterus has an anterior fibroid measuring 1.99 x 1.30 x 2.19 cm. Right ovary measures 2.52 x 2.04 x 2.36 cm. The right adnexa was difficult to evaluate on transvaginal imaging due to posterior location. Venous flow seen. Left ovary measuring 2.44 x 2.12 x 2.21 cm with vascular flow present. Unable to visualize left adnexa on transvaginal imaging. At this time, case was discussed with the on-call OB for [facility] Dr. Jorgensen at 0144 who informed me that given that the patient is resting comfortably and does not appear to be in any distress, she can follow-up with their office this week. Patient was instructed to call the office tomorrow to set up a follow-up appointment to be seen this week. She was also provided with strict return precautions instructed to return to the emergency department immediately if her right lower quadrant pain returns and patient is in agreement with this plan. Patient was discharged home in stable condition. <Gwen Scanlon MD - Last Filed: 02/28/25 01:56> Lab Data Result diagrams: 02/27/25 20:39 02/27/25 20:39 <Sweta Ramesh MD - Last Filed: 02/27/25 22:03> Labs: Lab Results 02/27/25 02/27/25 02/28/25 Range/Units 20:12 20:39 00:17 WBC 11.4 H (4.5-10.0) K/mm3 RBC 3.63 L (4.2-5.4) M/mm3 Hgb 11.0 L (12.0-15.0) g/dL Hct 35.5 L (37.0-47.0) % MCV 97.8 (80-100) fl MCH 30.3 (26-34) pg MCHC 31.0 L (32-36) g/dl RDW 13.2 (11.5-14.5) % Plt Count 362 (150-375) k/mm3 MPV 8.8 (7.4-10.4) fl Immature Gran % (Auto) 0.3 (0-0.5) % Neut % (Auto) 58.5 (45.5-73.1) % Lymph % (Auto) 29.4 (18.3-44.2) % [place] % (Auto) 8.8 H (2.6-8.5) % Eos % (Auto) 2.1 (0-4.4) % Baso % (Auto) 0.9 (0.2-1.2) % Lymph # (Auto) 3.35 H (0.9-3.2) K/mm3 [place] # (Auto) 1.0 H (0.1-0.6) K/mm3 Eos # (Auto) 0.2 (0-0.3) K/mm3 Baso # (Auto) 0.1 (0.0-0.1) K/mm3 Abs Immat Gran (auto) 0.03 (0.00-0.031) K/mm3 Absolute Neuts (auto) 6.7 (1.3-6.7) K/mm3 Absolute Nucleated RBC 0.000 (0.0-0.012) K/mm3 Nucleated RBC % 0.0 (0.0-0.2) % Sodium 139 (137-145) mmol/L Potassium 3.8 (3.4-5.0) mmol/L Chloride 103 (98-107) mmol/L Carbon Dioxide 25 (22-30) mmol/L Anion Gap 11 (4-12) mmol/L BUN 14 (7-17) mg/dL Creatinine 1.28 H (0.7-1.0) mg/dL Estim Creat Clear Calc Not Reportable Estimated GFR 46 L (59 - ) Glucose 92 (65-110) mg/dL Calcium 9.3 (8.4-10.2) mg/dL Total Bilirubin 0.3 (0.2-1.3) mg/dL AST 18 (14-36) U/L ALT 15 (6-35) U/L Alkaline Phosphatase 76 (38-126) U/L Total Protein 7.0 (6.3-8.2) g/dL Albumin 4.3 (3.5-5.1) g/dL Urine Color Yellow (Yellow) Urine Appearance Clear (Clear) Urine pH 6.5 (5.0-9.0) Ur Specific [place] 1.017 (1.001-1.035) Urine Protein Negative (Negative) mg/dL Urine Glucose (UA) Negative (Negative) mg/dL Urine Ketones Negative (Negative) mg/dL Ur Blood (Man) Negative (Negative) Urine Nitrate Negative (Negative) Urine Bilirubin Negative (Negative) Urine Urobilinogen 1.0 (<2.0) mg/dL Leukocyte Esterase Rfl Trace H (Negative) SHERRON/UL Urine RBC 0-2 (0-2) /hpf Urine WBC 0-5 (0-3) /hpf Ur Squamous Epith Cells None seen (Few) /hpf Urine Bacteria None seen /hpf Urine Casts 0-2 POC Urine HCG, Qual Negative (Negative) Urine Test Negative <Sweta Ramesh MD - Last Filed: 02/27/25 22:03> Lab Results 02/27/25 02/27/25 02/28/25 Range/Units 20:12 20:39 00:17 WBC 11.4 H (4.5-10.0) K/mm3 RBC 3.63 L (4.2-5.4) M/mm3 Hgb 11.0 L (12.0-15.0) g/dL Hct 35.5 L (37.0-47.0) % MCV 97.8 (80-100) fl MCH 30.3 (26-34) pg MCHC 31.0 L (32-36) g/dl RDW 13.2 (11.5-14.5) % Plt Count 362 (150-375) k/mm3 MPV 8.8 (7.4-10.4) fl Immature Gran % (Auto) 0.3 (0-0.5) % Neut % (Auto) 58.5 (45.5-73.1) % Lymph % (Auto) 29.4 (18.3-44.2) % [place] % (Auto) 8.8 H (2.6-8.5) % Eos % (Auto) 2.1 (0-4.4) % Baso % (Auto) 0.9 (0.2-1.2) % Lymph # (Auto) 3.35 H (0.9-3.2) K/mm3 [place] # (Auto) 1.0 H (0.1-0.6) K/mm3 Eos # (Auto) 0.2 (0-0.3) K/mm3 Baso # (Auto) 0.1 (0.0-0.1) K/mm3 Abs Immat Gran (auto) 0.03 (0.00-0.031) K/mm3 Absolute Neuts (auto) 6.7 (1.3-6.7) K/mm3 Absolute Nucleated RBC 0.000 (0.0-0.012) K/mm3 Nucleated RBC % 0.0 (0.0-0.2) % Sodium 139 (137-145) mmol/L Potassium 3.8 (3.4-5.0) mmol/L Chloride 103 (98-107) mmol/L Carbon Dioxide 25 (22-30) mmol/L Anion Gap 11 (4-12) mmol/L BUN 14 (7-17) mg/dL Creatinine 1.28 H (0.7-1.0) mg/dL Estim Creat Clear Calc Not Reportable Estimated GFR 46 L (59 - ) Glucose 92 (65-110) mg/dL Calcium 9.3 (8.4-10.2) mg/dL Total Bilirubin 0.3 (0.2-1.3) mg/dL AST 18 (14-36) U/L ALT 15 (6-35) U/L Alkaline Phosphatase 76 (38-126) U/L Total Protein 7.0 (6.3-8.2) g/dL Albumin 4.3 (3.5-5.1) g/dL Urine Color Yellow (Yellow) Urine Appearance Clear (Clear) Urine pH 6.5 (5.0-9.0) Ur Specific [place] 1.017 (1.001-1.035) Urine Protein Negative (Negative) mg/dL Urine Glucose (UA) Negative (Negative) mg/dL Urine Ketones Negative (Negative) mg/dL Ur Blood (Man) Negative (Negative) Urine Nitrate Negative (Negative) Urine Bilirubin Negative (Negative) Urine Urobilinogen 1.0 (<2.0) mg/dL Leukocyte Esterase Rfl Trace H (Negative) SHERRON/UL Urine RBC 0-2 (0-2) /hpf Urine WBC 0-5 (0-3) /hpf Ur Squamous Epith Cells None seen (Few) /hpf Urine Bacteria None seen /hpf Urine Casts 0-2 POC Urine HCG, Qual Negative (Negative) Urine Test Negative <Gwen Scanlon MD - Last Filed: 02/28/25 01:56> Discharge Plan Discharge Clinical Impression: Acute right lower quadrant pain <Sweta Ramesh MD - Last Filed: 02/27/25 22:03> Patient Disposition: Home <Sweta Ramesh MD - Last Filed: 02/27/25 22:03> Condition: Stable <Sweta Ramesh MD - Last Filed: 02/27/25 22:03> Instructions: Abdominal Pain (ED) <Sweta Ramesh MD - Last Filed: 02/27/25 22:03> Additional Instructions: Please follow-up with your OBGYN as instructed within the next 1-4 days. Return to the emergency department if any new or worsening symptoms develop, specifically if your right lower quadrant pain returns. <Sweta Ramesh MD - Last Filed: 02/27/25 22:03> Patient Language: Canadian <Sweta Ramesh MD - Last Filed: 02/27/25 22:03> Prescriptions: No Action sulfamethoxazole-trimethoprim [Bactrim DS] 800-160 mg tablet 1 tablet PO Q12H Qty: 10 0RF <Sweta Ramesh MD - Last Filed: 02/27/25 22:03> Follow-up/Referrals: Ramon Jorgensen MD [Physician] - 2 Days zA,Rema Calderón, [employer] MANAGER- [Primary Care Provider] - <Sweta Ramesh MD - Last Filed: 02/27/25 22:03> Time of Disposition: 01:48 <Sweta Ramesh MD - Last Filed: 02/27/25 22:03> 01:48 <Gwen Scanlon MD - Last Filed: 02/28/25 01:56>
[2025-02-27 20:31] LABS: Add Urine Microscopic? YES; Appearance Urine Clear (Clear); Bacteria Urine None Seen /hpf; Bilirubin Urine Negative (Negative); Blood Urine Negative (Negative); Color Urine Yellow (Yellow); Glucose Urine UA Negative (Negative); Ketones Urine Negative (Negative); Leukocyte Esterase Ur Trace LEU/UL (Negative); Nitrate Urine Negative (Negative); Non Pathogenic Casts 0-2; Protein Urine Negative (Negative); RBC Urine 0-2 /hpf (0-2); Specific Grav Ur 1.017 (1.001-1.035); Squamous Epithelial Cell Urine None Seen /hpf (Few); WBC Urine 0-5 /hpf (0-3); pH Urine 6.5 (5.0-9.0)
[2025-02-27] MEDS: KETOROLAC 15 MG/ML VIAL (*BKC) IV PUSH (20:38)
[2025-02-27 20:44] LABS: Basophils Absolute Auto 0.1 K/mm3 (0.0-0.1); Basophils Percent Auto 0.9 % (0.2-1.2); Eosinophils Absolute Auto 0.2 K/mm3 (0-0.3); Eosinophils Percent Auto 2.1 % (0-4.4); Hematocrit 35.5 % (37.0-47.0); Immature Granulocyte Absolute 0.03 K/mm3 (0.00-0.031); Immature Granulocyte Percent A 0.3 % (0-0.5); Lymphocytes Absolute Auto 3.35 K/mm3 (0.9-3.2); Lymphocytes Percent Auto 29.4 % (18.3-44.2); Mean Corpuscular Hemoglobin 30.3 pg (26-34); Mean Corpuscular Volume 97.8 fl (80-100); Mean Platelet Volume 8.8 fl (7.4-10.4); Monocytes Percent Auto 8.8 % (2.6-8.5); Neutrophils Absolute Auto 6.7 K/mm3 (1.3-6.7); Neutrophils Percent Auto 58.5 % (45.5-73.1); Platelet Count Result 362 k/mm3 (150-375); Red Blood Count 3.63 M/mm3 (4.2-5.4); Red Cell Distribution Width 13.2 % (11.5-14.5); White Blood Count 11.4 K/mm3 (4.5-10.0)
[2025-02-27 20:53] LABS: Alanine Aminotransferase 15 U/L (6-35); Albumin Level 4.3 g/dL (3.5-5.1); Alkaline Phosphatase 76 U/L (38-126); Anion Gap 11 mmol/L (4-12); Aspartate Amino Transferase 18 U/L (14-36); Bilirubin,Total 0.3 mg/dL (0.2-1.3); Blood Urea Nitrogen 14 mg/dL (7-17); Calcium 9.3 mg/dL (8.4-10.2); Carbon Dioxide 25 mmol/L (22-30); Chloride 103 mmol/L (98-107); Estimated Glomerular Filt Rate 46; Glucose 92 mg/dL (65-110); Potassium 3.8 mmol/L (3.4-5.0); Sodium 139 mmol/L (137-145)
[2025-02-27 21:07] LABS: Pregnancy On Board Control Positive; Urine Pregnancy Test Negative
[2025-02-28] MEDS: ONDANSETRON INJ 4 MG/2 ML VIAL IV PUSH (00:15)
[2025-02-28] MEDS: MORPHINE SULFATE (*CRX) 2 MG/ML INJ IV PUSH (00:16)
[2025-02-28 00:17] VITALS: BP 128/98; PULSE 87; RESP 17; O2SAT 99
[2025-02-28 00:18] LABS: BEDSIDEPREGUCG Negative (Negative)
== END 2025-02-28 02:21 | disposition home or self-care (01) ==
PROVIDERS: Emergency Medicine; Emergency Provider Emergency Medicine; PCP Nurse Practitioner Family
DX: R10.31 Right lower quadrant pain (principal); D35.02 Benign neoplasm of left adrenal gland; D25.9 Leiomyoma of uterus, unspecified
CPT/HCPCS: 36415; 74177; 76830; 76856; 80053; 81001; 81025; 85025; 96374; 96375; 99284; J1885; J2270; J2405; Q9967

== ENCOUNTER 2025-03-06 13:14 | Outpatient (CLI) | payer OTHER, SELFPAY ==
--- NOTE | ~2025-03-06 | US_ITS ---
US pelvic complete Ordering provider: Rema Bernardo, BILLING ADMINISTRATOR-BC History: . Intra abd and pelvic swelling . Comparison: February 28, 2025 Technique: Transabdominal and endovaginal ultrasound of the pelvis (Doppler ultrasound interrogation techniques used as needed for this exam.) FINDINGS: CERVIX: Normal. UTERUS: Measures 12x 5.9x 7.1 cm in length which is within normal limits and is anteverted. Large fi broid is seen measuring 6.6 x 6.4x 6.2 cm unchanged. ENDOMETRIUM: Normal in thickness measuring 11.2 mm. No endometrial masses, cysts or fluid. CUL DE SAC: No free fluid. RIGHT OVARY: Normal in size measuring 3.1x 2.6x 3.5 cm. Normal echotexture. Doppler vascular flow pre sent. LEFT OVARY: Normal in size measuring 2.4x 2x 1.3 cm. Normal echotexture. Doppler vascular flow presen t. ADNEXA: Normal. No mass. IMPRESSION: Fibroid uterus. Slightly thickened endometrium. Clinical correlation with the menstrual stage is advi sed. Otherwise, normal pelvic ultrasound. Reviewed, dictated and finalized at location A. IMPRESSION: Fibroid uterus. Slightly thickened endometrium. Clinical correlation with the m enstrual stage is advised. Otherwise, normal pelvic ultrasound.
--- OUTSIDE RECORDS SUMMARY | 2025-03-06 15:02 | XMS_ITS | Data Portability ---
Author Organization ID - [facility], Main Office Address [address] [place] [address] Assessment No assessment recorded. Plan of Treatment [...] lc/MS 20.4 NG/dL 10.0-5 5.0 Not Available [facility] (Lab) [address] [place], [address], 02/15/2021 07:10:15 02/07/20 21 02/15/2021 testo stero ne, free + total , serum testosterone , free 0.41 NG/dL 0.10-0 .85 Not Available [facility] (Lab) [address] [place], [address], 02/15/2021 07:10:15 02/07/2002/15/2021 testo stero ne, free + total , serum % free testosterone 2.03 % 0.50-2 .80 Perfo rmed at: BN - [facility] [place] [address] [place] [address] Lab Direc tor: Katy neely MD, Phone : [phone] Not Available [facility] (Lab) [address] [place], [address], 02/15/2021 07:10:15 02/07/20 21 02/07/2021 insul in, serum insulin 9.4 uIU/m L 2.6-24 .9 Perfo rmed at: CB - [facility] [address], [place] [address] Lab Direc tor: José Miguel townsend PhD, Phone : [phone] Not Available [facility] (Lab) [address] [place], [address], 02/07/2021 12:10:55 02/07/20 21 02/06/2021 TSH, serum or plasm a thyroid-stim ulating hormone 0.559 uIU/m L 0.465- 4.680 Not Available [facility] (Lab) [address] [place], [address], 02/06/2021 13:30:35 02/07/20 21 02/06/2021 T4, free, serum free T4 1.13 NG/dL 0.78-2 .19 Not Available [facility] (Lab) [address] [place], [address], 02/06/2021 13:15:35 02/07/20 21 02/06/2021 lipid panel , serum cholesterol 110 mg/dL 140-19 9 low NIH ZULEYMA NSUS RECOM MENDA TION FOR KEENAN STERO L: ADULT CHILD LOW RISK: <200 <170 BORDE RLINE : <200- 239 ----- HIGH RISK: >240 >200 Not Available [facility] (Lab) [address] [place], [address], 02/06/2021 12:54:50 02/07/20 21 02/06/2021 lipid panel , serum triglyceride s 143 mg/dL 0-150 NIH ZULEYMA NSUS REPOR T RECOM MENDA TION FOR TRIGL YCERI BETY: ADULT CHILD LOW RISK: <150 ----- BODER LINE: 150-1 99 ----- HIGH RISK: >200 ----- Not Available [facility] (Lab) [address] [place], [address], 02/06/2021 12:54:50 02/07/20 21 02/06/2021 lipid panel , serum HDL cholesterol 32 mg/dL 40- low Not Available [facility] (Lab) [address] [place], [address], 02/06/2021 12:54:50 02/07/2002/06/2021 lipid panel , serum [...] WILL NOT BE REPOR KASSIDY. Not Available [facility] (Lab) [address] [place], [address], 02/06/2021 12:54:50 02/07/20 21 02/06/2021 CMP, serum or plasm a sodium 140 mmol/ L 137-14 5 Not Available [facility] (Lab) [address] [place], [address], 02/06/2021 12:54:45 02/07/2002/06/2021 CMP, serum or plasm a potassium 4.0 mmol/ L 3.5-5. 1 Not Available [facility] (Lab) [address] [place], [address], 02/06/2021 12:54:45 02/07/20 21 02/06/2021 CMP, serum or plasm a chloride 106 mmol/ L 98-107 Not Available [facility] (Lab) [address] [place], [address], 02/06/2021 12:54:45 02/07/20 21 02/06/2021 CMP, serum or plasm a carbon dioxide 29 mmol/ L 22-30 Not Available [facility] (Lab) [address] [place], [address], 02/06/2021 12:54:45 02/07/20 21 02/06/2021 CMP, serum or plasm a agap 9.0 mmol/ L 14-22 low Not Available [facility] (Lab) [address] [place], [address], 02/06/2021 12:54:45 02/07/20 21 02/06/2021 CMP, serum or plasm a glucose 94 mg/dL 70-99 Not Available [facility] (Lab) [address] [place], [address], 02/06/2021 12:54:45 02/07/20 21 02/06/2021 CMP, serum or plasm a BUN 16 mg/dL 8-19 Not Available [facility] (Lab) [address] [place], [address], 02/06/2021 12:54:45 02/07/20 21 02/06/2021 CMP, serum or plasm a creatinine 0.73 mg/dL 0.66-1 .25 Not Available [facility] (Lab) [address] [place], [address], 02/06/2021 12:54:45 02/07/20 21 02/06/2021 CMP, serum or plasm a GFR >60 Refer ence Range : Nelsonia ge GFR Healt hy Adult : >60 [...] lator can be locat ed on the [facility] websi te: https :[email or web address] rg/pr ofess ional s/kdo qi/gf r_cal culat or Not Available [facility] (Lab) [address] [place], [address], 02/06/2021 12:54:45 02/07/20 21 02/06/2021 CMP, serum or plasm a alkaline phosphatase 83 U/L 38-126 Not Available [facility] (Lab) [address] [place], [address], 02/06/2021 12:54:45 02/07/20 21 02/06/2021 CMP, serum or plasm a alanine aminotransfe rase 17 U/L 0-35 Not Available [facility] (Lab) [address] [place], [address], 02/06/2021 12:54:45 02/07/20 21 02/06/2021 CMP, serum or plasm a aspartate aminotransfe rase 26 U/L 15-37 Not Available [facility] (Lab) [address] [place], [address], 02/06/2021 12:54:45 02/07/20 21 02/06/2021 CMP, serum or plasm a bilirubin, total 0.60 mg/dL 0.20-1 .30 Not Available [facility] (Lab) [address] [place], [address], 02/06/2021 12:54:45 02/07/20 21 02/06/2021 CMP, serum or plasm a bilirubin, conjugated (direct) 0.00 mg/dL 0.00-0 .30 Not Available [facility] (Lab) [address] [place], [address], 02/06/2021 12:54:45 02/07/20 21 02/06/2021 CMP, serum or plasm a biliurubin,u ncong. (indirect) 0.40 mg/dL 0.00-1 .1 Not Available [facility] (Lab) [address] [place], [address], 02/06/2021 12:54:45 02/07/20 21 02/06/2021 CMP, serum or plasm a calcium 9.3 mg/dL 8.4-10 .2 Not Available [facility] (Lab) [address] [place], [address], 02/06/2021 12:54:45 02/07/20 21 02/06/2021 CMP, serum or plasm a total protein 6.7 g/dL 6.3-8. 2 Not Available [facility] (Lab) [address] [place], [address], 02/06/2021 12:54:45 02/07/20 21 02/06/2021 CMP, serum or plasm a albumin 3.9 g/dL 3.4-5. 0 Not Available [facility] (Lab) [address] [place], [address], 02/06/2021 12:54:45 02/07/20 21 02/06/2021 CMP, serum or plasm a globulin 2.8 g/dL 2.6-4. 2 Not Available [facility] (Lab) [address] [place], [address], 02/06/2021 12:54:45 02/07/20 21 02/06/2021 CMP, serum or plasm a A/G ratio 1.4 ratio 1.0-2. 0 Not Available [facility] (Lab) [address] [place], [address], 02/06/2021 12:54:45 02/07/20 21 02/06/2021 glyco hemog [...] 2016, 39(Brower ppl.1 ):s13 -s22 Not Available [facility] (Lab) [address] [place], [address], 02/06/2021 12:24:13 10/02/20 21 10/05/2021 TESTO STERO NE, FREE+ TOTAL LC/MS testosterone , total, lc/MS 16.9 NG/dL Femal e: Preme nopau phil 10.0 - 55.0 Postm enopa usal 7.0 - 40.0 Not Available [facility] (Lab) [address] [place], [address], 10/05/2021 18:07:44 10/02/20 21 10/05/2021 TESTO STERO NE, FREE+ TOTAL LC/MS testosterone , free 0.33 NG/dL 0.10-0 .85 Not Available [facility] (Lab) [address] [place], [address], 10/05/2021 18:07:44 10/02/20 21 10/05/2021 TESTO STERO NE, FREE+ TOTAL LC/MS % free testosterone 1.96 % 0.50-2 .80 Perfo rmed at: [facility] [place] [address] [facility] , [place] [address] Lab Direc tor: Katy neely MD, Phone : [phone] Not Available [facility] (Lab) [address] [place], [address], 10/05/2021 18:07:44 10/02/20 21 10/03/2021 INSUL IN insulin 55.8 uIU/m L 2.6-24 .9 high Perfo rmed at: [facility] [address] [place] [address] Lab Direc tor: José Miguel townsend PhD, Phone : [phone] Not Available [facility] (Lab) [address] [place], [address], 10/03/2021 10:11:39 10/02/20 21 10/03/2021 DHEA- SULFA TE DHEA-sulfate 34.3 ug/dL 57.3-2 79.2 low Perfo rmed at: [facility] [address] [place] [address] Lab Direc tor: José Miguel townsend PhD, Phone : [phone] Not Available [facility] (Lab) [address] [place], [address], 10/03/2021 08:14:29 10/02/20 21 10/02/2021 TSH thyroid-stim ulating hormone 1.240 uIU/m L 0.465- 4.680 Not Available [facility] (Lab) [address] [place], [address], 10/02/2021 13:06:50 10/02/20 21 10/02/2021 T4 FREE free T4 1.05 NG/dL 0.78-2 .19 Not Available [facility] (Lab) [address] [place], [address], 10/02/2021 12:50:44 10/02/20 21 10/02/2021 HEMOG LOBIN A1C HA1C 4.8 % 4.0-6. 0 Diabe kassy Scree edmundo Crite mary: <5.7% Consi stent with absen ce of diabe kassy 5.7-6 .4% Consi stent with incre ased risk for diabe kassy (pred iabet es) >OR=6 .5% Consi stent with diabe kassy REFER ENCE: Diabe kassy Care 2016, 39(Brower ppl.1 ):s13 -s22 Not Available [facility] (Lab) [address] [place], [address], 10/02/2021 12:45:14 10/02/20 21 10/02/2021 COMP MET PANEL /LIVE R sodium 140 mmol/ L 137-14 5 Not Available [facility] (Lab) [address] [place], [address], 10/02/2021 12:44:13 10/02/20 21 10/02/2021 COMP MET PANEL /LIVE R potassium 4.1 mmol/ L 3.5-5. 1 Not Available [facility] (Lab) [address] [place], [address], 10/02/2021 12:44:13 10/02/20 21 10/02/2021 COMP MET PANEL /LIVE R chloride 109 mmol/ L 98-107 high Not Available [facility] (Lab) [address] [place], [address], 10/02/2021 12:44:13 10/02/20 21 10/02/2021 COMP MET PANEL /LIVE R carbon dioxide 27 mmol/ L 22-30 Not Available [facility] (Lab) [address] [place], [address], 10/02/2021 12:44:13 10/02/20 21 10/02/2021 COMP MET PANEL /LIVE R agap 8.1 mmol/ L 14-22 low Not Available [facility] (Lab) [address] [place], [address], 10/02/2021 12:44:13 10/02/20 21 10/02/2021 COMP MET PANEL /LIVE R glucose 96 mg/dL 70-99 Not Available [facility] (Lab) [address] [place], [address], 10/02/2021 12:44:13 10/02/20 21 10/02/2021 COMP MET PANEL /LIVE R BUN 12 mg/dL 8-19 Not Available [facility] (Lab) [address] [place], [address], 10/02/2021 12:44:13 10/02/20 21 10/02/2021 COMP MET PANEL /LIVE R creatinine 0.68 mg/dL 0.66-1 .25 Not Available [facility] (Lab) [address] [place], [address], 10/02/2021 12:44:13 10/02/20 21 10/02/2021 COMP MET PANEL /LIVE R GFR >60 Refer ence Range : Nelsonia ge GFR Healt hy Adult : >60 [...] calcu lator is avail able on the [facility] websi te: https ://amalia [email or web address] janak.o rg/pr ofess ional s/kdo qi/gf r_cal culat or Not Available [facility] (Lab) [address] [place], [address], 10/02/2021 12:44:13 10/02/20 21 10/02/2021 COMP MET PANEL /LIVE R alkaline phosphatase 101 U/L 38-126 Not Available [facility] (Lab) [address] [place], [address], 10/02/2021 12:44:13 10/02/20 21 10/02/2021 COMP MET PANEL /LIVE R alanine aminotransfe rase 11 U/L 0-35 Not Available [facility] (Lab) [address] [place], [address], 10/02/2021 12:44:13 10/02/20 21 10/02/2021 COMP MET PANEL /LIVE R aspartate aminotransfe rase 20 U/L 15-37 Not Available [facility] (Lab) [address] [place], [address], 10/02/2021 12:44:13 10/02/20 21 10/02/2021 COMP MET PANEL /LIVE R bilirubin, total 0.30 mg/dL 0.20-1 .30 Not Available [facility] (Lab) [address] [place], [address], 10/02/2021 12:44:13 10/02/20 21 10/02/2021 COMP MET PANEL /LIVE R bilirubin, conjugated (direct) 0.00 mg/dL 0.00-0 .30 Not Available [facility] (Lab) [address] [place], [address], 10/02/2021 12:44:13 10/02/20 21 10/02/2021 COMP MET PANEL /LIVE R biliurubin,u ncong. (indirect) 0.30 mg/dL 0.00-1 .1 Not Available [facility] (Lab) [address] [place], [address], 10/02/2021 12:44:13 10/02/2010/02/2021 COMP MET PANEL /LIVE R calcium 9.0 mg/dL 8.4-10 .2 Not Available [facility] (Lab) [address] [place], [address], 10/02/2021 12:44:13 10/02/20 21 10/02/2021 COMP MET PANEL /LIVE R total protein 6.5 g/dL 6.3-8. 2 Not Available [facility] (Lab) [address] [place], [address], 10/02/2021 12:44:13 10/02/20 21 10/02/2021 COMP MET PANEL /LIVE R albumin 3.8 g/dL 3.4-5. 0 Not Available [facility] (Lab) [address] [place], [address], 10/02/2021 12:44:13 10/02/20 21 10/02/2021 COMP MET PANEL /LIVE R globulin 2.7 g/dL 2.6-4. 2 Not Available [facility] (Lab) [address] [place], [address], 10/02/2021 12:44:13 10/02/20 21 10/02/2021 COMP MET PANEL /LIVE R A/G ratio 1.4 ratio 1.0-2. 0 Not Available [facility] (Lab) [address] [place], [address], 10/02/2021 12:44:13 10/02/20 21 10/02/2021 LIPID PANEL cholesterol 113 mg/dL 140-19 9 low NIH ZULEYMA NSUS RECOM MENDA TION FOR KEENAN STERO L: ADULT CHILD LOW RISK: <200 <170 BORDE RLINE : <200- 239 ----- HIGH RISK: >240 >200 Not Available [facility] (Lab) [address] [place], [address], 10/02/2021 12:44:07 10/02/2010/02/2021 LIPID PANEL triglyceride s 281 mg/dL 0-150 high NIH ZULEYMA NSUS REPOR T RECOM MENDA TION FOR TRIGL YCERI BETY: ADULT CHILD LOW RISK: <150 ----- BODER LINE: 150-1 99 ----- HIGH RISK: >200 ----- Not Available [facility] (Lab) [address] [place], [address], 10/02/2021 12:44:07 10/02/20 21 10/02/2021 LIPID PANEL HDL cholesterol 29 mg/dL 40- low Not Available [facility] (Lab) [address] [place], [address], 10/02/2021 12:44:07 10/02/2010/02/2021 LIPID PANEL LDL cholesterol, [...] WILL NOT BE REPOR KASSIDY. Not Available [facility] (Lab) [address] [place], [address], 10/02/2021 12:44:07 03/06/20 22 03/07/2022 INSUL IN insulin 19.7 uIU/m L 2.6-24 .9 Perfo rmed at: - [facility] [address] [facility], [place] [id number] Lab Direc tor: José Miguel townsend PhD, Phone : [phone] Not Available [facility] (Lab) [address] [place], [address], 03/07/2022 14:12:28 03/06/20 22 03/06/2022 LIPID PANEL triglyceride s 480 mg/dL 0-150 high NIH ZULEYMA NSUS REPOR T RECOM MENDA TION FOR TRIGL YCERI BETY: ADULT CHILD LOW RISK: <150 ----- BODER LINE: 150-1 99 ----- HIGH RISK: >200 ----- Not Available [facility] (Lab) [address] [place], [address], 03/06/2022 14:11:30 03/06/20 22 03/06/2022 LIPID PANEL HDL cholesterol 32 mg/dL 40- low Not Available [facility] (Lab) [address] [place], [address], 03/06/2022 14:11:30 03/06/20 22 03/06/2022 LIPID PANEL cholesterol 141 mg/dL 140-19 9 NIH ZULEYMA NSUS RECOM MENDA TION FOR KEENAN STERO L: ADULT CHILD LOW RISK: <200 <170 BORDE RLINE : <200- 239 ----- HIGH RISK: >240 >200 Not Available [facility] (Lab) [address] [place], [address], 03/06/2022 14:11:30 03/06/20 22 03/06/2022 COMPR EHENS ESTEVAN METAB OLIC PANEL sodium 136 mmol/ L 137-14 5 low Not Available [facility] (Lab) [address] [place], [address], 03/06/2022 14:11:23 03/06/20 22 03/06/2022 COMPR EHENS ESTEVAN METAB OLIC PANEL potassium 4.0 mmol/ L 3.5-5. 1 Not Available [facility] (Lab) [address] [place], [address], 03/06/2022 14:11:23 03/06/20 22 03/06/2022 COMPR EHENS ESTEVAN METAB OLIC PANEL chloride 105 mmol/ L 98-107 Not Available [facility] (Lab) [address] [place], [address], 03/06/2022 14:11:23 03/06/20 22 03/06/2022 COMPR EHENS ESTEVAN METAB OLIC PANEL carbon dioxide 24 mmol/ L 22-30 Not Available [facility] (Lab) [address] [place], [address], 03/06/2022 14:11:23 03/06/20 22 03/06/2022 COMPR EHENS ESTEVAN METAB OLIC PANEL anion gap 11.0 mmol/ L 14-22 low Not Available [facility] (Lab) [address] [place], [address], 03/06/2022 14:11:23 03/06/20 22 03/06/2022 COMPR EHENS ESTEVAN METAB OLIC PANEL glucose 100 mg/dL 70-99 high Not Available [facility] (Lab) [address] [place], [address], 03/06/2022 14:11:23 03/06/20 22 03/06/2022 COMPR EHENS ESTEVAN METAB OLIC PANEL BUN 8 mg/dL 8-19 Not Available [facility] (Lab) [address] [place], [address], 03/06/2022 14:11:23 03/06/20 22 03/06/2022 COMPR EHENS ESTEVAN METAB OLIC PANEL creatinine 0.62 mg/dL 0.66-1 .25 low Not Available [facility] (Lab) [address] [place], [address], 03/06/2022 14:11:23 03/06/2003/06/2022 COMPR EHENS ESTEVAN METAB OLIC PANEL GFR >60 Refer ence Range : Nelsonia ge GFR Healt hy Adult : >60 [...] calcu lator is avail able on the [facility] websi te: https :[email or web address] [email or web address] he/pr ofess ional s/kdo qi/gf r_cal culat or Not Available [facility] (Lab) [address] [place], [address], 03/06/2022 14:11:23 03/06/2003/06/2022 COMPR EHENS ESTEVAN METAB OLIC PANEL alkaline phosphatase 110 U/L 38-126 Not Available [facility] (Lab) [address] [place], [address], 03/06/2022 14:11:23 03/06/2006 0303/06/2022 COMPR EHENS ESTEVAN METAB OLIC PANEL alanine aminotransfe rase 17 U/L 0-35 Not Available [facility] (Lab) [address] [place], [address], 03/06/2022 14:11:23 03/06/20 22 03/06/2022 COMPR EHENS ESTEVAN METAB OLIC PANEL aspartate aminotransfe rase 30 U/L 15-37 Not Available [facility] (Lab) [address] [place], [address], 03/06/2022 14:11:23 03/06/20 22 03/06/2022 COMPR EHENS ESTEVAN METAB OLIC PANEL bilirubin, total 0.30 mg/dL 0.20-1 .30 Not Available [facility] (Lab) [address] [place], [address], 03/06/2022 14:11:23 03/06/20 22 03/06/2022 COMPR EHENS ESTEVAN METAB OLIC PANEL calcium 9.2 mg/dL 8.4-10 .2 Not Available [facility] (Lab) [address] [place], [address], 03/06/2022 14:11:23 03/06/20 22 03/06/2022 COMPR EHENS ESTEVAN METAB OLIC PANEL total protein 7.5 g/dL 6.3-8. 2 Not Available [facility] (Lab) [address] [place], [address], 03/06/2022 14:11:23 03/06/20 22 03/06/2022 COMPR EHENS ESTEVAN METAB OLIC PANEL albumin 4.1 g/dL 3.4-5. 0 Not Available [facility] (Lab) [address] [place], [address], 03/06/2022 14:11:23 03/06/20 22 03/06/2022 COMPR EHENS ESTEVAN METAB OLIC PANEL globulin 3.4 g/dL 2.6-4. 2 Not Available [facility] (Lab) [address] [place], [address], 03/06/2022 14:11:23 03/06/20 22 03/06/2022 COMPR EHENS ESTEVAN METAB OLIC PANEL A/G ratio 1.2 ratio 1.0-2. 0 Not Available [facility] (Lab) [address] [place], [address], 03/06/2022 14:11:23 03/06/20 22 03/06/2022 HEMOG LOBIN A1C HA1C 4.9 % 4.0-6. 0 Diabe kassy Scree edmundo Crite mary: <5.7% Consi stent with absen ce of diabe kassy 5.7-6 .4% Consi stent with incre ased risk for diabe kassy (pred iabet es) >OR=6 .5% Consi stent with diabe kassy REFER ENCE: Diabe kassy Care 2016, 39(Brower ppl.1 ):s13 -s22 Not Available [facility] (Lab) [address] [place], [address], 03/06/2022 13:50:02 09/16/2009/21/2022 TESTO STERO NE, FREE+ TOTAL LC/MS testosterone , total, lc/MS 13.6 NG/dL Femal e: Preme nopau phil 10.0 - 55.0 Postm enopa usal 7.0 - 40.0 Not Available [facility] (Lab) [address] [place], [address], 09/21/2022 11:11:01 09/16/2009/21/2022 TESTO STERO NE, FREE+ TOTAL LC/MS testosterone , free 0.25 NG/dL 0.10-0 .85 Not Available [facility] (Lab) [address] [place], [address], 09/21/2022 11:11:01 09/16/20 22 09/21/2022 TESTO STERO NE, FREE+ TOTAL LC/MS % free testosterone 1.87 % 0.50-2 .80 Perfo rmed at: - [facility] [place] [address] [facility] [place] [address] Lab Direc tor: Katy neely MD, Phone : [phone] Not Available [facility] (Lab) [address] [place], [address], 09/21/2022 11:11:01 09/16/20 22 09/17/2022 DHEA- SULFA TE DHEA-sulfate 51.2 ug/dL 57.3-2 79.2 low Perfo rmed at: - [facility] [address] [place] [address] Lab Direc tor: José Miguel townsend PhD, Phone : [phone] Not Available [facility] (Lab) [address] [place], [address], 09/17/2022 08:14:27 09/16/20 22 09/16/2022 LIPID PANEL cholesterol 151 mg/dL 140-19 9 NIH ZULEYMA NSUS RECOM MENDA TION FOR KEENAN STERO L: ADULT CHILD LOW RISK: <200 <170 BORDE RLINE : <200- 239 ----- HIGH RISK: >240 >200 Not Available [facility] (Lab) [address] [place], [address], 09/16/2022 12:51:55 09/16/2009/16/2022 LIPID PANEL triglyceride s 173 mg/dL 0-150 high NIH ZULEYMA NSUS REPOR T RECOM MENDA TION FOR TRIGL YCERI BETY: ADULT CHILD LOW RISK: <150 ----- BODER LINE: 150-1 99 ----- HIGH RISK: >200 ----- Not Available [facility] (Lab) [address] [place], [address], 09/16/2022 12:51:55 09/16/20 22 09/16/2022 LIPID PANEL HDL cholesterol 41 mg/dL 40- Not Available [facility] (Lab) [address] [place], [address], 09/16/2022 12:51:55 09/16/20 22 09/16/2022 LIPID PANEL [...] WILL NOT BE REPOR KASSIDY. Not Available [facility] (Lab) [address] [place], [address], 09/16/2022 12:51:55 09/16/20 22 09/16/2022 COMPR EHENS ESTEVAN METAB OLIC PANEL sodium 139 mmol/ L 137-14 5 Not Available [facility] (Lab) [address] [place], [address], 09/16/2022 12:51:50 09/16/20 22 09/16/2022 COMPR EHENS ESTEVAN METAB OLIC PANEL potassium 4.2 mmol/ L 3.5-5. 1 Not Available [facility] (Lab) [address] [place], [address], 09/16/2022 12:51:50 09/16/20 22 09/16/2022 COMPR EHENS ESTEVAN METAB OLIC PANEL chloride 105 mmol/ L 98-107 Not Available [facility] (Lab) [address] [place], [address], 09/16/2022 12:51:50 09/16/20 22 09/16/2022 COMPR EHENS ESTEVAN METAB OLIC PANEL carbon dioxide 31 mmol/ L 22-30 high Not Available [facility] (Lab) [address] [place], [address], 09/16/2022 12:51:50 09/16/20 22 09/16/2022 COMPR EHENS ESTEVAN METAB OLIC PANEL anion gap 7.2 mmol/ L 14-22 low Not Available [facility] (Lab) [address] [place], [address], 09/16/2022 12:51:50 09/16/20 22 09/16/2022 COMPR EHENS ESTEVAN METAB OLIC PANEL glucose 100 mg/dL 70-99 high Not Available [facility] (Lab) [address] [place], [address], 09/16/2022 12:51:50 09/16/20 22 09/16/2022 COMPR EHENS ESTEVAN METAB OLIC PANEL BUN 16 mg/dL 8-19 Not Available [facility] (Lab) [address] [place], [address], 09/16/2022 12:51:50 09/16/20 22 09/16/2022 COMPR EHENS ESTEVAN METAB OLIC PANEL creatinine 0.88 mg/dL 0.66-1 .25 Not Available [facility] (Lab) [address] [place], [address], 09/16/2022 12:51:50 09/16/20 22 09/16/2022 COMPR EHENS ESTEVAN METAB OLIC PANEL GFR >60 Refer ence Range : [place] ge GFR Healt hy Adult : >60 [...] calcu lator is avail able on the [facility] websi te: https ://ww w.kid janak.o rg/pr ofess ional s/kdo qi/gf r_cal culat or Not Available [facility] (Lab) [address] [place], [address], 09/16/2022 12:51:50 09/16/20 22 09/16/2022 COMPR EHENS ESTEVAN METAB OLIC PANEL alkaline phosphatase 78 U/L 38-126 Not Available [facility] (Lab) [address] [place], [address], 09/16/2022 12:51:50 09/16/20 22 09/16/2022 COMPR EHENS ESTEVAN METAB OLIC PANEL alanine aminotransfe rase 12 U/L 0-35 Not Available [facility] (Lab) [address] [place], [address], 09/16/2022 12:51:50 09/16/20 22 09/16/2022 COMPR EHENS ESTEVAN METAB OLIC PANEL aspartate aminotransfe rase 19 U/L 15-37 Not Available [facility] (Lab) [address] [place], [address], 09/16/2022 12:51:50 09/16/20 22 09/16/2022 COMPR EHENS ESTEVAN METAB OLIC PANEL bilirubin, total 0.50 mg/dL 0.20-1 .30 Not Available [facility] (Lab) [address] [place], [address], 09/16/2022 12:51:50 09/16/20 22 09/16/2022 COMPR EHENS ESTEVAN METAB OLIC PANEL calcium 9.4 mg/dL 8.4-10 .2 Not Available [facility] (Lab) [address] [place], [address], 09/16/2022 12:51:50 09/16/20 22 09/16/2022 COMPR EHENS ESTEVAN METAB OLIC PANEL total protein 7.3 g/dL 6.3-8. 2 Not Available [facility] (Lab) [address] [place], [address], 09/16/2022 12:51:50 09/16/20 22 09/16/2022 COMPR EHENS ESTEVAN METAB OLIC PANEL albumin 4.2 g/dL 3.4-5. 0 Not Available [facility] (Lab) [address] [place], [address], 09/16/2022 12:51:50 09/16/20 22 09/16/2022 COMPR EHENS ESTEVAN METAB OLIC PANEL globulin 3.1 g/dL 2.6-4. 2 Not Available [facility] (Lab) [address] [place], [address], 09/16/2022 12:51:50 09/16/20 22 09/16/2022 COMPR EHENS ESTEVAN METAB OLIC PANEL A/G ratio 1.4 ratio 1.0-2. 0 Not Available [facility] (Lab) [address] [place], [address], 09/16/2022 12:51:50 11/18/19 23 11/24/2022 THYRO ID STIM IMMUN OGLOB ULIN thyroid stim immunoglobul in <0.10 IU/L 0.00-0 .55 Perfo rmed at: [facility] [address] [place] [address] Lab Direc tor: Katy neely MD, Phone : [phone] Not Available [facility] (Lab) [address] [place], [address], 11/24/2022 16:12:28 11/18/19 23 11/19/2022 THYRO ID PEROX IDASE (TPO) AB thyroid peroxidase (tpo) Ab 11 IU/mL 0-34 Perfo rmed at: [facility] [address] [place] [address] 12[address] Lab Direc tor: José Miguel townsend PhD, Phone : [phone] Not Available [facility] (Lab) [address] [place], [address], 11/19/2022 14:11:12 11/18/19 23 11/18/2022 TSH thyroid-stim ulating hormone 0.313 uIU/m L 0.465- 4.680 low Not Available [facility] (Lab) [address] [place], [address], 11/18/2022 15:19:11 11/18/19 23 11/18/2022 T4 FREE free T4 1.11 NG/dL 0.78-2 .19 Not Available [facility] (Lab) [address] [place], [address], 11/18/2022 14:51:16 04/13/2004/13/2023 COMPR EHENS ESTEVAN METAB OLIC PANEL sodium 139 mmol/ L 137-14 5 Not Available [facility] (Lab) [address] [place], [address], 04/13/2023 13:09:44 04/13/2004/13/2023 COMPR EHENS ESTEVAN METAB OLIC PANEL potassium 4.2 mmol/ L 3.5-5. 1 Not Available [facility] (Lab) [address] [place], [address], 04/13/2023 13:09:44 04/13/20 23 04/13/2023 COMPR EHENS ESTEVAN METAB OLIC PANEL chloride 103 mmol/ L 98-107 Not Available [facility] (Lab) [address] [place], [address], 04/13/2023 13:09:44 04/13/20 23 04/13/2023 COMPR EHENS ESTEVAN METAB OLIC PANEL carbon dioxide 26 mmol/ L 22-30 Not Available [facility] (Lab) [address] [place], [address], 04/13/2023 13:09:44 04/13/20 23 04/13/2023 COMPR EHENS ESTEVAN METAB OLIC PANEL anion gap 14.2 mmol/ L 14-22 Not Available [facility] (Lab) [address] [place], [address], 04/13/2023 13:09:44 04/13/20 23 04/13/2023 COMPR EHENS ESTEVAN METAB OLIC PANEL glucose 93 mg/dL 70-99 Not Available [facility] (Lab) [address] [place], [address], 04/13/2023 13:09:44 04/13/20 23 04/13/2023 COMPR EHENS ESTEVAN METAB OLIC PANEL BUN 16 mg/dL 8-19 Not Available [facility] (Lab) [address] [place], [address], 04/13/2023 13:09:44 04/13/20 23 04/13/2023 COMPR EHENS ESTEVAN METAB OLIC PANEL creatinine 0.79 mg/dL 0.66-1 .25 Not Available [facility] (Lab) [address] [place], [address], 04/13/2023 13:09:44 04/13/20 23 04/13/2023 COMPR EHENS ESTEVAN METAB OLIC PANEL GFR >60 Refer ence Range : [place] ge GFR Healt hy Adult : >60 [...] calcu lator is avail able on the [facility] websi te: https ://amalia w.jc briceno.o rg/pr ofess ional s/kdo qi/gf r_cal culat or Not Available [facility] (Lab) [address] [place], [address], 04/13/2023 13:09:44 04/13/20 23 04/13/2023 COMPR EHENS ESTEVAN METAB OLIC PANEL alkaline phosphatase 93 U/L 38-126 Not Available [facility] (Lab) [address] [place], [address], 04/13/2023 13:09:44 04/13/20 23 04/13/2023 COMPR EHENS ESTEVAN METAB OLIC PANEL alanine aminotransfe rase 17 U/L 0-35 Not Available [facility] (Lab) [address] [place], [address], 04/13/2023 13:09:44 04/13/20 23 04/13/2023 COMPR EHENS ESTEVAN METAB OLIC PANEL aspartate aminotransfe rase 22 U/L 15-37 Not Available [facility] (Lab) [address] [place], [address], 04/13/2023 13:09:44 04/13/20 23 04/13/2023 COMPR EHENS ESTEVAN METAB OLIC PANEL bilirubin, total 0.40 mg/dL 0.20-1 .30 Not Available [facility] (Lab) [address] [place], [address], 04/13/2023 13:09:44 04/13/20 23 04/13/2023 COMPR EHENS ESTEVAN METAB OLIC PANEL calcium 9.3 mg/dL 8.4-10 .2 Not Available [facility] (Lab) [address] [place], [address], 04/13/2023 13:09:44 04/13/20 23 04/13/2023 COMPR EHENS ESTEVAN METAB OLIC PANEL total protein 7.9 g/dL 6.3-8. 2 Not Available [facility] (Lab) [address] [place], [address], 04/13/2023 13:09:44 04/13/20 23 04/13/2023 COMPR EHENS ESTEVAN METAB OLIC PANEL albumin 4.2 g/dL 3.4-5. 0 Not Available [facility] (Lab) [address] [place], [address], 04/13/2023 13:09:44 04/13/20 23 04/13/2023 COMPR EHENS ESTEVAN METAB OLIC PANEL globulin 3.7 g/dL 2.6-4. 2 Not Available [facility] (Lab) [address] [place], [address], 04/13/2023 13:09:44 04/13/20 23 04/13/2023 COMPR EHENS ESTEVAN METAB OLIC PANEL A/G ratio 1.1 ratio 1.0-2. 0 Not Available [facility] (Lab) [address] [place], [address], 04/13/2023 13:09:44 04/13/20 23 04/13/2023 VITAM IN B12 (ANTONIO NENA ) vb12 533 pg/mL 239-93 1 Not Available [facility] (Lab) [address] [place], [address], 04/13/2023 13:19:21 04/13/20 23 04/13/2023 FOLAT E, SERUM /PLAS MA folate 2.66 NG/mL 2.76-2 0.0 low Not Available [facility] (Lab) [address] [place], [address], 04/13/2023 13:19:38 04/13/20 23 04/13/2023 T4 FREE free T4 1.22 NG/dL 0.78-2 .19 Not Available [facility] (Lab) [address] [place], [address], 04/13/2023 13:20:48 04/13/20 23 04/13/2023 TSH thyroid-stim ulating hormone 0.410 uIU/m L 0.465- 4.680 low Not Available [facility] (Lab) [address] [place], [address], 04/13/2023 13:33:17 04/13/20 23 04/14/2023 DHEA- SULFA TE DHEA-sulfate 60.9 ug/dL 57.3-2 79.2 Perfo rmed at: [facility] [place] [address] Lab Direc tor: José Miguel townsend PhD, Phone : [phone] Not Available [facility] (Lab) [address] [place], [address], 04/14/2023 08:18:20 04/13/20 23 04/14/2023 INSUL IN insulin 22.1 uIU/m L 2.6-24 .9 Perfo rmed at: [facility] [address] [place] [address] Lab Direc tor: José Miguel townsend PhD, Phone : [phone] Not Available [facility] (Lab) [address] [place], [address], 04/14/2023 11:12:32 04/13/20 23 04/17/2023 TESTO STERO NE, FREE+ TOTAL LC/MS testosterone , total, lc/MS 11.0 NG/dL Femal e: Preme nopau phil 10.0 - 55.0 Postm enopa usal 7.0 - 40.0 Not Available [facility] (Lab) [address] [place], [address], 04/17/2023 14:12:15 04/13/20 23 04/17/2023 TESTO STERO NE, FREE+ TOTAL LC/MS testosterone , free 0.21 NG/dL 0.10-0 .85 Not Available [facility] (Lab) [address] [place], [address], 04/17/2023 14:12:15 04/13/20 23 04/17/2023 TESTO STERO NE, FREE+ TOTAL LC/MS % free testosterone 1.95 % 0.50-2 .80 Perfo rmed at: [facility] [address] [place] [address] Lab Direc tor: Katy neely MD, Phone : [phone] Not Available [facility] (Lab) [address] [place], [address], 04/17/2023 14:12:15 02/07/20 21 02/06/2021 US, head + neck, soft tissu e [facility] [address] [place] [address] Patien t Name: STEPHANIE NG Access ion #: [id number] Sex: F : 1979 10 Locati [...] r blood flow. Page 1 of 2 [facility] [place] Renetta t Name: STEPHANIE NG Access ion #: [id number] Sex: F : 1979 10 Exam [...] 9:38 AM (CT) Page 2 of 2 [id number] [facility] (Imaging) [address] [place], [address], 01/13/2023 20:40:42 02/07/20 21 02/06/2021 US, neck, soft tissu e No observ ation record ed. [id number] [facility] [address] [place], [address], 01/13/2023 20:40:42 Result Notes None recorded. Problems Name Problem SNOMED Code Status Onset Date Resolution Date Notes Provider Name and Address Organization Details Recorded Time Genital herpes simplex 96544189 Active 2018 Not Available [facility] 3 20:39:31 Vitamin D deficiency 62469122 Active 2018 Not Available [facility] 3 20:39:31 Dyslipidemia 596421187 Active 2018 Not Available [facility] 3 20:39:31 Polycystic ovary syndrome 989197669 Active 2022 Meenakshi Goel MD [address], [address] , [employer] 3 20:04:18 Fatigue 96973870 Active 2022 Meenakshi Goel MD [address] [facility] [address], [address] , [employer] 3 20:04:27 Mixed hypercholeste rolemia and hypertriglyce ridemia 231559763 Active 2022 JONEL Salazar null, [employer] [facility] [employer] 3 09:39:51 Problem Notes None recorded. Procedures Surgical History None recorded. Imaging Results Imaging Date Name Status LastModified by Organiz ation Details LastModified Time 02/06/2021 US, head + neck, soft tissue completed [id number] [facility] (Im[facility]) [address] [place], [address], 01/13/2023 20:40:42 02/06/2021 US, neck, soft tissue completed [id number] [facility] [address] [place], [address], 01/13/2023 20:40:42 Procedure Notes None recorded. Medical Equipment None Reported. Allergies Allergen ID Allergen Name Allergen Category Reaction Reaction Severity Criticality Documentation Date Start Date Code Code System Note Provider Name and Address Organization Details Recorded Time 19516 tramadol medicatio n headache Not available Not available 01/13/2023 29649 RxNorm Not Available [facility] 3 20:40:41 80375 Product containin g penicilli n (product) medicatio n Not available Not available Not available 01/13/2023 14352 8001 SNOMED Not Available [facility] 3 20:40:41 39607 latex environme nt,medica tion Not available Not available Not available 01/13/2023 71951 91 RxNorm Not Available [facility] 3 20:40:41 06816 azithromy eddie medicatio n Not available Not available Not available 01/13/2023 64549 RxNorm Not Available [facility] 3 20:40:41 Medications Name Sig Start Date [...] 1 27.6 kg/m2 175.26 cm 98.4 [degF] 82207.7 7 g 120 mm[Hg] 80 mm[Hg] Not Available [facility] 3 20:39:15 Date Recorded Body mass index (BMI) Body height Oxygen saturation Oxygen saturation in Arterial blood by Pulse oximetry Heart rate Body temperature Body weight Systolic blood pressure Diastolic blood pressure Provider Name and Address Organization Details Last Updated DateTime 1 29.4 kg/m2 175.26 cm 97 % 97 % 78 /min 98.7 [degF] 40110.8 8 g 140 mm[Hg] 98 mm[Hg] Not Available [facility] 3 20:39:15 Date Recorded Body mass index (BMI) Body height Oxygen saturation Oxygen saturation in Arterial blood by Pulse oximetry Heart rate Body temperature Body weight Systolic blood pressure Diastolic blood pressure Provider Name and Address Organization Details Last Updated DateTime 2 28.5 kg/m2 175.26 cm 98 % 98 % 88 /min 98.4 [degF] 69232.3 3 g 130 mm[Hg] 80 mm[Hg] Not Available [facility] 3 20:39:15 Date Recorded Body mass index (BMI) Body height Oxygen saturation Oxygen saturation in Arterial blood by Pulse oximetry Heart rate Body temperature Body weight Systolic blood pressure Diastolic blood pressure Provider Name and Address Organization Details Last Updated DateTime 2 27.5 kg/m2 175.26 cm 96 % 96 % 103 /min 97.7 [degF] 42579.1 8 g 115 mm[Hg] 80 mm[Hg] Not Available [facility] 3 20:39:15 Social History Question Answer Notes LastModified by Agentrunizat ion Details LastModified Time Tobacco Smoking Status Never Smoker Not Available [facility] 01/13/2023 20:38:46 What Is Your Level Of Alcohol Consumption? None [id number] Information not available 01/13/2023 What Is Your Level Of Caffeine Consumption? Occasional [id number] Information not available 01/13/2023 How Much Tobacco Do You Chew? None [id number] Information not available 01/13/2023 In The 14 Days Before Symptom Onset, Have You Had Close Contact With A Laboratory-confir med COVID-19 While That Case Was Ill? No [id number] Information not available 01/13/2023 In The 14 Days Before Symptom Onset, Have You Had Close Contact With A Person Who Is Under Investigation For COVID-19 While That Person Was Ill? No [id number] Information not available 01/13/2023 What Type Of Diet Are You Following? REGULAR [id number] 5018 Information not available 01/13/2023 Which Illicit Or Recreational Drugs Have You Used? None [id number] Information not available 01/13/2023 Do You Or Have You Ever Used E-cigarettes Or Vape? 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 Single [id number] 8989 Information not available 01/13/2023 Do You Use Any Illicit Or Recreational Drugs? No [id number].[id number] 0554 Information not available 01/13/2023 Have You Recently Traveled Abroad? No MIGRATION.170019 6105 Information not available 01/13/2023 Do You Have Any Dietary Restrictions? No [id number].[id number] 1251 Information not available 01/13/2023 Sex: Female Functional Status None recorded. Mental Status None recorded. Family History Relationship Description Onset Age of this Age Resolved Age Notes LastModified by Organization Details LastModified Time Mother Hypertensive disorder [id number] Not available 01/13/2023 20:38:52 Mother Hyperlipidem ia [id number] Not available 01/13/2023 20:38:52 Father Hypertensive disorder [id number] Not available 01/13/2023 20:38:52 Father Hyperlipidem ia [id number] Not available 01/13/2023 20:38:52 Medical History Condition Response HERPES Y HIGH CHOLESTEROL / HYPERLIPIDEMIA Y Gynecological HistoryNo gynecological history recorded. Obstetrics History GPAL:G 0 P 0 0 0 0 Past Encounters Encounter ID Performer Location Encounter Start Date Encounter Closed Date Diagnosis/Indication Diagnosis SNOMED-CT Code Diagnosis ICD10 Code Diagnosis Note [id number] [facility] [address] [place] [address] 02/21/2021 00:00:00 02/21/2021 10:58:35 [id number] [facility] [address] [place] [address] 10/13/2021 00:00:00 10/14/2021 08:09:20 [id number] _ATHENA_M IGRATION_ DEFAULT_1 _1 , 03/12/2022 00:00:00 03/12/2022 11:58:19 [id number] [facility] [address] [place] [address] 10/23/2022 00:00:00 10/23/2022 11:15:59 Health Concerns Section Related Observation LastModified by Organization Detai ls LastModified Time None Recorded Concern Status LastModified by Organization Details LastModified Time None Recorded Advance Directives Directive None Recorded Payers None recorded. OBGyn Episode No OBEpisode recorded.
--- OUTSIDE RECORDS SUMMARY | 2025-03-06 15:03 | XMS_ITS | Data Portability ---
Author Organization [facility] [place] Address [address] [place] [address] Care Team Providers Care Music Therapist Name Role Phone LAURA CORDON Primary Care Provider Assessment Encounter Date Assessment Date Assessment LastModified by Organization Details LastModified Time 10/14/2020 10/14/2020 healthy female exam patient declines std testing pap due 2021, discussed guidelines mammogram- first one next year contraception-tu bal discussed how to find PCP through her insurance FU 1 year or prn [email or web address] Not available 10/15/2020 10:14:17 01/30/2022 01/30/2022 Annual [...] a year unless there are new symptoms. [email or web address] Not available 02/19/2025 16:07:54 Plan of Treatment Reminders Order Date Submit Date Provider Last Modified By Organization Details Last Modified Time Details Appointments None recorded. Lab pap, IG + HR HPV - HPV regardless but if HPV is positive need subtyping 16,18/45 2024 025 [facility] (Lab), [address], [place], [address], 04/09/202 5 11:57:58 urinalysis, dipstick 2023 024 [email or web address] [place], [address], [address], [place], [address], 4 10:51:57 TSH, serum or plasma 2021 022 [facility] (Lab), [address], [place], [address], 2 02:54:48 CBC w/ auto diff 2021 022 [facility] (Lab), [address], [place], [address], 2 02:54:47 CMP, serum or plasma 2021 022 [facility] (Lab), [address], [place], [address], 2 02:54:47 Referral None recorded. Procedures None recorded. Surgeries None recorded. Imaging MAMMO, screening, digital, bilateral [email or web address] [place] [address] Imaging, [address], [place], [address], 5 18:55:48 MAMMO, screening, bilateral [address] (Radiology), [address] [place] [address], [address], 4 12:02:47 Medication Orders None recorded. Patient TargetsNo targets recorded. Patient InstructionsNo instructions recorded. Reason for Referral None Reported. Results Created Date Observation Date Name Description Value Unit Range Abnormal Flag Note LastModifiedBy Organization Detail LastModifiedTime 01/31/2001/30/2022 CBC W/DIF F WBC 10.4 10'3/ uL 3.6-10 .2 high Not Available [facility] (Lab) [address], [place], [address], 01/31/2022 02:54:47 01/31/20 22 01/30/2022 CBC W/DIF F RBC 3.70 10'6/ uL (based on docume nted legal sex) 4.10-5 .30 low Not Available [facility] (Lab) [address] [facility], [place], [address], 01/31/2022 02:54:47 01/31/20 22 01/30/2022 CBC W/DIF F HGB 11.4 g/dL (based on docume nted legal sex) 11.9-1 5.8 low Not Available [facility] (Lab) [address] [facility], [place], [address], 01/31/2022 02:54:47 01/31/20 22 01/30/2022 CBC W/DIF F HCT 37.1 % (based on docume nted legal sex) 37.4-4 8.3 low Not Available [facility] (Lab) [address] [facility], [place], [address], 01/31/2022 02:54:47 01/31/20 22 01/30/2022 CBC W/DIF F MCV 100.0 fL 82.0-9 9.0 high Not Available [facility] (Lab) [address], [place], [address], 01/31/2022 02:54:47 01/31/20 22 01/30/2022 CBC W/DIF F MCH 31.0 pg 27.0-3 3.0 Not Available [facility] (Lab) [address] [place], [address], 01/31/2022 02:54:47 01/31/20 22 01/30/2022 CBC W/DIF F MCHC 31.0 g/dL 32.0-3 6.0 low Not Available [facility] (Lab) [address] [place], [address], 01/31/2022 02:54:47 01/31/20 22 01/30/2022 CBC W/DIF F RDW 12.0 % 11.0-1 5.0 Not Available [facility] (Lab) [address], [place], [address], 01/31/2022 02:54:47 01/31/20 22 01/30/2022 CBC W/DIF F plt 336 10'3/ uL 150-45 0 Not Available [facility] (Lab) [address], [place], [address], 01/31/2022 02:54:47 01/31/20 22 01/30/2022 CBC W/DIF F MPV 10.0 fL 9.8-12 .7 Not Available [facility] (Lab) [address], [place], [address], 01/31/2022 02:54:47 01/31/20 22 01/30/2022 CBC W/DIF F NRBC's 0.00 % 0 Not Available [facility] (Lab) [address], [place], [address], 01/31/2022 02:54:47 01/31/20 22 01/30/2022 CBC W/DIF F absolute NRBCs 0.0 10'3/ uL 0 Not Available [facility] (Lab) [address], [place], [address], 01/31/2022 02:54:47 01/31/20 22 01/30/2022 CBC W/DIF F neutrophils 61.0 % 37.0-7 2.0 Not Available [facility] (Lab) [address], [place], [address], 01/31/2022 02:54:47 01/31/20 22 01/30/2022 CBC W/DIF F lymphocytes 27.0 % 16.0-4 8.0 Not Available [facility] (Lab) [address], [place], [address], 01/31/2022 02:54:47 01/31/20 22 01/30/2022 CBC W/DIF F monocytes 8.0 % 4.0-14 .0 Not Available [facility] (Lab) [address], [place], [address], 01/31/2022 02:54:47 01/31/20 22 01/30/2022 CBC W/DIF F eosinophils 2.0 % 0.0-9. 0 Not Available [facility] (Lab) [address], [place], [address], 01/31/2022 02:54:47 01/31/20 22 01/30/2022 CBC W/DIF F basophils 1.0 % 0.0-2. 0 Not Available [facility] (Lab) [address], [place], [address], 01/31/2022 02:54:47 01/31/20 22 01/30/2022 CBC W/DIF F immature granulocytes 1.0 % no define d refere nce range Not Available [facility] (Lab) [address], [place], [address], 01/31/2022 02:54:47 01/31/20 22 01/30/2022 CBC W/DIF F absolute neutrophils 6.5 10'3/ uL 1.1-6. 0 high Not Available [facility] (Lab) [address] [place], [address], 01/31/2022 02:54:47 01/31/20 22 01/30/2022 CBC W/DIF F absolute lymphocytes 2.8 10'3/ uL 0.7-3. 4 Not Available [facility] (Lab) [address] [place], [address], 01/31/2022 02:54:47 01/31/20 22 01/30/2022 CBC W/DIF F absolute monocytes 0.8 10'3/ uL 0.3-1. 0 Not Available [facility] (Lab) [address] [facility], [place], [address], 01/31/2022 02:54:47 01/31/20 22 01/30/2022 CBC W/DIF F absolute eosinophils 0.2 10'3/ uL 0.0-0. 6 Not Available [facility] (Lab) [address] [facility], [place], [address], 01/31/2022 02:54:47 01/31/20 22 01/30/2022 CBC W/DIF F absolute basophils 0.1 10'3/ uL 0.0-0. 1 Not Available [facility] (Lab) [address] [facility], [place], [address], 01/31/2022 02:54:47 01/31/20 22 01/30/2022 CBC W/DIF [...] resul ts are expec sheba. Not Available [facility] (Lab) [address] [facility], [place], [address], 01/31/2022 02:54:47 01/31/20 22 01/30/2022 CMP(C OMPRE HENSI VE METAB OLIC PANEL ) sodium 140 mmol/ L 133-14 6 Not Available [facility] (Lab) [address] [facility], [place], [address], 01/31/2022 02:54:47 01/31/20 22 01/30/2022 CMP(C OMPRE HENSI VE METAB OLIC PANEL ) potassium 3.8 mmol/ L 3.5-5. 1 Not Available [facility] (Lab) [address] [facility], [place], [address], 01/31/2022 02:54:47 01/31/20 22 01/30/2022 CMP(C OMPRE HENSI VE METAB OLIC PANEL ) chloride 108 mmol/ L 98-107 high Not Available [facility] (Lab) [address] [facility], [place], [address], 01/31/2022 02:54:47 01/31/20 22 01/30/2022 CMP(C OMPRE HENSI VE METAB OLIC PANEL ) carbon dioxide 27 mmol/ L 21-31 Not Available [facility] (Lab) [address] [facility], [place], [address], 01/31/2022 02:54:47 01/31/20 22 01/30/2022 CMP(C OMPRE HENSI VE METAB OLIC PANEL ) anion gap 5 mmol/ L 4-13 Not Available [facility] (Lab) [address] [facility], [place], [address], 01/31/2022 02:54:47 01/31/20 22 01/30/2022 CMP(C OMPRE HENSI VE METAB OLIC PANEL ) blood urea nitrogen 16 mg/dL 7-25 Not Available [facility] (Lab) [address] [facility], [place], [address], 01/31/2022 02:54:47 01/31/20 22 01/30/2022 CMP(C OMPRE HENSI VE METAB OLIC PANEL ) creatinine 0.74 mg/dL 0.60-1 .30 Not Available [facility] (Lab) [address] [facility], [place], [address], 01/31/2022 02:54:47 01/31/20 22 01/30/2022 CMP(C OMPRE HENSI VE METAB OLIC PANEL ) egfrcr (CKD-epi 2020) >90 mL/mi n/1.7 3_m2 >=60 Not Available [facility] (Lab) [address] [facility], [place], [address], 01/31/2022 02:54:47 01/31/20 22 01/30/2022 CMP(C OMPRE HENSI VE METAB OLIC PANEL ) calcium 9.3 mg/dL 8.3-10 .5 Not Available [facility] (Lab) [address] [facility], [place], [address], 01/31/2022 02:54:47 01/31/20 22 01/30/2022 CMP(C OMPRE HENSI VE METAB OLIC PANEL ) glucose 87 mg/dL 70-100 Not Available [facility] (Lab) [address] [facility], [place], [address], 01/31/2022 02:54:47 01/31/20 22 01/30/2022 CMP(C OMPRE HENSI VE METAB OLIC PANEL ) protein, total 7.3 g/dL 6.4-8. 3 Not Available [facility] (Lab) [address] [facility], [place], [address], 01/31/2022 02:54:47 01/31/20 22 01/30/2022 CMP(C OMPRE HENSI VE METAB OLIC PANEL ) albumin 4.2 g/dL 3.5-5. 0 Not Available [facility] (Lab) [address] [facility], [place], [address], 01/31/2022 02:54:47 01/31/20 22 01/30/2022 CMP(C OMPRE HENSI VE METAB OLIC PANEL ) ALT 16 units /L 9-43 Not Available [facility] (Lab) [address] [place], [address], 01/31/2022 02:54:47 01/31/20 22 01/30/2022 CMP(C OMPRE HENSI VE METAB OLIC PANEL ) alkaline phosphatase 110 units /L 34-104 high Not Available [facility] (Lab) [address] [facility], [place], [address], 01/31/2022 02:54:47 01/31/20 22 01/30/2022 CMP(C OMPRE HENSI VE METAB OLIC PANEL ) AST 20 units /L 13-39 Not Available [facility] (Lab) [address], [place], [address], 01/31/2022 02:54:47 01/31/20 22 01/30/2022 CMP(C OMPRE HENSI VE METAB OLIC PANEL ) bilirubin, total 0.6 mg/dL 0.2-1. 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 Not Available [facility] (Lab) [address], [place], [address], 02/06/2024 11:03:28 02/02/20 24 02/02/2024 urina lysis , dipst ick Leukocytes NEGATI VE Not Available [place] [address], [place], [address], 02/02/2024 10:46:15 02/02/20 24 02/02/2024 urina lysis , dipst ick Nitrite NEGATI VE Not Available [place] [address], [place], [address], 02/02/2024 10:46:15 02/02/20 24 02/02/2024 urina lysis , dipst ick Urobilinogen NEGATI VE Not Available [place] [address], [place], [address], 02/02/2024 10:46:15 02/02/20 24 02/02/2024 urina lysis , dipst ick Protein TRACE Not Available [place] [address], [place], [address], 02/02/2024 10:46:15 02/02/20 24 02/02/2024 urina lysis , dipst ick pH 6 Not Available [place] [address], [place], [address], 02/02/2024 10:46:15 02/02/20 24 02/02/2024 urina lysis , dipst ick Specific [place] 1.005 [facility] Available [facility] [address], [place], [address], 02/02/2024 10:46:15 02/02/20 24 02/02/2024 urina lysis , dipst ick Ketone NEGATI VE Not Available [place] [address], [place], [address], 02/02/2024 10:46:15 02/02/20 24 02/02/2024 urina lysis , dipst ick Bilirubin NEGATI VE Not Available [place] [address], [place], [address], 02/02/2024 10:46:15 02/02/20 24 02/02/2024 urina lysis , dipst ick Glucose NEGATI VE Not Available [place] [address], [place], [address], 02/02/2024 10:46:15 02/02/20 24 02/02/2024 urina lysis , dipst ick Appearance CLEAR Not Available [facility] [address], [place], [address], 02/02/2024 10:46:15 02/02/20 24 02/02/2024 urina lysis , dipst ick Color LIGHT YELLOW Not Available [place] [address], [place], [address], 02/02/2024 10:46:15 02/20/20 25 02/19/2025 IMAGE GUIDE D PAP AND HPV REGAR DLESS image guided Pap, HPV regardless of Pap result SEE RESULT S BELOW CASE REPOR T: Cytol ogy Gynec ologi girma Repor t Case: [id number] Autho jagjit baxter Provi zita: Sonia Sandy, MARLENA Colle cted: 02/19 1546 Order ing Locat ion: [place] [facility] [place] Recei nohemi: 02/20 0222 First Sade n: Willian Edmond, CT Speci men: Sade vallesg Pap - Image d, Cervi x STATE MENT OF ADEQU ACY: Satis facto ry for evalu ation Trans forma tion zone compo nent prese nt ----- ----- ----- ----- ----- ----- ----- ----- ----- ----- ----- ----- ----- ----- ----- ----- ----- ---- FINAL DIAGN OSIS: Negat ruma for Intra epith elial Lesio n or Lorena julian (NIL) . Shift in [place] sugge stive of bacte rial vagin osis. Elect maria del carmen robertson d by Willian Edmond, CT on 025 at 1053 CDT ----- ----- ----- ----- ----- ----- ----- [...] as clini sourav warra nted. Not Available [facility] (Lab) [address], [place], [address], 02/21/2025 11:57:58 03/05/2002/13/2022 MAMMO , scree edmundo, bilat eral No observ ation record ed. [email or web address] [facility] [address] [place], [address], 02/02/2024 10:44:34 Result Notes None recorded. Problems Name Problem SNOMED Code Status Onset Date Resolution Date Notes Provider Name and Address Organization Details Recorded Time Adult health examinat ion Completed 201401/29/2022 ROUTINE MEDICAL EXAM;Miguel rded Elsewhere : No Locati on: [facility] So urce: EHR Chron ic: N Practic e ID: 0001 Bill able Time: 04:00:00 PM Sakshi Holm [facility] 2 17:38:[address] Concept Completed 201701/29/2022 Encntr for private duty rn exam (general) (routine) w/o abn findings; Recorded Elsewhere : No Locati on: [facility] So urce: EHR Chron ic: N Practic e ID: 0001 Bill able Time: 09:45:00 AM Sakshi Holm [facility] 2 17:39:10 Headache [id number] Completed 201801/29/2022 Headache; Recorded Elsewhere : No Locati on: [facility] So urce: EHR Chron ic: N Practic e ID: 0001 Bill able Time: 09:30:00 AM Sakshi [facility] 2 17:38:55 Speciali d medical examinat ion Completed 201401/29/2022 Other specified chlamydia l diseases; Recorded Elsewhere : No Locati on: [facility] So urce: EHR Chron ic: N Practic e ID: 0001 Bill able Time: 04:00:00 PM Sakshi Holm [facility] 2 17:39:[address] Concept Completed 201801/29/2022 Encntr for general adult medical exam w/o abnormal findings; Recorded Elsewhere : No Locati on: [facility] So urce: EHR Chron ic: N Practic e ID: 0001 Bill able Time: 09:30:00 AM Sakshi Holm [facility] 2 17:39:08 Syphilis test finding [id number] Completed 201501/29/2022 Encntr screen for infection s w sexl mode of transmiss ;Recorded Elsewhere : No Locati on: [facility] So urce: EHR Chron ic: N Practic e ID: 0001 Bill able Time: 01:45:00 PM Sakshi Holm [facility] 2 17:39:14 Family planning surveill ance Completed 201301/29/2022 Surveilla nce of other contracep tive method;Re corded Elsewhere : No Locati on: [facility] So urce: EHR Chron ic: N Practic e ID: 0001 Bill able Time: 03:00:00 PM Sakshi Holm [facility] 2 17:38:53 Screenin g for malignan t neoplasm of cervix Completed 201501/29/2022 Screening for malignant neoplasms of the cervix;Re corded Elsewhere : No Locati on: [facility] So urce: EHR Chron ic: N Practic e ID: 0001 Bill able Time: 01:45:00 PM Sakshi Holm [facility] 2 17:39:07 Urinary tract infectio us disease [id number] Completed 201401/29/2022 Urinary Tract Infection ;Recorded Elsewhere : No Locati on: [facility] So urce: EHR Chron ic: N Practic e ID: 0001 Bill able Time: 04:00:00 PM Sakshi Holm [facility] 2 17:39:16 Pregnanc y test negative [id number] Completed 201301/29/2022 examinati on or test, negative result;Re corded Elsewhere : No Locati on: [facility] So urce: EHR Chron ic: N Practic e ID: 0001 Bill able Time: 10:30:00 AM Sakshi Holm [facility] 2 17:39:03 Heartbur n [id number] Completed 201801/29/2022 Heartburn ;Recorded Elsewhere : No Locati on: [facility] So urce: EHR Chron ic: N Practic e ID: 0001 Bill able Time: 09:30:00 AM Sakshi fitzgerald [facility] 2 17:38:56 Infectio n screenin g Completed 201501/29/2022 Encounter for screening for oth infec/par astc diseases; Recorded Elsewhere : No Locati on: [facility] So urce: EHR Chron ic: N Practic e ID: 0001 Bill able Time: 01:45:00 PM Sakshi fitzgerald [facility] 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 2 17:39:11 Venereal disease screenin g Completed 201401/29/2022 Screening examinati on for venereal disease;R ecorded Elsewhere : No Locati on: [facility] So urce: EHR Chron ic: N Practic e ID: 0001 Bill able Time: 04:00:00 PM Sakshi fitzgerald [facility] 2 17:39:18 Leukorrh ea [id number] Completed 201301/29/2022 Leukorrhe a, not specified as infective ;Recorded Elsewhere : No Locati on: [facility] So urce: EHR Chron ic: N Practic e ID: 0001 Bill able Time: 03:00:00 PM Sakshi Holm [facility] 2 17:39:00 Restless legs [id number] Completed 201901/29/2022 Sakshi fitzgerald [facility] 2 17:39:05 Hypercho lesterol emia [id number] Completed 201901/29/2022 Sakshi Holm [facility] 2 17:38:58 Migraine [id number] Completed 201901/29/2022 Sakshi Holm [facility] 2 17:39:02 Anemia [id number] Completed 201901/29/2022 Sakshi Holm [facility] 2 17:38:52 Problem Notes None recorded. Procedures Surgical History Date Name Laterality Status Provider Name and Address Organization Details Recorded Time 2 Date of Last Pap Smear completed Sakshi Ponce [facility] 02/02/2024 10:38:46 7 ligation of bilateral fallopian tubes completed Jeimy Cutler [facility] 02/19/2025 16:51:38 Imaging Results Imaging Date Name Status LastModified by Organiz ation Details LastModified Time 02/13/2022 MAMMO, screening, bilateral completed [address] [facility] [address] [place], [address], 02/02/2024 10:44:34 Procedure Notes None recorded. Medical Equipment None Reported. Allergies Allergen ID Allergen Name Allergen Category Reaction Reaction Severity Criticality Documentation Date Start Date Code Code System Note Provider Name and Address Organization Details Recorded Time 2841 Product containin g penicilli n (product) medicatio n Not available Not available Not available 10/14/2020 86133 8001 SNOMED Vijaya Lincoln [facility] 0 09:52:31 Medications Name Sig Start [...] ed Elsewher e: Yes Loca tion: [facility] odify By: fareed dos santoser DateTime : 02/17/20 19 09:15:00 AM Not Available Not Available Not [...] Prescrib ed Elsewher e: No [facility] By: ezra Estrella ntjaison DateTime : 01/24/20 19 09:30:00 AM Not Available Not Available Not Available Diflucan 150 mg tablet take 1 tablet by oral route once 02/16 completed Prescrib ed Elsewher e: No Locat ion: [facility] odify By: fareed bridges DateTime : 09/11/20 [...] twice a day by oral route as directed for 7 days. 2024 active Not Available Not Available Not Avai lable acetamino phen 300 mg-codein e 30 mg tablet 02/01 completed Not Available Not Available Not Available omeprazol e 40 mg capsule,d elayed release TK 1 C PO QD active Not Available Not Available No t Available Prevacid 30 mg capsule,d elayed release take 1 capsule by oral route every day before a meal 01/24 completed Prescrib ed Elsewher e: No Locat ion: [facility] odify By: trina booker DateTime : 01/24/20 19 09:30:00 AM Not Available Not Available Not Available nortripty line 25 mg capsule active Not Available Not Available Not Available Metrogel Vaginal 0.75 % (37.5 mg/5 gram) insert 1 applicat orful by vaginal route every day at bedtime for 5 nights 02/16 completed Prescrib ed Elsewher e: No Locat ion: [facility] odify By: fareed bridges DateTime : 09/11/20 [...] Prescrib ed Elsewher e: Yes [facility] odify By: [email or web address] trick En counter DateTime : 02/16/20 14 03:00:00 PM Not Available Not Available Not Available buspirone 7.5 mg tablet active Not Available Not Available Not Available Vitamin D2 1,250 mcg (50,000 unit) capsule take 1 capsule by oral route every week 2018 active Prescrib ed Elsewher e: No Locat ion: [facility] odify By: ruby bridges DateTime : 01/28/20 [...] Prescrib ed Elsewher e: Yes Loca tion: [facility] odify By: [email or web address] trick En counter DateTime [...] Prescrib ed Elsewher e: No Locat ion: [facility] odify By: [email or web address] trick En counter DateTime : 04/02/20 14 04:22:50 PM Not Available Not Available Not Available ezetimibe 10 mg tablet active Not Available Not Available Not Available cyclobenz aprine 5 mg tablet active Not Available Not Available No t Available metoprolo l tartrate 25 mg tablet TK 1 T PO QD [facility] 01/30 completed Not Available Not [...] oral route every day 02/04 completed Prescrib roman Tang e: Mima Locisaura ion: [facility] odify By: [email or web address] trick En counter DateTime : 04/10/20 14 08:30:00 AM Not Available Not Available Not Available [facility] ODT 75 mg disintegr ating tablet active Not Available Not Available Not Available Vitals Date Recorded Body height Body mass index (BMI) Body weight Provider Name and Address Organization Details Last Updated DateTime 01/30/2022 172.72 cm 29.7 kg/m2 33561.23 g Sakshi Holm [facility] 01/30/2022 16:19:10 Date Recorded Systolic blood pressure Diastolic blood pressure Provider Name and Address Organization Details Last Updated DateTime 01/30/2022 122 mm[Hg] 70 mm[Hg] Abigail Brenner [facility] [address], [place], [address], [facility] 01/30/2022 16:29:37 Date Recorded Body weight Systolic blood pressure Diastolic blood pressure Provider Name and Address Organization Details Last Updated DateTime 02/02/2024 16207.83 g 133 mm[Hg] 84 mm[Hg] Sakshi Ponce [facility] 02/02/2024 10:37:18 Date Recorded Body mass index (BMI) Body height Provider Name and Address Organization Details Last Updated DateTime 02/02/2024 28.9 kg/m2 172.72 cm Abigail Brenner [facility] [address], [place], [address], [facility] 02/02/2024 10:43:34 Date Recorded Body height Body mass index (BMI) Body weight Systolic blood pressure Diastolic blood pressure Provider Name and Address Organization Details Last Updated DateTime 02/19/2025 172.72 cm 28.8 kg/m2 39828.68 g 113 mm[Hg] 78 mm[Hg] Jeimy Cutler [facility] 5 16:08:24 Date Recorded Body height Body mass index (BMI) Body weight Systolic blood pressure Diastolic blood pressure Provider Name and Address Organization Details Last Updated DateTime 10/14/2020 175.26 cm 27.2 kg/m2 58045 g 125 mm[Hg] 82 mm[Hg] Vijaya Stark [facility] 0 17:02:34 Social History Question Answer Notes LastModified by [employer] Details LastModified Time Tobacco Smoking Status Never Smoker Vijaya Strak [facility], [facility] 10/14/2020 17:04:21 What Is Your [...] Anxious, Or Unable To Sleep At Night)? [id number] Information not available 01/30/2022 Do You Use Any Illicit Or Recreational Drugs? No Information not available 01/30/2022 Do You Use Sunscreen Routinely? Yes Information not available 01/30/2022 Sex: Unknown Functional Status Question Answer Note LastModified by [employer] Details LastModified Time Do you have difficulty [...] (Food, seasonal, environmental ) N Other N Breast Cancer N Drug/Latex Allergies/Reactions N Blood Transfusion N Dermatologic Disorders N [...] Neurologic/Epilepsy Y Endometriosis N High Cholesterol Y Headaches N Fibromyalgia N Kidney Disease N Heart Problems N Kidney or Bladder Problems N Thyroid Problems Y GI Problems Y Eating Disorder N Anemia [...] SNOMED-CT Code Diagnosis ICD10 Code Diagnosis Note [id number] Savanah Hidalgo MD [facility] [address] [address] 10/14/2020 16:42:47 10/14/2020 23:35:09 Gynecologic examination 31125268 Z01.419 [id number] Abigail Brenner [facility] [address] [address] 01/30/2022 15:25:31 01/30/2022 17:29:17 Gynecologic examination 01962555 Z01.419 Suggested Calcium with Vitamin D 1200-1500m g daily. Patient advised to get an annual flu shot in the fall and she could obtain at [facility] or [facility] care clinic. Also to obtain TDap vaccinatio [...] n/a Routine Labs orderedMam mo ordered Fatigue 91070978 R53.83 Z86.39 [id number] Abigail Brenner , [facility] [address] [address] 02/02/2024 10:28:12 02/02/2024 10:55:34 Gynecologic examination 59716945 Z01.419 Z11.51 Suggested Calcium with Vitamin D 1200-1500m g daily. Patient advised to get an annual flu shot in the fall and she could obtain at [facility] or [facility]. Also to obtain TDap vaccinatio n if [...] Screen naRoutine Labs PCP Screening mammography 24 827218 Z12.31 Urinary symptoms 8872444 08 R39.9 Urine culture sent [id number] BECKY Phillips [facility] [address] [address] 02/19/2025 15:54:14 02/20/2025 16:06:34 Gynecologic examination 57704079 Z01.419 [facility] - BTLP[facility] - done todaySTI screen [...] answered. Screening for malignant neoplasm of breast 897050811 Z12.39 Uterine leiomyoma 303532 05 D25.9 has pelvic u/s scheduled next week at [facility], encouraged pt to have report sent [...] Patrick Member ID Guarantor Name 10/14/2020 1 [facility] (MEDICAID HMO) [id number] 0003 Stephanie [place] [id number] Stephanie [place] 01/30/2022 1 [facility] (MEDICAID HM) [id number] 0003 Stephanie [place] [id number] Stephanie [place] 02/02/2024 1 [facility] (MEDICAID HMO) [id number] 0003 Stephanie [place] [id number] Stephanie Negron 02/19/2025 1 [facility] (MEDICAID HMO) [id number] 0003 Setphanie [place] [id number] Stephanieeulalio Negron Notes Date Note Type Note Provider Name and Address Organization Details Recorded Time 10/14/2020 text/html Patient is a 40y o who presents for an annual exam. Tubes tied. last pap-01/2019 all normal sexually active-yes contraception-tube s tied seatbelts-yes exercise-yes depression-denies domestic violence-denies tobacco-no concerns-needs a new PCP Savanah Hidalgo MD [address], [place], [address], [facility] 10/15/2020 10:14:50 01/30/2022 text/html Annual GYNReport [...] HPV typing; Needs to schedule mammogram BECKY Rodriguez- [address], [place], [address], [facility] 01/30/2022 17:17:50 02/02/2024 text/html Annual GYNReport [...] schedule mammogram BECKY Rodriguez- [address], [place], [address], [facility] 02/02/2024 10:52:34 02/19/2025 text/html Annual GYNReport [...] AUB/menorrhagia/or pelvic pain. Occasional bloating BECKY Phillips [address], [place], [address], [facility] 02/20/2025 15:16:54 OBGyn Episode Ob Episode Information Episode Created Date Number of Fetuses Patient Bloodtype Patient rh Status Prepregnancy Weight lbs Domestic Partner Domestic Partner Phone Father Name Food Tray Assembler Status 10/14/20 20 1 CLOSED Fetus Data First Name Last Name Admitted to NICU Weight (g) Sex Living Outcome Pediatric Complications Fetus ID Race Codes Race Delivery Type M [id number] Vaginal Delivery Kieran Calculation Initial Kieran Date Initial Exam Date Initial Exam Provider Initial Ultrasound Date Last Menstrual Period Date Ultra Sound Weeks Gestation 0 Eighteen To Twenty Week Ikeran Update Ultra Sound Date Fundal Height At [...] Domestic Partner Domestic Partner Phone Father Name Food Tray Assembler Status 10/14/20 1 CLOSED Fetus Data First [...] Domestic Partner Domestic Partner Phone Father Name Food Tray Assembler Status 10/14/20 2 CLOSED Fetus Data First [...] Domestic Partner Domestic Partner Phone Father Name Food Tray Assembler Status 10/14/20 20 1 CLOSED Fetus Data [...]
--- OUTSIDE RECORDS SUMMARY | 2025-03-06 15:03 | XMS_ITS | Clinical Summary ---
Author Organization [facility] Evri Address [address] [place] [address] Care Team Providers Care Licensed Psychologist Manager Name Role Phone Rema Bernardo ROLLING ATTENDANT-DREDGEMASTER Primary Care Provider Rema Bernardo ROLLING ATTENDANT-DREDGEMASTER Unavailable [phone] Source Comments [facility],non-owned Affiliates and Associated Physician Practices is amultiple site organization consisting of ambulatory clinics and hospital sitesin [place], [place], [place] and [place]. This disclosure is being madepursuant to the Care Everywhere program and may not contain all information available regarding this patient. Last updated 18.[facility] Evri Allergies Active Allergy Reactions Criticality Noted Date [...] 37.2 C (99 F) 01/03/2024 10:05 AM [employer] Respiratory Rate 16 08/17/2022 9:41 AM CDT [...] patient's age to complete this topic Insurance [facility] [employer] LIABILITY Libertarian Liability [employer] [facility] Care Teams Licensed Psychologist Manager Relationship Specialty Start Date End Date Rema Bernardo APRN-DREDGEMASTER [address] [place] [address] PCP - General 2/13/23 Rema Bernardo, ROLLING ATTENDANT-DREDGEMASTER [address] [place] [address] Nurse Practitioner Family 12/28/22
--- OUTSIDE RECORDS SUMMARY | 2025-03-06 15:03 | XMS_ITS | Data Portability ---
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 Requesting lab results Linzess [...] time spent in any separately reportable services. [email or web address] Not available 04/24/2023 16:44:11 10/28/2023 10/28/2023 Medication [...] time spent in any separately reportable services. [email or web address] Not available 10/28/2023 12:07:33 05/09/2024 05/09/2024 Medication [...] endocrinology later this month. Will obtain results. Metallurgical Inspector referral for further evaluation of palpitations, elevated [...] time spent in any separately reportable services. [email or web address] Not available 05/09/2024 18:51:32 02/12/2025 02/12/2025 Hypertension: [...] in any separately reportable services. Not available 02/12/2025 10:26:00 Plan of Treatment Reminders Order Date Submit Date Provider Last Modified By Organization Details Last Modified Time Details Appointments F/U 15 - [facility] 2024 01:25P M Crystal Stone, SMOKE ROOM OPERATOR- Not available Not available Not available Lab unlisted lab - quantifer on(R)-TB gold plus, 1 tube 2024 025 bren Crew - [facility], [address] [place], [address], 02/19/2025 08:42:45 lipid panel, serum 2024 025 [facility] [place] [facility], [address] [place] [place], [address], 02/13/2025 15:50:16 CMP, serum or plasma 2024 025 [facility] [place] [facility], [address] [place], [address], 02/13/2025 15:50:16 CBC 2024 025 [facility], [address] [place], [address], 02/13/2025 15:50:16 magnesium , serum or plasma 2024 025 [facility], [address] [place], [address], 02/13/2025 15:56:32 iron + TIBC + ferritin, serum 2022 023 [facility] [facility], [address] [place], [address], 10/29/2023 11:10:49 vitamin B12 + folate, serum or blood 2022 023 [facility], [address] [place], [address], 10/29/2023 09:10:59 CBC 2022 023 [facility], [address] [place], [address], 10/29/2023 09:09:06 CMP, serum or plasma 2022 023 [facility], [address] [place], [address], 10/29/2023 11:10:50 lipid panel, serum 2022 023 [facility], [address] [place], [address], 10/29/2023 11:10:50 vitamin D, 25-hydrox y, total, serum 2022 023 [facility], [address] [place], [address], 10/29/2023 09:10:59 Referral cardiolog ist referral 2023 024 [email or web address] Molina MD, [address], [place], [address], 07/19/2024 10:15:58 Procedures None recorded. Surgeries None recorded. Imaging None recorded. Medication Orders loratadin e 10 mg tablet 2024 025 [facility] #21348, [address] [place], [place], [id number], 02/12/2025 09:22:11 fluticaso ne propionat e 50 mcg/actua tion nasal spray,alcira pension 2024 025 [facility], [address] [place], [place], [id number], 02/12/2025 09:24:49 buspirone 7.5 mg tablet 2024 025 [facility] #18226, [address] [place], [place], [id number], 02/12/2025 09:22:14 ezetimibe 10 mg tablet 2024 025 [facility] #92712, [address] [place], [place], [id number], 02/12/2025 09:22:13 fenofibra te nanocryst allized 145 mg tablet 2024 025 [facility] #56392, [address] [place], [place], [id number], 02/12/2025 09:22:19 pramipexo le 0.75 mg tablet 2024 025 [facility] #76902, [address] [place], [place], [id number], 02/12/2025 09:25:15 Linzess 145 mcg capsule 2024 025 [facility] #32294, [address] [place], [place], [id number], 02/12/2025 09:22:12 propranol ol ER 80 mg capsule,2 4 hr,extend ed release 2024 [facility] #81514, [address] [place], [place], [id number], 02/12/2025 09:22:11 omeprazol e 40 mg capsule,d elayed release 2024 025 [facility] #70691, [address] [place], [place], [id number], 02/12/2025 09:22:12 amlodipin e 2.5 mg tablet 2024 025 [facility]33095, [address] [place], [place], [id number], 02/12/2025 09:22:12 loratadin e 10 mg tablet 2023 024 [facility] #27256, [address] [place], [place], [id number], 05/09/2024 18:52:07 fluticaso ne propionat e 50 mcg/actua tion nasal spray,alcira pension 2023 024 [facility] #84348, [address] [place], [place], [id number], 05/09/2024 18:52:06 ezetimibe 10 mg tablet 2023 024 [facility] #55201, [address] [place], [place], [id number], 05/09/2024 18:52:07 fenofibra te nanocryst allized 145 mg tablet 2023 [facility] #92971, [address] [place], [place], [id number], 05/09/2024 18:52:05 buspirone 7.5 mg tablet 2023 [facility] #54337, [address] [place], [place], [id number], 05/09/2024 18:52:06 ondansetr on HCl 4 mg tablet 2023 [facility] #24494, [address] [place], [place], [id number], 05/09/2024 18:52:04 amlodipin e 2.5 mg tablet 2023 024 [facility] #83978, [address] [place], [place], [id number], 05/09/2024 18:52:05 omeprazol e 40 mg capsule,d elayed release 2023 024 [facility] #60593, [address] [place], [place], [id number], 05/09/2024 18:52:04 loratadin e 10 mg tablet 2022 024 [facility] #[id number] [place], [id number], 04/29/2024 14:25:57 celecoxib 100 mg capsule [email or web address]32586, [address] [place], [place], [id number], 05/09/2024 18:42:40 buspirone 7.5 mg tablet 2022 024 [facility] #37947, [address] [place], [place], [id number], 04/29/2024 14:25:40 ezetimibe 10 mg tablet 2022 024 [facility] #54107, [address] [place], [place], [id number], 04/29/2024 14:25:56 fenofibra te nanocryst allized 145 mg tablet 2022 024 [facility] #81477, [address] [place], [place], [id number], 04/29/2024 14:25:58 pramipexo le 0.75 mg tablet [address]22 [address] [place] [address] #98729, [address] [place], [place], [id number], 02/12/2025 09:13:58 Linzess 145 mcg capsule 2022 024 [facility] #64287, [address] [place], [place], [id number], 04/29/2024 14:25:56 Nurtec ODT 75 mg disintegr ating tablet 2022 024 [facility] #81771, [address] [place], [place], [id number], 04/29/2024 14:26:10 propranol ol ER 80 mg capsule,2 4 hr,extend ed release 2022 [address] [place] [address] Store #68789, [address] [place], [place], [id number], 02/12/2025 09:14:04 omeprazol e 40 mg capsule,d elayed release 2022 024 [facility] #45320, [address] [place], [place], [id number], 04/29/2024 14:26:16 loratadin e 10 mg tablet [address] [facility] #80693, [address] [place], [place], [id number], 04/29/2024 14:25:50 celecoxib 100 mg capsule [address] [facility] #36345, [address] [place], [place], [id number], 04/29/2024 14:25:35 buspirone 7.5 mg tablet [address] [facility] #76119, [address] [place], [place], [id number], 05/09/2024 18:42:37 ezetimibe 10 mg tablet [address] [facility] #76830, [address] [place], [place], [id number], 04/29/2024 14:25:41 fenofibra te nanocryst allized 145 mg tablet [address] [facility] #76056, [address] [place], [place], [id number], 04/29/2024 14:25:44 pramipexo le 0.75 mg tablet [address] [facility] #44957, [address] [place], [place], [id number], 04/29/2024 14:26:09 Linzess 145 mcg capsule [address] [facility] Store #80083, [address] [place], [place], [id number], 04/29/2024 14:25:46 Nurtec ODT 75 mg disintegr ating tablet [address] [facility] Store #17956, [address] [place], [place], [id number], 04/29/2024 14:26:00 propranol ol ER 80 mg capsule,2 4 hr,extend ed release [address] [facility] #43575, [address] [place], [place], [id number], 04/29/2024 14:26:11 omeprazol e 40 mg capsule,d elayed release [address] [facility] #32968, [address] [place], [place], [id number], 04/29/2024 14:26:03 Patient TargetsNo targets recorded. Patient Instructions Encounter Date Encounter Id Patient Instructions Last Modified By Organization Details Last Modified Time 04/23/2023 [id number] weight managemen t education [email or web address] Not available 04/23/2023 13:44:18 Reason for Referral Metallurgical Inspector Referral for Ca rdiac arrhythmia Referring Physician: Rema Bernardo, Internal Medicine, Encounter Date: 05/09/2024 Results Created Date Observation Date Name Description Value Unit Range Abnormal Flag Note LastModifiedBy Organization Detail LastModifiedTime 10/28/20 23 10/29/2023 CBC (H/H, RBC, INDIC ES, WBC, PLT) white blood cell count 7.8 thous and/u L 3.8-10 .8 normal Not Available [facility] [address], [address], 10/29/2023 09:09:06 10/28/2010/29/2023 CBC (H/H, RBC, INDIC ES, WBC, PLT) red blood cell count 3.91 bry on/uL 3.80-5 .10 normal Not Available [address], [address], 10/29/2023 09:09:06 10/28/2010/29/2023 CBC (H/H, RBC, INDIC ES, WBC, PLT) hemoglobin 12.1 g/dL 11.7-1 5.5 normal Not Available [address], [address], 10/29/2023 09:09:06 10/28/2010/29/2023 CBC (H/H, RBC, INDIC ES, WBC, PLT) hematocrit 37.8 % 35.0-4 5.0 normal Not Available [facility] [address], [address], 10/29/2023 09:09:06 10/28/2010/29/2023 CBC (H/H, RBC, INDIC ES, WBC, PLT) MCV 96.7 fL 80.0-1 00.0 normal Not Available [facility] [address], [address], 10/29/2023 09:09:06 10/28/2010/29/2023 CBC (H/H, RBC, INDIC ES, WBC, PLT) MCH 30.9 pg 27.0-3 3.0 normal Not Available [facility] [address], [address], 10/29/2023 09:09:06 10/28/2010/29/2023 CBC (H/H, RBC, INDIC ES, WBC, PLT) MCHC 32.0 g/dL 32.0-3 6.0 normal Not Available [facility] [address], [place], [address], 10/29/2023 09:09:06 10/28/2010/29/2023 CBC (H/H, RBC, INDIC ES, WBC, PLT) RDW 12.2 % 11.0-1 5.0 normal Not Available [address], [address], 10/29/2023 09:09:06 10/28/2010/29/2023 CBC (H/H, RBC, INDIC ES, WBC, PLT) platelet count 358 thous and/u L 140-40 0 normal Not Available [address], [address], 10/29/2023 09:09:06 10/28/2010/29/2023 CBC (H/H, RBC, INDIC ES, WBC, PLT) MPV 9.8 fL 7.5-12 .5 normal Not Available [address], [address], 10/29/2023 09:09:06 10/28/2010/29/2023 IRON, TIBC AND JUAN LUIS TIN PANEL iron, total 78 mcg/d L 40-190 normal Not Available [address], [address], 10/29/2023 11:21:45 10/28/2010/29/2023 IRON, TIBC AND JUAN LUIS TIN PANEL iron binding capacity 365 mcg/d L_(ca lc) 250-45 0 normal Not Available [address], [address], 10/29/2023 11:21:45 10/28/20 23 10/29/2023 IRON, TIBC AND JUAN LUIS TIN PANEL % saturation 21 %_(ca lc) 16-45 normal Not Available [address], [address], 10/29/2023 11:21:45 10/28/20 23 10/29/2023 IRON, TIBC AND JUAN LUIS TIN PANEL ferritin 18 NG/mL 16-232 normal Not Available [address], [address], 10/29/2023 11:21:45 10/28/20 23 10/29/2023 LIPID PANEL , STAND JOSEFINA cholesterol, total 134 mg/dL <200 normal Not Available [address] [address] [place], [address], 10/29/2023 11:21:46 10/28/20 23 10/29/2023 LIPID PANEL , STAND JOSEFINA HDL cholesterol 41 mg/dL > or = 50 low Not Available [address], [address], 10/29/2023 11:21:46 10/28/20 23 10/29/2023 LIPID PANEL , STAND JOSEFINA triglyceride s 110 mg/dL <150 normal Not Available [address], [address], 10/29/2023 11:21:46 10/28/20 23 10/29/2023 LIPID PANEL [...] 2061- 2068 (http ://ed ucati on.Qu estDi Hydrobees. com/f aq/FA Q164) Not Available [facility] [address] [place], [address], 10/29/2023 11:21:46 10/28/20 23 10/29/2023 LIPID PANEL , STAND JOSEFINA chol/HDLC ratio 3.3 (calc ) <5.0 normal Not Available [address], [address], 10/29/2023 11:21:46 10/28/20 23 10/29/2023 LIPID PANEL , STAND JOSEFINA non HDL cholesterol 93 mg/dL _(girma c) <130 normal For patie nts with diabe kassy plus 1 major ASCVD risk facto r, treat ing to a non-H DL-C goal of <100 mg/dL (LDL- C of <70 mg/dL ) is consi radha a thera peca c optio n. Not Available [address], [address], 10/29/2023 11:21:46 10/28/20 23 10/29/2023 COMPR EHENS ESTEVAN METAB OLIC PANEL glucose 90 mg/dL 65-99 normal Fasti ng refer ence inter latoya Not Available [address] [address] [place], [address], 10/29/2023 11:21:46 10/28/20 23 10/29/2023 COMPR EHENS ESTEVAN METAB OLIC PANEL urea nitrogen (BUN) 10 mg/dL 7-25 normal Not Available [address], [address], 10/29/2023 11:21:46 10/28/20 23 10/29/2023 COMPR EHENS ESTEVAN METAB OLIC PANEL creatinine 0.84 mg/dL 0.50-0 .99 normal Not Available [address] [address] [place], [address], 10/29/2023 11:21:46 10/28/20 23 10/29/2023 COMPR EHENS ESTEVAN METAB OLIC PANEL eGFR 89 mL/mi n/1.7 3m2 > or = 60 normal Not Available [address] [address] [place], [address], 10/29/2023 11:21:46 10/28/20 23 10/29/2023 COMPR EHENS ESTEVAN METAB OLIC PANEL BUN/creatini ne ratio SEE NOTE: (calc ) 6-22 Not Repor sheba: BUN and Creat inine are withi n refer ence range . Not Available [address] [address] [place], [address], 10/29/2023 11:21:46 10/28/20 23 10/29/2023 COMPR EHENS ESTEVAN METAB OLIC PANEL sodium 139 mmol/ L 135-14 6 normal Not Available [address], [address], 10/29/2023 11:21:46 10/28/20 23 10/29/2023 COMPR EHENS ESTEVAN METAB OLIC PANEL potassium 4.4 mmol/ L 3.5-5. 3 normal Not Available [address], [address], 10/29/2023 11:21:46 10/28/20 23 10/29/2023 COMPR EHENS ESTEVAN METAB OLIC PANEL chloride 105 mmol/ L 98-110 normal Not Available [address], [address], 10/29/2023 11:21:46 10/28/20 23 10/29/2023 COMPR EHENS ESTEVAN METAB OLIC PANEL carbon dioxide 29 mmol/ L 20-32 normal Not Available [address], [address], 10/29/2023 11:21:46 10/28/20 23 10/29/2023 COMPR EHENS ESTEVAN METAB OLIC PANEL calcium 9.3 mg/dL 8.6-10 .2 normal Not Available [facility] [address], [place], [address], 10/29/2023 11:21:46 10/28/20 23 10/29/2023 COMPR EHENS ESTEVAN METAB OLIC PANEL protein, total 7.1 g/dL 6.1-8. 1 normal Not Available [address], [address], 10/29/2023 11:21:46 10/28/20 23 10/29/2023 COMPR EHENS ESTEVAN METAB OLIC PANEL albumin 4.4 g/dL 3.6-5. 1 normal Not Available [address], [address], 10/29/2023 11:21:46 10/28/20 23 10/29/2023 COMPR EHENS ESTEVAN METAB OLIC PANEL globulin 2.7 g/dL_ (calc ) 1.9-3. 7 normal Not Available [address], [address], 10/29/2023 11:21:46 10/28/20 23 10/29/2023 COMPR EHENS ESTEVAN METAB OLIC PANEL albumin/glob ulin ratio 1.6 (calc ) 1.0-2. 5 normal Not Available [address], [address], 10/29/2023 11:21:46 10/28/20 23 10/29/2023 COMPR EHENS ESTEVAN METAB OLIC PANEL bilirubin, total 0.6 mg/dL 0.2-1. 2 normal Not Available [address], [address], 10/29/2023 11:21:46 10/28/20 23 10/29/2023 COMPR EHENS ESTEVAN METAB OLIC PANEL alkaline phosphatase 77 U/L 31-125 normal Not Available [address] [address] [place], [address], 10/29/2023 11:21:46 10/28/20 23 10/29/2023 COMPR EHENS ESTEVAN METAB OLIC PANEL AST 14 U/L 10-30 normal Not Available [address] [place], [address], 10/29/2023 11:21:46 10/28/20 23 10/29/2023 COMPR EHENS ESTEVAN METAB OLIC PANEL ALT 12 U/L 6-29 normal Not Available [address] [address] [place], [address], 10/29/2023 11:21:46 10/28/20 23 10/29/2023 VITAM IN B12/F OLATE , SERUM PANEL vitamin B12 975 pg/mL 200-11 00 normal Not Available [address], [address], 10/29/2023 11:04:05 10/28/20 23 10/29/2023 VITAM IN B12/F OLATE , SERUM PANEL folate, serum >24.0 NG/mL normal Refer ence Range Low: <3.4 Borde rline : 3.4-5 .4 Keerthi l: >5.4 Not Available [address], [address], 10/29/2023 11:04:05 10/28/20 23 10/29/2023 VITAM IN [...] /MS is recom scott d: order code 76451 (mauricio ents >2yrs ). See Note 1 Note 1 For addit ional infor clark matos refer to http: //tyrone dislaost ics.c om/fa q/FAQ 199 (This link is being provi ded for infor paresh quevedo/ educfarideh aguirre purpo ses only. ) Not Available [facility] [address], [place], [address], 10/29/2023 11:04:06 11/26/19 24 11/26/2023 MRI, brain , w/o contr ast No observ ation record ed. Neurology Dept [facility] (New Referrals) [address] [place], [address], 11/26/2023 11:21:01 01/27/20 25 01/26/2025 XR, lumba r spine No observ ation record ed. [facility] [address] [place], [address], 01/26/2025 16:13:16 02/15/20 25 02/09/2025 MRI, hip, w/o contr ast No observ ation record ed. [email or web address] Not Available 09:13:52 02/29/20 25 02/28/2025 US, pelvi s, compl ete No observ ation record ed. [facility] [address] [facility] [address], [place], [address], 02/28/2025 13:04:55 Result Notes None recorded. Problems Name Problem SNOMED Code Status Onset Date Resolution Date Notes Provider Name and Address Organization Details Recorded Time Tachycardia 6060265 Active 2020 Rema Bernardo, SMOKE ROOM OPERATOR-BC, PMHNP-BC [address] [place], [address], [place] [facility] 3 10:03:56 Hyperlipidemia 70850699 Active 2020 Crystal L. Stone, SMOKE ROOM OPERATOR-BC, PMHNP-BC [address], [place], [address], [facility] 3 10:03:56 Osteoarthritis of knee 002999531 Active 2020 Crystal Stephane Bernardo, SMOKE ROOM OPERATOR-BC, PMHNP-BC [address], [place], [address], [facility] 3 10:03:56 Migraine 57537056 Active 2020 Crystal Stephane Bernardo, SMOKE ROOM OPERATOR-BC, PMHNP-BC [address], [place], [address], [facility] 3 10:03:56 Vitamin D deficiency 70971295 Active 2020 Crystal Stephane Bernardo SMOKE ROOM OPERATOR-BC, PMHNP-BC [address], [place], [address], [facility] 3 10:03:56 Anxiety 64040136 Active 2020 Crystal Stephane Bernardo, SMOKE ROOM OPERATOR-BC, PMHNP-BC [address], [place], [address], [facility] 3 10:03:56 Elevated blood-pressure reading without diagnosis of hypertension 705083423 Active 2020 Crystal Stephane Bernardo, SMOKE ROOM OPERATOR-BC, PMHNP-BC [address], [place], [address], [facility] 3 10:03:56 Restless legs 54381045 Active 2020 Crystal Stephane Bernardo, SMOKE ROOM OPERATOR-BC, PMHNP-BC [address], [place], [address], [facility] 3 10:03:56 Gastroesophage al reflux disease without esophagitis 513405455 Active 2020 Crystal Stephane Bernardo, SMOKE ROOM OPERATOR-BC, PMHNP-BC [address], [place], [address], [facility] 3 10:03:56 Constipation 41895835 Active 2021 Rema Bernardo, [facility]-, PMHNP-BC [address] [place], [address], [facility] 3 10:03:56 Nasal congestion 75440415 Active 2021 Rema Bernardo SMOKE ROOM OPERATOR-, PMHNP-BC [address] [place], [address], [facility] 3 10:03:56 Essential hypertension 19171601 Active 2023 Rema Bernardo, [facility]-, PMHNP-BC [address] [place], [address], [facility] 4 18:50:55 Problem Notes None recorded. Procedures Surgical History Date Name Laterality Status Provider Name and Address Organization Details Recorded Time ligation of fallopian tube completed QUIN OLSON [facility] 01/30/2021 11:02:59 Imaging Results Imaging Date Name Status LastModified by Organiz ation Details LastModified Time 11/26/2023 MRI, brain, w/o contrast completed [email or web address] Neurology Dept [facility] (New Referrals) [address] [place], [address], 11/26/2023 11:21:01 01/26/2025 XR, lumbar spine completed [facility] [address] [place], [address], 01/26/2025 16:13:16 02/09/2025 MRI, hip, w/o contrast completed [email or web address] Information not available 02/19/2025 09:13:52 02/28/2025 US, pelvis, complete active [address], [address], 02/28/2025 13:04:55 Procedure Notes None recorded. Medical Equipment None Reported. Allergies Allergen ID Allergen Name Allergen Category Reaction Reaction Severity Criticality Documentation Date Start Date Code Code System Note Provider Name and Address Organization Details Recorded Time 3435 Product containin g penicilli n (product) medicatio n Not available Not available Not available 01/30/2021 70520 8001 SNOMED Rema Calderón Az, SMOKE ROOM OPERATOR-BC, PMHNP-BC [address] [place], [address], [facility] - [facility] 11:35:28 Medications Name Sig Start Date Stop [...] mg tablet TK 1 T PO QD [facility] 01/30 completed Not Available Not Available Not [...] Updated DateTime 3 175.26 cm 26.4 kg/m2 15724.3 9 g 87 /min 16 /min 99 % 99 % 97.6 [degF] 0 136 mm[Hg] 88 mm[Hg] Richa AHUMADA - [facility] 3 10:00:33 Date Recorded Body height Body mass index (BMI) Body weight Body temperature Pain severity - 0-10 verbal numeric rating [Score] - Reported Heart rate Respiratory rate Oxygen saturation Oxygen saturation in Arterial blood by Pulse oximetry Systolic blood pressure Diastolic blood pressure Provider Name and Address Organization Details Last Updated DateTime 3 175.26 cm 28.2 kg/m2 54223.4 2 g 97.5 [degF] 0 76 /min 18 /min 100 % 100 % 122 mm[Hg] 84 mm[Hg] Layo Trevizowell [facility] 3 11:51:00 Date Recorded Body height Body [...] 107 /min 17 /min 0 29.1 kg/m2 49134.5 8 g 147 mm[Hg] 104 mm[Hg] 138 mm[Hg] 101 mm[Hg] Radha Willson [facility] 4 16:30:08 Date Recorded Body height Pain [...] % 16 /min 109 /min 28.3 kg/m2 59374.6 2 g 133 mm[Hg] 91 mm[Hg] Radha Willson [facility] 5 09:07:36 Social History Question Answer Notes LastModified by Organizat ion Details LastModified Time Tobacco Smoking Status [facility] 10:58:17 Do You Have An Advance Directive? No [email or web address] Information not available 01/30/2021 What Is Your Level Of Alcohol Consumption? Occasional [email or web address] Information not available 01/30/2021 How Many Times Per Week Do You Consume Alcohol? Less Than 1 Time Per Week [email or web address] Information not available 05/09/2024 How Many Years Have You Consumed Alcohol? 11 [email or web address] Information not available 05/09/2024 Are You Currently Sexually Active With Anyone Who Has Traveled (within The Last 12 Weeks) To A Zika-affected Area? No [email or web address] Information not available 01/30/2022 Do You Wear A Helmet When Biking? No [email or web address] Information not available 01/30/2022 Are You Blind Or Do You Have Difficulty Seeing? No Information not available 01/30/2022 Is Blood Transfusion Acceptable In An Emergency? Yes [email or web address] Information not available 07/10/2022 What Is Your Level Of Caffeine Consumption? None [email or web address] Information not available 01/30/2021 How Much Tobacco Do You Chew? None [email or web address] Information not available 01/30/2021 What Type Of Washer Operator Do You Use? None [email or web address] Information not available 01/30/2022 What Is Your Code Status? Full Code [email or web address] Information not available 01/30/2022 In The 14 Days Before Symptom Onset, Have You Had Close Contact With A Laboratory-confir med COVID-19 While That Case Was Ill? No [email or web address] Information not available 01/30/2022 In The 14 Days Before Symptom Onset, Have You Had Close Contact With A Person Who Is Under Investigation For COVID-19 While That Person Was Ill? No [email or web address] Information not available 01/30/2022 Have You Been To An Area Known To Be High Risk For COVID-19? No [email or web address] Information not available 01/30/2022 Are You Currently Employed? Yes Information not available 01/30/2021 Are You Deaf Or Do You Have Serious Difficulty Hearing? No [email or web address] Information not available 01/30/2022 What Type Of Diet Are You Following? REGULAR [email or web address] Information not available 01/30/2021 Which Illicit Or Recreational Drugs Have You Used? Marjuana hvtzuiajd40 Information not available 01/30/2022 Have You Processed Blood Or Body Fluids From An Ebola Virus Disease Patient Without Appropriate PPE? No [email or web address] Information not available 01/30/2022 Do You Reside In Or Have You Traveled To An Area Where Ebola Virus Transmission Is Active? No xtnammqvy18 Information not available 01/30/2022 Do You Or Have You Ever Used E-cigarettes Or Vape? Never Used Electronic Cigarettes vxtobppb54 Information not available 01/30/2021 Education 12 lkcnxjpo16 Information no t available 01/30/2021 What Is The Highest Grade Or Level Of School You Have Completed Or The Highest Degree You Have Received? 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 7 dnzrvqzad98 Information not available 01/30/2022 On Those Days That You Engage In Moderate To Strenuous Exercise, How Many Minutes, On Average, Do You Exercise? 60 Information not available 01/30/2022 How Many Times Per Week Do You Exercise? 5-7 Times Per Week evenkr429 Information not available 07/10/2022 Have There Been Any Changes To Your Family Or Social Situation? No ocjnlqosa87 Information no t available 01/30/2022 What Is The Fluoride Status Of Your Home? Unknown woltfwoqd20 Information not available 01/30/2022 Are There Any Guns Present In Your Home? No osnyhxwn21 Information not available 01/30/2021 Which Of Your Hands Is Dominant? Right cwxwbxzbe45 Information not available 01/30/2022 Hard Of Hearing Or Deaf In One Or Both Ears? No vyogqskj16 Information not available 01/30/2021 Have You Recently Or Are You Planning To Travel To An Area With Zika Virus? No passrkdwj38 Information not available 01/30/2022 How Many Years Have You Used Illicit Or Recreational Drugs? 10 rfvousrscb784 Information not available 05/09/2024 Do You Use Insect Repellent Routinely? Yes xvqibaesg52 Information not available 01/30/2022 Legally Blind In One Or Both Eyes? No xennsfwz24 Information no t available 01/30/2021 Live Alone Or With Others? With Others ojibqsjy58 Information not available 01/30/2021 Have You [place] Unsteady Or Fallen More Than Once In The Past Year? No Information not available 02/12/2025 Can You Switch A Light On/off Easily From Your Bed Without Fear Of Falling? Yes wmtsuhemxj435 Information not available 02/12/2025 Are Floors And Walkways In Your Home Safe And In Good Repair? Yes udgkwnghqz161 Information not available 02/12/2025 Is It Difficult To Get Out Of Bed Without Assistance? No haagwksskb228 Information not available 02/12/2025 Is It Difficult To Get Up From Sitting In A Chair Without Assistance? No kldpacgiri253 Information not available 02/12/2025 Is It Difficult To Get Up From Sitting On The Toilet Without Assistance? No xdfcgnoubi873 Information not available 02/12/2025 Is The Lighting In Your Home Sufficient To See Safely? Yes xdhainxtco262 Information not available 02/12/2025 Do You Have A History Of Falling? No itlwvzurzg423 Information not available 02/12/2025 Is Your Gait (walking Style) Regular? Yes asjoqeakgw405 Information not available 02/12/2025 Have You Had A Colonoscopy Or Colorectal Cancer Screening? If So What Was The Date? No eshqomdckn537 Information not available 02/12/2025 Have You Had A Dexa (bone Density) Scan? If So What Was The Date? No pgmoudcocw230 Information not available 02/12/2025 Have You Had A Full Body Skin Cancer Exam? If So What Was The Date? No zducnhkhrh955 Information not available 02/12/2025 Have You Had A Hepatitis C Screening? If So What Was The Date? No cugeebmdqj608 Information not available 02/12/2025 Have You Had An Eye Exam? If So What Was The Date? 2023 emklgjafwr315 Information not available 02/12/2025 Do You Have A Medical Power Of Greenhouse Grower? No arlulwbka85 Information not available 01/30/2022 What Was The Date Of Your Most Recent Tobacco Screening? 02/12/2025 boncwitsfn617 Information not available 02/12/2025 How Many Children Do You Have? 5 whrovqrx14 Information not available 01/30/2021 Have You Ever Been Counseled For Unhealthy Alcohol Use? No sevkdo776 Information not available 07/10/2022 Performs Monthly Self-breast Exam? Yes aikgznbk18 Information no t available 01/30/2021 Do You Have Any Pets? No Information not available 01/30/2022 Do You Use Protection During Sex? No Information not available 01/30/2022 What Is Your Relationship Status? Domestic Partner ypdgnwvto85 Information not available 01/30/2022 Do You Use Your Seat Belt Or Car Seat Routinely? Yes rvjkdeeyw44 Information not available 01/30/2022 Seat Belts Used Routinely Yes alnzmgkc40 Information not available 01/30/2021 Are You Sexually Active? Yes gxcxbtozb84 Information not available 01/30/2022 Smoke Alarm In Home Yes rqhhtorz26 Information not available 01/30/2021 Do You Have Smoke And Carbon Monoxide Detectors In Your Home? Yes ulhtfqquh88 Information not available 01/30/2022 Are You Passively Exposed To Smoke? Yes zhtxaaes27 Information no t available 01/30/2021 Do You Or Have You Ever Used Smokeless Tobacco? Never Used Smokeless Tobacco Information not available 01/30/2021 How Much Tobacco Do You Smoke? No Information not available 01/30/2021 Do You Participate In Social Media? Yes Information not available 07/10/2022 What Types Of Sporting Activities Do You Participate In? [place]/Walkin g/Steps/Bicycl e dlqvrinyj62 Information not available 01/30/2022 General Stress Level High iifenlht81 Information not available 01/30/2021 Do You Feel Stressed (tense, Restless, Nervous, Or Anxious, Or Unable To Sleep At Night)? CD80072-8 oflpwyfxr97 Information not available 01/30/2022 Do You Use Any Illicit Or Recreational Drugs? Yes ryykuzphd80 Information not available 01/30/2022 Do You Use Sunscreen Routinely? No Information not available 01/30/2021 How Many Years Have You Smoked Tobacco? 0 Information not available 01/30/2021 Have You Recently Traveled Abroad? No lhgazetbo32 Information not available 01/30/2022 Have You Used IV Drugs? No bghxkapjm90 Information not available 01/30/2022 Are You Currently In School? No ffeepbivc94 Information not available 01/30/2022 Do You Have Any Dietary Restrictions? No zzjwmyzvc24 Information not available 01/30/2022 Do You Or Have You Ever Used Any Other Forms Of Tobacco Or Nicotine? No fnbvymfvv94 Information not available 01/30/2022 Sex: Female Functional Status Question Answer Note LastModified by Organizat ion Details LastModified Time Do you have difficulty walking or climbing stairs? No leyxvmdrg73 Information not available 01/30/2022 Do you have transportation difficulties? No isvsrvxqo04 Information not available 01/30/2022 Are you able to walk? YESWOREST uylyqzba69 Information not available 01/30/2021 Do you have difficulty doing errands alone? No uvofhbadc20 Information not available 01/30/2022 Are you able to care for yourself? Yes jyedpsnc16 Information not available 01/30/2021 Do you have difficulty dressing or bathing? No utzprufob33 Information not available 01/30/2022 What is your exercise level? Moderate azhemrmzq47 Information not available 01/30/2022 Mental Status Question Answer Note LastModified by Organization D etails LastModified Time Do you have difficulty concentrating, remembering or making decisions? No qovmdvgfn30 Information no t available 01/30/2022 Family History Relationship Description Onset Age of this Age Resolved Age Notes LastModified by Organization Details LastModified Time Father Family history of stroke pocjdkbj84 Not available 01/30 10:57:13 Father Hypertensive disorder dkbytrfh16 Not available 01/30 10:57:53 Mother Family history of stroke iiavjogv80 Not available 01/30 10:57:28 Mother Hypertensive disorder lmxcruxa98 Not available 01/30 10:58:01 Medical History Condition Response Allergies/Hayfever Y Anxiety Disorder Y Cardiac Diseases / Disorders Y Endocrine Diseases / Disorders Y Chronic pain Y Genitourinary Diseases / Disorders () Y Gastrointestinal Diseases / Disorders Y AICD / Pacemaker N Infectious Disease/Disorders/Virus Y Hyperlipidemia Y Gynecological History Statement/Question Response Current Control Method Tubal Ligat ion Possibility of ? N Date of LMP 11/28/2022 LMP Approximate Obstetrics History GPAL:G 0 P 5 0 0 5 Type Value Full Term 5 Living 5 Immunizations Vaccine Type Date Status Note Provider Nam e and Address Organization Details Recorded Time Influenza, split virus, quadrivalent, PF 1 completed Annmarie Rodrigues null, [facility] 08/22/2021 12:18:52 Influenza, split virus, quadrivalent, PF 2 completed Rema Bernardo SMOKE ROOM OPERATOR-BC, PMHNP-BC [address] [place], [address], [facility] 07/10/2022 10:38:27 pneumococcal polysaccharide PPV23 2 completed Rema Bernardo SMOKE ROOM OPERATOR-BC, PMHNP-BC [address] [place], [address], [facility] 07/10/2022 10:38:27 Influenza, split virus, quadrivalent, PF 3 completed Not Available [facility] 09/06/2023 14:26:32 COVID-19, mRNA, LNP-S, PF, 30 mcg/0.3 mL dose 1 completed Reggie Short null, [facility] 07/10/2022 08:59:42 COVID-19, mRNA, LNP-S, PF, 30 mcg/0.3 mL dose 1 completed Reggie Short null, [facility] 07/10/2022 09:00:22 COVID-19, mRNA, LNP-S, PF, 30 mcg/0.3 mL dose 2 completed Reggie Short [facility], [facility] 07/10/2022 09:00:33 Past Encounters Encounter ID Performer Location Encounter Start Date Encounter Closed Date Diagnosis/Indication Diagnosis SNOMED-CT Code Diagnosis ICD10 Code Diagnosis Note [id number] Rema Bernardo SMOKE ROOM OPERATOR-BC, PMHNP-BC Main Office [address] [place] [address] 01/30/2021 10:45:48 01/30/2021 12:44:21 Hyperlipidemia 58576731 E78.5 Tachycardia 4132366 R00. 0 Migraine 35173511 G43.90 9 Vitamin D deficiency 347 00786 E55.9 Anxiety 86808264 F41.9 Osteoarthr itis of knee 757577205 M17.0 Restless legs 79540612 G 25.81 Left-sided piriformis syndrome 4378220594 68790 M54.32 [id number] Rema AguirreLiudmila Bernardo, [facility] Main Office [address] [place] [address] 03/07/2021 10:22:29 03/07/2021 11:53:35 Hyperlipidemia 35525632 E78.5 Increased Atorvastat in due to levels. Migraine 47338267 G43.90 9 Vitamin D deficiency 347 49118 E55.9 Started back to taking Vitamin D. Anxiety 36478631 F41.9 Buspirone has helped tremendous ly with pain. Osteoarthr itis of knee 019297668 M17.0 Doing much better with pain. Meloxicam has helped significan tly. Restless legs 16015566 G 25.81 Left-sided piriformis syndrome 5066423144 68383 M54.32 Body mass index 25-29 - overweight 717005664 Z68.26 Elevated blood-pressure reading without diagnosis of hypertension 754266382 R03.0 Gastroesop hageal reflux disease without esophagitis 388111548 K21.9 [id number] Rema AguirreLiudmila Bernardo, [facility] Main Office [address] [place] [address] 08/22/2021 10:18:53 08/22/2021 12:33:42 Hyperlipidemia 81389226 E78.5 Vitamin D deficiency 347 79749 E55.9 Osteoarthr itis of knee 747791050 M17.0 Multiple joint pain 3567 8005 M25.50 Administra tion of influenza vaccine 87229700 Z23 Pain of ri ght shoulder joint 2024718341 8477055 M25.511 Anxiety 52308829 F41.9 Buspirone has helped tremendous ly with pain. Gastroesop hageal reflux disease without esophagitis 864138269 K21.9 Restless legs 97747546 G 25.81 Migraine 68208503 G43.90 9 [id number] Shamyra [place] Main Office [address] [place] [address] 12/05/2021 09:29:41 12/05/2021 10:16:13 Hyperlipidemia 02025818 E78.5 You can lower your triglyceri de [...] blood triglyceri estephanie. Vitamin D deficiency 347 57955 E55.9 Osteoarthr itis of knee 180519497 M17.0 Celebrex has been decreasing pain and providing a benefit. Anxiety 90437896 F41.9 Buspirone has helped tremendous ly with anxiety Gastroesop hageal reflux disease without esophagitis 984509033 K21.9 continue Prilosec as this is providing a benefit and controllin g GERD. Restless legs 34243868 G 25.81 RLS is doing much better with medication . Migraine 28793455 G43.90 9 History of SARS-CoV-2 29 86901292 04631035 Z86.16 Will reevaluate conditions at 3 months s/p infection to see if resolvemen t of symptoms or looking at long haul for covid. Nasal congestion 4193731 0 R09.81 Start Claritin to help with congestion . Constipation 55081147 K5 9.00 Hypertensi on screening 607267613 Z13.6 [id number] Rema Bernardo [facility] Main Office [address] [place] [address] 01/30/2022 09:04:20 01/30/2022 10:24:04 Hyperlipidemia 22440940 E78.5 taking medication s. labs obtained to evaluate levels. Vitamin D deficiency 347 90850 E55.9 has not been taking medication s. labs obtained to evaluate levels. Osteoarthr itis of knee 322813584 M17.0 Celebrex has been decreasing pain and providing a benefit. Anxiety 79558221 F41.9 medication has been helping with anxiety. Gastroesop hageal reflux disease without esophagitis 429587568 K21.9 continue Prilosec as this is providing a benefit and controllin g GERD. Restless legs 39667484 G 25.81 RLS is doing much better with medication . Migraine 39514654 G43.90 9 doing better with episodes. has only had 1 migraine since last visit. Nasal congestion 0208157 0 R09.81 Claritin has been helping. continue regimen. Constipation 23979032 K5 9.00 Linzess samples given as insurance refused to cover medication . Eczema 33376093 L30.9 [id number] NIESHA Quinonez-, [facility] Main Office [address] [place] [address] 04/17/2022 09:10:10 04/17/2022 11:11:09 Hyperlipidemia 34292735 E78.5 Still having increasing levels with Trigs. Added Ezetimibe. Anxiety 34819305 F41.9 medication has been helping with anxiety. Continue Buspirone. However, anxiety does intensify during migraine episodes. Restless legs 84221938 G 25.81 RLS is doing much better with medication . Migraine 14777176 G43.90 9 Nurtec prescribed which is medically necessary for migraines as other medication contraindi cated d/t cardiac history. Constipation 06387630 K5 9.00 Linzess is medically necessary as it is the only treatment regimen to provide relief. Stable on samples and would cause significan t harm removing medication from treatment regimen. Osteoarthr itis of knee 208509199 M17.0 Celebrex has been decreasing pain and providing a benefit. Vitamin D deficiency 347 88620 E55.9 has not been taking medication s. labs obtained to evaluate levels. Nasal congestion 1977345 0 R09.81 Claritin has been helping. continue regimen. Gastroesop hageal reflux disease without esophagitis 235883721 K21.9 continue Prilosec as this is providing a benefit and controllin g GERD. [id number] Rema Bernardo, S[employer] OPERATOR-BC, PMHNP- Main Office [address] [place] [address] 07/10/2022 09:12:02 07/10/2022 12:39:22 Anxiety 91139827 F41.9 Continue regimen. Exacerbati ons occur duing migraine episodes. Hyperlipidemia 43156144 E78.5 Taking medication s. labs to eval levels. Restless legs 06720821 G 25.81 RLS is doing much better with medication . Migraine 50019445 G43.90 9 Constipation 01015949 K5 9.00 Doing very well on Linzess and having regular bowel movements with medication . This is the best she has been with the medication . Osteoarthr itis of knee 544617351 M17.0 Celebrex has been decreasing pain and providing a benefit. Vitamin D deficiency 347 53428 E55.9 Taking medication s. labs to eval levels. Nasal congestion 5742756 0 R09.81 Claritin has been helping. continue regimen. Gastroesop hageal reflux disease without esophagitis 997640947 K21.9 Continue medication as directed and if any issues with insurance and obtaining medication to let office know. Administra tion of influenza vaccine 42518338 Z23 Administra tion of pneumococcal vaccine 39565354 Z23 Tachycardia 8713035 R00. 0 [id number] Reggie Short Main Office [address] [place] [address] 12/25/2022 09:52:54 12/25/2022 14:38:24 Anxiety 72813495 F41.9 Continue regimen. Exacerbati ons occur during migraine episodes. Hyperlipidemia 28692280 E78.5 Taking medication s. labs to eval levels. Restless legs 53658636 G 25.81 RLS is doing much better with medication . Migraine 83156244 G43.90 9 Nurtec is helping and taking every other day. Despite such still having migraine episodes.N eurology referral Constipation 97532999 K5 9.00 Doing very well on Linzess and having regular bowel movements with medication . This is the best she has been with the medication . Osteoarthr itis of knee 855300468 M17.0 Celebrex has been decreasing pain and providing a benefit. Vitamin D deficiency 347 45345 E55.9 Taking medication s. labs to eval levels. Nasal congestion 2459235 0 R09.81 Claritin has been helping. continue regimen. Gastroesop hageal reflux disease without esophagitis 306550295 K21.9 Continue medication as directed and if any issues with insurance and obtaining medication to let office know. Anemia 966358346 D64.9 labs to eval levels HIV screening 493698215 Z11.4 [id number] Rema Bernardo, [facility]-, PMHNP- Main Office [address] [place] [address] 04/23/2023 09:55:31 04/23/2023 14:28:21 Anxiety 90066923 F41.9 Anxiety has been doing much better with the improvemen t of her migraines. Hyperlipidemia 25593198 E78.5 taking medication s. labs done by specialist . Requesting results. Restless legs 10434454 G 25.81 RLS is doing much better with medication . Migraine 10824567 G43.90 9 Nurtec is helping and taking every other day. Migraine episodes have improved with the use of Nurtec. Less monthly episodes. Constipation 63013749 K5 9.00 Doing very well on Linzess and having regular bowel movements with medication . This is the best she has been with the medication . Continue Linzess Osteoarthr itis of knee 403202460 M17.0 Celebrex has been decreasing pain and providing a benefit. Vitamin D deficiency 347 93313 E55.9 taking medication s. labs recently done, requesting results from [place]. Nasal congestion 4582507 0 R09.81 Claritin has been helping. continue regimen. Gastroesop hageal reflux disease without esophagitis 494250748 K21.9 Lifestyle modificati ons with wt loss, avoid meals 2-3h before HS. Consider eliminatin g food triggers: chocolate, caffeine, ETOH, acid/spicy food. Continue medication . Anemia 515382942 D64.9 noted to have low levels last lab. Had labs done with endo specialist . Requesting results. Body mass index 25-29 - overweight 042880409 Z68.26 [id number] Yesenia Bellaron Main Office [address] [place] [address] 09/06/2023 14:13:25 09/06/2023 14:32:48 Administration of influenza vaccine 44398804 Z23 [id number] Rema Bernardo, [facility]-, PMHNP- Main Office [address] [place] [address] 10/28/2023 11:46:29 10/28/2023 14:19:22 Anxiety 78576209 F41.9 Anxiety has been doing much better with the improvemen t of her migraines. Hyperlipidemia 15201288 E78.5 taking medication s. labs to eval levels. Restless legs 42693509 G 25.81 RLS is doing much better with medication . Migraine 43856615 G43.90 9 Nurtec is helping and taking every other day. Migraine episodes have improved with the use of Nurtec. Less monthly episodes. Constipation 84852874 K5 9.00 Doing very well on Linzess and having regular bowel movements with medication . This is the best she has been with the medication . Continue Linzess Osteoarthr itis of knee 319179571 M17.0 Celebrex has been decreasing pain and providing a benefit. Vitamin D deficiency 347 15685 E55.9 taking medication s. labs to eval levels Nasal congestion 9857404 0 R09.81 Claritin has been helping. continue regimen. Gastroesop hageal reflux disease without esophagitis 917456506 K21.9 Lifestyle modificati ons with wt loss, avoid meals 2-3h before HS. Consider eliminatin g food triggers: chocolate, caffeine, ETOH, acid/spicy food. Continue medication . Anemia 504361223 D64.9 labs to eval levels [id number] Rema Bernardo [facility] Main Office [address] [place] [address] 05/09/2024 15:36:03 05/09/2024 22:43:16 Anxiety 13840120 F41.9 Continue Buspirone to help with anxiety. Hyperlipidemia 87835074 E78.5 Continue regimen and will see what labs show when done with endocrinol ogy. Nasal congestion 8830794 0 R09.81 Claritin has been helping. continue regimen. Gastroesop hageal reflux disease without esophagitis 037598488 K21.9 Lifestyle modificati ons with wt loss, avoid meals 2-3h before HS. Consider eliminatin g food triggers: chocolate, caffeine, ETOH, acid/spicy food. Continue medication . Nausea 893271102 R11.0 has extremely debilitati ng nausea and vomiting during menses and Zofrans help with such. Cardiac arrhythmia 70201 7007 I49.9 Essential hypertension 59462049 I10 [id number] Rema Bernardo [facility] Main Office [address] [place] [address] 02/12/2025 08:59:57 02/12/2025 17:55:02 Anxiety 65818212 F41.9 Hyperlipidemia 37223317 E78.5 Nasal congestion 3647668 0 R09.81 Gastroesop hageal reflux disease without esophagitis 811276757 K21.9 Essential hypertension 74804118 I10 Constipation 15576645 K5 9.00 Migraine 87620358 G43.90 9 Restless legs 99777325 G 25.81 Tuberculos is screening 050899502 Z11.1 Health Concerns Section Related Observation LastModified by Organization Detai ls LastModified Time None Recorded Concern Status LastModified by Organization Details LastModified Time None Recorded Advance Directives Directive N: Payers Encounter Date Sequence Insurance Name Policy Number Policy Patrick Covered Member ID Patrick Member ID Guarantor Name 04/23/2023 1 [facility] (MEDICAID HMO) [id number] Stephanieeulalio Negron [id number] [place] 09/06/2023 1 [facility] (MEDICAID HMO) [id number] Stephanie Migdalia [id number] Stephanie [place] 10/28/2023 1 [facility] (MEDICAID HMO) [id number] Stephanie [place] [id number] Stephanie Migdalia 05/09/2024 1 [facility] (MEDICAID HMO) [id number] Stephanie Migdalia [id number] Stephanie [place] 02/12/2025 1 [facility] (MEDICAID HMO) [id number] Stephanie [place] [id number] Stephanie [place] Notes Date Note Type Note Provider Name [...] provided such an improvement for her. Rema Calderón NIESHA Bernardo-TIM, PMHNP-BC [address] [place], [address] , [facility] 04/24/2023 16:44:19 023 text/ht ml Generalized Anxiety [...] provided such an improvement for her. Rema LucieNA Low, PMHNP-BC [address] [place], [address] , [facility] 10/28/2023 12:31:56 024 text/ht ml [...] has difficulties with ADLs during such time. Rema Bernardo, S[employer]KE RO[employer] OPERATOR-BC, PMHNP-BC [address] [place], [address] , [facility] 05/09/2024 18:52:04 025 text/ht laura Brown is a 44-year-old female who presents for [...] been inconsistent without current treatment. Rema Bernardo, SMOKE ROOM OPERATOR-BC, PMHNP-BC [address] [place], [address] , [facility] 02/12/2025 10:26:36 OBGyn Episode No OBEpisode recorded.
== END 2025-03-06 13:15 | disposition home or self-care (01) ==
PROVIDERS: PCP Nurse Practitioner Family; Visit Provider Nurse Practitioner Family
DX: R19.00 Intra-abdominal and pelvic swelling, mass and lump, unspecified site (principal); D25.9 Leiomyoma of uterus, unspecified
CPT/HCPCS: 76856

== ENCOUNTER 2025-06-12 08:15 | Outpatient (CLI) | payer OTHER, SELFPAY ==
--- OUTSIDE RECORDS SUMMARY | 2025-06-12 08:23 | XMS_ITS | Data Portability ---
Author Organization [place] [facility] [employer], Main Office Address [address] [place] [address] Assessment No assessment recorded. Plan of Treatment [...] lc/MS 20.4 NG/dL 10.0-5 5.0 Not Available [facility] (Lab) [address] [place], [address], 02/15/2021 07:10:15 02/07/20 21 02/15/2021 testo stero ne, free + total , serum testosterone , free 0.41 NG/dL 0.10-0 .85 Not Available [facility] (Lab) [address] [place], [address], 02/15/2021 07:10:15 02/07/20 21 02/15/2021 testo stero ne, free + total , serum % free testosterone 2.03 % 0.50-2 .80 Perfo rmed at: [facility] [place] [address] [place] [address] Lab Direc tor: Katy neely MD, Phone : [phone] Not Available [facility] (Lab) [address] [place], [address], 02/15/2021 07:10:15 02/07/20 21 02/07/2021 insul in, serum insulin 9.4 uIU/m L 2.6-24 .9 Perfo rmed at: - [address], [place] [address] Lab Direc tor: José Miguel townsend PhD, Phone : [phone] Not Available [facility] (Lab) [address] [place], [address], 02/07/2021 12:10:55 02/07/20 21 02/06/2021 TSH, serum or plasm a thyroid-stim ulating hormone 0.559 uIU/m L 0.465- 4.680 Not Available [facility] (Lab) [address] [place], [address], 02/06/2021 13:30:35 02/07/20 21 02/06/2021 T4, free, serum free T4 1.13 NG/dL 0.78-2 .19 Not Available [facility] (Lab) [address] [place], [address], 02/06/2021 13:15:35 02/07/20 21 02/06/2021 lipid panel , serum cholesterol 110 mg/dL 140-19 9 low NIH ZULEYMA NSUS RECOM MENDA TION FOR KEENAN STERO L: ADULT CHILD LOW RISK: <200 <170 BORDE RLINE : <200- 239 ----- HIGH RISK: >240 >200 Not Available [facility] (Lab) [address] [place], [address], 02/06/2021 12:54:50 02/07/20 21 02/06/2021 lipid panel , serum triglyceride s 143 mg/dL 0-150 NIH ZULEYMA NSUS REPOR T RECOM MENDA TION FOR TRIGL YCERI BETY: ADULT CHILD LOW RISK: <150 ----- BODER LINE: 150-1 99 ----- HIGH RISK: >200 ----- Not Available [facility] (Lab) [address] [place], [address], 02/06/2021 12:54:50 02/07/20 21 02/06/2021 lipid panel , serum HDL cholesterol 32 mg/dL 40- low Not Available [facility] (Lab) [address] [place], [address], 02/06/2021 12:54:50 02/07/20 21 02/06/2021 lipid panel , serum LDL cholesterol, calculated 49 mg/dL 0-130 NIH ZULEYMA NSUS REPOR T RECOM MENDA TIONS FOR LDL: ADULT CHILD LOW RISK <130 <110 (OPTI MAL LDL) <100 ----- NABILA RLINE : 130-1 59 ----- HIGH RISK: >160 >130 A TRIGL YCERI DE RESUL T >400 INVAL IDATE S THE CALCU LATIO N FOR LDL FRACT IONAT ION - THE LDL RESUL T WILL NOT BE REPOR KASSIDY. Not Available [facility] (Lab) [address] [place], [address], 02/06/2021 12:54:50 02/07/20 21 02/06/2021 CMP, serum or plasm a sodium 140 mmol/ L 137-14 5 Not Available [facility] (Lab) [address] [place], [address], 02/06/2021 12:54:45 02/07/20 21 02/06/2021 CMP, serum or plasm a potassium 4.0 mmol/ L 3.5-5. 1 Not Available [facility] (Lab) [address] [place], [address], 02/06/2021 12:54:45 02/07/20 21 02/06/2021 CMP, serum or plasm a chloride 106 mmol/ L 98-107 Not Available [facility] (Lab) [address] [place], [address], 02/06/2021 12:54:45 02/07/20 21 02/06/2021 CMP, serum or plasm a carbon dioxide 29 mmol/ L 22-30 Not Available [facility] (Lab) [address] [place], [address], 02/06/2021 12:54:45 02/07/20 21 02/06/2021 CMP, serum or plasm a agap 9.0 mmol/ L 14-22 low Not Available [facility] (Lab) [address] [place], [address], 02/06/2021 12:54:45 02/07/20 21 02/06/2021 CMP, serum or plasm a glucose 94 mg/dL 70-99 Not Available [facility] (Lab) [address] [place], [address], 02/06/2021 12:54:45 02/07/20 21 02/06/2021 CMP, serum or plasm a BUN 16 mg/dL 8-19 Not Available [facility] (Lab) [address] [place], [address], 02/06/2021 12:54:45 02/07/20 21 02/06/2021 CMP, serum or plasm a creatinine 0.73 mg/dL 0.66-1 .25 Not Available [facility] (Lab) [address] [place], [address], 02/06/2021 12:54:45 02/07/20 21 02/06/2021 CMP, serum or plasm a GFR >60 Refer ence Range : [place] ge GFR Healt hy Adult : >60 [...] lator can be locat ed on the [facility] websi te: https :[email or web address] [email or web address] [email or web address] rg/pr ofess ional s/kdo qi/gf r_cal culat or Not Available [facility] (Lab) [address] [place], [address], 02/06/2021 12:54:45 02/07/20 21 02/06/2021 CMP, serum or plasm a alkaline phosphatase 83 U/L 38-126 Not Available [facility] (Lab) [address] [place], [address], 02/06/2021 12:54:45 02/07/20 21 02/06/2021 CMP, serum or plasm a alanine aminotransfe rase 17 U/L 0-35 Not Available [facility] (Lab) [address] [place], [address], 02/06/2021 12:54:45 02/07/20 21 02/06/2021 CMP, serum or plasm a aspartate aminotransfe rase 26 U/L 15-37 Not Available [facility] (Lab) [address] [place], [address], 02/06/2021 12:54:45 02/07/20 21 02/06/2021 CMP, serum or plasm a bilirubin, total 0.60 mg/dL 0.20-1 .30 Not Available [facility] (Lab) [address] [place], [address], 02/06/2021 12:54:45 02/07/20 21 02/06/2021 CMP, serum or plasm a bilirubin, conjugated (direct) 0.00 mg/dL 0.00-0 .30 Not Available [facility] (Lab) [address] [place], [address], 02/06/2021 12:54:45 02/07/20 21 02/06/2021 CMP, serum or plasm a biliurubin,u ncong. (indirect) 0.40 mg/dL 0.00-1 .1 Not Available [facility] (Lab) [address] [place], [address], 02/06/2021 12:54:45 02/07/20 21 02/06/2021 CMP, serum or plasm a calcium 9.3 mg/dL 8.4-10 .2 Not Available [facility] (Lab) [address] [place], [address], 02/06/2021 12:54:45 02/07/20 21 02/06/2021 CMP, serum or plasm a total protein 6.7 g/dL 6.3-8. 2 Not Available [facility] (Lab) [address] [place], [address], 02/06/2021 12:54:45 02/07/20 21 02/06/2021 CMP, serum or plasm a albumin 3.9 g/dL 3.4-5. 0 Not Available [facility] (Lab) [address] [place], [address], 02/06/2021 12:54:45 02/07/20 21 02/06/2021 CMP, serum or plasm a globulin 2.8 g/dL 2.6-4. 2 Not Available [facility] (Lab) [address] [place], [address], 02/06/2021 12:54:45 02/07/20 21 02/06/2021 CMP, serum or plasm a A/G ratio 1.4 ratio 1.0-2. 0 Not Available [facility] (Lab) [address] [place], [address], 02/06/2021 12:54:45 02/07/20 21 02/06/2021 glyco hemog [...] 2016, 39(Brower ppl.1 ):s13 -s22 Not Available [facility] (Lab) [address] [place], [address], 02/06/2021 12:24:13 10/02/20 21 10/05/2021 TESTO STERO NE, FREE+ TOTAL LC/MS testosterone , total, lc/MS 16.9 NG/dL Femal e: Preme nopau phil 10.0 - 55.0 Postm enopa usal 7.0 - 40.0 Not Available [facility] (Lab) [address] [place], [address], 10/05/2021 18:07:44 10/02/20 21 10/05/2021 TESTO STERO NE, FREE+ TOTAL LC/MS testosterone , free 0.33 NG/dL 0.10-0 .85 Not Available [facility] (Lab) [address] [place], [address], 10/05/2021 18:07:44 10/02/20 21 10/05/2021 TESTO STERO NE, FREE+ TOTAL LC/MS % free testosterone 1.96 % 0.50-2 .80 Perfo rmed at: [facility] [place] [address] [facility] , [place] [address] Lab Direc tor: Katy neely MD, Phone : [phone] Not Available [facility] (Lab) [address] [place], [address], 10/05/2021 18:07:44 10/02/2010/03/2021 INSUL IN insulin 55.8 uIU/m L 2.6-24 .9 high Perfo rmed at: [facility] [address] [place] [address] Lab Direc tor: José Miguel townsend PhD, Phone : [phone] Not Available [facility] (Lab) [address] [place], [address], 10/03/2021 10:11:39 10/02/2010/03/2021 DHEA- SULFA TE DHEA-sulfate 34.3 ug/dL 57.3-2 79.2 low Perfo rmed at: [facility] [address] [place] [address] Lab Direc tor: José Miguel townsend PhD, Phone : [phone] Not Available [facility] (Lab) [address] [place], [address], 10/03/2021 08:14:29 10/02/2010/02/2021 TSH thyroid-stim ulating hormone 1.240 uIU/m L 0.465- 4.680 Not Available [facility] (Lab) [address] [place], [address], 10/02/2021 13:06:50 10/02/20 21 10/02/2021 T4 FREE free T4 1.05 NG/dL 0.78-2 .19 Not Available [facility] (Lab) [address] [place], [address], 10/02/2021 12:50:44 10/02/20 21 10/02/2021 HEMOG LOBIN A1C HA1C 4.8 % 4.0-6. 0 Diabe kassy Scree edmundo Crite mary: <5.7% Consi stent with absen ce of diabe kassy 5.7-6 .4% Consi stent with incre ased risk for diabe kassy (pred iabet es) >OR=6 .5% Consi stent with diabe kassy REFER ENCE: Diabe kassy Care 2016, 39(Brower ppl.1 ):s13 -s22 Not Available [facility] (Lab) [address] [place], [address], 10/02/2021 12:45:14 10/02/20 21 10/02/2021 COMP MET PANEL /LIVE R sodium 140 mmol/ L 137-14 5 Not Available [facility] (Lab) [address] [place], [address], 10/02/2021 12:44:13 10/02/20 21 10/02/2021 COMP MET PANEL /LIVE R potassium 4.1 mmol/ L 3.5-5. 1 Not Available [facility] (Lab) [address] [place], [address], 10/02/2021 12:44:13 10/02/20 21 10/02/2021 COMP MET PANEL /LIVE R chloride 109 mmol/ L 98-107 high Not Available [facility] (Lab) [address] [place], [address], 10/02/2021 12:44:13 10/02/20 21 10/02/2021 COMP MET PANEL /LIVE R carbon dioxide 27 mmol/ L 22-30 Not Available [facility] (Lab) [address] [place], [address], 10/02/2021 12:44:13 10/02/20 21 10/02/2021 COMP MET PANEL /LIVE R agap 8.1 mmol/ L 14-22 low Not Available [facility] (Lab) [address] [place], [address], 10/02/2021 12:44:13 10/02/20 21 10/02/2021 COMP MET PANEL /LIVE R glucose 96 mg/dL 70-99 Not Available [facility] (Lab) [address] [place], [address], 10/02/2021 12:44:13 10/02/20 21 10/02/2021 COMP MET PANEL /LIVE R BUN 12 mg/dL 8-19 Not Available [facility] (Lab) [address] [place], [address], 10/02/2021 12:44:13 10/02/20 21 10/02/2021 COMP MET PANEL /LIVE R creatinine 0.68 mg/dL 0.66-1 .25 Not Available [facility] (Lab) [address] [place], [address], 10/02/2021 12:44:13 10/02/20 21 10/02/2021 COMP MET PANEL /LIVE R GFR >60 Refer ence Range : [place] ge GFR Healt hy Adult : >60 [...] calcu lator is avail able on the [facility] websi te: https ://ww w.kid janak.o rg/pr ofess ional s/kdo qi/gf r_cal culat or Not Available [facility] (Lab) [address] [place], [address], 10/02/2021 12:44:13 10/02/20 21 10/02/2021 COMP MET PANEL /LIVE R alkaline phosphatase 101 U/L 38-126 Not Available [facility] (Lab) [address] [place], [address], 10/02/2021 12:44:13 10/02/20 21 10/02/2021 COMP MET PANEL /LIVE R alanine aminotransfe rase 11 U/L 0-35 Not Available [facility] (Lab) [address] [place], [address], 10/02/2021 12:44:13 10/02/20 21 10/02/2021 COMP MET PANEL /LIVE R aspartate aminotransfe rase 20 U/L 15-37 Not Available [facility] (Lab) [address] [place], [address], 10/02/2021 12:44:13 10/02/20 21 10/02/2021 COMP MET PANEL /LIVE R bilirubin, total 0.30 mg/dL 0.20-1 .30 Not Available [facility] (Lab) [address] [place], [address], 10/02/2021 12:44:13 11/18/10/02/2021 COMP MET PANEL /LIVE R bilirubin, conjugated (direct) 0.00 mg/dL 0.00-0 .30 Not Available [facility] (Lab) [address] [place], [address], 10/02/2021 12:44:13 10/02/20 21 10/02/2021 COMP MET PANEL /LIVE R biliurubin,u ncong. (indirect) 0.30 mg/dL 0.00-1 .1 Not Available [facility] (Lab) [address] [place], [address], 10/02/2021 12:44:13 10/02/20 21 10/02/2021 COMP MET PANEL /LIVE R calcium 9.0 mg/dL 8.4-10 .2 Not Available [facility] (Lab) [address] [place], [address], 10/02/2021 12:44:13 10/02/20 21 10/02/2021 COMP MET PANEL /LIVE R total protein 6.5 g/dL 6.3-8. 2 Not Available [facility] (Lab) [address] [place], [address], 10/02/2021 12:44:13 10/02/20 21 10/02/2021 COMP MET PANEL /LIVE R albumin 3.8 g/dL 3.4-5. 0 Not Available [facility] (Lab) [address] [place], [address], 10/02/2021 12:44:13 10/02/20 21 10/02/2021 COMP MET PANEL /LIVE R globulin 2.7 g/dL 2.6-4. 2 Not Available [facility] (Lab) [address] [place], [address], 10/02/2021 12:44:13 10/02/20 21 10/02/2021 COMP MET PANEL /LIVE R A/G ratio 1.4 ratio 1.0-2. 0 Not Available [facility] (Lab) [address] [place], [address], 10/02/2021 12:44:13 10/02/20 21 10/02/2021 LIPID PANEL cholesterol 113 mg/dL 140-19 9 low NIH ZULEYMA NSUS RECOM MENDA TION FOR KEENAN STERO L: ADULT CHILD LOW RISK: <200 <170 BORDE RLINE : <200- 239 ----- HIGH RISK: >240 >200 Not Available [facility] (Lab) [address] [place], [address], 10/02/2021 12:44:07 10/02/20 21 10/02/2021 LIPID PANEL triglyceride s 281 mg/dL 0-150 high NIH ZULEYMA NSUS REPOR T RECOM MENDA TION FOR TRIGL YCERI BETY: ADULT CHILD LOW RISK: <150 ----- BODER LINE: 150-1 99 ----- HIGH RISK: >200 ----- Not Available [facility] (Lab) [address] [place], [address], 10/02/2021 12:44:07 10/02/20 21 10/02/2021 LIPID PANEL HDL cholesterol 29 mg/dL 40- low Not Available [facility] (Lab) [address] [place], [address], 10/02/2021 12:44:07 10/02/20 21 10/02/2021 LIPID PANEL LDL cholesterol, calculated 28 mg/dL [...] WILL NOT BE REPOR KASSIDY. Not Available [facility] (Lab) [address] [place], [address], 10/02/2021 12:44:07 03/06/20 22 03/07/2022 INSUL IN insulin 19.7 uIU/m L 2.6-24 .9 Perfo rmed at: [facility] [place] [address] [facility], [place] [address] Lab Direc tor: José Miguel townsend PhD, Phone : [phone] Not Available [facility] (Lab) [address] [place], [address], 03/07/2022 14:12:28 03/06/20 22 03/06/2022 LIPID PANEL triglyceride s 480 mg/dL 0-150 high NIH ZULEYMA NSUS REPOR T RECOM MENDA TION FOR TRIGL YCERI BETY: ADULT CHILD LOW RISK: <150 ----- BODER LINE: 150-1 99 ----- HIGH RISK: >200 ----- Not Available [facility] (Lab) [address] [place], [address], 03/06/2022 14:11:30 03/06/20 22 03/06/2022 LIPID PANEL HDL cholesterol 32 mg/dL 40- low Not Available [facility] (Lab) [address] [place], [address], 03/06/2022 14:11:30 03/06/20 22 03/06/2022 LIPID PANEL cholesterol 141 mg/dL 140-19 9 NIH ZULEYMA NSUS RECOM MENDA TION FOR KEENAN STERO L: ADULT CHILD LOW RISK: <200 <170 BORDE RLINE : <200- 239 ----- HIGH RISK: >240 >200 Not Available [facility] (Lab) [address] [place], [address], 03/06/2022 14:11:30 03/06/20 22 03/06/2022 COMPR EHENS ESTEVAN METAB OLIC PANEL sodium 136 mmol/ L 137-14 5 low Not Available [facility] (Lab) [address] [place], [address], 03/06/2022 14:11:23 03/06/20 22 03/06/2022 COMPR EHENS ESTEVAN METAB OLIC PANEL potassium 4.0 mmol/ L 3.5-5. 1 Not Available [facility] (Lab) [address] [place], [address], 03/06/2022 14:11:23 03/06/20 22 03/06/2022 COMPR EHENS ESTEVAN METAB OLIC PANEL chloride 105 mmol/ L 98-107 Not Available [facility] (Lab) [address] [place], [address], 03/06/2022 14:11:23 03/06/20 22 03/06/2022 COMPR EHENS ESTEVAN METAB OLIC PANEL carbon dioxide 24 mmol/ L 22-30 Not Available [facility] (Lab) [address] [place], [address], 03/06/2022 14:11:23 03/06/20 22 03/06/2022 COMPR EHENS ESTEVAN METAB OLIC PANEL anion gap 11.0 mmol/ L 14-22 low Not Available [facility] (Lab) [address] [place], [address], 03/06/2022 14:11:23 03/06/20 22 03/06/2022 COMPR EHENS ESTEVAN METAB OLIC PANEL glucose 100 mg/dL 70-99 high Not Available [facility] (Lab) [address] [place], [address], 03/06/2022 14:11:23 03/06/20 22 03/06/2022 COMPR EHENS ESTEVAN METAB OLIC PANEL BUN 8 mg/dL 8-19 Not Available [facility] (Lab) [address] [place], [address], 03/06/2022 14:11:23 03/06/20 22 03/06/2022 COMPR EHENS ESTEVAN METAB OLIC PANEL creatinine 0.62 mg/dL 0.66-1 .25 low Not Available [facility] (Lab) [address] [place], [address], 03/06/2022 14:11:23 03/06/20 22 03/06/2022 COMPR EHENS ESTEVAN METAB OLIC PANEL GFR >60 Refer ence Range : [place] ge GFR Healt hy Adult : >60 [...] calcu lator is avail able on the [facility] websi te: https ://amalia w.jc [email or web address] rg/pr aleksess miroslavaal s/kdo qi/gf r_cal culat or Not Available [facility] (Lab) [address] [place], [address], 03/06/2022 14:11:23 03/06/2003/06/2022 COMPR EHENS ESTEVAN METAB OLIC PANEL alkaline phosphatase 110 U/L 38-126 Not Available [facility] (Lab) [address] [place], [address], 03/06/2022 14:11:23 04/22/20 22 03/06/2022 COMPR EHENS ESTEVAN METAB OLIC PANEL alanine aminotransfe rase 17 U/L 0-35 Not Available [facility] (Lab) [address] [place], [address], 03/06/2022 14:11:23 03/06/20 22 03/06/2022 COMPR EHENS ESTEVAN METAB OLIC PANEL aspartate aminotransfe rase 30 U/L 15-37 Not Available [facility] (Lab) [address] [place], [address], 03/06/2022 14:11:23 03/06/20 22 03/06/2022 COMPR EHENS ESTEVAN METAB OLIC PANEL bilirubin, total 0.30 mg/dL 0.20-1 .30 Not Available [facility] (Lab) [address] [place], [address], 03/06/2022 14:11:23 03/06/20 22 03/06/2022 COMPR EHENS ESTEVAN METAB OLIC PANEL calcium 9.2 mg/dL 8.4-10 .2 Not Available [facility] (Lab) [address] [place], [address], 03/06/2022 14:11:23 03/06/20 22 03/06/2022 COMPR EHENS ESTEVAN METAB OLIC PANEL total protein 7.5 g/dL 6.3-8. 2 Not Available [facility] (Lab) [address] [place], [address], 03/06/2022 14:11:23 03/06/20 22 03/06/2022 COMPR EHENS ESTEVAN METAB OLIC PANEL albumin 4.1 g/dL 3.4-5. 0 Not Available [facility] (Lab) [address] [place], [address], 03/06/2022 14:11:23 03/06/20 22 03/06/2022 COMPR EHENS ESTEVAN METAB OLIC PANEL globulin 3.4 g/dL 2.6-4. 2 Not Available [facility] (Lab) [address] [place], [address], 03/06/2022 14:11:23 03/06/20 22 03/06/2022 COMPR EHENS ESTEVAN METAB OLIC PANEL A/G ratio 1.2 ratio 1.0-2. 0 Not Available [facility] (Lab) [address] [place], [address], 03/06/2022 14:11:23 03/06/20 22 03/06/2022 HEMOG LOBIN A1C HA1C 4.9 % 4.0-6. 0 Diabe kassy Scree edmundo Crite mary: <5.7% Consi stent with absen ce of diabe kassy 5.7-6 .4% Consi stent with incre ased risk for diabe kassy (pred iabet es) >OR=6 .5% Consi stent with diabe kassy REFER ENCE: Diabe kassy Care 2016, 39(Brower ppl.1 ):s13 -s22 Not Available [facility] (Lab) [address] [place], [address], 03/06/2022 13:50:02 09/16/20 22 09/21/2022 TESTO STERO NE, FREE+ TOTAL LC/MS testosterone , total, lc/MS 13.6 NG/dL Femal e: Preme nopau phil 10.0 - 55.0 Postm enopa usal 7.0 - 40.0 Not Available [facility] (Lab) [address] [place], [address], 09/21/2022 11:11:01 09/16/20 22 09/21/2022 TESTO STERO NE, FREE+ TOTAL LC/MS testosterone , free 0.25 NG/dL 0.10-0 .85 Not Available [facility] (Lab) [address] [place], [address], 09/21/2022 11:11:01 09/16/20 22 09/21/2022 TESTO STERO NE, FREE+ TOTAL LC/MS % free testosterone 1.87 % 0.50-2 .80 Perfo rmed at: [facility] [place] [address] [facility] , [place] [address] Lab Direc tor: Katy neely MD, Phone : [phone] Not Available [facility] (Lab) [address] [place], [address], 09/21/2022 11:11:01 09/16/20 22 09/17/2022 DHEA- SULFA TE DHEA-sulfate 51.2 ug/dL 57.3-2 79.2 low [facility] [address] [place] [address] Lab Direc tor: José Miguel townsend PhD, Phone : [phone] Not Available [facility] (Lab) [address] [place], [address], 09/17/2022 08:14:27 09/16/20 22 09/16/2022 LIPID PANEL cholesterol 151 mg/dL 140-19 9 NIH ZULEYMA NSUS RECOM MENDA TION FOR KEENAN STERO L: ADULT CHILD LOW RISK: <200 <170 BORDE RLINE : <200- 239 ----- HIGH RISK: >240 >200 Not Available [facility] (Lab) [address] [place], [address], 09/16/2022 12:51:55 09/16/20 22 09/16/2022 LIPID PANEL triglyceride s 173 mg/dL 0-150 high NIH ZULEYMA NSUS REPOR T RECOM MENDA TION FOR TRIGL YCERI BETY: ADULT CHILD LOW RISK: <150 ----- BODER LINE: 150-1 99 ----- HIGH RISK: >200 ----- Not Available [facility] (Lab) [address] [place], [address], 09/16/2022 12:51:55 09/16/20 22 09/16/2022 LIPID PANEL HDL cholesterol 41 mg/dL 40- Not Available [facility] (Lab) [address] [place], [address], 09/16/2022 12:51:55 09/16/20 22 09/16/2022 LIPID PANEL [...] WILL NOT BE REPOR KASSIDY. Not Available [facility] (Lab) [address] [place], [address], 09/16/2022 12:51:55 09/16/20 22 09/16/2022 COMPR EHENS ESTEVAN METAB OLIC PANEL sodium 139 mmol/ L 137-14 5 Not Available [facility] (Lab) [address] [place], [address], 09/16/2022 12:51:50 09/16/20 22 09/16/2022 COMPR EHENS ESTEVAN METAB OLIC PANEL potassium 4.2 mmol/ L 3.5-5. 1 Not Available [facility] (Lab) [address] [place], [address], 09/16/2022 12:51:50 09/16/20 22 09/16/2022 COMPR EHENS ESTEVAN METAB OLIC PANEL chloride 105 mmol/ L 98-107 Not Available [facility] (Lab) [address] [place], [address], 09/16/2022 12:51:50 09/16/20 22 09/16/2022 COMPR EHENS ESTEVAN METAB OLIC PANEL carbon dioxide 31 mmol/ L 22-30 high Not Available [facility] (Lab) [address] [place], [address], 09/16/2022 12:51:50 09/16/20 22 09/16/2022 COMPR EHENS ESTEVAN METAB OLIC PANEL anion gap 7.2 mmol/ L 14-22 low Not Available [facility] (Lab) [address] [place], [address], 09/16/2022 12:51:50 09/16/20 22 09/16/2022 COMPR EHENS ESTEVAN METAB OLIC PANEL glucose 100 mg/dL 70-99 high Not Available [facility] (Lab) [address] [place], [address], 09/16/2022 12:51:50 09/16/20 22 09/16/2022 COMPR EHENS ESTEVAN METAB OLIC PANEL BUN 16 mg/dL 8-19 Not Available [facility] (Lab) [address] [place], [address], 09/16/2022 12:51:50 09/16/20 22 09/16/2022 COMPR EHENS ESTEVAN METAB OLIC PANEL creatinine 0.88 mg/dL 0.66-1 .25 Not Available [facility] (Lab) [address] [place], [address], 09/16/2022 12:51:50 09/16/20 22 09/16/2022 COMPR EHENS ESTEVAN METAB OLIC PANEL GFR >60 Refer ence Range : [place] ge GFR Healt hy Adult : >60 [...] calcu lator is avail able on the [facility] websi te: https ://amalia w.kid janak.o rg/pr ofess ional s/kdo qi/gf r_cal culat or Not Available [facility] (Lab) [address] [place], [address], 09/16/2022 12:51:50 09/16/20 22 09/16/2022 COMPR EHENS ESTEVAN METAB OLIC PANEL alkaline phosphatase 78 U/L 38-126 Not Available [facility] (Lab) [address] [place], [address], 09/16/2022 12:51:50 09/16/20 22 09/16/2022 COMPR EHENS ESTEVAN METAB OLIC PANEL alanine aminotransfe rase 12 U/L 0-35 Not Available [facility] (Lab) [address] [place], [address], 09/16/2022 12:51:50 09/16/20 22 09/16/2022 COMPR EHENS ESTEVAN METAB OLIC PANEL aspartate aminotransfe rase 19 U/L 15-37 Not Available [facility] (Lab) [address] [place], [address], 09/16/2022 12:51:50 09/16/20 22 09/16/2022 COMPR EHENS ESTEVAN METAB OLIC PANEL bilirubin, total 0.50 mg/dL 0.20-1 .30 Not Available [facility] (Lab) [address] [place], [address], 09/16/2022 12:51:50 09/16/20 22 09/16/2022 COMPR EHENS ESTEVAN METAB OLIC PANEL calcium 9.4 mg/dL 8.4-10 .2 Not Available [facility] (Lab) [address] [place], [address], 09/16/2022 12:51:50 09/16/20 22 09/16/2022 COMPR EHENS ESTEVAN METAB OLIC PANEL total protein 7.3 g/dL 6.3-8. 2 Not Available [facility] (Lab) [address] [place], [address], 09/16/2022 12:51:50 09/16/20 22 09/16/2022 COMPR EHENS ESTEVAN METAB OLIC PANEL albumin 4.2 g/dL 3.4-5. 0 Not Available [facility] (Lab) [address] [place], [address], 09/16/2022 12:51:50 09/16/20 22 09/16/2022 COMPR EHENS ESTEVAN METAB OLIC PANEL globulin 3.1 g/dL 2.6-4. 2 Not Available [facility] (Lab) [address] [place], [address], 09/16/2022 12:51:50 09/16/20 22 09/16/2022 COMPR EHENS ESTEVAN METAB OLIC PANEL A/G ratio 1.4 ratio 1.0-2. 0 Not Available [facility] (Lab) [address] [place], [address], 09/16/2022 12:51:50 11/18/19 23 11/24/2022 THYRO ID STIM IMMUN OGLOB ULIN thyroid stim immunoglobul in <0.10 IU/L 0.00-0 .55 Perfo rmed at: BN - [facility] [address] [place] [address] Lab Direc tor: Katy neely MD, Phone : [phone] Not Available [facility] (Lab) [address] [place], [address], 11/24/2022 16:12:28 11/18/19 23 11/19/2022 THYRO ID PEROX IDASE (TPO) AB thyroid peroxidase (tpo) Ab 11 IU/mL 0-34 Perfo rmed at: CB - [facility] [address] [id number] Lab Direc tor: José Miguel townsend PhD, Phone : [phone] Not Available [facility] (Lab) [address] [place], [address], 11/19/2022 14:11:12 11/18/19 23 11/18/2022 TSH thyroid-stim ulating hormone 0.313 uIU/m L 0.465- 4.680 low Not Available [facility] (Lab) [address] [place], [address], 11/18/2022 15:19:11 11/18/19 23 11/18/2022 T4 FREE free T4 1.11 NG/dL 0.78-2 .19 Not Available [facility] (Lab) [address] [place], [address], 11/18/2022 14:51:16 04/13/20 23 04/13/2023 COMPR EHENS ESTEVAN METAB OLIC PANEL sodium 139 mmol/ L 137-14 5 Not Available [facility] (Lab) [address] [place], [address], 04/13/2023 13:09:44 04/13/20 23 04/13/2023 COMPR EHENS ESTEVAN METAB OLIC PANEL potassium 4.2 mmol/ L 3.5-5. 1 Not Available [facility] (Lab) [address] [place], [address], 04/13/2023 13:09:44 04/13/20 23 04/13/2023 COMPR EHENS ESTEVAN METAB OLIC PANEL chloride 103 mmol/ L 98-107 Not Available [facility] (Lab) [address] [place], [address], 04/13/2023 13:09:44 04/13/20 23 04/13/2023 COMPR EHENS ESTEVAN METAB OLIC PANEL carbon dioxide 26 mmol/ L 22-30 Not Available [facility] (Lab) [address] [place], [address], 04/13/2023 13:09:44 04/13/20 23 04/13/2023 COMPR EHENS ESTEVAN METAB OLIC PANEL anion gap 14.2 mmol/ L 14-22 Not Available [facility] (Lab) [address] [place], [address], 04/13/2023 13:09:44 04/13/20 23 04/13/2023 COMPR EHENS ESTEVAN METAB OLIC PANEL glucose 93 mg/dL 70-99 Not Available [facility] (Lab) [address] [place], [address], 04/13/2023 13:09:44 04/13/20 23 04/13/2023 COMPR EHENS ESTEVAN METAB OLIC PANEL BUN 16 mg/dL 8-19 Not Available [facility] (Lab) [address] [place], [address], 04/13/2023 13:09:44 04/13/20 23 04/13/2023 COMPR EHENS ESTEVAN METAB OLIC PANEL creatinine 0.79 mg/dL 0.66-1 .25 Not Available [facility] (Lab) [address] [place], [address], 04/13/2023 13:09:44 04/13/20 23 04/13/2023 COMPR EHENS ESTEVAN METAB OLIC PANEL GFR >60 Refer ence Range : [place] ge GFR Healt hy Adult : >60 [...] calcu lator is avail able on the [facility] websi te: https ://amalia w.kid janak.o rg/pr ofess ional s/kdo qi/gf r_cal culat or Not Available [facility] (Lab) [address] [place], [address], 04/13/2023 13:09:44 04/13/20 23 04/13/2023 COMPR EHENS ESTEVAN METAB OLIC PANEL alkaline phosphatase 93 U/L 38-126 Not Available [facility] (Lab) [address] [place], [address], 04/13/2023 13:09:44 04/13/20 23 04/13/2023 COMPR EHENS ESTEVAN METAB OLIC PANEL alanine aminotransfe rase 17 U/L 0-35 Not Available [facility] (Lab) [address] [place], [address], 04/13/2023 13:09:44 04/13/20 23 04/13/2023 COMPR EHENS ESTEVAN METAB OLIC PANEL aspartate aminotransfe rase 22 U/L 15-37 Not Available [facility] (Lab) [address] [place], [address], 04/13/2023 13:09:44 04/13/20 23 04/13/2023 COMPR EHENS ESTEVAN METAB OLIC PANEL bilirubin, total 0.40 mg/dL 0.20-1 .30 Not Available [facility] (Lab) [address] [place], [address], 04/13/2023 13:09:44 04/13/20 23 04/13/2023 COMPR EHENS ESTEVAN METAB OLIC PANEL calcium 9.3 mg/dL 8.4-10 .2 Not Available [facility] (Lab) [address] [place], [address], 04/13/2023 13:09:44 04/13/20 23 04/13/2023 COMPR EHENS ESTEVAN METAB OLIC PANEL total protein 7.9 g/dL 6.3-8. 2 Not Available [facility] (Lab) [address] [place], [address], 04/13/2023 13:09:44 04/13/20 23 04/13/2023 COMPR EHENS ESTEVAN METAB OLIC PANEL albumin 4.2 g/dL 3.4-5. 0 Not Available [facility] (Lab) [address] [place], [address], 04/13/2023 13:09:44 04/13/20 23 04/13/2023 COMPR EHENS ESTEVAN METAB OLIC PANEL globulin 3.7 g/dL 2.6-4. 2 Not Available [facility] (Lab) [address] [place], [address], 04/13/2023 13:09:44 04/13/20 23 04/13/2023 COMPR EHENS ESTEVAN METAB OLIC PANEL A/G ratio 1.1 ratio 1.0-2. 0 Not Available [facility] (Lab) [address] [place], [address], 04/13/2023 13:09:44 04/13/20 23 04/13/2023 VITAM IN B12 (ANTONIO NENA ) vb12 533 pg/mL 239-93 1 Not Available [facility] (Lab) [address] [place], [address], 04/13/2023 13:19:21 04/13/20 23 04/13/2023 FOLAT E, SERUM /PLAS MA folate 2.66 NG/mL 2.76-2 0.0 low Not Available [facility] (Lab) [address] [place], [address], 04/13/2023 13:19:38 04/13/20 23 04/13/2023 T4 FREE free T4 1.22 NG/dL 0.78-2 .19 Not Available [facility] (Lab) [address] [place], [address], 04/13/2023 13:20:48 04/13/20 23 04/13/2023 TSH thyroid-stim ulating hormone 0.410 uIU/m L 0.465- 4.680 low Not Available [facility] (Lab) [address] [place], [address], 04/13/2023 13:33:17 04/13/20 23 04/14/2023 DHEA- SULFA TE DHEA-sulfate 60.9 ug/dL 57.3-2 79.2 Perfo rmed at: [facility] - [facility] [address] [place], [place] [id number] Lab Direc tor: José Miguel townsend PhD, Phone : [phone] Not Available [facility] (Lab) [address] [place], [address], 04/14/2023 08:18:20 04/13/20 23 04/14/2023 INSUL IN insulin 22.1 uIU/m L 2.6-24 .9 Perfo rmed at: CB - [facility] [address] [place] [address] Lab Direc tor: José Miguel townsend PhD, Phone : [phone] Not Available [facility] (Lab) [address] [place], [address], 04/14/2023 11:12:32 04/13/20 23 04/17/2023 TESTO STERO NE, FREE+ TOTAL LC/MS testosterone , total, lc/MS 11.0 NG/dL Femal e: Preme nopau phil 10.0 - 55.0 Postm enopa usal 7.0 - 40.0 Not Available [facility] (Lab) [address] [place], [address], 04/17/2023 14:12:15 04/13/20 23 04/17/2023 TESTO STERO NE, FREE+ TOTAL LC/MS testosterone , free 0.21 NG/dL 0.10-0 .85 Not Available [facility] (Lab) [address] [place], [address], 04/17/2023 14:12:15 04/13/20 23 04/17/2023 TESTO STERO NE, FREE+ TOTAL LC/MS % free testosterone 1.95 % 0.50-2 .80 Perfo rmed at: BN - [facility] [address] [place] [address] Lab Direc tor: Katy neely MD, Phone : [phone] Not Available [facility] (Lab) [address] [place], [address], 04/17/2023 14:12:15 02/07/20 21 02/06/2021 US, head + neck, soft tissu e [facility] [address] [place] [address] Patiraiza t Name: STEPHANIE NG Access ion #: [id number] Sex: F : 1979 10 Locati on: RAD Attend ing Physic kacey: MEENAKSHI GOEL Orderi ng Physic kacey: AMANDO MEENAKSHI Exam Date: 8:08 AM Exam Name: US [...] r blood flow. Page 1 of 2 [facility] [place] Renetta t Name: STEPHANIE NG Access ion #: [id number] Sex: F : 1979 10 Exam [...] Dictat ed by: Cristóbal marino MD DD: 9:38 AM (CT) DT: 9:38 AM (CT) Page 2 of 2 [id number] [facility] (Imaging) [address] [place], [address], 01/13/2023 20:40:42 02/07/20 21 02/06/2021 US, neck, soft tissu e No observ ation record ed. [id number] [facility] [address] [place], [address], 01/13/2023 20:40:42 Result Notes None recorded. Problems Name Problem SNOMED Code Status Onset Date Resolution Date Notes Provider Name and Address Organization Details Recorded Time Genital herpes simplex 19626688 Active 2018 Not Available [facility] 3 20:39:31 Vitamin D deficiency 39720832 Active 2018 Not Available [facility] 3 20:39:31 Dyslipidemia 579667423 Active 2018 Not Available [facility] 3 20:39:31 Polycystic ovary syndrome 973624665 Active 2022 Meenakshi Goel MD [address], [address] , [facility] I Do Now I Don't [facility] [employer] 3 20:04:18 Fatigue 95705665 Active 2022 Meenakshi Goel MD [address], [address] , [place] [facility] [employer] 3 20:04:27 Mixed hypercholeste rolemia and hypertriglyce ridemia 657892094 Active 2022 JONEL Salazar, [facility] 3 09:39:51 Problem Notes None recorded. Medical Equipment None Reported. Allergies Allergen ID Allergen Name Allergen Category Reaction Reaction Severity Criticality Documentation Date Start Date Code Code System Note Provider Name and Address Organization Details Recorded Time 67722 tramadol medicatio n headache Not available Not available 01/13/2023 18877 RxNorm Not Available [facility] 3 20:40:41 09488 Product containin g penicilli n (product) medicatio n Not available Not available Not available 01/13/2023 27735 8001 SNOMED Not Available [facility] 3 20:40:41 09566 latex environme nt,medica tion Not available Not available Not available 01/13/2023 78392 91 RxNorm Not Available [facility] 3 20:40:41 73144 azithromy eddie medicatio n Not available Not available Not available 01/13/2023 13262 RxNorm Not Available [facility] 3 20:40:41 Medications Name Sig Start Date [...] Body height Body temperature Body weight Systolic And Diastolic Provider Name and Address Organization Details Last Updated DateTime 02/21/2021 27.6 kg/m2 175.26 cm 98.4 [degF] 24112.7 7 g 120/80 mm[Hg] Not Available [facility] 3 20:39:15 Date Recorded Body mass index (BMI) Body height Oxygen saturation Oxygen saturation in Arterial blood by Pulse oximetry Heart rate Body temperature Body weight Systolic And Diastolic Provider Name and Address Organization Details Last Updated DateTime 2 28.5 kg/m2 175.26 cm 98 % 98 % 88 /min 98.4 [degF] 16545.3 3 g 130/80 mm[Hg] Not Available [facility] 3 20:39:15 Date Recorded Body mass index (BMI) Body height Oxygen saturation Oxygen saturation in Arterial blood by Pulse oximetry Heart rate Body temperature Body weight Systolic And Diastolic Provider Name and Address Organization Details Last Updated DateTime 1 29.4 kg/m2 175.26 cm 97 % 97 % 78 /min 98.7 [degF] 43088.8 8 g 140/98 mm[Hg] Not Available [facility] 3 20:39:15 Date Recorded Body mass index (BMI) Body height Oxygen saturation Oxygen saturation in Arterial blood by Pulse oximetry Heart rate Body temperature Body weight Systolic And Diastolic Provider Name and Address Organization Details Last Updated DateTime 2 27.5 kg/m2 175.26 cm 96 % 96 % 103 /min 97.7 [degF] 91916.1 8 g 115/80 mm[Hg] Not Available [facility] 3 20:39:15 Social History Question Answer Notes LastModified by Buck Mason Details LastModified Time Tobacco Smoking Status Never Smoker Not Available [facility] 01/13/2023 20:38:46 What Is Your Level Of Caffeine Consumption? Occasional [id number] Information not available 01/13/2023 How Much Tobacco Do You Chew? None [id number] Information not available 01/13/2023 In The 14 Days Before Symptom Onset, Have You Had Close Contact With A Laboratory-confirm ed COVID-19 While That Case Was Ill? No [id number] Information not available 01/13/2023 In The 14 Days Before Symptom Onset, Have You Had Close Contact With A Person Who Is Under Investigation For COVID-19 While That Person Was Ill? No [id number] Information not available 01/13/2023 What Type Of Diet Are You Following? REGULAR [id number] Information not available 01/13/2023 Which Illicit Or Recreational Drugs Have You Used? None [id number] Information not available 01/13/2023 What Is Your Relationship Status? Single [id number] Information not available 01/13/2023 Have You Recently Traveled Abroad? No [id number] Information not available 01/13/2023 Do You Have Any Dietary Restrictions? No [id number] Information not available 01/13/2023 Sex: Female Functional Status Question Answer Note LastModified by Buck Mason Details LastModified Time Do you use any illicit or recreational drugs? No [id number] Information not available 01/13/2023 What is your level of alcohol consumption? None [id number] Information not available 01/13/2023 What is your occupation? [employer] [id number] Information not available 01/13/2023 Do you or have you ever used e-cigarettes or vape? Never used electronic cigarettes [id number] Information not available 01/13/2023 Mental Status None recorded. Family History Relationship Description Onset Age of this Age Resolved Age Notes LastModified by Organization Details LastModified Time Mother Hypertensive disorder [id number] Not available 01/13/2023 20:38:52 Mother Hyperlipidem ia [id number] Not available 01/13/2023 20:38:52 Father Hypertensive disorder [id number] Not available 01/13/2023 20:38:52 Father Hyperlipidem ia [id number] Not available 01/13/2023 20:38:52 Medical History Condition Response HIGH CHOLESTEROL / HYPERLIPIDEMIA Y HERPES Y Gynecological HistoryNo gynecological history recorded. Obstetrics History GPAL:G 0 P 0 0 0 0 Past Encounters Encounter ID Performer Location Encounter Start Date Encounter Closed Date Diagnosis/Indication Diagnosis SNOMED-CT Code Diagnosis ICD10 Code Diagnosis Note [id number] MD JOSE FRANCISCO Shin_GMJhon End[facility] [address] [place] [address] 02/21/2021 00:00:00 02/21/2021 10:58:35 [id number] MD JOSE FRANCISCO Shin_PAGE [facility] [address] [place] [address] 10/13/2021 00:00:00 10/14/2021 08:09:20 [id number] Meenakshi Goel MD _ATHFABIAN_M IGRATION_ DEFAULT_1 _1 , 03/12/2022 00:00:00 03/12/2022 11:58:19 [id number] Meenakshi Goel MD [facility] [address] [place] [address] 10/23/2022 00:00:00 10/23/2022 11:15:59 Health Concerns Section Related Observation LastModified by Organization Detai ls LastModified Time None Recorded Concern Status LastModified by Organization Details LastModified Time None Recorded Advance Directives Directive None Recorded Payers Insurance Date Sequence Insurance Name Policy Number Policy Patrick Covered Member ID Patrick Member ID Guarantor Name 03/16/2025 1 [facility] (MEDICAID HMO) [id number] [facility] [id number] [facility] No OBEpisode recorded.
--- OUTSIDE RECORDS SUMMARY | 2025-06-12 08:23 | XMS_ITS | Data Portability ---
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 Requesting lab results Linzess [...] time spent in any separately reportable services. [email or web address] Not available 04/24/2023 16:44:11 10/28/2023 10/28/2023 Medication [...] endocrinology later this month. Will obtain results. Lime Boiler referral for further evaluation of palpitations, elevated [...] time spent in any separately reportable services. [email or web address] Not available 05/09/2024 18:51:32 02/12/2025 02/12/2025 Hypertension: [...] Details Last Modified Time Details Appointments F/U 20 - Primary Care 2024 01:25P M Rema Bernardo, PLASTIC OUTFITTER- Not available Not available Not available Lab unlisted lab - quantifer on(R)-TB gold plus, 1 tube 2024 025 [email or web address], [address] [place], [address], 02/19/2025 08:42:45 lipid panel, serum 2024 025 [facility], [address] [place], [address], 02/13/2025 15:50:16 CMP, serum or plasma 2024 025 [facility], [address] [place], [address], 02/13/2025 15:50:16 CBC 2024 025 [facility], [address] [place], [address], 02/13/2025 15:50:16 magnesium , serum or plasma 2024 025 [facility], [address] [place], [address], 02/13/2025 15:56:32 iron + TIBC + ferritin, serum 2022 023 [facility], [address] [place], [address], 10/29/2023 11:10:49 vitamin B12 + folate, serum or blood 2022 023 [facility], [facility] [place], [address], 10/29/2023 09:10:59 CBC 2022 023 [facility], [address] [place], [address], 10/29/2023 09:09:06 CMP, serum or plasma 2022 023 [facility], [facility] [place], [address], 10/29/2023 11:10:50 lipid panel, serum 2022 023 [facility], [address] [place], [address], 10/29/2023 11:10:50 vitamin D, 25-hydrox y, total, serum 2022 023 [facility], [address] [place], [address], 10/29/2023 09:10:59 Referral cardiolog ist referral 2023 024 diego Molina MD, [address] [facility] [address], [place], [address], 07/19/2024 10:15:58 Procedures None recorded. Surgeries None recorded. Imaging None recorded. Medication Orders loratadin e 10 mg tablet 2024 025 [facility] #13373, [address], [place], [id number], 02/12/2025 09:22:11 fluticaso ne propionat e 50 mcg/actua tion nasal spray,alcira pension 2024 025 [facility] #65801, [address], [place], [id number], 02/12/2025 09:24:49 buspirone 7.5 mg tablet 2024 025 [facility] #65474, [address], [place], [id number], 02/12/2025 09:22:14 ezetimibe 10 mg tablet 2024 025 [facility] #42257, [address], [place], [id number], 02/12/2025 09:22:13 fenofibra te nanocryst allized 145 mg tablet 2024 025 [facility] #85030, [address], [place], [id number], 02/12/2025 09:22:19 pramipexo le 0.75 mg tablet 2024 025 [facility] #25405, [address], [place], [id number], 02/12/2025 09:25:15 Linzess 145 mcg capsule 2024 025 [facility] #56613, [address], [place], [id number], 02/12/2025 09:22:12 propranol ol ER 80 mg capsule,2 4 hr,extend ed release 2024 025 [facility] #59352, [address], [place], [id number], 02/12/2025 09:22:11 omeprazol e 40 mg capsule,d elayed release 2024 025 [facility] #83983, [address], [place], [id number], 02/12/2025 09:22:12 amlodipin e 2.5 mg tablet 2024 025 [facility] #84237, [address], [place], [id number], 02/12/2025 09:22:12 loratadin e 10 mg tablet 2023 024 [facility] #75350, [address], [place], [id number], 05/09/2024 18:52:07 fluticaso ne propionat e 50 mcg/actua tion nasal spray,alcira pension 2023 024 [facility] #39625, [address], [place], [id number], 05/09/2024 18:52:06 ezetimibe 10 mg tablet 2023 024 [facility] #59667, [address], [place], [id number], 05/09/2024 18:52:07 fenofibra te nanocryst allized 145 mg tablet 2023 [facility] #48874, [address], [place], [id number], 05/09/2024 18:52:05 buspirone 7.5 mg tablet 2023 024 [facility] #31425, [address], [place], [id number], 05/09/2024 18:52:06 ondansetr on HCl 4 mg tablet 2023 024 [facility] #59109, [address], [place], [id number], 05/09/2024 18:52:04 amlodipin e 2.5 mg tablet 2023 024 [facility] #99223, [address], [place], [id number], 05/09/2024 18:52:05 omeprazol e 40 mg capsule,d elayed release 2023 024 [facility] #06914, [address], [place], [id number], 05/09/2024 18:52:04 loratadin e 10 mg tablet 2022 024 [facility] #39973, [address], [place], [id number], 04/29/2024 14:25:57 celecoxib 100 mg capsule 2022 024 [facility] #80464, [address], [place], [id number], 05/09/2024 18:42:40 buspirone 7.5 mg tablet 2022 024 [facility] #82679, [address], [place], [id number], 04/29/2024 14:25:40 ezetimibe 10 mg tablet 2022 024 [facility] #06711, [address], [place], [id number], 04/29/2024 14:25:56 fenofibra te nanocryst allized 145 mg tablet 2022 024 [facility] #24865, [address], [place], [id number], 04/29/2024 14:25:58 pramipexo le 0.75 mg tablet 2022 024 rosario [address] [facility] #71238, [address], [place], [id number], 02/12/2025 09:13:58 Linzess 145 mcg capsule 2022 024 [facility] #88268, [address], [place], [id number], 04/29/2024 14:25:56 Nurtec ODT 75 mg disintegr ating tablet 2022 024 [facility] #43210, [address], [place], [id number], 04/29/2024 14:26:10 propranol ol ER 80 mg capsule,2 4 hr,extend ed release 2022 024 rosario [facility] #34401, [address], [place], [id number], 02/12/2025 09:14:04 omeprazol e 40 mg capsule,d elayed release 2022 024 [facility] #11177, [address], [place], [id number], 04/29/2024 14:26:16 loratadin e 10 mg tablet [address] [facility] #19400, [address], [place], [id number], 04/29/2024 14:25:50 celecoxib 100 mg capsule [address] [facility] #94977, [address], [place], [id number], 04/29/2024 14:25:35 buspirone 7.5 mg tablet [address] [facility] #42047, [address], [place], [id number], 05/09/2024 18:42:37 ezetimibe 10 mg tablet [address] [facility] #24058, [address], [place], [id number], 04/29/2024 14:25:41 fenofibra te nanocryst allized 145 mg tablet [address] [facility] #01945, [address], [place], [id number], 04/29/2024 14:25:44 pramipexo le 0.75 mg tablet [address] [facility] #80215, [address], [place], [id number], 04/29/2024 14:26:09 Linzess 145 mcg capsule [address] [facility] #44086, [address], [place], [id number], 04/29/2024 14:25:46 Nurtec ODT 75 mg disintegr ating tablet [address] [facility] #64978, [address], [place], [id number], 04/29/2024 14:26:00 propranol ol ER 80 mg capsule,2 4 hr,extend ed release [address] [facility] #09725, [address], [place], [id number], 04/29/2024 14:26:11 omeprazol e 40 mg capsule,d elayed release [address] [facility] #62493, [address], [place], [id number], 04/29/2024 14:26:03 Patient TargetsNo targets recorded. Patient Instructions Encounter Date Encounter Id Patient Instructions Last Modified By Organization Details Last Modified Time 04/23/2023 [id number] weight managemen t education [email or web address] Not available 04/23/2023 13:44:18 Reason for Referral Lime Boiler Referral for Ca rdiac arrhythmia Referring Physician: Rema Bernardo, Internal Medicine, Encounter Date: 05/09/2024 Results Created Date Observation Date Name Description Value Unit Range Abnormal Flag Note LastModifiedBy Organization Detail LastModifiedTime 10/28/20 23 10/29/2023 CBC (H/H, RBC, INDIC ES, WBC, PLT) white blood cell count 7.8 thous and/u L 3.8-10 .8 normal Not Available [address], [address], 10/29/2023 09:09:06 10/28/2010/29/2023 CBC (H/H, RBC, INDIC ES, WBC, PLT) red blood cell count 3.91 bry on/uL 3.80-5 .10 normal Not Available [facility] [address], [address], 10/29/2023 09:09:06 10/28/2010/29/2023 CBC (H/H, RBC, INDIC ES, WBC, PLT) hemoglobin 12.1 g/dL 11.7-1 5.5 normal Not Available [address], [address], 10/29/2023 09:09:06 10/28/2010/29/2023 CBC (H/H, RBC, INDIC ES, WBC, PLT) hematocrit 37.8 % 35.0-4 5.0 normal Not Available [facility] [address], [address], 10/29/2023 09:09:06 10/28/2010/29/2023 CBC (H/H, RBC, INDIC ES, WBC, PLT) MCV 96.7 fL 80.0-1 00.0 normal Not Available [address], [address], 10/29/2023 09:09:06 10/28/2010/29/2023 CBC (H/H, RBC, INDIC ES, WBC, PLT) MCH 30.9 pg 27.0-3 3.0 normal Not Available [facility] [address], [address], 10/29/2023 09:09:06 10/28/2010/29/2023 CBC (H/H, RBC, INDIC ES, WBC, PLT) MCHC 32.0 g/dL 32.0-3 6.0 normal Not Available [address], [address], 10/29/2023 09:09:06 10/28/2010/29/2023 CBC (H/H, RBC, INDIC ES, WBC, PLT) RDW 12.2 % 11.0-1 5.0 normal Not Available [address], [address], 10/29/2023 09:09:06 10/28/2010/29/2023 CBC (H/H, RBC, INDIC ES, WBC, PLT) platelet count 358 thous and/u L 140-40 0 normal Not Available [address], [address], 10/29/2023 09:09:06 10/28/2010/29/2023 CBC (H/H, RBC, INDIC ES, WBC, PLT) MPV 9.8 fL 7.5-12 .5 normal Not Available [address], [address], 10/29/2023 09:09:06 10/28/2010/29/2023 IRON, TIBC AND JUAN LUIS TIN PANEL iron, total 78 mcg/d L 40-190 normal Not Available [address], [address], 10/29/2023 11:21:45 10/28/2010/29/2023 IRON, TIBC AND JUAN LUIS TIN PANEL iron binding capacity 365 mcg/d L_(ca lc) 250-45 0 normal Not Available [address], [address], 10/29/2023 11:21:45 10/28/20 23 10/29/2023 IRON, TIBC AND JUAN LUIS TIN PANEL % saturation 21 %_(ca lc) 16-45 normal Not Available [address] [place], [address], 10/29/2023 11:21:45 10/28/20 23 10/29/2023 IRON, TIBC AND JUAN LUIS TIN PANEL ferritin 18 NG/mL 16-232 normal Not Available [address], [address], 10/29/2023 11:21:45 10/28/20 23 10/29/2023 LIPID PANEL , STAND JOSEFINA cholesterol, total 134 mg/dL <200 normal Not Available [address], [address], 10/29/2023 11:21:46 10/28/20 23 10/29/2023 LIPID PANEL , STAND JOSEFINA HDL cholesterol 41 mg/dL > or = 50 low Not Available [address], [address], 10/29/2023 11:21:46 10/28/20 23 10/29/2023 LIPID PANEL , STAND JOSEFINA triglyceride s 110 mg/dL <150 normal Not Available [address], [address], 10/29/2023 11:21:46 10/28/20 23 10/29/2023 LIPID PANEL , STAND JOSEFINA LDL-choleste rol 73 mg/dL _(girma c) normal Refer ence range : <100 Suzi able range <100 mg/dL for prima ry preve ntion ; <70 mg/dL for patie nts with CHD or diabe tic patie nts with > or = 2 CHD risk facto rs. LDL-C is now calcu lated using the Viki knight-Hop sancho sanchez n, which is a valid ated novel cedrick suazo than the Fried albert equat ion in the estim ation of LDL-C . Viki knight SS et al. TAMICA. 2013; 310(1 9): 2061- 2068 (http ://ed ucati on.Qu estDi Radiant Communicationss. com/f aq/FA Q164) Not Available [address] [address] [place], [address], 10/29/2023 11:21:46 10/28/20 23 10/29/2023 LIPID PANEL , STAND JOSEFINA chol/HDLC ratio 3.3 (calc ) <5.0 normal Not Available [address] [address] [place], [address], 10/29/2023 11:21:46 10/28/20 23 10/29/2023 LIPID PANEL , STAND JOSEFINA non HDL cholesterol 93 mg/dL _(girma c) <130 normal For patie nts with diabe kassy plus 1 major ASCVD risk facto r, treat ing to a non-H DL-C goal of <100 mg/dL (LDL- C of <70 mg/dL ) is consi dered a thera peuti c optio n. Not Available [address] [address] [place], [address], 10/29/2023 11:21:46 10/28/20 23 10/29/2023 COMPR EHENS ESTEVAN METAB OLIC PANEL glucose 90 mg/dL 65-99 normal Fasti ng refer ence inter latoya Not Available [address] [address] [place], [address], 10/29/2023 11:21:46 10/28/20 23 10/29/2023 COMPR EHENS ESTEVAN METAB OLIC PANEL urea nitrogen (BUN) 10 mg/dL 7-25 normal Not Available [address] [address] [place], [address], 10/29/2023 11:21:46 10/28/20 23 10/29/2023 COMPR EHENS ESTEVAN METAB OLIC PANEL creatinine 0.84 mg/dL 0.50-0 .99 normal Not Available [address] [address] [place], [address], 10/29/2023 11:21:46 10/28/20 23 10/29/2023 COMPR EHENS ESTEVAN METAB OLIC PANEL eGFR 89 mL/mi n/1.7 3m2 > or = 60 normal Not Available [address], [address], 10/29/2023 11:21:46 10/28/20 23 10/29/2023 COMPR EHENS ESTEVAN METAB OLIC PANEL BUN/creatini ne ratio SEE NOTE: (calc ) 6-22 Not Repor sheba: BUN and Creat inine are withi n refer ence range . Not Available [address] [place], [address], 10/29/2023 11:21:46 10/28/20 23 10/29/2023 COMPR EHENS ESTEVAN METAB OLIC PANEL sodium 139 mmol/ L 135-14 6 normal Not Available [address], [address], 10/29/2023 11:21:46 10/28/20 23 10/29/2023 COMPR EHENS ESTEVAN METAB OLIC PANEL potassium 4.4 mmol/ L 3.5-5. 3 normal Not Available [address], [address], 10/29/2023 11:21:46 10/28/20 23 10/29/2023 COMPR EHENS ESTEVAN METAB OLIC PANEL chloride 105 mmol/ L 98-110 normal Not Available [address], [address], 10/29/2023 11:21:46 10/28/20 23 10/29/2023 COMPR EHENS ESTEVAN METAB OLIC PANEL carbon dioxide 29 mmol/ L 20-32 normal Not Available [address], [address], 10/29/2023 11:21:46 10/28/20 23 10/29/2023 COMPR EHENS ESTEVAN METAB OLIC PANEL calcium 9.3 mg/dL 8.6-10 .2 normal Not Available [address], [address], 10/29/2023 11:21:46 10/28/20 23 10/29/2023 COMPR EHENS ESTEVAN METAB OLIC PANEL protein, total 7.1 g/dL 6.1-8. 1 normal Not Available [address], [address], 10/29/2023 11:21:46 10/28/20 23 10/29/2023 COMPR EHENS ESTEVAN METAB OLIC PANEL albumin 4.4 g/dL 3.6-5. 1 normal Not Available [address], [address], 10/29/2023 11:21:46 10/28/20 23 10/29/2023 COMPR EHENS ESTEVAN METAB OLIC PANEL globulin 2.7 g/dL_ (calc ) 1.9-3. 7 normal Not Available [address], [address], 10/29/2023 11:21:46 10/28/20 23 10/29/2023 COMPR EHENS ESTEVAN METAB OLIC PANEL albumin/glob ulin ratio 1.6 (calc ) 1.0-2. 5 normal Not Available [address], [address], 10/29/2023 11:21:46 10/28/20 23 10/29/2023 COMPR EHENS ESTEVAN METAB OLIC PANEL bilirubin, total 0.6 mg/dL 0.2-1. 2 normal Not Available [address], [address], 10/29/2023 11:21:46 10/28/20 23 10/29/2023 COMPR EHENS ESTEVAN METAB OLIC PANEL alkaline phosphatase 77 U/L 31-125 normal Not Available [address], [address], 10/29/2023 11:21:46 10/28/20 23 10/29/2023 COMPR EHENS ESTEVAN METAB OLIC PANEL AST 14 U/L 10-30 normal Not Available [facility] [address] [address] [place], [address], 10/29/2023 11:21:46 10/28/20 23 10/29/2023 COMPR EHENS ESTEVAN METAB OLIC PANEL ALT 12 U/L 6-29 normal Not Available [address] [address] [place], [address], 10/29/2023 11:21:46 10/28/20 23 10/29/2023 VITAM IN B12/F OLATE , SERUM PANEL vitamin B12 975 pg/mL 200-11 00 normal Not Available [address] [place], [address], 10/29/2023 11:04:05 10/28/20 23 10/29/2023 VITAM IN B12/F OLATE , SERUM PANEL folate, serum >24.0 NG/mL normal Refer ence Range Low: <3.4 Borde rline : 3.4-5 .4 Keerthi l: >5.4 Not Available [address] [address] [place], [address], 10/29/2023 11:04:05 10/28/2010/29/2023 VITAM IN D,25- OH,TO STEVE,I A vitamin [...] /MS is recom scott d: order code 35842 (mauricio ents >2yrs ). See Note 1 Note 1 For addit ional infor clark matos refer to http: //[facility] peewee Chu gnost ics.c om/fa q/FAQ 199 (This link is being provi ded for infor paresh quevedo/ educfarideh aguirre purpo ses only. ) Not Available [facility] [address] [place], [address], 10/29/2023 11:04:06 11/26/19 24 11/26/2023 MRI, brain , w/o contr ast No observ ation record ed. Neurology Dept [facility] (New Referrals) [address] [place], [address], 11/26/2023 11:21:01 01/27/20 25 01/26/2025 XR, lumba r spine No observ ation record ed. [facility] [address] [place], [address], 01/26/2025 16:13:16 02/15/20 25 02/09/2025 MRI, hip, w/o contr ast No observ ation record ed. [email or web address] Not Available 09:13:52 02/29/20 25 02/28/2025 US, pelvi s, compl ete No observ ation record ed. [address] [facility], [place], [address], 03/08/2025 11:19:17 03/07/20 25 03/06/2025 US, pelvi s, compl ete No observ ation record ed. [address], [place], [address], 03/08/2025 11:19:17 Result Notes None recorded. Problems Name Problem SNOMED Code Status Onset Date Resolution Date Notes Provider Name and Address Organization Details Recorded Time Tachycardia 9813082 Active 2020 Crystal L. Az, PLASTIC OUTFITTER-BC, PMHNP-BC [address], [facility] [place], [address], [facility] 3 10:03:56 Hyperlipidemia 36964984 Active 2020 Crystal L. Az, PLASTIC OUTFITTER-BC, PMHNP-BC [address], [facility] [place], [address], [facility] [place] 3 10:03:56 Osteoarthritis of knee 400370379 Active 2020 Crystal LLiudmila Bernardo, PLASTIC OUTFITTER-BC, PMHNP-BC [address], [facility] [place], [address], [facility] 3 10:03:56 Migraine 99067038 Active 2020 Crystal LLiudmila Bernardo, PLASTIC OUTFITTER-BC, PMHNP-BC [address], [facility], [address], [facility] [place] 3 10:03:56 Vitamin D deficiency 40053443 Active 2020 Crystal Stephane Bernardo, PLASTIC OUTFITTER-BC, PMHNP-BC [address], [facility], [address], [facility] 3 10:03:56 Anxiety 18802500 Active 2020 Crystal Stephane Bernardo, PLASTIC OUTFITTER-BC, PMHNP-BC [address], [facility], [address], [facility] [place] 3 10:03:56 Elevated blood-pressure reading without diagnosis of hypertension 904772893 Active 2020 Crystal L. Az, PLASTIC OUTFITTER-BC, PMHNP-BC [address], [facility] [place], [address], [facility] [place] 3 10:03:56 Restless legs 34961262 Active 2020 Crystal LLiudmila Bernardo, PLASTIC OUTFITTER-BC, PMHNP-BC [address], [facility] [place], [address], [facility] 3 10:03:56 Gastroesophage al reflux disease without esophagitis 520067466 Active 2020 NIESHA Quinonez-BC, PMHNP-BC [address] , [place], [address], [facility] 3 10:03:56 Constipation 85400826 Active 2021 NIESHA Quinonez-BC, PMHNP-BC [address] , [place], [address], [facility] 3 10:03:56 Nasal congestion 27112043 Active 2021 NIESHA Quinonez-BC, PMHNP-BC [address] , [place], [address], [facility] 3 10:03:56 Essential hypertension 03935843 Active 2023 NIESHA Quinonez-TIM, PMHNP-BC [address] [place], [address], [facility] 4 18:50:55 Problem Notes None recorded. Procedures Surgical History Date Name Laterality Status Provider Name and Address Organization Details Recorded Time 7 ligation of fallopian tube completed QUIN OLSON [facility] 01/30/2021 11:02:59 Imaging Results None recorded. Procedure Notes None recorded. Medical Equipment None Reported. Allergies Allergen ID Allergen Name Allergen Category Reaction Reaction Severity Criticality Documentation Date Start Date Code Code System Note Provider Name and Address Organization Details Recorded Time 3435 Product containin g penicilli n (product) medicatio n Not available Not available Not available 01/30/2021 91530 8001 SNOMED NIESHA Quinonez-BC, PMHNP-BC [address] [facility], [place], [address], [facility] 1 11:35:28 Medications Name Sig Start Date Stop Date Status Note LastModified by Organization Details LastModified Time cyclobenzap rine 10 mg tablet 02/10 /2023 completed Not Available Not Available Not Available [...] azole 800 mg-trimetho prim 160 mg tablet Take 1 tablet every 12 hours by oral route for 5 days. 03/04 completed Not Available Not Available Not Available [...] mg tablet TK 1 T PO QD PAC 01/30 completed Not Available Not Available Not [...] Not Avai lable Linzess 145 mcg capsule TAKE 1 CAPSULE BY MOUTH EVERY DAY 2024 active Not Available Not Available Not Avai lable Nurtec ODT 75 mg disintegrat ing tablet Take 1 tablet every other day by oral route for 90 days. active Not Available Not Available No t Available Qulipta 30 mg tablet TAKE 1 TABLET BY MOUTH EVERY DAY 05/23 completed Not Available Not Available Not Available Vitals Date Recorded Body height Pain severity - 0-10 verbal numeric rating [Score] - Reported Body temperature Oxygen saturation Oxygen saturation in Arterial blood by Pulse oximetry Respiratory rate Heart rate Body mass index (BMI) Body weight Systolic And Diastolic Provider Name and Address Organization Details Last Updated DateTime 5 172.72 cm 5 97.9 [degF] 100 % 100 % 16 /min 109 /min 28.3 kg/m2 84159.6 2 g 133/91 mm[Hg] Radha Willson [facility] 5 09:07:36 Date Recorded Body height Body mass index (BMI) Body weight Heart rate Respiratory rate Oxygen saturation Oxygen saturation in Arterial blood by Pulse oximetry Body temperature Pain severity - 0-10 verbal numeric rating [Score] - Reported Systolic And Diastolic Provider Name and Address Organization Details Last Updated DateTime 3 175.26 cm 26.4 kg/m2 15181.3 9 g 87 /min 16 /min 99 % 99 % 97.6 [degF] 0 136/88 mm[Hg] Richa Weiss [facility] 3 10:00:33 Date Recorded Body height Body temperature Oxygen saturation Oxygen saturation in Arterial blood by Pulse oximetry Heart rate Respiratory rate Pain severity - 0-10 verbal numeric rating [Score] - Reported Body mass index (BMI) Body weight Systolic And Diastolic Systolic And Diastolic Provider Name and Address Organization Details Last Updated DateTime 4 172.72 cm 98.1 [degF] 99 % 99 % 107 /min 17 /min 0 29.1 kg/m2 64537.5 8 g 147/104 mm[Hg] 138/101 mm[Hg] Radha Demetris [facility] 4 16:30:08 Date Recorded Body height Body mass index (BMI) Body weight Body temperature Pain severity - 0-10 verbal numeric rating [Score] - Reported Heart rate Respiratory rate Oxygen saturation Oxygen saturation in Arterial blood by Pulse oximetry Systolic And Diastolic Provider Name and Address Organization Details Last Updated DateTime 3 175.26 cm 28.2 kg/m2 10576.4 2 g 97.5 [degF] 0 76 /min 18 /min 100 % 100 % 122/84 mm[Hg] Layo Yamel [facility] 3 11:51:00 Social History Question Answer Notes LastModified by Organizat ion Details LastModified Time Tobacco Smoking Status [facility] 10:58:17 Do You Have An Advance Directive? No [email or web address] Information n ot available 01/30/2021 How Many Years Have You Consumed Alcohol? 11 [email or web address] Information not available 05/09/2024 Are You Currently Sexually Active With Anyone Who Has Traveled (within The Last 12 Weeks) To A Zika-affected Area? No [email or web address] Information not available 01/30/2022 Do You Wear A Helmet When Biking? No [email or web address] Information not available 01/30/2022 Are You Blind Or Do You Have Difficulty Seeing? No wixpzjicu75 Information n ot available 01/30/2022 Is Blood Transfusion Acceptable In An Emergency? Yes [email or web address] Information not available 07/10/2022 What Is Your Level Of Caffeine Consumption? None bgmzqlda43 Information not available 01/30/2021 How Much Tobacco Do You Chew? None zfzocluf86 Information not available 01/30/2021 What Type Of System Administrator Do You Use? None [email or web address] Information not available 01/30/2022 What Is Your Code Status? Full Code vlhgkosiu41 Information not available 01/30/2022 In The 14 Days Before Symptom Onset, Have You Had Close Contact With A Laboratory-confirm ed COVID-19 While That Case Was Ill? No kocjadryy42 Information n ot available 01/30/2022 In The 14 Days Before Symptom Onset, Have You Had Close Contact With A Person Who Is Under Investigation For COVID-19 While That Person Was Ill? No uqwmrzcls80 Information not available 01/30/2022 Have You Been To An Area Known To Be High Risk For COVID-19? No Information not available 01/30/2022 Are You Deaf Or Do You Have Serious Difficulty Hearing? No quqsazqlq33 Information not available 01/30/2022 What Type Of Diet Are You Following? REGULAR umsujgpo34 Information n ot available 01/30/2021 Which Illicit Or Recreational Drugs Have You Used? Marjuana ibiekjuun81 Information not available 01/30/2022 Have You Processed Blood Or Body Fluids From An Ebola Virus Disease Patient Without Appropriate PPE? No ujbtsxami13 Information not available 01/30/2022 Do You Reside In Or Have You Traveled To An Area Where Ebola Virus Transmission Is Active? No ocrbgvdnm03 Information not available 01/30/2022 Education 12 Information no t available 01/30/2021 What Is The Highest Grade Or Level Of School You Have Completed Or The Highest Degree You Have Received? [id number] Information not available 01/30/2022 How Many Days Of Moderate To Strenuous Exercise, Like A Brisk Walk, Did You Do In The Last 7 Days? 7 qznvxuvyw39 Information not available 01/30/2022 On Those Days That You Engage In Moderate To Strenuous Exercise, How Many Minutes, On Average, Do You Exercise? 60 Information not available 01/30/2022 How Many Times Per Week Do You Exercise? 5-7 Times Per Week [email or web address] Information not available 07/10/2022 Have There Been Any Changes To Your Family Or Social Situation? No wrezjpjdo87 Information no t available 01/30/2022 What Is The Fluoride Status Of Your Home? Unknown eurmblkpz51 Information not available 01/30/2022 Are There Any Guns Present In Your Home? No rtgusqwp29 Information not available 01/30/2021 Which Of Your Hands Is Dominant? Right jxveilgvy27 Information n ot available 01/30/2022 Hard Of Hearing Or Deaf In One Or Both Ears? No yqdahkum11 Information not available 01/30/2021 Have You Recently Or Are You Planning To Travel To An Area With Zika Virus? No vdezskhbh15 Information not available 01/30/2022 How Many Years Have You Used Illicit Or Recreational Drugs? 10 ccmtikzqfl352 Information not available 05/09/2024 Do You Use Insect Repellent Routinely? Yes eqpnmxoae65 Information not available 01/30/2022 Legally Blind In One Or Both Eyes? No inyaiuai62 Information no t available 01/30/2021 Live Alone Or With Others? With Others Information not available 01/30/2021 Have You [place] Unsteady Or Fallen More Than Once In The Past Year? No [email or web address] Information not available 02/12/2025 Can You Switch A Light On/off Easily From Your Bed Without Fear Of Falling? Yes Information not available 02/12/2025 Are Floors And Walkways In Your Home Safe And In Good Repair? Yes gxmjgbcowk335 Information not available 02/12/2025 Is It Difficult To Get Out Of Bed Without Assistance? No oixmtymcsf077 Information not available 02/12/2025 Is It Difficult To Get Up From Sitting In A Chair Without Assistance? No hkslasneak194 Information not available 02/12/2025 Is It Difficult To Get Up From Sitting On The Toilet Without Assistance? No bulzkzmdup553 Information not available 02/12/2025 Is The Lighting In Your Home Sufficient To See Safely? Yes vbngkozuzi934 Information not available 02/12/2025 Do You Have A History Of Falling? No ojqdczanan804 Information not available 02/12/2025 Is Your Gait (walking Style) Regular? Yes kuexvalyks904 Information not available 02/12/2025 Have You Had A Colonoscopy Or Colorectal Cancer Screening? If So What Was The Date? No wgniijlcyi332 Information n ot available 02/12/2025 Have You Had A Dexa (bone Density) Scan? If So What Was The Date? No qmelzrpdgt624 Information not available 02/12/2025 Have You Had A Full Body Skin Cancer Exam? If So What Was The Date? No bmafbmrazn377 Information n ot available 02/12/2025 Have You Had A Hepatitis C Screening? If So What Was The Date? No plitmfghay467 Information n ot available 02/12/2025 Have You Had An Eye Exam? If So What Was The Date? 2023 koixxdqrde671 Information n ot available 02/12/2025 Do You Have A Medical Power Of Financial Secretary? No iavzelvbt31 Information not available 01/30/2022 What Was The Date Of Your Most Recent Tobacco Screening? 02/12/2025 qbbjkytcoi425 Information not available 02/12/2025 How Many Children Do You Have? 5 keavwdhf61 Information not available 01/30/2021 Have You Ever Been Counseled For Unhealthy Alcohol Use? No aubtrj113 Information not available 07/10/2022 Performs Monthly Self-breast Exam? Yes nwbalcgf71 Information no t available 01/30/2021 Do You Have Any Pets? No neffbwdkr79 Information not available 01/30/2022 Do You Use Protection During Sex? No tzeordzra62 Information not available 01/30/2022 What Is Your Relationship Status? Domestic Partner ntewjigtb46 Information not available 01/30/2022 Do You Use Your Seat Belt Or Car Seat Routinely? Yes nwqriefah55 Information not available 01/30/2022 Seat Belts Used Routinely Yes gdipdmix59 Information not available 01/30/2021 Are You Sexually Active? Yes phrqvurpd24 Information not available 01/30/2022 Smoke Alarm In Home Yes ihstedxj74 Information not available 01/30/2021 Do You Have Smoke And Carbon Monoxide Detectors In Your Home? Yes ejqsdmhha54 Information not available 01/30/2022 Are You Passively Exposed To Smoke? Yes sigulicx48 Information no t available 01/30/2021 How Much Tobacco Do You Smoke? No Information not available 01/30/2021 Do You Participate In Social Media? Yes ttwybe968 Information not available 07/10/2022 What Types Of Sporting Activities Do You Participate In? [place]/Walki ng/Steps/Bicy james hnxunjwxy84 Information not available 01/30/2022 General Stress Level High erqmmpng80 Information not available 01/30/2021 Do You Use Sunscreen Routinely? No hlhgepwh99 Information not available 01/30/2021 How Many Years Have You Smoked Tobacco? 0 vpaiwj67 Information not available 01/30/2021 Have You Recently Traveled Abroad? No yxuqmlakm89 Information not available 01/30/2022 Have You Used IV Drugs? No kyddtlnve81 Information not available 01/30/2022 Do You Have Difficulty Walking Or Climbing Stairs? No qopuncwxn48 Information not available 01/30/2022 Are You Currently In School? No Information not available 01/30/2022 Do You Have Any Dietary Restrictions? No bmxuljekt18 Information not available 01/30/2022 Sex: Female Functional Status Question Answer Note LastModified by Organizat ion Details LastModified Time How many times per week do you consume alcohol? Less than 1 time per week wsveyjmxbj661 Information not available 05/09/2024 Do you or have you ever used smokeless tobacco? Never used smokeless tobacco uknhunst76 Information not available 01/30/2021 Are you currently employed? Yes rxrtkqyu00 Information not available 01/30/2021 Do you have transportation difficulties? No elqxsrpsi77 Information not available 01/30/2022 Are you able to care for yourself independently? Yes Information not available 01/30/2021 Do you have difficulty dressing, bathing, grooming, or toileting? No viitefjav12 Information not available 01/30/2022 Do you or have you ever used e-cigarettes or vape? Never used electronic cigarettes exhvquvr95 Information not available 01/30/2021 What is your exercise level? Moderate dwasclyph22 Information not available 01/30/2022 Do you use any illicit or recreational drugs? Yes swomrmppr03 Information not available 01/30/2022 Do you or have you ever used any other forms of tobacco or nicotine? No ewdpvciua54 Information not available 01/30/2022 What is your level of alcohol consumption? Occasional eomuyeod60 Information not available 01/30/2021 Are you able to walk? YESWOREST Information not available 01/30/2021 Do you have difficulty doing errands alone? No Information not available 01/30/2022 What is your occupation? [employer] ecqdgcqd06 Information not available 01/30/2021 Mental Status Question Answer Note LastModified by Organizat ion Details LastModified Time Do you feel stressed (tense, restless, nervous, or anxious, or unable to sleep at night)? [id number] bwgmppfol38 Information not available 01/30/2022 Do you have difficulty concentrating, remembering or making decisions? No gjuzdaxfx65 Information no t available 01/30/2022 Family History Relationship Description Onset Age of this Age Resolved Age Notes LastModified by Organization Details LastModified Time Father Family history of stroke vbyndayt32 Not available 01/30 10:57:13 Father Hypertensive disorder Not available 01/30 10:57:53 Mother Family history of stroke wcpehmsk55 Not available 01/30 10:57:28 Mother Hypertensive disorder dujbpnya06 Not available 01/30 10:58:01 Medical History Condition [...] virus, quadrivalent, PF 1 completed Annmarie Rodrigues [facility], [facility] 08/22/2021 12:18:52 Influenza, split virus, quadrivalent, PF 2 completed NIESHA Quinonez-BC, PMHNP-BC [address] [place], [address], [facility] 07/10/2022 10:38:27 pneumococcal polysaccharide PPV23 2 completed KAREN QuinonezBC, PMHNP-BC [address] [place], [address], [facility] 07/10/2022 10:38:27 Influenza, split virus, quadrivalent, PF 3 completed Not Available [facility] 09/06/2023 14:26:32 COVID-19, mRNA, LNP-S, PF, 30 mcg/0.3 mL dose 1 completed Reggie fitzgerald, [facility] 07/10/2022 08:59:42 COVID-19, mRNA, LNP-S, PF, 30 mcg/0.3 mL dose 1 completed Reggie fitzgerald, [facility] 07/10/2022 09:00:22 COVID-19, mRNA, LNP-S, PF, 30 mcg/0.3 mL dose 2 completed Reggie fitzgerald, [facility] 07/10/2022 09:00:33 Past Encounters Encounter ID Performer Location Encounter Start Date Encounter Closed Date Diagnosis/Indication Diagnosis SNOMED-CT Code Diagnosis ICD10 Code Diagnosis Note [id number] Rema Bernardo [facility], [facility] Main Office [address] [place] [address] 01/30/2021 10:45:48 01/30/2021 12:44:21 Hyperlipidemia 03677577 E78.5 Tachycardia 4101676 R00. 0 Migraine 13347138 G43.90 9 Vitamin D deficiency 347 51806 E55.9 Anxiety 86965925 F41.9 Osteoarthr itis of knee 122282585 M17.0 Restless legs 84996553 G 25.81 Left-sided piriformis syndrome 3528179275 22365 M54.32 [id number] Rema Bernardo [facility], [facility] Main Office [address] [place] [address] 03/07/2021 10:22:29 03/07/2021 11:53:35 Hyperlipidemia 39795816 E78.5 Increased Atorvastat in due to levels. Migraine 86534247 G43.90 9 Vitamin D deficiency 347 17456 E55.9 Started back to taking Vitamin D. Anxiety 97714582 F41.9 Buspirone has helped tremendous ly with pain. Osteoarthr itis of knee 352828034 M17.0 Doing much better with pain. Meloxicam has helped significan tly. Restless legs 57915846 G 25.81 Left-sided piriformis syndrome 4791499888 47598 M54.32 Body mass index 25-29 - overweight 025105208 Z68.26 Elevated blood-pressure reading without diagnosis of hypertension 524502969 R03.0 Gastroesop hageal reflux disease without esophagitis 123298188 K21.9 [id number] Rema Bernardo [facility], [facility] Main Office [address] [place] [address] 08/22/2021 10:18:53 08/22/2021 12:33:42 Hyperlipidemia 53253400 E78.5 Vitamin D deficiency 347 73756 E55.9 Osteoarthr itis of knee 813484649 M17.0 Pain of mu ltiple joints 94359589 M25.50 Administra tion of influenza vaccine 21105862 Z23 Pain of ri ght shoulder joint 3809943235 4834667 M25.511 Anxiety 96397996 F41.9 Buspirone has helped tremendous ly with pain. Gastroesop hageal reflux disease without esophagitis 561423266 K21.9 Restless legs 66283521 G 25.81 Migraine 06087198 G43.90 9 [id number] Rema Bernardo [facility], [facility] Main Office [address] [place] [address] 12/05/2021 09:29:41 12/05/2021 10:16:13 Hyperlipidemia 12002761 E78.5 You can lower your triglyceri de [...] blood triglyceri estephanie. Vitamin D deficiency 347 54865 E55.9 Osteoarthr itis of knee 475288712 M17.0 Celebrex has been decreasing pain and providing a benefit. Anxiety 04853968 F41.9 Buspirone has helped tremendous ly with anxiety Gastroesop hageal reflux disease without esophagitis 886682484 K21.9 continue Prilosec as this is providing a benefit and controllin g GERD. Restless legs 20614288 G 25.81 RLS is doing much better with medication . Migraine 57688658 G43.90 9 History of SARS-CoV-2 29 69950267 33454738 Z86.16 Will reevaluate conditions at 3 months s/p infection to see if resolvemen t of symptoms or looking at long haul for covid. Nasal congestion 6816074 0 R09.81 Start Claritin to help with congestion . Constipation 87466084 K5 9.00 Hypertensi on screening 290151614 Z13.6 [id number] Rema Calderón Az, [facility] Main Office [address] [place] [address] 01/30/2022 09:04:20 01/30/2022 10:24:04 Hyperlipidemia 69892024 E78.5 taking medication s. labs obtained to evaluate levels. Vitamin D deficiency 347 05347 E55.9 has not been taking medication s. labs obtained to evaluate levels. Osteoarthr itis of knee 814386105 M17.0 Celebrex has been decreasing pain and providing a benefit. Anxiety 10918825 F41.9 medication has been helping with anxiety. Gastroesop hageal reflux disease without esophagitis 543351215 K21.9 continue Prilosec as this is providing a benefit and controllin g GERD. Restless legs 29083760 G 25.81 RLS is doing much better with medication . Migraine 83444005 G43.90 9 doing better with episodes. has only had 1 migraine since last visit. Nasal congestion 9460961 0 R09.81 Claritin has been helping. continue regimen. Constipation 20786420 K5 9.00 Linzess samples given as insurance refused to cover medication . Eczema 19813449 L30.9 [id number] [facility] Main Office [address] [place] [address] 04/17/2022 09:10:10 04/17/2022 11:11:09 Hyperlipidemia 64171142 E78.5 Still having increasing levels with Trigs. Added Ezetimibe. Anxiety 66321204 F41.9 medication has been helping with anxiety. Continue Buspirone. However, anxiety does intensify during migraine episodes. Restless legs 12621468 G 25.81 RLS is doing much better with medication . Migraine 64356702 G43.90 9 Nurte prescribed which is medically necessary for migraines as other medication contraindi cated d/t cardiac history. Constipation 87236240 K5 9.00 Linzess is medically necessary as it is the only treatment regimen to provide relief. Stable on samples and would cause significan t harm removing medication from treatment regimen. Osteoarthr itis of knee 741121931 M17.0 Celebrex has been decreasing pain and providing a benefit. Vitamin D deficiency 347 71547 E55.9 has not been taking medication s. labs obtained to evaluate levels. Nasal congestion 9517038 0 R09.81 Claritin has been helping. continue regimen. Gastroesop hageal reflux disease without esophagitis 034173090 K21.9 continue Prilosec as this is providing a benefit and controllin g GERD. [id number] Rema Bernardo, [facility] Main Office [address] [place] [address] 07/10/2022 09:12:02 07/10/2022 12:39:22 Anxiety 91814554 F41.9 Continue regimen. Exacerbati ons occur duing migraine episodes. Hyperlipidemia 39836841 E78.5 Taking medication s. labs to eval levels. Restless legs 20797378 G 25.81 RLS is doing much better with medication . Migraine 06875490 G43.90 9 Constipation 06243983 K5 9.00 Doing very well on Linzess and having regular bowel movements with medication . This is the best she has been with the medication . Osteoarthr itis of knee 915326293 M17.0 Celebrex has been decreasing pain and providing a benefit. Vitamin D deficiency 347 21506 E55.9 Taking medication s. labs to eval levels. Nasal congestion 4203044 0 R09.81 Claritin has been helping. continue regimen. Gastroesop hageal reflux disease without esophagitis 438252742 K21.9 Continue medication as directed and if any issues with insurance and obtaining medication to let office know. Administra tion of influenza vaccine 50883667 Z23 Administra tion of pneumococcal vaccine 66948894 Z23 Tachycardia 4005182 R00. 0 [id number] Rema Bernardo, [facility] Main Office [address] [place] [address] 12/25/2022 09:52:54 12/25/2022 14:38:24 Anxiety 00119544 F41.9 Continue regimen. Exacerbati ons occur during migraine episodes. Hyperlipidemia 09697314 E78.5 Taking medication s. labs to eval levels. Restless legs 73801959 G 25.81 RLS is doing much better with medication . Migraine 69961061 G43.90 9 Nurtec is helping and taking every other day. Despite such still having migraine episodes.N eurology referral Constipation 78316300 K5 9.00 Doing very well on Linzess and having regular bowel movements with medication . This is the best she has been with the medication . Osteoarthr itis of knee 399033738 M17.0 Celebrex has been decreasing pain and providing a benefit. Vitamin D deficiency 347 66590 E55.9 Taking medication s. labs to eval levels. Nasal congestion 5572112 0 R09.81 Claritin has been helping. continue regimen. Gastroesop hageal reflux disease without esophagitis 287154504 K21.9 Continue medication as directed and if any issues with insurance and obtaining medication to let office know. Anemia 903111909 D64.9 labs to eval levels HIV screening 514278110 Z11.4 [id number] Rema Bernardo, [facility] [facility]-BC, PMHNP- Main Office [address] [place] [address] 04/23/2023 09:55:31 04/23/2023 14:28:21 Anxiety 33391600 F41.9 Anxiety has been doing much better with the improvemen t of her migraines. Hyperlipidemia 74065663 E78.5 taking medication s. labs done by specialist . Requesting results. Restless legs 94912380 G 25.81 RLS is doing much better with medication . Migraine 71382376 G43.90 9 Nurtec is helping and taking every other day. Migraine episodes have improved with the use of Nurtec. Less monthly episodes. Constipation 93525194 K5 9.00 Doing very well on Linzess and having regular bowel movements with medication . This is the best she has been with the medication . Continue Linzess Osteoarthr itis of knee 061623405 M17.0 Celebrex has been decreasing pain and providing a benefit. Vitamin D deficiency 347 36487 E55.9 taking medication s. labs recently done, requesting results from [place]. Nasal congestion 9153510 0 R09.81 Claritin has been helping. continue regimen. Gastroesop hageal reflux disease without esophagitis 975762872 K21.9 Lifestyle modificati ons with wt loss, avoid meals 2-3h before HS. Consider eliminatin g food triggers: chocolate, caffeine, ETOH, acid/spicy food. Continue medication . Anemia 878249543 D64.9 noted to have low levels last lab. Had labs done with endo specialist . Requesting results. Body mass index 25-29 - overweight 229568770 Z68.26 [id number] Rema LucieLiudmila Bernardo [facility], [facility] Main Office [address] [place] [address] 09/06/2023 14:13:25 09/06/2023 14:32:48 Administration of influenza vaccine 28708702 Z23 [id number] Rema Calderón Az [facility], [facility] Main Office [address] [place] [address] 10/28/2023 11:46:29 10/28/2023 14:19:22 Anxiety 01764071 F41.9 Anxiety has been doing much better with the improvemen t of her migraines. Hyperlipidemia 32910176 E78.5 taking medication s. labs to eval levels. Restless legs 77982613 G 25.81 RLS is doing much better with medication . Migraine 78346313 G43.90 9 Nurtec is helping and taking every other day. Migraine episodes have improved with the use of Nurtec. Less monthly episodes. Constipation 84038793 K5 9.00 Doing very well on Linzess and having regular bowel movements with medication . This is the best she has been with the medication . Continue Linzess Osteoarthr itis of knee 422139958 M17.0 Celebrex has been decreasing pain and providing a benefit. Vitamin D deficiency 347 90110 E55.9 taking medication s. labs to eval levels Nasal congestion 8319096 0 R09.81 Claritin has been helping. continue regimen. Gastroesop hageal reflux disease without esophagitis 322970485 K21.9 Lifestyle modificati ons with wt loss, avoid meals 2-3h before HS. Consider eliminatin g food triggers: chocolate, caffeine, ETOH, acid/spicy food. Continue medication . Anemia 738911791 D64.9 labs to eval levels [id number] Rema Calderón Az [facility] Main Office [address] [place] [address] 05/09/2024 15:36:03 05/09/2024 22:43:16 Anxiety 39644317 F41.9 Continue Buspirone to help with anxiety. Hyperlipidemia 62814013 E78.5 Continue regimen and will see what labs show when done with endocrinol ogy. Nasal congestion 1435533 0 R09.81 Claritin has been helping. continue regimen. Gastroesop hageal reflux disease without esophagitis 024961386 K21.9 Lifestyle modificati ons with wt loss, avoid meals 2-3h before HS. Consider eliminatin g food triggers: chocolate, caffeine, ETOH, acid/spicy food. Continue medication . Nausea 405120594 R11.0 has extremely debilitati ng nausea and vomiting during menses and Zofrans help with such. Cardiac arrhythmia 15281 7007 I49.9 Essential hypertension 85697703 I10 [id number] Rema Bernardo, [employer]-BC, PMHNP-BC Main Office [address] [place] [address] 02/12/2025 08:59:57 02/12/2025 17:55:02 Anxiety 51484640 F41.9 Hyperlipidemia 78472340 E78.5 Nasal congestion 3365557 0 R09.81 Gastroesop hageal reflux disease without esophagitis 078125341 K21.9 Essential hypertension 58145939 I10 Constipation 06804052 K5 9.00 Migraine 14712283 G43.90 9 Restless legs 23017471 G 25.81 Tuberculos is screening 101565732 Z11.1 Health Concerns Section Related Observation LastModified by Organization Detai ls LastModified Time None Recorded Concern Status LastModified by Organization Details LastModified Time None Recorded Advance Directives Directive N: Payers Insurance Date Sequence Insurance Name Policy Number Policy Patrick Covered Member ID Patrick Member ID Guarantor Name 02/07/2025 1 [facility] (MEDICAID HMO) [id number] Stephanie Randolph [id number] Stephanie Randolph OBGyn Episode No OBEpisode recorded.
--- OUTSIDE RECORDS SUMMARY | 2025-06-12 08:24 | XMS_ITS | Data Portability ---
Author Organization [facility] Address [address] [place] [address] Care Team Providers Care Batt Packer Name Role Phone LAURA CORDON Primary Care Provider [phone] Assessment Encounter Date Assessment Date Assessment LastModified by Organization Details LastModified Time 01/30/2022 01/30/2022 Annual gynecological exam performed. Patient will come back in a year unless there are new symptoms. Not available 01/30/2022 16:18:16 02/02/2024 02/02/2024 Annual gynecological exam performed. Patient will come back in a year unless there are new symptoms. [email or web address] Not available 02/02/2024 10:33:00 02/19/2025 02/19/2025 Annual gynecological exam performed. Patient will come back in a year unless there are new symptoms. [email or web address] Not available 02/19/2025 16:07:54 Plan of Treatment Reminders Order Date Submit Date Provider Last Modified By Organization Details Last Modified Time Details Appointments Robotic TLH 2024 07:30A Maddison JORGENSEN MD Not available Not available Not available SURG POST OP 2024 05:15P Maddison JORGENSEN MD Not available Not available Not available Lab pap, IG + HR HPV - HPV regardles s but if HPV is positive need subtyping 16,18/45 2024 025 [facility] (Lab), [address] [facility], [place], [address], 02/21/2025 11:57:58 urinalysi s, dipstick 03/20/ 2024 03/20/2 024 [email or web address] [place], [address], [place], [address], 02/02/2024 10:51:57 TSH, serum or plasma 2021 022 [facility] (Lab), [address] [facility], [place], [address], 01/31/2022 02:54:48 CBC w/ auto diff 2021 022 [facility] (Lab), [address], [place], [address], 01/31/2022 02:54:47 CMP, serum or plasma 2021 022 [facility] (Lab), [address] [facility], [place], [address], 01/31/2022 02:54:47 Referral None recorded. Procedures None recorded. Surgeries robotic assisted hysterect urbano with salpingec sanjuana (SURG) 2024 025 [facility] [facility], [facility] [address], [place], [address], 04/27/2025 09:21:50 Imaging MAMMO, screening , digital, bilateral [address] [facility], [address], [place], [address], 02/26/2025 18:55:48 MAMMO, screening , bilateral [address] (Radiology), [address] [place] [address], [address], 05/09/2024 12:02:47 Medication Orders None recorded. Patient TargetsNo targets recorded. Patient InstructionsNo instructions recorded. Reason for Referral None Reported. Results Created Date Observation Date Name Description Value Unit Range Abnormal Flag Note LastModifiedBy Organization Detail LastModifiedTime 01/31/20 22 01/30/2022 CBC W/DIF F WBC 10.4 10'3/ uL 3.6-[address] [facility] (Lab) [address], [place], [address], 01/31/2022 02:54:47 01/31/20 22 01/30/2022 CBC W/DIF F RBC 3.70 10'6/ uL (based on docume nted legal sex) 4.10-[address] [facility] (Lab) [address], [place], [address], 01/31/2022 02:54:47 01/31/20 22 01/30/2022 CBC W/DIF F HGB 11.4 g/dL (based on docume nted legal sex) 11.9-[address] [facility] (Lab) [address], [place], [address], 01/31/2022 02:54:47 01/31/20 22 01/30/2022 CBC W/DIF F HCT 37.1 % (based on docume nted legal sex) 37.4-[address] [facility] (Lab) [address], [place], [address], 01/31/2022 02:54:47 01/31/20 22 01/30/2022 CBC W/DIF F MCV 100.0 fL 82.0-[address] [facility] (Lab) [address], [place], [address], 01/31/2022 02:54:47 01/31/20 22 01/30/2022 CBC W/DIF F MCH 31.0 pg 27.0-[address] [facility] (Lab) [address], [place], [address], 01/31/2022 02:54:47 01/31/20 22 01/30/2022 CBC W/DIF F MCHC 31.0 g/dL 32.0-[address] [facility] (Lab) [address], [place], [address], 01/31/2022 02:54:47 01/31/20 22 01/30/2022 CBC W/DIF F RDW 12.0 % 11.0-[address] [facility] (Lab) [address] [facility], [place], [address], 01/31/2022 02:54:47 01/31/20 22 01/30/2022 CBC W/DIF F plt 336 10'3/ uL 150-[address] [facility] (Lab) [address], [place], [address], 01/31/2022 02:54:47 01/31/20 22 01/30/2022 CBC W/DIF F MPV 10.0 fL 9.8-[address] [facility] (Lab) [address], [place], [address], 01/31/2022 02:54:47 01/31/20 22 01/30/2022 CBC W/DIF F NRBC's 0.00 % [address] [facility] (Lab) [address], [place], [address], 01/31/2022 02:54:47 01/31/20 22 01/30/2022 CBC W/DIF F absolute NRBCs 0.0 10'3/ uL [address] [facility] (Lab) [address] [facility], [place], [address], 01/31/2022 02:54:47 01/31/20 22 01/30/2022 CBC W/DIF F neutrophils 61.0 % 37.0-[address] [facility] (Lab) [address] [place], [address], 01/31/2022 02:54:47 01/31/20 22 01/30/2022 CBC W/DIF F lymphocytes 27.0 % 16.0-[address] [facility] (Lab) [address] [facility], [place], [address], 01/31/2022 02:54:47 01/31/20 22 01/30/2022 CBC W/DIF F monocytes 8.0 % 4.0-[address] [facility] (Lab) [address], [place], [address], 01/31/2022 02:54:47 01/31/20 22 01/30/2022 CBC W/DIF F eosinophils 2.0 % 0.0-9. [address] [facility] (Lab) [address], [place], [address], 01/31/2022 02:54:47 01/31/20 22 01/30/2022 CBC W/DIF F basophils 1.0 % 0.0-2. [address] [facility] (Lab) [address], [place], [address], 01/31/2022 02:54:47 01/31/20 22 01/30/2022 CBC W/DIF F immature granulocytes 1.0 % no define d refere nce range Not Available [facility] (Lab) [address], [place], [address], 01/31/2022 02:54:47 01/31/20 22 01/30/2022 CBC W/DIF F absolute neutrophils 6.5 10'3/ uL 1.1-6. [address] [facility] (Lab) [address] [place], [address], 01/31/2022 02:54:47 01/31/20 22 01/30/2022 CBC W/DIF F absolute lymphocytes 2.8 10'3/ uL 0.7-3. [address] [facility] (Lab) [address] [place], [address], 01/31/2022 02:54:47 01/31/20 22 01/30/2022 CBC W/DIF F absolute monocytes 0.8 10'3/ uL 0.3-1. [address] [facility] (Lab) [address] [facility], [place], [address], 01/31/2022 02:54:47 01/31/20 22 01/30/2022 CBC W/DIF F absolute eosinophils 0.2 10'3/ uL 0.0-0. [address] [facility] (Lab) [address] [facility], [place], [address], 01/31/2022 02:54:47 01/31/20 22 01/30/2022 CBC W/DIF F absolute basophils 0.1 10'3/ uL 0.0-0. [address] [facility] (Lab) [address] [facility], [place], [address], 01/31/2022 02:54:47 01/31/20 22 01/30/2022 CBC W/DIF [...] resul ts are expec sheba. Not Available [facility] (Lab) [address] [facility], [place], [address], 01/31/2022 02:54:47 01/31/20 22 01/30/2022 CMP(C OMPRE HENSI VE METAB OLIC PANEL ) sodium 140 mmol/ L 133-[address] [facility] (Lab) [address] [facility], [place], [address], 01/31/2022 02:54:47 01/31/20 22 01/30/2022 CMP(C OMPRE HENSI VE METAB OLIC PANEL ) potassium 3.8 mmol/ L 3.5-5. [address] [facility] (Lab) [address] [facility], [place], [address], 01/31/2022 02:54:47 01/31/20 22 01/30/2022 CMP(C OMPRE HENSI VE METAB OLIC PANEL ) chloride 108 mmol/ L 98-[address] [facility] (Lab) [address] [facility], [place], [address], 01/31/2022 02:54:47 01/31/20 22 01/30/2022 CMP(C OMPRE HENSI VE METAB OLIC PANEL ) carbon dioxide 27 mmol/ L 21-[address] [facility] (Lab) [address] [facility], [place], [address], 01/31/2022 02:54:47 01/31/20 22 01/30/2022 CMP(C OMPRE HENSI VE METAB OLIC PANEL ) anion gap 5 mmol/ L 4-[address] [facility] (Lab) [address] [facility], [place], [address], 01/31/2022 02:54:47 01/31/20 22 01/30/2022 CMP(C OMPRE HENSI VE METAB OLIC PANEL ) blood urea nitrogen 16 mg/dL 7-[address] [facility] (Lab) [address] [place], [address], 01/31/2022 02:54:47 01/31/20 22 01/30/2022 CMP(C OMPRE HENSI VE METAB OLIC PANEL ) creatinine 0.74 mg/dL 0.60-[address] [facility] (Lab) [address] [facility], [place], [address], 01/31/2022 02:54:47 01/31/20 22 01/30/2022 CMP(C OMPRE HENSI VE METAB OLIC PANEL ) egfrcr (CKD-epi 2020) >90 mL/mi n/1.7 3_m2 >=[address] [facility] (Lab) [address] [facility], [place], [address], 01/31/2022 02:54:47 01/31/20 22 01/30/2022 CMP(C OMPRE HENSI VE METAB OLIC PANEL ) calcium 9.3 mg/dL 8.3-[address] [facility] (Lab) [address] [facility], [place], [address], 01/31/2022 02:54:47 01/31/20 22 01/30/2022 CMP(C OMPRE HENSI VE METAB OLIC PANEL ) glucose 87 mg/dL 70-[address] [facility] (Lab) [address] [facility], [place], [address], 01/31/2022 02:54:47 01/31/20 22 01/30/2022 CMP(C OMPRE HENSI VE METAB OLIC PANEL ) protein, total 7.3 g/dL 6.4-8. [address] [facility] (Lab) [address] [facility], [place], [address], 01/31/2022 02:54:47 01/31/20 22 01/30/2022 CMP(C OMPRE HENSI VE METAB OLIC PANEL ) albumin 4.2 g/dL 3.5-5. [address] [facility] (Lab) [address] [place], [address], 01/31/2022 02:54:47 01/31/20 22 01/30/2022 CMP(C OMPRE HENSI VE METAB OLIC PANEL ) ALT 16 units /L 9-[address] [facility] (Lab) [address] [facility], [place], [address], 01/31/2022 02:54:47 01/31/20 22 01/30/2022 CMP(C OMPRE HENSI VE METAB OLIC PANEL ) alkaline phosphatase 110 units /L 34-[address] [facility] (Lab) [address] [facility], [place], [address], 01/31/2022 02:54:47 01/31/20 22 01/30/2022 CMP(C OMPRE HENSI VE METAB OLIC PANEL ) AST 20 units /L 13-[address] [facility] (Lab) [address] [facility], [place], [address], 01/31/2022 02:54:47 01/31/20 22 01/30/2022 CMP(C OMPRE HENSI VE METAB OLIC PANEL ) bilirubin, total 0.6 mg/dL 0.2-1. [address] [facility] (Lab) [address] [facility], [place], [address], 01/31/2022 02:54:47 01/31/20 22 01/30/2022 TSH/ REFLE X FT4 AND FT3 TSH 0.69 uIU/m L 0.30-[address] 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 Funga l organ isms morph ologi sourav consi stent with Traci da spp. Shift in franissco sugge stive of bacte rial vagin osis. [...] as clini sourav bucio nted. Not Available [facility] (Lab) [address], [place], [address], 02/06/2022 21:44:32 02/02/20 24 02/02/2024 IMAGE GUIDE D PAP AND HPV REGAR DLESS image guided Pap, HPV regardless of Pap result SEE RESULT S BELOW CASE REPOR T: Cytol ogy Gynec ologi girma Repor t Case: [id number] Autho jagjit g Provi zita: Bijan Driver Colle cted: 02/01 1111 ECONOMIC MANAGER Order ing Locat ion: [place] [facility] [place] Recei nohemi: 02/02 0146 First Scree n: Willian Edmond, CT Speci men: Scree edmundo Pap - [...] as clini sourav bucio nted. Not Available [facility] (Lab) [address], [place], [address], 02/06/2024 11:03:28 02/02/20 24 02/02/2024 urina lysis , dipst ick Leukocytes NEGATI VE Not Available [facility] [address], [place], [address], 02/02/2024 10:46:15 02/02/20 24 02/02/2024 urina lysis , dipst ick Nitrite NEGATI VE Not Available [facility] [address], [place], [address], 02/02/2024 10:46:15 02/02/20 24 02/02/2024 urina lysis , dipst ick Urobilinogen NEGATI VE Not Available [facility] [address], [place], [address], 02/02/2024 10:46:15 02/02/20 24 02/02/2024 urina lysis , dipst ick Protein TRACE Not Available [facility] [address], [place], [address], 02/02/2024 10:46:15 02/02/20 24 02/02/2024 urina lysis , dipst ick pH 6 Not Available [facility] [address], [place], [address], 02/02/2024 10:46:15 02/02/20 24 02/02/2024 urina lysis , dipst ick Specific [place] 1.005 Not Available [facility] [address], [place], [address], 02/02/2024 10:46:15 02/02/20 24 02/02/2024 urina lysis , dipst ick Ketone NEGATI VE Not Available [facility] [address], [place], [address], 02/02/2024 10:46:15 02/02/20 24 02/02/2024 urina lysis , dipst ick Bilirubin NEGATI VE Not Available [facility] [address], [place], [address], 02/02/2024 10:46:15 02/02/20 24 02/02/2024 urina lysis , dipst ick Glucose NEGATI VE Not Available [facility] [address], [place], [address], 02/02/2024 10:46:15 02/02/20 24 02/02/2024 urina lysis , dipst ick Appearance CLEAR Not Available [facility] [address], [place], [address], 02/02/2024 10:46:15 02/02/20 24 02/02/2024 urwes lysis , dipst ick Color LIGHT YELLOW Not Available [facility] [address], [place], [address], 02/02/2024 10:46:15 02/20/20 25 02/19/2025 IMAGE GUIDE D PAP AND HPV REGAR DLESS image guided Pap, HPV regardless of Pap result SEE RESULT S BELOW CASE REPOR T: Cytol ogy Gynec ologi girma Repor t Case: [id number] Autho jagjit sahil Provi zita: Sonia Sandy NP Colle cted: 02/19 1546 Order ing Locat [...] rial vagin osis. Elect maria del carmen noriega by Willian Edmond, CT on 025 at [...] as clini sourav bucio nted. Not Available [facility] (Lab) [address], [place], [address], 02/21/2025 11:57:58 03/05/20 22 02/13/2022 MAMMO , scree edmundo, bilat eral No observ ation record ed. [email or web address] [facility] [address], [place], [address], 02/02/2024 10:44:34 03/08/20 25 03/06/2025 MAMMO , diagn ostic , unila teral No observ ation record ed. [facility] [address], [place], [address], 04/03/2025 13:58:06 Result Notes None recorded. Problems Name Problem SNOMED Code Status Onset Date Resolution Date Notes Provider Name and Address Organization Details Recorded Time Pregnanc y test negative [id number] Completed 201301/29/2022 examinati on or test, negative result;Re corded Elsewhere : No Locati on: [facility] So urce: EHR Chron ic: N Practic e ID: 0001 Bill able Time: 10:30:00 AM Sakshi [facility] 2 17:39:03 Family planning surveill ance Completed 201301/29/2022 Surveilla nce of other contracep tive method;Re corded Elsewhere : No Locati on: [facility] So urce: EHR Chron ic: N Practic e ID: 0001 Bill able Time: 03:00:00 PM Sakshi [facility] 2 17:38:53 Leukorrh ea [id number] Completed 201301/29/2022 Leukorrhe a, not specified as infective ;Recorded Elsewhere : No Locati on: [facility] So urce: EHR Chron ic: N Practic e ID: 0001 Bill able Time: 03:00:00 PM Sakshi [facility] 2 17:39:00 Adult health examinat ion Completed 201401/29/2022 ROUTINE MEDICAL EXAM;Miguel rded Elsewhere : No Locati on: [facility] So urce: EHR Chron ic: N Practic e ID: 0001 Bill able Time: 04:00:00 PM Sakshi [facility] 2 17:38:50 Speciali zed medical examinat ion Completed 201401/29/2022 Other specified chlamydia l diseases; Recorded Elsewhere : No Locati on: [facility] So urce: EHR Chron ic: N Practic e ID: 0001 Bill able Time: 04:00:00 PM Sakshi [facility] 2 17:39:13 Urinary tract infectio us disease [id number] Completed 201401/29/2022 Urinary Tract Infection ;Recorded Elsewhere : No Locati on: [facility] So urce: EHR Chron ic: N Practic e ID: 0001 Bill able Time: 04:00:00 PM Sakshi [facility] 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 2 17:39:11 Venereal disease screenin g Completed 201401/29/2022 Screening examinati on for venereal disease;R ecorded Elsewhere : No Locati on: [facility] So urce: EHR Chron ic: N Practic e ID: 0001 Bill able Time: 04:00:00 PM Sakshi [facility] 2 17:39:18 Syphilis test finding [id number] Completed 201501/29/2022 Encntr screen for infection s w sexl mode of transmiss ;Recorded Elsewhere : No Locati on: [facility] So urce: EHR Chron ic: N Practic e ID: 0001 Bill able Time: 01:45:00 PM Sakshi [facility] 2 17:39:14 Screenin g for malignan t neoplasm of cervix Completed 201501/29/2022 Screening for malignant neoplasms of the cervix;Re corded Elsewhere : No Locati on: [facility] So urce: EHR Chron ic: N Practic e ID: 0001 Bill able Time: 01:45:00 PM Sakshi [facility] 2 17:39:07 Infectio n screenin g Completed 201501/29/2022 Encounter for screening for oth infec/par astc diseases; Recorded Elsewhere : No Locati on: [facility] So urce: EHR Chron ic: N Practic e ID: 0001 Bill able Time: 01:45:00 PM Sakshi [facility] 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 2 17:39:10 Headache [id number] Completed 201801/29/2022 Headache; Recorded Elsewhere : No Locati on: [facility] So urce: EHR Chron ic: N Practic e ID: 0001 Bill able Time: 09:30:00 AM Sakshi [facility] 2 17:38:[address] Concept Completed 201801/29/2022 Encntr for general adult medical exam w/o abnormal findings; Recorded Elsewhere : No Locati on: [facility] So urce: EHR Chron ic: N Practic e ID: 0001 Bill able Time: 09:30:00 AM Sakshi [facility] 2 17:39:08 Heartbur n [id number] Completed 201801/29/2022 Heartburn ;Recorded Elsewhere : No Locati on: [facility] So urce: EHR Chron ic: N Practic e ID: 0001 Bill able Time: 09:30:00 AM Sakshi [facility] 2 17:38:56 Restless legs [id number] Completed 201901/29/2022 Sakshi Hol[facility] 2 17:39:05 Hypercho lesterol emia [id number] Completed 201901/29/2022 Sakshi [facility] 2 17:38:58 Migraine [id number] Completed 201901/29/2022 Sakshimonserrat Holm [facility] 2 17:39:02 Anemia [id number] Completed 201901/29/2022 Sakshimonserrat Holm [facility] 2 17:38:52 Problem Notes None recorded. Procedures Surgical History Date Name Laterality Status Provider Name and Address Organization Details Recorded Time 5 Date of Last Pap Smear completed [facility] 04/14/2025 11:59:17 3 Date of Last Mammogram completed [facility] 04/14/2025 11:45:14 7 ligation of bilateral fallopian tubes [facility] 16:51:[address] [facility] 04/14/2025 11:45:15 Imaging Results None recorded. Procedure Notes None recorded. Medical Equipment None Reported. Allergies Allergen ID Allergen Name Allergen Category Reaction Reaction Severity Criticality Documentation Date Start Date Code Code System Note Provider Name and Address Organization Details Recorded Time 0051 Product containin g penicilli n (product) medicatio n Not available Not available Not available 10/14/2020 [id number] SNOMED Vijaya [facility] [place] - [facility] 0 09:52:31 Medications Name Sig Start [...] Prescrib ed Elsewher e: Yes Loca tion: [facility] odify By: fareed toneyunter DateTime : 02/17/20 09:15:00 AM Not Available [...] Prescrib ed Elsewher e: No Locat ion: [facility] odify By: ezra Estrella ntjaison DateTime : 01/24/20 09:30:00 AM Not Available Not Available Not Available Diflucan 150 mg tablet take 1 tablet by oral route once 02/16 completed Prescrib ed Elsewher e: No Locat ion: [facility] odify By: tmryan E ncounter DateTime : 09/11/20 16 03:48:18 PM Not Available Not Available Not Available sumatript an 50 mg tablet TK 1 T PO AOS OF HEADACHE . MAY REPEAT IN 1 HOUR IF MIGRAINE CONTINUE S. MAX OF 4 TS PER 24 H 10/14 completed Not Available Not Available Not Available triamcino lone acetonide 0.5 % topical ointment MANUELA THIN LAYER EXT AA BID 06/06 completed Not Available Not Available Not Available metronida zole 500 mg tablet Take 1 tablet twice a day by oral route as directed for 7 days. 04/14 completed Not Available Not Available Not Available [...] Prescrib ed Elsewher e: No [facility] By: trina booker DateTime : 01/24/20 09:30:00 AM Not Available Not Available Not Available nortripty line 25 mg capsule active Not Available Not Available Not Available Metrogel Vaginal 0.75 % (37.5 mg/5 gram) insert 1 applicat orful by vaginal route every day at bedtime for 5 nights 02/16 completed Prescrib ed Elsewher e: No [facility] By: fareed bridges DateTime : 09/11/20 16 03:48:18 PM Not Available Not Available Not Available amitripty line 25 mg tablet TK 2 TS PO QD HS 10/14 completed Not Available Not Available Not Available erythromy eddie 5 mg/gram (0.5 %) eye ointment 02/19 completed Not Available Not Available Not Available propranol ol ER 80 mg capsule,2 4 hr,extend ed release 06/06 completed Not Available Not Available Not Available methimazo le 5 mg tablet take 1 tablet by oral route every day 02/04 completed Prescrib ed Elsewher e: Yes Loca tion: [facility] odify By: [email or web address] trick En counter DateTime : 02/16/20 14 03:00:00 PM Not Available Not Available Not Available buspirone 7.5 mg tablet 2024 active Not Available Not Available Not Avai lable Vitamin D2 1,250 mcg (50,000 unit) capsule take 1 capsule by oral route every week 2018 active Prescrib ed Elsewher e: No Locat ion: [facility] odify By: ruby toneyunter DateTime : 01/28/20 19 01:11:40 PM Not [...] Prescrib ed Elsewher e: Yes Loca tion: [facility] odify By: [email or web address] trick En counter DateTime [...] tablet TK 2 TS PO BID ATC 06/06 completed Not Available Not Available Not Available Depo-Prov era 150 mg/mL intramusc ular syringe inject 1 millilit er (150MG) by intramus cular route every 3 months 02/04 completed Prescrib ed Elsewher e: No Locat ion: [facility] odify By: [email or web address] trick En counter DateTime : 04/02/20 14 04:22:50 PM Not Available Not Available Not Available ezetimibe 10 mg tablet active Not Available Not Available Not Available cyclobenz aprine 5 mg tablet active Not Available Not Available No t Available metoprolo l tartrate 25 mg tablet TK 1 T PO QD [facility] 01/30 completed Not Available Not Available [...] Available pramipexo le 0.75 mg tablet TK 1/ T PO QD HS active Not Available Not Available No t Available Linzess 145 mcg capsule active Not Available Not Available Not Available Se-Ari 19 29 mg iron-1 mg tablet take 1 tablet by oral route every day 02/04 completed Prescrib ed Elsewher e: No Locat ion: [facility] odify By: [email or web address] trick En counter DateTime : 04/10/20 08:30:00 AM Not Available Not Available Not Available [facility] mg disintegr ating tablet active Not Available Not Available Not Available Vitals Date Recorded Systolic And Diastolic Provider Name and Address Organization Details Last Updated DateTime 01/30/2022 122/70 mm[Hg] Abigail Brenner [facility] [address], [place], [address], [facility] 01/30/2022 16:29:37 Date Recorded Body height Body mass index (BMI) Body weight Provider Name and Address Organization Details Last Updated DateTime 01/30/2022 172.72 cm 29.7 kg/m2 86795.23 g Sakshi Holm [facility] 01/30/2022 16:19:10 Date Recorded Body mass index (BMI) Body height Provider Name and Address Organization Details Last Updated DateTime 02/02/2024 28.9 kg/m2 172.72 cm Abigail Brenner [facility] [address], [place], [address], [facility] 02/02/2024 10:43:34 Date Recorded Body weight Systolic And Diastolic Provider Name and Address Organization Details Last Updated DateTime 02/02/2024 21678.83 g 133/84 mm[Hg] Sakshi Ponce [facility] 02/02/2024 10:37:18 Date Recorded Body height Body mass index (BMI) Body weight Systolic And Diastolic Provider Name and Address Organization Details Last Updated DateTime 02/19/2025 172.72 cm 28.8 kg/m2 32822.68 g 113/78 mm[Hg] Jeimy Cutler [facility] 02/19/2025 16:08:24 Date Recorded Body height Body mass index (BMI) Body weight Systolic And Diastolic Provider Name and Address Organization Details Last Updated DateTime 04/14/2025 172.72 cm 30 kg/m2 64987.7 g 135/87 mm[Hg] Mary Lou Fuller [facility] 04/14/2025 11:54:12 Date Recorded Body height Body mass index (BMI) Body weight Systolic And Diastolic Provider Name and Address Organization Details Last Updated DateTime 06/06/2025 172.72 cm 31.2 kg/m2 17330.44 g 148/86 mm[Hg] Eugenia Sands [facility] 06/06/2025 18:19:09 Social History Question Answer Notes LastModified by Organizat ion Details LastModified Time Tobacco Smoking Status Never Smoker Vijaya [email or web address], [facility] 10/14/2020 17:04:21 Do You Have An Advance Directive? No [email or web address] Information n ot available 04/14/2025 How Many Years Have You Consumed Alcohol? 10 [email or web address] Information not available 04/14/2025 Are You Blind Or Do You Have Difficulty Seeing? No Information n ot available 01/30/2022 What Is Your Level Of Caffeine Consumption? Occasional Information not available 01/30/2022 How Much Tobacco Do You Chew? None [email or web address] Information not available 04/14/2025 In The 14 Days Before Symptom Onset, Have You Had Close Contact With A Laboratory-confirm ed COVID-19 While That Case Was Ill? No Information n ot available 04/14/2025 In The 14 Days Before Symptom Onset, Have You Had Close Contact With A Person Who Is Under Investigation For COVID-19 While That Person Was Ill? No [email or web address] Information not available 04/14/2025 Have You Been To An Area Known To Be High Risk For COVID-19? No [email or web address] Information not available 04/14/2025 Are You Deaf Or Do You Have Serious Difficulty Hearing? No Information not available 01/30/2022 What Type Of Diet Are You Following? REGULAR Information n ot available 01/30/2022 What Is The Highest Grade Or Level Of School You Have Completed Or The Highest Degree You Have Received? [id number] [email or web address] Information not available 04/14/2025 Are There Any Guns Present In Your Home? No [email or web address] Information not available 04/14/2025 Do You Use Protection During Sex? Always [email or web address] Information not available 04/14/2025 Do You Use Your Seat Belt Or Car Seat Routinely? Yes Information not available 01/30/2022 Do You Have Smoke And Carbon Monoxide Detectors In Your Home? Yes Information not available 01/30/2022 How Much Tobacco Do You Smoke? No [email or web address] Information not available 04/14/2025 Do You Use Sunscreen Routinely? Yes [email or web address] Information not available 04/14/2025 Have You Used IV Drugs? No [email or web address] Information not available 04/14/2025 Do You Have Difficulty Walking Or Climbing Stairs? No Information not available 01/30/2022 Sex: Unknown Functional Status Question Answer Note LastModified by Organizat ion Details LastModified Time Do you use any illicit or recreational drugs? No Information not available 01/30/2022 What is your level of alcohol consumption? None Information not available 04/14/2025 Are you able to walk? [email or web address] Information not available 01/30/2022 Are you able to care for yourself independently? 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 No Information not available 01/30/2022 What is your exercise level? Moderate Information not available 04/14/2025 Mental Status Question Answer Note LastModified by Organization D etails LastModified Time Do you feel stressed (tense, restless, nervous, or anxious, or unable to sleep at night)? [id number] [email or web address] Information not available 04/14/2025 Family History Nothing Reported. Medical History Condition Response Allergies (Food, seasonal, environmental ) Y Other N Breast Cancer N Drug/Latex Allergies/Reactions Y Blood Transfusion N Dermatologic Disorders N Lung Disease N Defects or Inherited Disease N Breast Problem N Gestational Diabetes N Hematologic disorders N Anesthesia Complications N History of STI N Deep Vein Thrombosis N Polycystic ovary syndrome N Anxiety Disorder N Autoimmune disease N Arthritis N Infertility N Polyps N Acid Reflux (GERD) Y History of abnormal pap N Cancer N Stroke N Varicosities N Neurologic/Epilepsy Y Endometriosis N High Cholesterol Y Headaches Y Fibromyalgia N Kidney Disease N Heart Problems [...] N Thrombophilias N Gynecological History Statement/Question Response Date of Last Mammogram 02/01/2023 Flow Heavy Date of LMP 05/26/2025 N Was last menstrual period normal Y STIs/STDs N Date of control 12/05/2006 Date of Last Colonoscopy Desired Control Method Hysterectom y Abnormal Pap N On BCP's at Conception? N HPV Vaccine N Duration of Flow (days) 5 Current Control Method Tubal Ligat ion Age at First Child 19 Are cycles usually normal Y Frequency of Cycle (Q days) 21 Sexually Active? Y Menses Monthly Y Date of DEXA bone scan Age of first menstrual cycle 13 Date of Last Pap Smear 02/19/2025 Sexual Problems? N LMP Definite N Obstetrics History GPAL:G 4 P 4 0 0 5 Type Value Multiple Births 1 Full Term 4 Living 5 Total 4 Past Encounters Encounter ID Performer Location Encounter Start Date Encounter Closed Date Diagnosis/Indication Diagnosis SNOMED-CT Code Diagnosis ICD10 Code Diagnosis Note [id number] Savanah Hidalgo MD [facility] [address],[facility] [address] 10/14/2020 16:42:47 10/14/2020 23:35:09 Gynecologic examination 11445081 Z01.419 [id number] Abigail Brenner [facility] [address],[place] [address] 01/30/2022 15:25:31 01/30/2022 17:29:17 Gynecologic examination 92992890 Z01.419 Suggested Calcium with Vitamin D 1200-1500m g daily. Patient advised to get an annual flu shot in the fall and she could obtain at [facility] or [facility] care clinic. Also to obtain [...] n/a Routine Labs orderedMam mo ordered Fatigue 92901665 R53.83 Z86.39 [id number] Abigail Brenner , [facility] [address] [address] 02/02/2024 10:28:12 02/02/2024 10:55:34 Gynecologic examination 53441500 Z01.419 Z11.51 Suggested Calcium with Vitamin D 1200-1500m g daily. Patient advised to get an annual flu shot in the fall and she could obtain at [facility] or [facility] care clinic. Also to obtain [...] Screen naRoutine Labs PCP Screening mammography 24 518946 Z12.31 Urinary symptoms 5204348 08 R39.9 Urine culture sent [id number] BECKY Phillips [facility] [address] [address] 02/19/2025 15:54:14 02/20/2025 16:06:34 Gynecologic examination 40924606 Z01.419 [facility] - done todaySTI screen - [...] answered. Screening for malignant neoplasm of breast 456844883 Z12.39 Uterine leiomyoma 204436 05 D25.9 has pelvic u/s scheduled next week at [facility], encouraged pt to have report sent to our office for review - will update patient with results/re commendati ons when available [id number] Ramon Jorgensen MD [facility] [address] [address] 04/14/2025 11:40:32 04/16/2025 04:46:34 Intramural leiomyoma of uterus 52935987 D25.1 D25.0 D25.2 This patient is a 44-year-ol d female with pelvic pain and menorrhagi a. She has a large fibroid uterus with myoma. We discussed treatment options in detail. Patient would like definitive surgical treatment. We agreed to robotic assisted total hysterecto my with bilateral salpingect urbano. I spent over 30 minutes on her care in total. The patient understand s the procedure. The procedure was described to the patient in great detail. the patient also understand s the risks. The risks were also explained in detail. She understand s that injuries May occur during surgery. She understand s these injuries can result in hospitaliz ation, more surgery, and severe illness. She understand s there is risk of hemorrhage and infection. [id number] Ramon Jorgensen MD [facility] [address] [address] 06/06/2025 18:14:33 06/07/2025 09:12:29 Menorrhagia 587801594 N92.0 Pain in pelvis 13257425 R10.2 this patient is a 45-year-ol d female with severe menorrhagi a and severe pelvic pain. We have agreed to perform robotic assisted hysterecto my with bilateral salpingect urbano. She understand s the risks, benefits, and alternativ es. She has completed the informed consent process and is ready to proceed. Health Concerns Section Related Observation LastModified by Organization Detai ls LastModified Time None Recorded Concern Status LastModified by Organization Details LastModified Time None Recorded Advance Directives Directive N: Payers Insurance Date Sequence Insurance Name Policy Number Policy Patrick Covered Member ID Patrick Member ID Guarantor Name 06/10/2025 1 [facility] (MEDICAID HMO) [id number] Stephanie Mayfield [id number] Stephanie Mayfield OBGyn Episode Ob Episode Information Episode Created Date Number of Fetuses Patient Bloodtype Patient rh Status Prepregnancy Weight lbs Domestic Partner Domestic Partner Phone Father Name Learning Disabilities Teacher Status 10/14/20 20 1 CLOSED Fetus Data [...] Domestic Partner Domestic Partner Phone Father Name Learning Disabilities Teacher Status 10/14/20 1 CLOSED Fetus Data First [...] Domestic Partner Domestic Partner Phone Father Name Learning Disabilities Teacher Status 10/14/20 2 CLOSED Fetus Data First [...] Domestic Partner Domestic Partner Phone Father Name Learning Disabilities Teacher Status 10/14/20 20 1 CLOSED Fetus Data [...]
--- OUTSIDE RECORDS SUMMARY | 2025-06-12 08:24 | XMS_ITS | Clinical Summary ---
Author Organization [facility] [employer] Address [address] [place] [address] Care Team Providers Care Railcar Carpenter Name Role Phone Rema Bernardo YOUTH ASSOCIATE-APPARATUS LINEMAN Primary Care Provider Rema Bernardo YOUTH ASSOCIATE-APPARATUS LINEMAN Unavailable [phone] Source Comments [facility],non-owned Affiliates and Associated Physician Practices is amultiple site organization consisting of ambulatory clinics and hospital sitesin [place], [place], [place] and [place]. This disclosure is being madepursuant to the Care Everywhere program and may not contain all information available regarding this patient. Last updated 18.[facility] [employer] Allergies Active Allergy Reactions Criticality Noted Date [...] 37.2 C (99 F) 01/03/2024 10:05 AM WOOD FENCE INSTALLER Respiratory Rate 16 08/17/2022 9:41 AM CDT Oxygen Saturation 87% 02/16/2024 1:23 PM CDT Inhaled Oxygen Concentration - - Weight 86.2 kg (190 lb) 02/16/2024 1:23 PM CDT Height 175.3 cm (5' 9) 02/16/2024 1:23 PM CDT Body Mass Index 28.06 02/16/2024 1:23 PM CDT Plan of Treatment Health Maintenance Due Date Last Done Comments LIPID TESTING 1980 MAMMOGRAM 1980 HIV SCREENING 1996 HEPATITIS C SCREENING 05/28/1999 DTAP/TDAP/TD VACCINES (1 - Tdap) 2000 HEPATITIS B VACCINE (1 of 3 - 19+ 3-dose series) 2000 HPV VACCINE (1 - 3-dose SCDM series) 2008 COVID-19 VACCINE ( season) 2024 01/21/2022, 01/21/2022, 01/17/2021, Additional history exists DEPRESSION SCREENING 11/15/2024 SCREENING FOR DIABETES 01/30/2025 2, 01/30/2022, 01/30/2022 INFLUENZA VACCINE (#1) 2025 3, 07/10/2022, 08/22/2021 PAP SMEAR 02/01/2027 02/02/2024, 01/14, 01/30/2022, Additional history exists ZOSTER VACCINE (1 of 2) 2031 HIB [...] patient's age to complete this topic Insurance [facility] THIRD ALLIANCE PARTY LIABILITY Libertarian Liability [facility] Care Teams Railcar Carpenter Relationship Specialty Start Date End Date Rema Bernardo APRN-APPARATUS LINEMAN [address] [place] [address] PCP - General 12/28/22 Rema Bernardo, YOUTH ASSOCIATE-APPARATUS LINEMAN [address] [place] [address] Nurse Practitioner Family 12/28/22
--- NOTE | 2025-06-12 08:29 | ECG_ITS ---
Test Date: 2025-06-12 08:55:21 Measurements Intervals Santa Rate: 79 P: 42 IL: 162 QRS: 6 QRSD: 82 T: 13 QT: 375 QTc: 432 Interpretive Statements SINUS RHYTHM POSSIBLE ANTERIOR MYOCARDIAL INFARCTION, AGE INDETERMINATE Electronically Signed On 06-12-2025 17:25:07 CDT by Josh Jackson D.O
[2025-06-12 09:56] LABS: Alanine Aminotransferase 19 U/L (6-35); Albumin Level 3.9 g/dL (3.5-5.1); Alkaline Phosphatase 65 U/L (38-126); Anion Gap 8 mmol/L (4-12); Aspartate Amino Transferase 31 U/L (14-36); Bilirubin,Total 0.6 mg/dL (0.2-1.3); Blood Urea Nitrogen 13 mg/dL (7-17); Calcium 9.1 mg/dL (8.4-10.2); Carbon Dioxide 24 mmol/L (22-30); Chloride 106 mmol/L (98-107); Estimated Glomerular Filt Rate > 60; Glucose 99 mg/dL (65-110); Potassium 3.6 mmol/L (3.4-5.0); Sodium 138 mmol/L (137-145); Total Protein 7.1 g/dL (6.3-8.2)
== END 2025-06-12 08:16 | disposition home or self-care (01) ==
PROVIDERS: PCP Nurse Practitioner Family; Visit Provider Obstetrics & Gynecology
DX: Z01.818 Encounter for other preprocedural examination (principal); I10 Essential (primary) hypertension; D21.9 Benign neoplasm of connective and other soft tissue, unspecified
CPT/HCPCS: 36415; 80053; 86850; 86900; 86901; 93005

== ENCOUNTER 2025-06-22 02:52 | Day surgery (SDC) | payer OTHER, SELFPAY ==
[2025-06-08 09:22] VITALS: BMI 30.3
--- NOTE | 2025-06-08 09:30 | PC.NURSE ---
Addendum entered by Larry Bond RN 06/13/25 14:43: Says no changes in health history since previous interview. Informed patient to arrive at 0600 on 06-22-2025 for surgery at 0730. Patient acknowledges she has copy of instructions listed below. Original Note: Report to the Outpatient Waiting Room, entrance under the green pavilion located off [facility], at time _0600_ on date _[id number]_. Planned Procedure Time: _729_.? Time changes happen often and if your time is changed the preop area will call you the afternoon before. - You and your visitor will be asked to self-screen and do not enter if you have any COVID symptoms. Please call surgeon if you need to reschedule. - A mask is optional within the hospital at this time. Patients may have clear liquids (water, carbonated beverages, clear teas, apple juice) until 3 hours prior to surgery with a maximum of 20 ounces. - No food from midnight until time of surgery and no smoking, or chewing tobacco (or any form of nicotine). No chewing gum, candy or mints. Take only the following medications with a SIP of water on the morning of surgery: __Amlodipine, Buspirone and Propanolol DO NOT STOP ANY OF YOUR OTHER PRESCRIPTION MEDICATIONS PRIOR TO SURGERY EXCEPT THE FOLLOWING Hold all vitamins and supplements for 3 days per anesthesiologist. Medications to discontinue per physician Date to take last dose Please no make-up, nail danish, hairspray, perfume, deodorant, or body powder the day of surgery.? No jewelry (including any body piercings) or valuables the day of surgery, leave them at home.? Please take a shower or bath the night before, or the morning of, surgery with an antibacterial soap.? Wear comfortable, loose fitting clothing. - Jewelry must be removed prior to entering the operating room.? Rings and piercings that are not removed may be cut off. - The hospital will not accept responsibility for valuables.? - Please leave all valuables, including medications, at home the day of surgery. If you are going home after surgery, a licensed hazmat cdl driver must drive you home.? - NO public transportation without another adult if you receive anesthesia. - We recommend that an adult stay with you for 24 hours following discharge. - We also recommend that you do not drive, make important decision, drink alcoholic beverages, or take any drugs that were not prescribed by your health care provider for at least 24 hours after your discharge time. Follow any additional instructions given to you from your surgeon. Telephone instructions given to __Lateulalio___and asked if any additional questions and then verbalized understanding. Patient advised to call surgeon office or pre surgery nurse liaison [phone] if any additional questions.
--- OUTSIDE RECORDS SUMMARY | 2025-06-13 00:21 | XMS_ITS | Clinical Summary ---
Author Organization [facility] [employer] Address [address] [place] [address] Care Team Providers Care Pharmacy Services Director Name Role Phone Rema Bernardo HEALTH LEAD-CLOTH DESIZING RANGE OPERATOR CHIEF Primary Care Provider Rema Bernardo HEALTH LEAD-CLOTH DESIZING RANGE OPERATOR CHIEF Unavailable [phone] Source Comments [facility],non-owned Affiliates and Associated Physician Practices is amultiple site organization consisting of ambulatory clinics and hospital sitesin [place], [place], [place] and [place]. This disclosure is being madepursuant to the Care Everywhere program and may not contain all information available regarding this patient. Last updated 18.[facility] [employer] Allergies Active Allergy Reactions Criticality Noted Date [...] 37.2 C (99 F) 01/03/2024 10:05 AM DATA WAREHOUSE ADMINISTRATOR Respiratory Rate 16 08/17/2022 9:41 AM CDT [...] patient's age to complete this topic Insurance [facility] THIRD LIBERTARIAN LIABILITY Green Party Liability [facility] Care Teams Pharmacy Services Director Relationship Specialty Start Date End Date Rema Bernardo APRN-CLOTH DESIZING RANGE OPERATOR CHIEF [address] [place] [address] PCP - General 12/28/22 Rema Bernardo, HEALTH LEAD-CLOTH DESIZING RANGE OPERATOR CHIEF [address] [place] [address] Nurse Practitioner Family 12/28/22
[2025-06-22] VITALS (14 sets, daily range): BP systolic 105–144; BP diastolic 70–92; PULSE 77–100; RESP 13–19; TEMP 36.1–36.9; O2SAT 93–100; BMI 29.5
--- OUTSIDE RECORDS SUMMARY | 2025-06-22 02:54 | XMS_ITS | Clinical Summary ---
Author Organization [facility] [employer] Address [address] [place] [address] Care Team Providers Care Dairy Specialist Name Role Phone Rema Bernardo BULK FOLDER-WINDOW TRIMMER Primary Care Provider Rema Bernardo BULK FOLDER-WINDOW TRIMMER Unavailable [phone] Source Comments [facility],non-owned Affiliates and Associated Physician Practices is amultiple site organization consisting of ambulatory clinics and hospital sitesin [place], [place], [place] and [place]. This disclosure is being madepursuant to the Care Everywhere program and may not contain all information available regarding this patient. Last updated 18.[facility] [employer] Allergies Active Allergy Reactions Criticality Noted Date [...] 37.2 C (99 F) 01/03/2024 10:05 AM SEASONAL GREENERY BUNDLER Respiratory Rate 16 08/17/2022 9:41 AM CDT [...] patient's age to complete this topic Insurance [facility] THIRD CONSTITUTION PARTY LIABILITY Libertarian Liability [facility] Care Teams Dairy Specialist Relationship Specialty Start Date End Date Rema Bernardo APRN-WINDOW TRIMMER [address] [place] [address] PCP - General 12/28/22 Rema Bernardo, BULK FOLDER-WINDOW TRIMMER [address] [place] [address] Nurse Practitioner Family 12/28/22
[2025-06-22] MEDS: ACETAMINOPHEN 500 MG TABLET 1000 MG PO ×3 (06:40→19:13)
[2025-06-22] MEDS: KETOROLAC 15 MG/ML VIAL (*BKC) IV PUSH (06:45)
--- NOTE | 2025-06-22 06:51 | P.PNAN_ITS ---
Anes - Initial Pre Proc Eval Procedure: Operation Date: 06/22/25 07:30 Proposed Procedures p Robotic Assisted Hysterectomy with Bilateral Salpingectomy - Ramon Jorgensen MD Date/Time: 06/22/25 06:51 Surgeon: Ramon Jorgensen MD Pre Op Diagnosis: Intramural submucous subserous Patient Data Age: 45 Gender: F Height: 1.75 m Weight: 90.8 kg Last Vital Signs Temp 36.1 C L 06/22/25 06:05 Pulse 89 06/22/25 06:05 Resp 14 06/22/25 06:05 BP 143/92 H 06/22/25 06:05 Pulse Ox 97 06/22/25 06:05 Allergies Allergy/AdvReac Type Severity Reaction Status Date / Time Penicillins Allergy Mild Rash Verified 06/22/25 06:56 Home Medications ?Medication ?Instructions ?Recorded ?Confirmed ?Type amlodipine 2.5 mg tablet 2.5 mg PO DAILY 06/08/25 06/22/25 History buspirone 7.5 mg capsule (Bucapsol) 7.5 mg PO BID 06/08/25 06/22/25 History ezetimibe 10 mg tablet 10 mg PO DAILY 06/08/25 06/08/25 History fenofibrate nanocrystallized 145 145 mg PO HS 06/08/25 06/08/25 History mg tablet linaclotide 145 mcg capsule 145 mcg PO HS 06/08/25 06/08/25 History (Linzess) omeprazole 40 mg capsule,delayed 40 mg PO DAILY 06/08/25 06/08/25 History release propranolol 80 mg capsule,24 80 mg PO BID 06/08/25 06/22/25 History hr,extended release phenazopyridine 100 mg tablet 100 mg PO TID PRN pain 06/22/25 06/22/25 History (Pyridium) Patient hx anesthesia problems: none Family hx anesthesia problems: none Results Review: All pre-operative results and documents have been reviewed as part of the pre- operative evaluation. [facility] Past Medical History Medical History (Updated 06/22/25 @ 07:03 by Mario Guillen DO) Hypothyroidism Hypertension Hyperlipidemia Surgical History Surgical History No history of previous surgery Social History Social History Smoking status: Never smoker Substance use type: marijuana Other substance usage details: Twice a week. Living arrangements: with family Spiritual care concerns: No Anes - Eval Final PreProcedure Day of Procedure 06/22/25 06:51 Patient weight: overweight Heart: regular rate and rhythm Lungs: clear to auscultation Airway: Mallampati scale class II Neurological: alert and oriented Last oral intake: >/= 8 hours ASA classification: III Emergent: no Anesthetic plan: proceed Anesthesia type and monitoring: general ETT and standard monitoring Results Review: All pre-operative results and documents have been reviewed as part of the pre- operative evaluation. Informed Consent: The patient's anesthetic plan and its attendant risks and benefits were discussed with the patient/family/POA. Questions were solicited and answers provided to the satisfaction of the patient/family/POA.
--- NOTE | 2025-06-22 07:19 | WPDHPUPDATE1 ---
History and Physical Update Update Date/Time: 06/22/25 07:19 History and Physical has been reviewed, including an updated exam of the patient. There are NO changes in the patient's condition. Risks, benefits, and alternatives have been discussed and questions answered. Patient agrees to proceed with procedure.
[2025-06-22] MEDS: ceFAZolin 2 GM in SODIUM CHLORIDE 0.9% IV 50 ML 100 ML IVPB (07:29)
[2025-06-22 08:03] LABS: BEDSIDEPREGUCG Negative (Negative)
[2025-06-22 08:54] LABS: Add Urine Microscopic? YES; Appearance Urine Clear (Clear); Glucose Urine UA Negative (Negative); Leukocyte Esterase Ur Negative LEU/UL (Negative); Need Manual Microscopic Reviewed; Nitrate Urine Positive (Negative); Non Pathogenic Casts 0-2; Specific Grav Ur 1.007 (1.001-1.035)
--- NOTE | 2025-06-22 09:28 | S_PTH ---
PATIENT: Stephanie Mayfield LOC: [facility] U#:[id number] AGE/SX: 45/F ROOM: RE06/22/[address]: Ramon Jorgensen MD : 1980 BED: DIS: 06/23/2025 SPEC #: [id number] RECD: 06/22/25 10:25 STATUS: BROOKE RECristy #: [id number] SHABNAM: 06/22/25 09:[address]: Ramon Jorgensen DEPT: [facility] Surgical RECD BY: Lindsey Keene ENTERED: 06/22/25 10:25 SP TYPE: Surgical OTHR DR: Rema Bernardo, ORTHOTIC FINISH GRINDING TECHNICIAN-BC Tissues: A - Uterus Procedures: Hematoxylin and Eosin Stain Gross and Microscopic Level 5
[2025-06-22] MEDS: METHYLENE BLUE 0.5% INJ 10 ML AMPULE 20 ML IRRIGATION (09:41)
[2025-06-22] MEDS: LACTATED RINGERS 1,000 ML 30 ML IV CONT ×2 (10:30)
--- NOTE | 2025-06-22 10:48 | P.OP_ITS ---
Procedure Note - Detailed Date of Procedure 06/22/25 Pre-op Diagnosis Intramural submucous subserous Post-op Diagnosis Same Procedure Performed Robot assisted Total hysterectomy with bilateral salpingectomy. Surgeon Ramon Jorgensen MD Anesthesia General Indications heavy vaginal bleeding, pelvic pain Findings Enlarged fibroid uterus, marked vascularity the parametrium and vaginal cuff, normal fallopian tubes and ovaries. Normal vulva, vagina, cervix. Description of Procedure This patient was taken to the operating room. She was prepped and draped in the dorsal lithotomy position after induction of general anesthesia. The uterine manipulator and Adams cup were placed. This was done with a speculum and tenaculum. The speculum was placed. The cervix was grasped with a tenaculum. The stay sutures were placed at 3 and 9:00 a.m.. The stay sutures of 0 Vicryl were tied to the appropriately Size scope after it was slipped around the cervix.. The tip of the YOSEPH manipulator was placed in the in trauterine cavity. The cup was slid into place around the cervix and into the fornices. It was locked into place. The sutures were then wrapped around the handle and tied under tension. A 8 mm skin incision was made in the left upper quadrant the abdomen. a 5 mm Visiport trocar was inserted into abdominal cavity and pneumoperitoneum was achieved. A 8 mm supraumbilical incision was made and a 8 mm trocar was inserted into the intrauterine cavity under direct visualization of the scope. an 8 mm incision was made in the right upper quadrant of the abdomen and an 8 mm robotic trocar was placed the inter uterine cavity under direct visualization the scope. An 11 mm trocar was inserted in the right upper quadrant of the abdomen rectal is a cystoscope after an incision was made there as well. The robot was docked. Electronic Orientation of the robot was performed. Bilateral ureteral lysis was performed. This was done from the pelvic brim down to the uterine artery. This was done with careful dissection using sharp and blunt dissection. The fallopian tubes were removed bilaterally. The mesosalpinx around the fallopian tubes were cauterized transected with LigaSure cautery. This was done in a bilateral fashion from the ovary to the uterine cornua. The fallopian tube was transected at the uterine cornu and amputated. The tube was taken out the left lower quadrant trocar site. In a stepwise fashion along the lateral aspects of the uterus the round ligament and broad ligaments were cauterized transected down to the level of the uterine arteries. A bladder flap was created in the bladder was moved distally to the end of the cervix and over the Adams cup. The bilateral uterine arteries were cauterized and transected. Colpotomy was then performed. In a circumferential fashion the vagina was transected using unipolar cautery. The incision was made down on the Adams cup. The uterus and cervix were taken out through the vagina. A pneumo occluder was placed in the vagina. The vaginal cuff was closed with a 0 V lock suture in a running fashion. The pelvis was irrigated with copious amounts antibiotic irrigation. The ureters were again examined and found to be intact and flowing freely under the uterine arteries into the bladder. The bladder was intact. It was examined directly. Cystoscopy was performed after administration of methylene blue. The cystoscope was inserted. Bladder was distended with fluid. The ureteric meatus was observed bilaterally. Blue fluid was seen to egress bilaterally. The bladder was drained and the cystoscope was withdrawn. The vagina was irrigated with Betadine solution after removal of the Pneumo occluder. the trocars were removed after the robot was undocked. The skin was closed with subacute or Dermabond. The patient was taken to recovery room. She was stable condition. Sponge lap and needle counts were correct x2. Estimated Blood Loss 125 Urine Output 800 Drains Yes Packing No Pathology Yes Complications No immediate complications Condition Stable Disposition Floor
[2025-06-22] MEDS: ONDANSETRON INJ 4 MG/2 ML VIAL IV PUSH ×3 (11:11→19:18)
[2025-06-22] MEDS: fentaNYL CITRATE INJ (*CRX) 100 MCG/2 ML VIAL 25 MCG IV PUSH ×2 (11:15→11:23)
[2025-06-22] MEDS: KETOROLAC 30 MG/ML VIAL (*BKC) IV PUSH ×2 (12:59→19:12)
[2025-06-22] MEDS: SIMETHICONE 80 MG TAB.CHEW PO (13:00)
[2025-06-22] MEDS: DEXTROSE 5%/0.45% SOD CHL 1,000 ML 125 ML IV CONT ×2 (13:18→17:37)
[2025-06-22] MEDS: oxyCODONE HCL (*CRX) 5 MG TAB IR 10 MG PO ×2 (15:17→21:08)
--- NOTE | 2025-06-22 15:46 | PC.NURSE ---
1540. Patient feeling better, reports she is not a dizzy. States she believes she was having an anxiety attack. Patient was offered a heating pad at this time. Patient remains on 3L of O2 for comfort.
--- NOTE | 2025-06-22 16:46 | PC.NURSE ---
1646. O2 discontinued at this time. Patient tolerated well. O2 sats 99%, pulse 79. Pt still complaining of pain and pressure at the incision sites. Requesting something else for pain at this time. Will call OB.
[2025-06-22] MEDS: HYDROmorphone HCL INJ (*CRX) 2 MG/ML VIAL 1 MG IV PUSH (17:25)
[2025-06-22] MEDS: DOCUSATE SODIUM 100 MG CAPSULE PO (17:27)
--- NOTE | 2025-06-22 17:29 | PC.NURSE ---
1729. IV rate decreased to 125ml/hr per Dr Argueta request after running at 200ml/hr for 2 hours.
[2025-06-22] MEDS: busPIRone HCL 2.5 MG TABLET 7.5 MG PO (21:03)
[2025-06-22] MEDS: LINACLOTIDE 145 MCG CAPSULE PO (21:03)
[2025-06-22] MEDS: FENOFIBRATE NANOCRYSTALLIZED 145 MG TABLET PO (21:03)
[2025-06-23] MEDS: ONDANSETRON INJ 4 MG/2 ML VIAL IV PUSH (01:15)
[2025-06-23] MEDS: ACETAMINOPHEN 500 MG TABLET 1000 MG PO ×2 (01:15→07:58)
[2025-06-23] MEDS: KETOROLAC 30 MG/ML VIAL (*BKC) IV PUSH (01:15)
[2025-06-23 04:15] VITALS: BP 116/68; PULSE 97; RESP 16; TEMP 37.1; O2SAT 97
[2025-06-23] MEDS: busPIRone HCL 2.5 MG TABLET 7.5 MG PO (07:58)
[2025-06-23] MEDS: PANTOPRAZOLE 40 MG TABLET PO (07:58)
[2025-06-23] MEDS: SIMETHICONE 80 MG TAB.CHEW PO (07:58)
[2025-06-23] MEDS: DOCUSATE SODIUM 100 MG CAPSULE PO (07:58)
[2025-06-23] MEDS: PHENAZOPYRIDINE HCL 100 MG TABLET PO (07:59)
[2025-06-23 08:08] VITALS: BP 129/81; PULSE 91; RESP 16; TEMP 36.9; O2SAT 97
--- NOTE | 2025-06-23 10:34 | P.PNOB_ITS ---
CLINICAL MANAGER - A/P Postoperative Procedures: Procedures Operation Date: 06/22/25 07:30 Actual Procedure Side Surgeon p Robotic Assisted Hysterectomy with Bilateral Salpingectomy Bilateral Ramon Jorgensen MD Postoperative day: 1 Postoperative status: doing well Postoperative plan: see orders Time Spent With Patient Time: Total time spent is greater than 50% in coordination of care (as documented) at patient's floor/unit and/or counseling patient: Time with patient: less than 15 minutes CLINICAL MANAGER- PN:Subj Post-Op Subjective Date/time seen: 06/23/25 10:34 Subjective: patient reports feeling better, patient has no complaints and pain is well controlled Exam Const: General: healthy appearing, comfortable and no acute distress Resp: Auscultation: clear to auscultation bilaterally, no rales, no rhonchi and no wheezes Cardio: Rate: regular rate Heart sounds: no click, no murmurs and no rubs GI: Inspection: non-distended Auscultation: normal bowel sounds Extrem: General: normal to inspection, no pedal edema and no calf tenderness CLINICAL MANAGER - PN: Obj Data Vital Signs Vital Signs: Vital Signs - 24 hr 06/22/25 10:45 06/22/25 11:00 06/22/25 11:15 Temperature Pulse Rate 85 77 79 Respiratory Rate 13 14 19 Blood Pressure 121/80 112/80 112/80 Pulse Oximetry 100 98 98 Oxygen Delivery Simple Face Mask Room Air Room Air Oxygen Flow Rate 8 06/22/25 11:30 06/22/25 11:45 06/22/25 12:05 Temperature 97.5 F L 97.3 F L Pulse Rate 77 81 78 Respiratory Rate 13 13 16 Blood Pressure 111/81 126/81 106/73 Pulse Oximetry 97 96 97 Oxygen Delivery Room Air Room Air Oxygen Flow Rate 06/22/25 13:05 06/22/25 13:05 06/22/25 14:55 Temperature 98.0 F 97.7 F Pulse Rate 80 80 84 Respiratory Rate 16 16 16 Blood Pressure 105/78 109/70 Pulse Oximetry 100 100 93 Oxygen Delivery Room Air Oxygen Flow Rate 06/22/25 14:55 06/22/25 15:03 06/22/25 19:05 Temperature 98.2 F Pulse Rate 84 97 100 Respiratory Rate 18 18 16 Blood Pressure 115/76 144/92 H Pulse Oximetry 93 100 95 Oxygen Delivery Nasal Cannula Oxygen Flow Rate 3 06/22/25 19:05 06/22/25 21:01 06/22/25 23:55 Temperature 98.5 F Pulse Rate 100 88 Respiratory Rate 16 Blood Pressure 135/86 134/84 Pulse Oximetry 97 Oxygen Delivery Room Air Oxygen Flow Rate 06/23/25 04:15 06/23/25 08:08 06/23/25 08:08 Temperature 98.7 F 98.5 F Pulse Rate 97 91 Respiratory Rate 16 16 Blood Pressure 116/68 129/81 Pulse Oximetry 97 97 Oxygen Delivery Room Air Oxygen Flow Rate Intake/Output Intake/Output: Intake & Output 06/20/25 06/21/25 06/22/25 06/23/25 23:59 23:59 23:59 23:59 Intake Total 539.6 Output Total 3050 550 Balance -2510.4 -550 Meds/Results Medications: Active Medications Generic Name Dose Route Start Last Admin Trade Name Freq PRN Reason Stop Dose Admin Acetaminophen 1,000 mg 06/22/25 12:00 06/23/25 07:58 Acetaminophen 500 Mg Tablet PO 1,000 mg Q6HR JOSE Administration Amlodipine Besylate 2.5 mg 06/23/25 09:00 06/23/25 08:02 Amlodipine Besylate 2.5 Mg Tablet PO Not Given DAILY JOSE Buspirone HCl 7.5 mg 06/22/25 21:00 06/23/25 07:58 Buspirone Hcl 2.5 Mg Tablet PO 7.5 mg Q12HR JOSE Administration Docusate Sodium 100 mg 06/22/25 17:00 06/23/25 07:58 Docusate Sodium 100 Mg Capsule PO 100 mg BID JOSE Administration Ezetimibe 10 mg 06/23/25 09:00 06/23/25 08:02 Ezetimibe 10 Mg Tablet PO Not Given DAILY JOSE Fenofibrate 145 mg 06/22/25 21:00 06/22/25 21:03 Fenofibrate Nanocrystallized 145 Mg Tablet PO 145 mg HS JOSE Administration Ibuprofen 600 mg 06/23/25 06:00 Ibuprofen 600 Mg Tablet PO Q6HR JOSE Linaclotide 145 mcg 06/22/25 21:00 06/22/25 21:03 Linaclotide 145 Mcg Capsule PO 145 mcg HS JOSE Administration Miscellaneous Information 1 each 06/23/25 00:01 Order Clarification - Propranolol 80 Mg Capsule,Extended Release 24 Hr) XX 07/23/25 00:00 CLARIFY JOSE Naloxone HCl 0.1 mg 06/22/25 11:54 Naloxone Hcl 0.4 Mg/Ml Vial IV PUSH Q2M PRN Respiratory rate less than 10 Non-Formulary Medication 80 mg 06/22/25 17:00 Propranolol PO 07/22/25 16:59 BID JOSE Ondansetron HCl 4 mg 06/22/25 11:54 06/23/25 01:15 Ondansetron Inj 4 Mg/2 Ml Vial IV PUSH 4 mg Q6H PRN Administration Nausea And Vomiting Oxycodone HCl 5 mg 06/22/25 11:54 Oxycodone Hcl (*Crx) 5 Mg Tab Ir PO Q4H PRN Pain Rated 4-6 Oxycodone HCl 10 mg 06/22/25 11:54 06/22/25 21:08 Oxycodone Hcl (*Crx) 5 Mg Tab Ir PO 10 mg Q6H PRN Administration Pain Rated 7-10 Pantoprazole Sodium 40 mg 06/23/25 09:00 06/23/25 07:58 Pantoprazole 40 Mg Tablet PO 40 mg QAM OJSE Administration Phenazopyridine HCl 100 mg 06/22/25 11:54 06/23/25 07:59 Phenazopyridine Hcl 100 Mg Tablet PO 100 mg TID PRN Administration pain Simethicone 80 mg 06/22/25 13:00 06/23/25 07:58 Simethicone 80 Mg Tab.Chew PO 80 mg TIDWM JOSE Administration
== END 2025-06-23 13:24 | disposition home or self-care (01) ==
LOC: ANHSURGERY 05:47 → ANHOB2 11:56
PROVIDERS: PCP Nurse Practitioner Family; Visit Provider Obstetrics & Gynecology
PROC: (CPT 58573; principal; 2025-06-22 07:30)
DX: N88.8 Other specified noninflammatory disorders of cervix uteri (principal); N80.03 Adenomyosis of the uterus; D25.9 Leiomyoma of uterus, unspecified; G89.18 Other acute postprocedural pain; E03.9 Hypothyroidism, unspecified; I10 Essential (primary) hypertension; K21.9 Gastro-esophageal reflux disease without esophagitis; D64.9 Anemia, unspecified; E78.00 Pure hypercholesterolemia, unspecified; F12.90 Cannabis use, unspecified, uncomplicated; Z79.84 Long term (current) use of oral hypoglycemic drugs; Z98.890 Other specified postprocedural states; Z98.51 Tubal ligation status
CPT/HCPCS: 58573; S2900; 81001; 87086; 88307; J0690; A9270; J1100; J1171; J1885; J2003; J2250; J2371; J2405; J2704; J3010; J7030; J7120; Q9968

== ENCOUNTER 2025-08-30 22:14 | Emergency (ER) | payer OTHER, SELFPAY ==
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
[2025-08-30 22:35] VITALS: BP 150/93; PULSE 103; RESP 18; TEMP 36.8; O2SAT 100
[2025-08-31] VITALS (37 sets, daily range): BP systolic 119–150; BP diastolic 79–105; PULSE 80; O2SAT 95–100
[2025-08-31 00:11] LABS: Hematocrit 36.5 % (37.0-47.0); Hemoglobin 11.5 g/dL (12.0-15.0); Immature Granulocyte Percent A 1.1 % (0-0.5); Lymphocytes Absolute Auto 2.68 K/mm3 (0.9-3.2); Mean Corpuscular HGB Conc 31.5 g/dl (32-36); Mean Corpuscular Hemoglobin 30.4 pg (26-34); Mean Corpuscular Volume 96.6 fl (80-100); Nucleated Red Blood Cells Absolute Auto 0.000 K/mm3 (0.0-0.012); Nucleated Red Blood Cells Perc 0.0 % (0.0-0.2); Platelet Count Result 344 k/mm3 (150-375); Red Blood Count 3.78 M/mm3 (4.2-5.4); White Blood Count 10.0 K/mm3 (4.5-10.0)
[2025-08-31 00:25] LABS: Add Urine Microscopic? NO; Appearance Urine Clear (Clear); Glucose Urine UA Negative (Negative); Leukocyte Esterase Ur Negative LEU/UL (Negative); Nitrate Urine Negative (Negative); Specific Grav Ur 1.019 (1.001-1.035)
[2025-08-31 00:26] LABS: Alanine Aminotransferase 21 U/L (6-35); Albumin Level 4.3 g/dL (3.5-5.1); Alkaline Phosphatase 69 U/L (38-126); Anion Gap 7 mmol/L (4-12); Aspartate Amino Transferase 27 U/L (14-36); Bilirubin,Total 0.4 mg/dL (0.2-1.3); Blood Urea Nitrogen 11 mg/dL (7-17); Calcium 9.0 mg/dL (8.4-10.2); Carbon Dioxide 27 mmol/L (22-30); Chloride 103 mmol/L (98-107); Estimated CRCL calculation 92 ml/min; Estimated Glomerular Filt Rate > 60; Glucose 110 mg/dL (65-110); Lipase 79 U/L (23-300); Potassium 3.5 mmol/L (3.4-5.0); Sodium 137 mmol/L (137-145); Total Protein 7.7 g/dL (6.3-8.2)
[2025-08-31] MEDS: HYDROcodone/acetaminophen (*CRX) 5-325 MG TABLET 1 TAB PO (01:21)
[2025-08-31] MEDS: CYCLOBENZAPRINE HCL 10 MG TABLET PO (01:21)
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
== END 2025-08-31 06:19 | disposition home or self-care (01) ==
PROVIDERS: Student in an Organized Health Care Education/Training Program; Emergency Provider Physician Assistant; PCP Nurse Practitioner Family
DX: R10.32 Left lower quadrant pain (principal); I10 Essential (primary) hypertension; E03.9 Hypothyroidism, unspecified; E78.5 Hyperlipidemia, unspecified; Z79.899 Other long term (current) drug therapy
CPT/HCPCS: 36415; 74177; 80053; 81003; 83690; 85025; 99284; A9270; Q9967